=== PATIENT | female | born 1940 | race Caucasian/White ===

== ENCOUNTER 2021-02-03 10:39 | Outpatient (CLI) | payer MEDICARE, SELFPAY ==
[2021-02-03 12:53] LABS: Basophils # 0.1 10^3/uL (0.0-0.1); Basophils % 0.9 %; Eosinophils % 0.5 %; Hematocrit 34.6 % (37.0-47.0); Hemoglobin 10.8 g/dL (11.5-15.3); Lymphocytes # 0.9 10^3/uL (0.8-4.8); Lymphocytes % 14.1 %; Mean Corpuscular HGB Conc 31.2 g/dL (30.0-36.0); Mean Corpuscular Volume 89.6 fl (81-99); Mean Platelet Volume 9.1 fL (7.4-10.4); Monocytes # 0.8 10^3/uL (0.2-0.9); Monocytes % 12.5 %; Neutrophils # 4.53 10^3/uL (1.8-7.7); Neutrophils % 71.5 %; Nucleated Red Blood Cells % 0 %; Platelet Count 400 10^3/cmm (130-400); Red Blood Count 3.86 10^6/uL (4.1-5.3); Red Cell Distribution Width 14.1 % (12.1-15.1); White Blood Count 6.3 10^3/uL (4.0-10.0)
[2021-02-03 13:25] LABS: Alanine Aminotransferase 9 U/L (0-33); Albumin Level 3.5 g/dL (3.5-5.2); Alkaline Phosphatase 100 IU/L (35-105); Anion Gap 15.8 (5-19); Aspartate Amino Transferase 24 U/L (0-32); Blood Urea Nitrogen 13 mg/dL (8-23); CA 125 101.4 U/mL (0-35); CA 15-3 269.4 U/mL (0-25); Calcium 9.3 mg/dL (8.5-10.5); Carbon Dioxide 27 mmol/L (22-29); Chloride 95 mmol/L (98-107); Globulin 4.8 g/dL (1.3-4.6); Glucose 99 mg/dL (65-115); Osmolality Calculated 278 mOsm/kg (285-295); Potassium 3.8 mmol/L (3.5-5.1); Sodium 134 mmol/L (136-145); Thyroid Stimulating Hormone 1.53 uIU/mL (0.27-4.20); Total Bilirubin 0.5 mg/dL (0.15-1.2); Total Protein 8.3 g/dL (6.6-8.7)
--- NOTE | 2021-02-03 20:20 | ONC CON_ITS ---
Dr. Echevarria New Patient Note Patient: Aicha Nath Unit #: [id number]: [id number] Dicatated By: Keyon Echevarria M.D.Date of Visit: Feb 03, 2021 Onc MED New Patient/Consult Referring Physician: Chief Complaint: Metastatic serous adenocarcinoma. 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 On 12/31/2020 she was admitted to [facility] after presenting to the [facility] emergency room with shortness of breath and lower extremity edema. Her initial chest CT scan showed evidence of right lower lobe lung mass and large right pleural effusion. Her repeat chest CT on 01/02/2021 again showed large right pleural effusion and extensive infiltrate in the right lung. A 46 mm mass was noted at the thoracic inlet on the left and a 51 mm mass was noted in the right lower lobe. The right breast appeared somewhat more dense than the left. Her CT abdomen/pelvis on 01/06/2021 again showed large right pleural effusion and right lower lobe lung mass measuring 5.0 x 4.5 cm. A small hypoattenuating lesion in the hepatic segment 6 was too small to characterize. The adrenal glands appeared normal. There was an infiltrative masslike appearance throughout the uterus measuring approximately 12.6 x 7.4 x 11.3 cm and there was diffuse endometrial calcification with infiltrative mass within the endometrial canal. There was masslike thickening of the cervix with adjacent pelvic sidewall lymphadenopathy. There was noted to be loss of the fat plane between the uterine mass and the sigmoid colon. There were complex ventral abdominal wall hernias containing loops of nonobstructed bowel. There were multiple prominent mesenteric lymph nodes and enlarged retroperitoneal lymph nodes as well as bilateral inguinal lymphadenopathy. MRI of the brain showed no evidence of metastatic disease. During her hospitalization she underwent thoracentesis on 2 occasions with negative pleural fluid cytology. Needle biopsy of the right lung mass on 01/09/2021 showed metastatic serous adenocarcinoma favoring uterine primary. By IHC the tumor cells were positive for CK7, PAX8, p16, and WT-1. They were negative for CK20, p53, TTF-1, and CDX2. She is seen for further management. She says her energy is very low, and she has very limited activity. She basically is just getting from the bedroom to the couch. ECOG score is 3. Her appetite and oral intake are poor. She has had a weight loss in the range of 30 pounds despite having lower extremity edema. She does not have fever or night sweats. She complains that she feels cold all the time. She has shortness of breath and cough, that is starting to get worse again. She does not complain of chest pain. She has not been having nausea, but she does have some mild constipation and she is having pain in the lower abdominal area. Bladder function has been okay. She has no significant joint or bone pain. She does not complain of headache or dizziness. She has no numbness/paresthesia or other focal neurologic symptoms, but she does complain that she is quivery. Past Medical History: She has had seasonal allergies. She has no other prior medical illnesses. Past Surgical History: Her prior surgeries includes cholecystectomy and tonsillectomy. Medications: Adult Aspirin Regimen 1 Tablet (of 81 mg) Tablet, enteric coated Oral daily, Furosemide 1 Tablet (of 20 mg) Oral daily Allergies: No Known Allergies. Social History: Ms. Nath is . She is a non-smoker. She does not drink alcohol. Family History: Father of rectal cancer age 54. Mother at age 76 with a smoking-related oral cancer. Two brothers are still living. Her maternal grandmother had diabetes. Review Of Symptoms: Constitutional - Her energy is very low, and she has very limited activity. Appetite and oral intake are poor. She has had weight loss in the range of 30 pounds despite having developed significant swelling. She does not have fever, night sweats, or hot flashes. ECOG score is 3, Eyes - She has had some decline in vision associated with cataracts, ENMT - She has tinnitus, but no hearing loss. No sinus congestion/drainage. She has dry mouth. No sore throat or difficulty swallowing, Hematologic/Lymphatic - No abnormal bruising or bleeding, Respiratory - She has shortness of breath and cough. No pleuritic pain or hemoptysis, Cardiovascular - No angina pain. No palpitations, Gastrointestinal - No nausea or vomiting. No heartburn or acid reflux. She has mild constipation and she has pain in the lower abdominal area. No blood in the stool or black stools, Genitourinary (F) - No dysuria or hematuria. No urinary frequency. No urgency or incontinence, Musculoskeletal - No significant joint or bone pain, Integumentary - No skin rash or other skin changes, Neurologic - No headache or dizziness. She has no numbness/paresthesia, but she does complain that she is quivery, Psychiatric - No anxiety or depression. No insomnia. Vital Signs: Performed on Feb 03, 2021 11:41: 7, 0, 40.13 (HIGH), 2.09 sq.m, 64 in, 95 % (LOW), 105 /min (HIGH), 18 /min, 158/80 mm(hg) (HIGH), 97.5 F (LOW), and 233.8 lbs (HIGH). Physical Examination: Constitutional - She appears generally weak, Eyes - Sclerae nonicteric. Conjunctivae clear, ENMT - No lesions noted in the oral cavity, Neck - No mass or thyromegaly, Hematologic/Lymphatic - No cervical adenopathy. There is a palpable node in the left supraclavicular fossa which measures in the range of 3 cm, Respiratory - Lungs show diminished air movement and dullness on the right. The left lung sounds clear, Cardiovascular - Heart rhythm is regular. There is no murmur, gallop, or rub noted, Breasts - There is large mass occupying the lateral aspect of the right breast. The left pressure shows no mass. There is no axillary adenopathy noted, Abdomen - Moderately distended. Liver and spleen are not enlarged. There is a large mass palpable in the mid abdomen below the umbilicus. There is no obvious ascites. There is no inguinal adenopathy noted, Back/Spine - No spine or CVA tenderness noted, Extremities - There is 2+ lower extremity edema, Integumentary - No rashes. No suspicious skin lesions noted, Neurologic - No focal neurologic deficits noted. Problem List: 1. 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 Overall, the clinical and pathologic findings are most consistent with uterine primary malignancy. She has multiple sites of metastatic involvement. 2. She has associated right pleural effusion which likely is recurring. 3. She has seasonal allergies. Problems Addressed with this Encounter and Plan: Patient with metastatic serous adenocarcinoma. The CT findings and the pathology are most consistent with uterine primary malignancy. She has associated right pleural effusion, which appears to be recurring, and she has multiple other sites of metastatic involvement. She has had a significant decline in her performance status. The CT findings and images were reviewed with the patient. I also discussed the pathology results and the clinical implications. She has advanced malignancy, most likely metastatic serous adenocarcinoma of the endometrium. She may potentially benefit with systemic therapy, but specific treatment recommendations will depend on additional pathologic studies. I have spoken with the pathologist in [place], and he is going to see if there is sufficient sample available for HER-2/wendy testing. It appears unlikely that they will be able to get next generation sequencing or MSI studies, in which case we may have to use liquid biopsy or obtain additional tissue for analysis. In the meantime, I will check additional laboratory studies today to include CBC, comprehensive metabolic profile, CA-125 level, and CA 15-3 level. I also will repeat a chest x-ray and if she has reaccumulated significant pleural effusion, I will arrange for placement of a pleural catheter. Signed By: Keyon Echevarria M.D. <<Signature on File>>
== END 2021-02-03 10:40 | disposition home or self-care (01) ==
LOC: ONCMED 10:43
PROVIDERS: Visit Provider Internal Medicine Medical Oncology
DX: C54.1 Malignant neoplasm of endometrium (principal); C78.01 Secondary malignant neoplasm of right lung; J90 Pleural effusion, not elsewhere classified; J30.9 Allergic rhinitis, unspecified; R06.02 Shortness of breath; J98.11 Atelectasis; R97.8 Other abnormal tumor markers; Z79.899 Other long term (current) drug therapy
CPT/HCPCS: 36415; 71046; 80053; 84443; 85025; 86300; 86304; 90471; 90670; 90686; 99205

== ENCOUNTER 2021-02-03 13:38 | Outpatient (CLI) | payer MEDICARE, SELFPAY ==
--- NOTE | 2021-02-03 13:45 | XR_ITS ---
WS: [id number] Exam: XR chest 2V* [id number] Date/Time of Exam: 02/03/2021 1:50 PM Reason For Exam: SHORTNESS OF BREATH Comparison 01/10/2021. There is atelectasis of the middle and lower lobes of the right lung with minimal improvement since p revious study. Right basal pleural effusion is noted. The left lung is clear and fully expanded. Norm al cardiomediastinal silhouette. Bony structures are intact. XR/XR chest 2V* [id number] IMPRESSION: 1. Atelectasis of the middle and lower lobes the right lung slightly improved. Right pleural effusion noted.
== END 2021-02-03 13:39 | disposition home or self-care (01) ==
LOC: RAD 13:41
PROVIDERS: Visit Provider Internal Medicine Medical Oncology
DX: R06.02 Shortness of breath (principal); J98.11 Atelectasis; J90 Pleural effusion, not elsewhere classified
CPT/HCPCS: 71046

== ENCOUNTER → 2021-02-05 10:19 | Outpatient (BNVA) | payer MEDICARE, SELFPAY | PROVIDERS: Visit Provider Internal Medicine Medical Oncology | DX: Z01.818 Encounter for other preprocedural examination (principal); Z20.822 Contact with and (suspected) exposure to COVID-19 | CPT/HCPCS: 87635 ==

== ENCOUNTER 2021-02-09 06:55 | Day surgery (SDC) | payer MEDICARE, SELFPAY ==
[2021-02-06 11:19] VITALS: BMI 39.4
[2021-02-09] VITALS (8 sets, daily range): BP systolic 117–159; BP diastolic 76–93; PULSE 84–91; RESP 16–30; TEMP 36.6–36.9; O2SAT 91–94
--- NOTE | 2021-02-09 | SCC_ITS ---
Procedure Done: Right pleural drain placement 25.0 seconds of fluoroscopic guidance, for a cumulative dose of 6.37 mGy, was provided to Dr. Casas by the radiology department. C-arm images of the chest were saved for the patient's permanent record. [facility]
--- NOTE | 2021-02-09 06:48 | SC_ITS ---
WS: [id number] INTRAOPERATIVE TECHNIQUE: 2 Spot fluoroscopic images for intraoperative purposes. FLUOROSCOPY TIME: 25.0 seconds CLINICAL INFORMATION: juan drain placement COMPARISON: None. FINDINGS: Juan drain placement right lower lobe. SC/C-arm FL for Drainage [id number] IMPRESSION: Images obtained for intraoperative purposes.
[2021-02-09] MEDS: sodium chloride 0.9% 1,000 ML 30 ML IV (07:34)
[2021-02-09 07:45] LABS: Basophils # 0.1 10^3/uL (0.0-0.1); Basophils % 0.9 %; Eosinophils % 0.7 %; Hematocrit 35.2 % (37.0-47.0); Hemoglobin 10.8 g/dL (11.5-15.3); Lymphocytes # 0.9 10^3/uL (0.8-4.8); Lymphocytes % 16.1 %; Mean Corpuscular HGB Conc 30.7 g/dL (30.0-36.0); Mean Corpuscular Hemoglobin 27.4 pg (28.0-34.0); Mean Corpuscular Volume 89.3 fl (81-99); Mean Platelet Volume 9.6 fL (7.4-10.4); Monocytes # 0.8 10^3/uL (0.2-0.9); Monocytes % 13.7 %; Neutrophils # 3.98 10^3/uL (1.8-7.7); Neutrophils % 68.1 %; Nucleated Red Blood Cells % 0 %; Platelet Count 433 10^3/cmm (130-400); Red Blood Count 3.94 10^6/uL (4.1-5.3); Red Cell Distribution Width 14.5 % (12.1-15.1); White Blood Count 5.8 10^3/uL (4.0-10.0)
--- NOTE | 2021-02-09 07:47 | ANES.PREANE2 ---
Pre-Anesthetic Assessment Pre-Anesthetic Assessment: Height/Weight: Height 1.63 m Weight 104.326 kg Preop Diagnosis: Right pleural effusion Proposed Procedure: Operation Date: 02/09/21 08:30 Proposed Procedures p Juan Pleural Catheter Insertion(Not Applicable) - Glenroy Casas MD Familial anesthetic complications: None Was Beta Sarah taken within 24 hours: N/A Was Clonidine taken within 24 hours: N/A Last intake: Intake Last Liquid Date 02/08/21 Last Liquid Time 18:00 Last Solid Date 02/08/21 Last Solid Time 18:00 Social: Social History: No alcohol and No tobacco Exam: Pre-Anes Outpt Exam: alert, oriented x 3, clear to auscultation bilaterally and regular rate & rhythm Airway: MP: 1 Dentition: Partials Pulmonary: Comments: Pleural effusion (metastatic cancer) Anesthetic Plan: ASA status: 4 Anesthesia: MAC Risk of > 500 ml blood loss (7ml/kg in children): No Meds/Allergies Current Medications: Current Medications Generic Name Dose Route Start Last Admin Trade Name Freq PRN Reason Stop Dose Admin Sodium Chloride 1,000 mls @ 30 ml s/hr 02/09/21 07:30 02/09/21 07:34 Sodium Chloride 0.9% IV 30 mls/hr .Q24H CHANTELLE Administration PFSH Anesthesia PFSH: Social History (Updated 02/06/21 @ 11:15 by Sandra Carrasco) Smoking and tobacco status: never smoked Alcohol intake: never Data Anesthesia CBC & Chem 7: 02/09/21 07:25 02/09/21 07:25 Other Labs: Laboratory Results - last 48 hr 02/09/21 07:25 WBC 5.8 RBC 3.94 L Hgb 10.8 L Hct 35.2 L MCV 89.3 MCH 27.4 L MCHC 30.7 RDW 14.5 Plt Count 433 H MPV 9.6 Neut % (Auto) 68.1 Lymph % (Auto) 16.1 [place] % (Auto) 13.7 Eos % (Auto) 0.7 Baso % (Auto) 0.9 Neut # (Auto) 3.98 Lymph # (Auto) 0.9 [place] # (Auto) 0.8 Eos # (Auto) 0.0 Baso # (Auto) 0.1 Nucleated RBC % (auto) 0 Nucleated RBCs # 0.0 Cardiac Studies: No Data to Display
[2021-02-09 08:03] LABS: Blood Urea Nitrogen 11 mg/dL (8-23); Calcium 9.4 mg/dL (8.5-10.5); Carbon Dioxide 26 mmol/L (22-29); Chloride 93 mmol/L (98-107); Glucose 99 mg/dL (65-115); Osmolality Calculated 273 mOsm/kg (285-295); Sodium 132 mmol/L (136-145)
--- NOTE | 2021-02-09 08:03 | P.HPUD_ITS ---
Surgery/Procedure H&P Update DATE OF PROCEDURE: February 09, 2021 DATE H&P PERFORMED: 02/03/21 H&P UPDATE INFORMATION: I have reviewed H&P completed within last 30 days, I have examined patient prior to procedure and No changes to prior documentation PREOP DIAGNOSIS: Right pleural effusion PLANNED PROCEDURE: Operation Date: 02/09/21 08:30 Proposed Procedures p [place] Pleural Catheter Insertion(Not Applicable) - Glenroy Casas MD
[2021-02-09 08:07] LABS: Anion Gap 17.4 (5-19); Potassium 4.4 mmol/L (3.5-5.1)
--- NOTE | 2021-02-09 09:00 | PM.OP ---
Operative Report Date of procedure: February 09, 2021 Pre-op Diagnosis: Right pleural effusion Post-op diagnosis: same Procedure Done: Right pleural drain placement Specimens removed/disposition: 100 cc of serosanguineous pleural fluid Pathology: none sent Surgeon: Glenroy Casas Anesthesia: MAC and Local Condition: stable Disposition: same day Brief History: 80-year-old female with malignant right pleural effusion is required 2 prior thoracenteses. She is currently undergoing evaluations and treatment plans through oncology and Dr. Echevarria. Pleural drain placement has been requested to assist with management of this recurrent pleural effusion. Details the risk of the procedure were carefully and frankly discussed. Proper consents have been reviewed and signed. Procedure: The entire right chest was sterilely prepped and draped. 1% lidocaine was infiltrated in the posterior axillary line approximately at the seventh interspace level. Introducer needle was then placed with return of nazanin-colored pleural fluid. Fluoroscopy was subsequently utilized throughout the procedure for guidewire and dilator advancement and subsequent introducer positioning and [place] catheter drain placement. Lidocaine was utilized to infiltrate the subcutaneous layer continuing anteriorly. A #11 scalpel blade was used to incise the skin on the guidewire and also anteriorly. Tunneler was utilized to pass the drain anteriorly to posteriorly in the subcutaneous fashion. Dilators were then placed over the guidewire to dilate the tract into the pleural space. Dilator and tear away sheath was then placed. Dilator was removed and pleural drain was placed to the tear-away sheath and the tear-away sheath was then removed. Drain was easily aspirated of approximately 100 cc of serosanguineous pleural fluid. Once completed, the incisions were closed with 3-0 Vicryl suture. A silk suture was utilized to secure the drain to the skin. Patient tolerated procedure well. Sterile dressings were applied. Ms. Nath was taken to the PACU where a chest x-ray is pending. I did treatment counselor with the family at the completion of the procedure.
--- NOTE | 2021-02-09 09:21 | XRR_ITS ---
PROCEDURE INFORMATION: Exam: XR Chest Exam date and time: 02/09/2021 9:21 AM Age: 80 years old Clinical indication: Device placement; Other: Demver drain placement; Prior surgery; Surgery date: Post-operative (0-2 days); Additional info: Post sandeep drain placement, x ray in pacu TECHNIQUE: Imaging protocol: XR of the chest. Views: 1 view. Total images: 1 COMPARISON: CR XR chest 2V* [id number] 02/03/2021 1:52 PM FINDINGS: Tubes, catheters and devices: Small bore chest tube felt to be present in the inferior pleural space on the right. Lungs: Stable right pleuroparenchymal disease. Pleural spaces: No pneumothorax. Heart/Mediastinum: Heart size is stable when compared to the prior exam. Bones/joints: Osseous structures are unchanged from the prior exam. XR/XR chest 1V portable [id number] IMPRESSION: 1. Small bore chest tube felt to be present in the inferior pleural space on the right. 2. Stable right pleuroparenchymal disease. Radiation Dose CTDIVOL = (mGy): DLP = (mGy-cm)
--- NOTE | 2021-02-09 09:21 | SUR.PHASEI ---
X RAY ORDERED BY OR NURSE, PT AWAKE ALERT SATS 93% ON RA. VSS. RESP 24 NON LABORED.
[2021-02-09] MEDS: HYDROcodone-acetaminophen 5-325 mg Tablet 1 TAB PO (09:36)
--- NOTE | 2021-02-09 18:53 | ANE.PACU2 ---
Inpatient post-anesthesia follow up: Airway intact: Yes Vital signs: Temperature 97.9 F Pulse Rate 90 Respiratory Rate 18 Blood Pressure 159/91 Pulse Oximetry 93 Oxygen Delivery Me thod Room Air Oxygen Flow Rate Fraction of Inspir ed Oxygen Hydration adequate: Yes Nausea and vomiting: No Pain level: 2 Mental status: Baseline
== END 2021-02-09 10:04 | disposition home or self-care (01) ==
PROVIDERS: Visit Provider Thoracic Surgery (Cardiothoracic Vascular Surgery)
PROC: 0W9830Z Drainage of Chest Wall with Drainage Device, Percutaneous Approach (ICD-10-PCS; CPT 32550; principal; 2021-02-09 08:30)
DX: J90 Pleural effusion, not elsewhere classified (principal); C78.01 Secondary malignant neoplasm of right lung; Z90.49 Acquired absence of other specified parts of digestive tract
CPT/HCPCS: 32550; 36415; 71045; 75989; 80048; 85025; C1729; J0690; J2250; J2405; J2704; J7030

== ENCOUNTER → 2021-02-13 14:19 | Day surgery (SDC) | payer MEDICARE, SELFPAY ==
[2021-02-13 14:49] VITALS: BMI 39.4
[2021-02-13 14:56] VITALS: BP 147/79; PULSE 98; RESP 18; TEMP 36.1; O2SAT 97
== END ==
PROVIDERS: PCP Nurse Practitioner Family; Visit Provider Thoracic Surgery (Cardiothoracic Vascular Surgery)
DX: Z48.03 Encounter for change or removal of drains (principal); Z01.812 Encounter for preprocedural laboratory examination; Z20.822 Contact with and (suspected) exposure to COVID-19
CPT/HCPCS: 87635; J0171; J2704

== ENCOUNTER 2021-02-15 09:23 | Emergency (ER) | payer MEDICARE, SELFPAY ==
[2021-02-15 09:37] VITALS: BP 127/73; PULSE 99; RESP 20; TEMP 36.6; O2SAT 93; BMI 39.4
--- NOTE | 2021-02-15 09:41 | ED_ITS ---
HPI - GI Bleed General: Chief complaint: GI Bleed Stated complaint: BLOOD IN STOOL Time Seen by Provider: 02/15/21 09:41 Source: patient and family Mode of arrival: ambulatory History of Present Illness: HPI Narrative: 80-year-old female presents to emergency department chief complaint of dark tarry stools that been ongoing progressively worse the last for 5 days. Patient reports that she has been recently diagnosed with metastatic cancer reports that she is just undergone a recent procedure including a thoracentesis for therapeutic draining on her chest. 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 Patient presents to the ER if she had a persistent continued dark stools. She reports that she is concerned with blood mixed in. She did report when she was first diagnosed in [facility] she was transported and transferred to [facility] in [facility] where she was also found to have a questionable tumor in her stomach or intestines. The patient reports he is unaware of the outcome of these procedures and imaging. She reports that she has had at a moderate anorexia with appetite reduction and mild heartburn related symptoms reports no other associated symptoms. complaint: coffee ground emesis, blood on toilet paper, melena and blood streaked stool Onset (ago): day(s) (4) Pain Consistency: intermittent and colicky Severity: similar to previous episodes Relieving factors: none Exacerbating factors: eating Associated symptoms: Reports malaise and poor appetite; Denies abdominal pain, headache(s), nausea, rash or vomiting Treatments Prior to Arrival: none Review of Systems General: Reports: 10 or more systems reviewed and unremarkable except in HPI and below Const: Reports: malaise Eyes: Denies: change in vision or blurry vision Card: Denies: chest pain or palpitations Resp: Denies: dyspnea or productive cough GI: Reports: diarrhea, hematochezia, melena and mucus in stool; Denies: abdominal pain, nausea or vomiting : Denies: flank pain Musc: Denies: extremity pain or extremity swelling Skin/Breast: Denies: rash or pruritus Neuro: Denies: headache(s) Psych: Denies: anxiety or depression Grzegorz/Lymph: Denies: easy bleeding All/Imm: Denies: urticaria, throat swelling or facial swelling PFSH ED PFSH: Social History Smoking and tobacco status: never smoked Alcohol intake: never Physical Exam Const: COMMON NORMALS: no acute distress (Patient appears to have a flat affect her appears and obviously distressed.), patient oriented x3 and healthy appearing HENMT: COMMON NORMALS: normocephalic and atraumatic HEAD & SCALP: normocephalic and atraumatic Eye: COMMON NORMALS: Equal, round and reactive pupils present and EOMs intact bilaterally PUPIL: Yes Equal, round and reactive pupils present Neck/C-Spine: COMMON NORMALS: full ROM, supple and no JVD Lymph: LYMPHATIC: no lymphadenopathy noted Chest: COMMONS NORMALS: normal inspection of the chest and normal palpation of entire chest wall Resp: COMMON NORMALS: normal respiratory effort, No retractions and clear to auscultation bilaterally EFFORT & INSPECTION: Yes able to speak in complete sentences and Yes symmetric chest movement AUSCULTATION: clear to auscultation bilaterally Cardio: COMMON NORMALS: no JVD, regular rate and regular rhythm RATE: regular rate RHYTHM: regular rhythm GI: COMMON NORMALS: Normal to inspection, nondistended, normoactive bowel sounds present, Soft to palpation and non-tender; negative for no masses (What appears to be a ventral mass noted upper abdomen approxi-4 to 5 cm sri) INSPECTION: Yes normal to inspection, No caput medusae present and No Fluid wave present AUSCULTATION: Yes normoactive bowel sounds PALPATION: Yes Soft to palpation, No Tenderness to palpation present (GI), No Guarding due to palpation present (GI), No Rigid due to palpation and Yes Palpable mass present PERCUSSION: no fluid wave : COMMON NORMALS: Yes no CVA tenderness BLADDER/KIDNEY EXAM: Yes no CVA tenderness Back/Pelvis: COMMON NORMALS: no CVA tenderness Extremity: COMMON NORMALS: normal to inspection and full ROM Neuro: COMMON NORMALS: patient oriented x3, CN's II-XII intact bilaterally, moves all extremities and no focal motor deficits Psych: COMMON NORMALS: mental status grossly normal, Normal thought process present, cooperative and normal affect THOUGHT PROCESS: Normal thought process present Skin: COMMON NORMALS: no rashes or lesions noted GENERAL SKIN EXAM: no rashes or lesions noted Course Vital Signs: Vital signs: Vital Signs Temperature 97.9 F 02/15/21 09:37 Pulse Rate 99 02/15/21 09:37 Respiratory Rate 20 H 02/15/21 09:37 Blood Pressure 127/73 02/15/21 09:37 Pulse Oximetry 93 02/15/21 09:37 MDM - GI Bleed MDM Narrative: Medical decision making narrative: Due to the patient's symptoms condition IV will be established lab work imaging will be obtained we will continue to follow after initial work-up patient made mention to the staff that she is adamant about not. Provided any blood transfusions as it goes against her belief system staff acknowledges. Patient's hemoglobin looks relatively stable and her lab work also came back unremarkable patient wanted report of reports and checked her daughter of prior the patient is more upper GI bleed. He is to be stable at this time most likely secondary to gastritis advised patient his findings and dark coating her uterine mass and also intraperitoneal small masses that were noted there previously with underlying concerns of been metastatic adenocarcinoma patient be started on some medication for stomach advised she further follow-up with her oncologist next 2 to 3 days which was advised return the interim if any of her symptoms persist or worse. Lab Data: Labs: Lab Results 02/15/21 02/15/21 Unknown Unknown WBC 5.9 10^3/uL 10^3/ uL (4.0-10.0) RBC 3.66 10^6/uL L 10 ^6/uL (4.1-5.3) Hgb 10.0 g/dL L g/dL (11.5-15.3) Hct 32.5 % L % (37.0-47.0) MCV 88.8 fl fl (81-99) MCH 27.3 pg L pg (28.0-34.0) MCHC 30.8 g/dL g/dL (30.0-36.0) RDW 14.7 % % (12.1-15.1) Plt Count 374 10^3/cmm 10^3 /cmm (130-400) MPV 9.6 fL fL (7.4-10.4) Neut % (Auto) 74.5 % % Lymph % (Auto) 10.4 % % [place] % (Auto) 13.7 % % Eos % (Auto) 0.2 % % Baso % (Auto) 0.9 % % Neut # (Auto) 4.36 10^3/uL 10^3 /uL (1.8-7.7) Lymph # (Auto) 0.6 10^3/uL L 10^ 3/uL (0.8-4.8) [place]manuel # (Auto) 0.8 10^3/uL 10^3/ uL (0.2-0.9) Eos # (Auto) 0.0 10^3/uL 10^3/ uL (0.0-0.8) Baso # (Auto) 0.1 10^3/uL 10^3/ uL (0.0-0.1) Nucleated RBC % (a uto) 0 % % Nucleated RBCs # 0.0 /100WBC /100W BC Sodium 133 mmol/L L mmol /L (136-145) Potassium 4.4 mmol/L mmol/L (3.5-5.1) Chloride 95 mmol/L L mmol/ L (98-107) Carbon Dioxide 24 mmol/L mmol/L (22-29) Anion Gap 18.4 (5-19) BUN 13 mg/dL mg/dL (8-23) Creatinine 0.8 mg/dL mg/dL (0.5-0.9) GFR Calculation Not Reportable Glucose 96 mg/dL mg/dL (65-115) Calculated Osmolal ity 276 mOsm/kg L mOs m/kg (285-295) Calcium 9.0 mg/dL mg/dL (8.5-10.5) Total Bilirubin 0.5 mg/dL mg/dL (0.15-1.2) AST 28 U/L U/L (0-32) ALT 7 U/L U/L (0-33) Alkaline Phosphata se 100 IU/L IU/L (35-105) Total Protein 7.9 g/dL g/dL (6.6-8.7) Albumin 3.2 g/dL L g/dL (3.5-5.2) Globulin 4.7 g/dL H g/dL (1.3-4.6) Discharge Plan Discharge Patient Disposition: Home Clinical Impression: Metastatic adenocarcinoma, Blood in feces Condition: Stable Prescriptions: New Carafate 1 gram tablet 1 g PO TID Qty: 21 RF: 0 Zofran 4 mg tablet 4 mg PO TID PRN (Reason: nausea and vomiting) Qty: 15 RF: 0 Protonix 40 mg tablet,delayed release (DR/EC) 40 mg PO QAM 14 Days Qty: 14 RF: 0 No Action furosemide 20 mg Tablet 20 mg PO DAILY RF: 0 Discharge Orders: Discharge ED (Routine); Ordered 02/15/21 Ordered By: Xavi Muller Referrals: Corin De La Rosa NP [Primary Care Provider] - Discharge Diet: Advance as tolerated Discharge Activity: Increase activity as tolerated Patient Instructions: Gastritis (ED), Gastrointestinal Bleeding (ED), Opioid Safety Activity Restrictions/Additional Instructions: Please follow-up with your primary care doctor or oncologist next 2 to 3 days, take medications as prescribed and return the interim if any of her symptoms persist or worse. Coding Level of Care Code ED Battery Assembler for Aditya Fwd Exam Comprehensive
--- NOTE | 2021-02-15 10:36 | CTR_ITS ---
PROCEDURE INFORMATION: Exam: CT Abdomen And Pelvis With Contrast Exam date and time: 02/15/2021 10:36 AM Age: 80 years old Clinical indication: Other: Bloody stool; Additional info: Gi bleed TECHNIQUE: Imaging protocol: Computed tomography of the abdomen and pelvis with contrast. Total images: 251 Radiation optimization: All CT scans at this facility use at least one of these dose optimization techniques: automated exposure control; mA and/or kV adjustment per patient size (includes targeted exams where dose is matched to clinical indication); or iterative reconstruction. Contrast material: VISI 320; Contrast volume: 90 ml; Contrast route: INTRAVENOUS (IV); COMPARISON: CT abdomen pelvis w con* [id number] 01/06/2021 3:40 PM RADIATION DOSE METRICS: Total DLP (mGy-cm): 1644.25 FINDINGS: Tubes, catheters and devices: Small bore right pleural drain. Lungs: Consolidation of a large portion of the right lower lobe consistent with atelectasis irregular enhancing mass posterior medially within the pleural space appears essentially unchanged in size. This is partially extending into the right neural foramina of T11. Compressive atelectasis of the left lung base. Pleural spaces: Small left pleural effusion. Diaphragm: A small hiatal hernia is present. Liver: 2 cm hypoattenuated lesion along the anterior margin of the left lobe of the liver has slightly increased in size since the prior exam. No additional liver lesions detected. Gallbladder and bile ducts: Prior cholecystectomy noted. Pancreas: Normal. No ductal dilation. Spleen: Normal. No splenomegaly. Adrenal glands: Normal. No mass. Kidneys and ureters: Moderate hydroureteronephrosis of the right kidney with delayed nephrogram unchanged. Stomach and bowel: No evidence of active GI bleed. Appendix: No evidence of appendicitis. Intraperitoneal space: See Soft tissues finding. Vasculature: Moderate atherosclerotic disease is evident. Lymph nodes: Unremarkable. No enlarged lymph nodes. Urinary bladder: Unremarkable as visualized. Reproductive: Enlarged uterus with fluid distended uterine cavity with endometrial hyperdensity felt to represent calcifications unchanged from prior exam. Irregular lobulated mass seen at the uterine cervix and vagina also appears unchanged. Bones/joints: Spinal degenerative changes are evident. Soft tissues: Moderate right pleural fluid collection with thickened rind of soft tissue of parietal pleura. This rind of soft tissue has increased since the prior exam suggesting developing fibrothorax. Umbilical hernia contains small portion of colon but is without obstruction or inflammation. Additional soft tissue heterogeneous mass in this area appears unchanged from the prior exam. Subjacent anterior peritoneal mass also appears unchanged Impression. CT/CT abdomen pelvis w con* [id number] IMPRESSION: 1. Small bore right pleural drain. 2. Moderate right pleural fluid collection with thickened rind of soft tissue of parietal pleura. This rind of soft tissue has increased since the prior exam suggesting developing fibrothorax. 3. Consolidation of a large portion of the right lower lobe consistent with atelectasis irregular enhancing mass posterior medially within the pleural space appears essentially unchanged in size. This is partially extending into the right neural foramina of T11. 4. Small left pleural effusion with compressive atelectasis. 5. 2 cm hypoattenuated lesion along the anterior margin of the left lobe of the liver has slightly increased in size since the prior exam. 6. Moderate hydroureteronephrosis of the right kidney with delayed nephrogram unchanged. 7. Enlarged uterus with fluid distended uterine cavity with endometrial hyperdensity felt to represent calcifications unchanged from prior exam. Irregular lobulated mass seen at the uterine cervix and vagina also appears unchanged. 8. No evidence of active GI bleed. Radiation Dose CTDIVOL = (mGy): DLP = 1644.25 (mGy-cm)
[2021-02-15 10:54] LABS: Basophils # 0.1 10^3/uL (0.0-0.1); Basophils % 0.9 %; Eosinophils % 0.2 %; Hematocrit 32.5 % (37.0-47.0); Lymphocytes # 0.6 10^3/uL (0.8-4.8); Lymphocytes % 10.4 %; Mean Corpuscular HGB Conc 30.8 g/dL (30.0-36.0); Mean Corpuscular Hemoglobin 27.3 pg (28.0-34.0); Mean Corpuscular Volume 88.8 fl (81-99); Mean Platelet Volume 9.6 fL (7.4-10.4); Monocytes # 0.8 10^3/uL (0.2-0.9); Monocytes % 13.7 %; Neutrophils # 4.36 10^3/uL (1.8-7.7); Neutrophils % 74.5 %; Nucleated Red Blood Cells % 0 %; Platelet Count 374 10^3/cmm (130-400); Red Blood Count 3.66 10^6/uL (4.1-5.3); Red Cell Distribution Width 14.7 % (12.1-15.1); White Blood Count 5.9 10^3/uL (4.0-10.0)
[2021-02-15 11:13] LABS: Alanine Aminotransferase 7 U/L (0-33); Albumin Level 3.2 g/dL (3.5-5.2); Alkaline Phosphatase 100 IU/L (35-105); Aspartate Amino Transferase 28 U/L (0-32); Blood Urea Nitrogen 13 mg/dL (8-23); Carbon Dioxide 24 mmol/L (22-29); Chloride 95 mmol/L (98-107); Globulin 4.7 g/dL (1.3-4.6); Glucose 96 mg/dL (65-115); Osmolality Calculated 276 mOsm/kg (285-295); Sodium 133 mmol/L (136-145); Total Bilirubin 0.5 mg/dL (0.15-1.2); Total Protein 7.9 g/dL (6.6-8.7)
[2021-02-15 11:34] LABS: Anion Gap 18.4 (5-19); Potassium 4.4 mmol/L (3.5-5.1)
[2021-02-15] MEDS: iodixanol 320 mg/mL 100mL Btl IV (12:47)
[2021-02-15] MEDS: pantoprazole 40 mg SDV IVP (15:28)
[2021-02-15] MEDS: ondansetron 2 mg/ML SDV 2 mL 4 MG IVP (15:28)
== END 2021-02-15 16:15 | disposition home or self-care (01) ==
PROVIDERS: Emergency Provider Emergency Medicine; PCP Nurse Practitioner Family
DX: K92.1 Melena (principal); C79.9 Secondary malignant neoplasm of unspecified site; Z85.3 Personal history of malignant neoplasm of breast
CPT/HCPCS: 74177; 80053; 85025; 96374; 96375; 99283; 99291; C9113; J2405; Q9967

== ENCOUNTER 2021-02-17 13:02 | Day surgery (SDC) | payer MEDICARE, SELFPAY ==
[2021-02-13 14:58] VITALS: BMI 39.4
[2021-02-17] VITALS (7 sets, daily range): BP systolic 138–163; BP diastolic 79–99; PULSE 88–98; RESP 18–20; TEMP 36.3–37.6; O2SAT 91–100
--- NOTE | 2021-02-17 | SCC_ITS ---
Procedure Done: 1. Placement of right subclavian vein PowerPort 7.5 seconds of fluoroscopic guidance, for a cumulative dose of 0.79 mGy, was provided to Dr. Mcnulty by the radiology department. C-arm images of the chest were saved for the patient's permanent record. [facility]
--- NOTE | 2021-02-17 13:32 | SC_ITS ---
WS: [id number] C-arm fluoroscopy for Port-A-Cath placement, 02/17/2021 Clinical Data: Powerport Placement Comparison: None. Findings: A right Port-A-Cath has been inserted. There is an endotracheal tube above the arsenio. SC/C-arm FL for CVA [id number] Impression: Right Port-A-Cath insertion.
--- NOTE | 2021-02-17 13:40 | W.PM.OPSUD ---
Surgery/Procedure H&P Update DATE OF PROCEDURE: February 17, 2021 DATE H&P PERFORMED: 02/12/21 H&P UPDATE INFORMATION: I have reviewed H&P completed within last 30 days, I have examined patient prior to procedure and No changes to prior documentation PREOP DIAGNOSIS: Metastatic adenocarcinoma PRIMARY INDICATION FOR PROCEDURE: The same PLANNED PROCEDURE: Operation Date: 02/17/21 14:55 Proposed Procedures p Portacath Placement 76964 C79.9(Not Applicable) - Mark Mcnulty MD
--- NOTE | 2021-02-17 14:02 | ANES.PREANE2 ---
Pre-Anesthetic Assessment Pre-Anesthetic Assessment: Height/Weight: Height 1.63 m Weight 104.326 kg Temp Pulse Resp BP Pulse Ox 97.4 F L 98 18 138/79 93 02/17/21 13:46 02/17/21 13:46 02/17/21 13:46 02/17/21 13:46 02/17/21 13:46 Preop Diagnosis: Metastatic adenocarcinoma Proposed Procedure: Operation Date: 02/17/21 14:55 Proposed Procedures p Portacath Placement 55059 C79.9(Not Applicable) - Mark Mcnulty MD Was Beta Sarah taken within 24 hours: N/A Was Clonidine taken within 24 hours: N/A Social: Social History: No alcohol and No tobacco Exam: Pre-Anes Outpt Exam: alert, oriented x 3, clear to auscultation bilaterally and regular rate & rhythm Airway: Submandibular: WNL Cervical ROM: WNL MP: 3 Dentition: Partials History/ROS: No significant complaints GI: GI: GERD Anesthetic Plan: ASA status: 3 Anesthesia: Anesthesia Evaluation, General and MAC Risk of > 500 ml blood loss (7ml/kg in children): No PFSH Anesthesia PFSH: Social History Smoking and tobacco status: never smoked Alcohol intake: never Data Anesthesia Cardiac Studies: No Data to Display
[2021-02-17] MEDS: sodium chloride 0.9% 1,000 ML 30 ML IV (15:04)
[2021-02-17] MEDS: ceFAZolin 3,000 MG in sodium chloride 0.9% (100 ml) 100 ML 200 MG IV (15:12)
[2021-02-17] MEDS: heparin, porcine 1,000 unit/mL INJ 10 mL 10000 UNIT IRRIGATION (15:20)
[2021-02-17] MEDS: lidocaine 2% INJ 20 mL INJECTION (15:20)
--- NOTE | 2021-02-17 15:26 | P.OP_ITS ---
Operative Report Date of procedure: February 17, 2021 Pre-op Diagnosis: Metastatic adenocarcinoma Post-op diagnosis: same Procedure Done: 1. Placement of right subclavian vein PowerPort 2. Fluoroscopic guidance and interpretation for placement of catheter Implants: Right subclavian PowerPort Surgeon: Mark Mcnulty Supervisor Floor Assembly: sanitation techniciantiara Bragg Circulating nurse Antonietta Anesthesia: General (MOOSEA MEETA Erwin) Estimated blood loss (mL): 5 Condition: stable Disposition: same day Procedure: Patient was identified in the holding area and taken to the operative room and placed in supine position IV propofol was given by the anesthesia provider followed by intubating the patient ,both arms were tucked,Time-out was done verifying the patient's name/date of /planned procedure and destination after the procedure, all were in agreement. SCDs confirmed to be functioning, preoperative antibiotics administered per protocol, and beta cameron protocol was confirmed, appropriate positioning of the patient was done by me. Pressure attention was paid to the right hemithorax Spring drain. Medications were reviewed to assess for anticoagulant usage. Risks and benefits and prevention of central line associated blood stream infection (CLABSI) were discussed with the patient/CPOA, and a consent was obtained. Monitors were in place and monitored throughout the procedure. All necessary supplies were available prior to start. Hand hygiene was completed prior to starting. Maximum barrier technique was utilized including a sterile gown, sterile gloves with a hat and mask. Site was was prepped with [chlorhexidine] and a full body drape was placed. 5 mL of 2% lidocaine was injected into the skin with a 25 gauge needle. Prep& drape was done under the usual sterile technique, lidocaine 2% was injected at the site of the stick, started by right subclavian stick that retrieved venous blood was obtained from the first stick, a guidewire was then threaded and under the guidance of fluoroscopy position was confirmed to be in the IVC and my interpretation, there was no PVC changes, at that point the guidewire was secured to the drapes with a hemostat and the needle was taken out, attention was then deviated towards creation of a pocket for the port were lidocaine 2% was injected using an 15 blade knife skin incision was created dissection using the Bovie to create a pocket for the Port-A-Cath to be accommodated, hemostasis was secured, after the port being appropriately flushed it was inserted into the pocket and a tunneler was used to accommodate the catheter of the PowerPort to be delivered through the incision first created at the site of the stick, at that point under fluoroscopy an estimated length was measured for the catheter and was cut at the designed level, followed by that a dilator with the sheath introduced onto the guidewire the dilator and the wire were retrieved and the catheter of the port was introduced via the sheath where it was peeled off and the catheter maintained to be in the SVC that was confirmed with fluoroscopy, and the fluoroscopy interpretation was done by me throughout the entire procedure. The port was kept in place, 3-0 Vicryl deep subdermal interrupted sutures, skin was then closed by 4-0 Monocryl as subcuticular closure. The port was appropriately flushed with diluted heparin and venous blood was withdrawn without difficulty. The stick site was closed by 4-0 Monocryl and Dermabond was used followed by dressing. Patient tolerated the procedure well was taken to the recovery area Count was correct at the end of the procedure I was present for the whole entire procedure Position of the catheter was checked with a postoperative chest x-ray and it was in good position without evidence of pneumothorax
--- NOTE | 2021-02-17 15:29 | XRR_ITS ---
PROCEDURE INFORMATION: Exam: XR Chest Exam date and time: 02/17/2021 3:29 PM Age: 80 years old Clinical indication: Other vascular access device placement or adjustment; Patient HX: S/P placement of right subclavian vein power port; Additional info: Status post placement of right subclavian vein powerport TECHNIQUE: Imaging protocol: XR of the chest. Views: 1 view. COMPARISON: CR XR chest 1V portable [id number] 02/09/2021 9:20 AM FINDINGS: Tubes, catheters and devices: Right-sided Port-A-Cath seen with tip approaching the atrial caval junction. Right-sided chest tube tip in the inferior thorax. Lungs: Right lower lobe atelectasis versus infiltrate. Pleural spaces: Small to moderate right pleural effusion. Heart/Mediastinum: Cardiomegaly. Bones/joints: Unremarkable. XR/XR chest 1V portable [id number] IMPRESSION: 1. Right-sided Port-A-Cath seen with tip approaching the atrial caval junction. 2. Small to moderate right pleural effusion. 3. Right lower lobe atelectasis versus infiltrate. 4. Right-sided chest tube tip in the inferior thorax. 5. Cardiomegaly. Radiation Dose CTDIVOL = (mGy): DLP = (mGy-cm)
--- NOTE | 2021-02-17 15:47 | SUR.PHASEI ---
X RAY DONE IN PACU PT AWAKE ALERT DENEIS PAIN AND NAUSEA, VSS MONITOR SR, PT UPRIGHT AT 45 DEGREES, NO DISTRESS NOTED SATS 92-93% ON RA.
--- NOTE | 2021-02-17 16:47 | ANE.PACU2 ---
Inpatient post-anesthesia follow up: Airway intact: Yes Vital signs: Temperature 98.0 F Pulse Rate 90 Respiratory Rate 18 Blood Pressure 139/93 Pulse Oximetry 98 Oxygen Delivery Me thod Nasal Cannula Oxygen Flow Rate 3 Fraction of Inspir ed Oxygen Hydration adequate: Yes Nausea and vomiting: No Pain level: 1 Mental status: Baseline
== END 2021-02-17 17:20 | disposition home or self-care (01) ==
PROVIDERS: PCP Nurse Practitioner Family; Visit Provider Surgery
PROC: (CPT 36561; principal; 2021-02-17 14:55)
DX: C79.9 Secondary malignant neoplasm of unspecified site (principal)
CPT/HCPCS: 36561; 71045; 76000; 77001; C1788; J0690; J1100; J1644; J2405; J2704; J3010; J3490; J7030

== ENCOUNTER 2021-02-19 09:47 | Inpatient (IN) | payer MEDICARE, SELFPAY ==
[2021-02-19 09:58] VITALS: BP 120/76; PULSE 125; RESP 28; TEMP 36.4; O2SAT 78; BMI 38.6
[2021-02-19 10:11] VITALS: BP 123/78; PULSE 107; RESP 18; O2SAT 94
--- NOTE | 2021-02-19 10:20 | CT_ITS ---
WS: [id number] CTA CHEST WITH CT ABDOMEN AND PELVIS. HISTORY: Short of breath. Recent surgery. TECHNIQUE: CT angiogram is performed through the chest. Additional imaging is performed through the a bdomen and pelvis with IV contrast. Sagittal and coronal reformats have been submitted. MIP imaging also reviewed. All CT scans at [facility] use at least one of these dose optimization techniqu es: automated exposure control; mA and/or kV adjustment per patient size (includes targeted exams whe re dose is matched to clinical indication); or iterative reconstruction. Contrast: Omnipaque 350; 95 cc IV. DLP: 1887.01 mGy.cm COMPARISON: 02/15/2021 Chest CTA: Good opacification of the pulmonary arteries. There is moderate pulmonary embolic disease noted bilaterally. Emboli begins in the distal lobar arteries. More significant burden within the LEF T upper lower lobes. Normal size pulmonary artery Mild atherosclerosis aorta. Heart size is normal. There is mild RIGHT heart strain which is new since the prior examination. There is extensive pleural thickening throughout the RIGHT thorax. There is a pigtail catheter in the RIGHT pleural effusion with thickening of the pleura. Again noted is a soft tissue mass along the in ferior medial RIGHT thorax measuring 3.0 x 5.2 cm which was recently biopsied. Adjacent pleural thick ening. Partial atelectasis of the RIGHT lower lobe. Interstitial reticular nodular inflammation in th e LEFT lower lobe and a small associated effusion. There is a large cluster of lymph nodes in the LEFT supraclavicular region measuring 5.0 x 3.3 cm. Sm all mediastinal and hilar lymph nodes measuring up to 11 mm. Distal RIGHT paraesophageal lymphadenopa thy measuring up to [address]: Prior cholecystectomy. Low-attenuation nodule along the superior LEFT lobe of the liver m easures 1.8 cm. No bile duct dilatation. Prior cholecystectomy. Normal spleen. Atrophic pancreas. No adrenal mass. Mild atherosclerosis aorta. Abnormal RIGHT kidney. Delayed excretion from the RIGHT kidney. Abnormal soft tissue distending the r enal pelvis and ureter. Ureter is markedly dilated and distended into the pelvis. LEFT kidney is nega tive. Retrocrural lymphadenopathy. Largest lymph node on the LEFT at the level of the LEFT kidney measures 2.6 x 1.8 cm. Additional cluster of lymph nodes aortocaval. Herniation of bowel through the anterior abdominal wall with no obstruction. Evaluation of GI tract i s limited without oral contrast. No obstructive pattern. Pelvic CT: Abnormal appearance of the uterus. Uterus is enlarged and fluid-filled endometrial cavity. There is marked thickening of the myometrium and the endocervical region. Similar to the prior study . Suspect neoplastic process. I suspect there are probably lymph nodes within the pelvis which are di fficult to differentiate from the adjacent soft tissues. Urinary bladder is well distended. There may be a soft tissue tumor invading into the rectum. Increase in the lumbar lordosis. Increased thoracic kyphosis. Thoracic and lumbar spondylitic changes . CT/CT angio chest w abd pel w con IMPRESSION: 1. Thoracostomy drain in the RIGHT pleural fluid is unchanged. There is a smal l pleural fluid with pleural diffuse pleural thickening. No change in the previ ously biopsied mass along the medial RIGHT lower thorax. 2. Moderate bilateral pulmonary emboli. 3. Patient has numerous clusters of lymph nodes and mesenteric deposits includ ing the LEFT supraclavicular, mediastinal and hilar, retrocrural, mesenteric an d retroperitoneal and paraesophageal. 4. Possible metastatic disease within the liver. 5. Abnormal RIGHT kidney. Delayed excretion with increased soft tissue distend ing the renal pelvis and ureter. Ureter is probably being obstructed by the BOWSTRING MAKER pelvic mass. Tumor or infectious infiltration within the ureter and renal pelv is is not excluded. 6. Marked enlargement of the uterus fluid distention of the endometrium. Abnor mal endocervical region probably neoplastic. Possible invasion of soft tissue t umor into the rectum.
--- NOTE | 2021-02-19 10:21 | XR_ITS ---
WS: [id number] Portable AP upright chest, 02/19/2021 Clinical Data: sob Comparison: Portable chest, 02/17/2021 Findings: The right Port-A-Cath remains in the same position. There is a small basilar right chest tu be. The right pleural effusion remains the same along with right atelectasis. Left lung is clear. The heart size has diminished. XR/XR chest 1V portable [id number] Impression: 1. No change in right Port-A-Cath and small right basilar chest tube. 2. No change in right pleural effusion and probable right basilar atelectasis a nd/or pneumonia.
--- NOTE | 2021-02-19 10:21 | ECG_ITS ---
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 Measurements Intervals Haigler Rate: 95 P: 61 NM: 169 QRS: 24 QRSD: 88 T: 21 QT: 354 QTc: 447 Interpretive Statements SINUS RHYTHM POSSIBLE LEFT ATRIAL ENLARGEMENT [-0.1mV P-WAVE IN V1/V2] LOW QRS VOLTAGE IN PRECORDIAL LEADS [QRS DEFLECTION < 1.0 mV IN CHEST LEADS] Compared to ECG 02/19/2021 11:22:54 Sinus tachycardia no longer present Myocardial infarct finding no longer present Electronically Signed On 02-19-2021 22:45:31 WOOD GRINDER by Alan An M.D. [id number]
--- NOTE | 2021-02-19 10:23 | ED_ITS ---
HPI - SOB/Dyspnea General: Chief Complaint: Shortness of Breath/Dyspnea Stated Complaint: Difficulty Breathing Time Seen by Provider: 02/19/21 10:10 History of Present Illness: HPI Narrative: 80-year-old female history of metastatic lung cancer and abdominal hernia presents with shortness of breath and abdominal pain. She has a [place] right chest catheter due to recurrent pleural effusions. States she started getting short of breath yesterday. Also states that for the past several days she has had some abdominal pain around her hernia that does not radiate. Hernia is round in the local region. Denies any dysuria. Denies any nausea vomiting diarrhea constipation. Does however report blood in the stool. Denies blood thinners. Denies chest pain. Denies fever cough or chills. Review of Systems Narrative: - CONSTITUTIONAL: Denies weight loss, fever and chills. - HEENT: Denies changes in vision and hearing. - RESPIRATORY: As above - CV: Denies palpitations and CP. - GI: As above - : Denies dysuria and urinary frequency. - MSK: Denies myalgia and joint pain. - SKIN: Denies rash and pruritus. - NEUROLOGICAL: Denies headache, weakness, numbness and syncope. - PSYCHIATRIC: Denies suicidal ideation [facility] ED PFSH: Social History Smoking and tobacco status: never smoked Alcohol intake: never Physical Exam Narrative: EXAM NARRATIVE: - GENERAL: Alert and oriented x 3. No acute distress. Well-nourished. - EYES: EOMI. Anicteric. - HENT: Atraumatic, no C-spine tenderness. Moist mucous membranes. No scleral icterus. No cervical lymphadenopathy. - LUNGS: Clear to auscultation bilaterally. No accessory muscle use. Equal lung sounds bilaterally. No respiratory distress. Right-sided catheter present. No erythema, tenderness, or induration. There is also a right upper chest port without erythema induration or tenderness. - CARDIOVASCULAR: Regular rate and rhythm. No murmur. No JVD. - ABDOMEN: Soft, non-distended. Negative CVA tenderness bilaterally, no rebound or guarding, negative Stewart sign. Periumbilical hernia is present. Minor tenderness to palpation but no skin changes. Unable to reduce with pressure. - EXTREMITIES: No edema. Non-tender. - SKIN: No rashes or lesions. Warm. - NEUROLOGIC: No meningismus or focal neurological deficits. CN II-XII grossly intact. - PSYCHIATRIC: Cooperative. Appropriate mood and affect. Course Vital Signs: Vital signs: Vital Signs Temperature 97.5 F L 02/19/21 09:58 Pulse Rate 107 H 02/19/21 10:11 Respiratory Rate 18 02/19/21 14:04 Blood Pressure 119/68 02/19/21 14:04 Pulse Oximetry 96 02/19/21 14:04 MDM - SOB/Dyspnea MDM Narrative: Medical decision making narrative: 80-year-old female presents for shortness of breath and nominal pain. She has history of lung cancer is likely metastatic and chronically incarcerated abdominal hernia. Abdominal hernia still incarcerated and CT scan does not reveal any signs of obstruction or strangulation. Lactic acid is not elevated. However regarding her shortness of breath she does have new oxygen requirement initially to 4 L but then de- escalate down to 2. CT scan is concerning for bilateral PEs. Troponin is elevated but downtrending. Discussed with cardiology at this time they do not recommend anticoagulation in the face of active GI bleeding and patient has karina GI bleed and positive Hemoccult. They also do not recommend starting aspirin. Otherwise however she is hemodynamically stable afebrile nontoxic- appearing. Remainder of lab work and imaging reviewed. Discussed with hospitalist and they agreed patient would benefit from admission. Patient admitted in stable condition. Further evaluation management per hospitalist team. Lab Data: Labs: Lab Results 02/19/21 02/19/21 02/19/21 10:40 11:45 12:10 WBC 8.0 10^3/uL 10^3/ uL (4.0-10.0) RBC 3.42 10^6/uL L 10 ^6/uL (4.1-5.3) Hgb 9.3 g/dL L g/dL (11.5-15.3) Hct 30.5 % L % (37.0-47.0) MCV 89.2 fl fl (81-99) MCH 27.2 pg L pg (28.0-34.0) MCHC 30.5 g/dL g/dL (30.0-36.0) RDW 14.9 % % (12.1-15.1) Plt Count 333 10^3/cmm 10^3 /cmm (130-400) MPV 9.2 fL fL (7.4-10.4) Neut % (Auto) 84.2 % % Lymph % (Auto) 5.5 % % [place] % (Auto) 9.2 % % Eos % (Auto) 0.1 % % Baso % (Auto) 0.4 % % Neut # (Auto) 6.69 10^3/uL 10^3 /uL (1.8-7.7) Lymph # (Auto) 0.4 10^3/uL L 10^ 3/uL (0.8-4.8) [place] # (Auto) 0.7 10^3/uL 10^3/ uL (0.2-0.9) Eos # (Auto) 0.0 10^3/uL 10^3/ uL (0.0-0.8) Baso # (Auto) 0.0 10^3/uL 10^3/ uL (0.0-0.1) Nucleated RBC % (a uto) 0 % % Nucleated RBCs # 0.0 /100WBC /100W BC PT INR APTT Specimen Type Arterial Sample Site Radial, left ABG pH 7.44 (7.35-7.45) ABG pCO2 37.2 mmHg mmHg (35-45) ABG pO2 76.5 mmHg L mmHg (80.0-100.0) ABG HCO3 25.2 mmol/L mmol/ L (22-26) ABG O2 Saturation 96.4 ABG Base Excess 1.1 mmol/L mmol/L (-2.0-2.0) Bill Test Pos A-a O2 Gradient 17.3 mmHg H mmHg (5-10) Hematocrit 28.6 % L % (37-47) Hgb O2 Saturation 94.8 % L % (95-100) Carboxyhemoglobin 1.0 %THgb %THgb (0.4-20.1) Methemoglobin 0.7 % % (0.4-1.5) Total Hemoglobin 9.3 g/dL L g/dL (12-16) Sodium 134.0 mmol/L mmol /L (131-143) Potassium 4.1 mmol/L mmol/L (3.5-5.0) Glucose 107.0 mg/dL mg/dL (70-115) Ionized Calcium 1.2 mmol/L mmol/L (1.1-1.4) O2 Delivery Device Nc O2 Liters/Min 4.0 % % FiO2 36.0 % % Vice President Research ID Rc Chloride Carbon Dioxide Anion Gap BUN Creatinine GFR Calculation Calculated Osmolal ity Lactate Calcium Total Bilirubin AST ALT Alkaline Phosphata se Troponin T Baselin e Troponin T 120 Min [place] Troponin T NT-Pro-B Natriuret Pep Total Protein Albumin Globulin Lipase Urine Color Urine Appearance Urine pH Ur Specific Gravit y Urine Protein Urine Glucose (UA) Urine Ketones Urine Blood Urine Nitrate Urine Bilirubin Urine Urobilinogen Ur Leukocyte Estefania ase Urine RBC Urine WBC Ur Squamous Epith Cells Amorphous Sediment Urine Bacteria Urine Mucus SARS-CoV-2 Ag (Rap id) Negative (Negative) 02/19/21 02/19/21 02/19/21 12:10 12:10 12:10 WBC RBC Hgb Hct MCV MCH MCHC RDW Plt Count MPV Neut % (Auto) Lymph % (Auto) [place] % (Auto) Eos % (Auto) Baso % (Auto) Neut # (Auto) Lymph # (Auto) [place] # (Auto) Eos # (Auto) Baso # (Auto) Nucleated RBC % (a uto) Nucleated RBCs # PT 15.00 SECONDS H S ECONDS (12.1-14.9) INR 1.14 (0.8-1.2) APTT 34.4 SECONDS SECO NDS (23.9-36.7) Specimen Type Sample Site ABG pH ABG pCO2 ABG pO2 ABG HCO3 ABG O2 Saturation ABG Base Excess Bill Test A-a O2 Gradient Hematocrit Hgb O2 Saturation Carboxyhemoglobin Methemoglobin Total Hemoglobin Sodium 130 mmol/L L mmol /L (136-145) Potassium 4.4 mmol/L mmol/L (3.5-5.1) Glucose 100 mg/dL mg/dL (65-115) Ionized Calcium O2 Delivery Device O2 Liters/Min FiO2 Vice President Research ID Chloride 95 mmol/L L mmol/ L (98-107) Carbon Dioxide 24 mmol/L mmol/L (22-29) Anion Gap 15.4 (5-19) BUN 16 mg/dL mg/dL (8-23) Creatinine 0.9 mg/dL mg/dL (0.5-0.9) GFR Calculation Not Reportable Calculated Osmolal ity 271 mOsm/kg L mOs m/kg (285-295) Lactate 1.5 mmol/L mmol/L (0.5-2.2) Calcium 8.3 mg/dL L mg/dL (8.5-10.5) Total Bilirubin 0.3 mg/dL mg/dL (0.15-1.2) AST 21 U/L U/L (0-32) ALT < 5 U/L U/L (0-33) Alkaline Phosphata se 87 IU/L IU/L (35-105) Troponin T Baselin e Troponin T 120 Min [place] Troponin T NT-Pro-B Natriuret Pep 808 pg/mL H pg/mL (0-450) Total Protein 7.2 g/dL g/dL (6.6-8.7) Albumin 2.9 g/dL L g/dL (3.5-5.2) Globulin 4.3 g/dL g/dL (1.3-4.6) Lipase 15 U/L U/L (13-60) Urine Color Urine Appearance Urine pH Ur Specific Gravit y Urine Protein Urine Glucose (UA) Urine Ketones Urine Blood Urine Nitrate Urine Bilirubin Urine Urobilinogen Ur Leukocyte Estefania ase Urine RBC Urine WBC Ur Squamous Epith Cells Amorphous Sediment Urine Bacteria Urine Mucus SARS-CoV-2 Ag (Rap id) 02/19/21 02/19/21 02/19/21 12:10 13:46 14:40 WBC RBC Hgb Hct MCV MCH MCHC RDW Plt Count MPV Neut % (Auto) Lymph % (Auto) [place] % (Auto) Eos % (Auto) Baso % (Auto) Neut # (Auto) Lymph # (Auto) [place] # (Auto) Eos # (Auto) Baso # (Auto) Nucleated RBC % (a uto) Nucleated RBCs # PT INR APTT Specimen Type Sample Site ABG pH ABG pCO2 ABG pO2 ABG HCO3 ABG O2 Saturation ABG Base Excess Bill Test A-a O2 Gradient Hematocrit Hgb O2 Saturation Carboxyhemoglobin Methemoglobin Total Hemoglobin Sodium Potassium Glucose Ionized Calcium O2 Delivery Device O2 Liters/Min FiO2 Vice President Research ID Chloride Carbon Dioxide Anion Gap BUN Creatinine GFR Calculation Calculated Osmolal ity Lactate Calcium Total Bilirubin AST ALT Alkaline Phosphata se Troponin T Baselin e 134 ng/L H* ng/L (0-10) Troponin T 120 Min [place] 107.8 ng/L H ng/L (0-10) Delta Troponin T -26.2 ABS# L ABS# (0-10) NT-Pro-B Natriuret Pep Total Protein Albumin Globulin Lipase Urine Color Straw (Yellow) Urine Appearance Hazy A (CLEAR) Urine pH 5 (5-7) Ur Specific Gravit y 1.020 (1.005-1.030) Urine Protein 1+ H (Negative) Urine Glucose (UA) Norm (Normal) Urine Ketones 1+ H (Negative) Urine Blood 2+ H (Negative) Urine Nitrate Negative (Negative) Urine Bilirubin 1+ H (Negative) Urine Urobilinogen 1 mg/dL H mg/dL (Negative) Ur Leukocyte Estefania ase Trace H (Negative) Urine RBC 0-4 /hpf H /hpf (0-2) Urine WBC 5-10 /hpf H /hpf (0-5) Ur Squamous Epith Cells 5-10 /hpf H /hpf (0-5) Amorphous Sediment Not Reportable Urine Bacteria Trace /hpf /hpf (NONE) Urine Mucus 2+ /hpf /hpf SARS-CoV-2 Ag (Rap id) EKG Data^: EKG 1: Other EKG Comments: Sinus tachycardia at 100, no sign of acute ischemia or other acute abnormality. Critical Care Time Critical Care Time: Critical Care Time: Yes Total Critical Care Time: 30 Attestation: This case had a high probability of a clinically significant, sudden, or life threatening deterioration of this patient's condition which required my full and direct attention, intervention and personal management. Discharge Plan Discharge Prescriptions: No Action hydrocodone-acetaminophen 5-325 mg tablet 5 tab PO PRN RF: 0 furosemide 20 mg Tablet 20 mg PO DAILY MDD see pharmacy comment RF: 0 sucralfate [Carafate] 1 gram tablet 1 g PO TID Qty: 21 RF: 0 ondansetron HCl [Zofran] 4 mg tablet 4 mg PO TID PRN (Reason: nausea and vomiting) Qty: 15 RF: 0 pantoprazole [Protonix] 40 mg tablet,delayed release (DR/EC) 40 mg PO QAM 14 Days Qty: 14 RF: 0 Referrals: Corin De La Rosa NP [Primary Care Provider] - Patient Instructions: Opioid Safety Coding Level of Care Code ED Sap Basis Administrator for Lucerog Kay
[2021-02-19 10:50] LABS: ABG PCO2 37.2 mmHg (35-45); ABG PH Result 7.44 (7.35-7.45); Arterial Blood Gas Hematocrit 28.6 % (37-47); Base Excess ABG 1.1 mmol/L (-2.0-2.0); Blood Gas Allen Test Pos; Blood Gas Sample Type Arterial; HCO3 ABG 25.2 mmol/L (22-26); HGB O2 Sat 94.8 % (95-100); Ionized Calcium Level - ABG 1.2 mmol/L (1.1-1.4); Methemoglobin 0.7 % (0.4-1.5); Oxygen Saturation ABG 96.4; PO2 ABG 76.5 mmHg (80.0-100.0); Potassium Level - ABG 4.1 mmol/L (3.5-5.0); Total Hemoglobin 9.3 g/dL (12-16)
[2021-02-19 10:53] LABS: Alveolar-Arterial Oxygen Gradi 17.3 mmHg (5-10); Blood Gas Operator Identificat RC; Blood Gas Sample Site Radial, left; Oxygen Device NC
[2021-02-19] MEDS: morphine 4 mg/mL SDV 1 mL IVP (12:02)
[2021-02-19] MEDS: ondansetron 2 mg/ML SDV 2 mL 4 MG IVP (12:02)
[2021-02-19 12:12] LABS: SARS Covid-2 Antigen Negative (Negative)
[2021-02-19 12:18] LABS: Basophils % 0.4 %; Eosinophils % 0.1 %; Hematocrit 30.5 % (37.0-47.0); Hemoglobin 9.3 g/dL (11.5-15.3); Lymphocytes # 0.4 10^3/uL (0.8-4.8); Lymphocytes % 5.5 %; Mean Corpuscular HGB Conc 30.5 g/dL (30.0-36.0); Mean Corpuscular Hemoglobin 27.2 pg (28.0-34.0); Mean Corpuscular Volume 89.2 fl (81-99); Mean Platelet Volume 9.2 fL (7.4-10.4); Monocytes # 0.7 10^3/uL (0.2-0.9); Monocytes % 9.2 %; Neutrophils # 6.69 10^3/uL (1.8-7.7); Neutrophils % 84.2 %; Nucleated Red Blood Cells % 0 %; Platelet Count 333 10^3/cmm (130-400); Red Blood Count 3.42 10^6/uL (4.1-5.3); Red Cell Distribution Width 14.9 % (12.1-15.1)
--- NOTE | 2021-02-19 12:21 | ECG_ITS ---
[facility] Test Date: 2021-02-19 Pat Name: Aicha Nath Department: Room: Gender: Female Environmental Analyst: : 1940 Requested By: Gerardo Muse Order Number: [id number] Gillian MD: Alan An M.D. Measurements Intervals [place] Rate: 100 P: 51 MO: 158 QRS: 18 QRSD: 87 T: 18 QT: 351 QTc: 454 Interpretive Statements SINUS TACHYCARDIA POSSIBLE LEFT ATRIAL ENLARGEMENT [-0.1mV P-WAVE IN V1/V2] LOW QRS VOLTAGE IN PRECORDIAL LEADS [QRS DEFLECTION < 1.0 mV IN CHEST LEADS] POSSIBLE ANTERIOR MYOCARDIAL INFARCTION , OF INDETERMINATE AGE [30 ms Q WAVE IN V3/V4, OR R < 0.2 mV IN V4] No previous ECG available for comparison Electronically Signed On 02-19-2021 22:55:11 CERTIFIED ADAPTED PHYSICAL EDUCATOR by Alan An M.D. [id number]
[2021-02-19 12:30] LABS: INR 1.14 (0.8-1.2)
[2021-02-19 12:31] LABS: Partial Thromboplastin Time 34.4 SECONDS (23.9-36.7)
[2021-02-19 12:46] LABS: Troponin(5th) Baseline 134 ng/L (0-10)
--- NOTE | 2021-02-19 12:47 | PC.NURSE ---
Critical troponin [address] Muse.
[2021-02-19 12:51] LABS: Alanine Aminotransferase < 5 U/L (0-33); Albumin Level 2.9 g/dL (3.5-5.2); Alkaline Phosphatase 87 IU/L (35-105); Anion Gap 15.4 (5-19); Aspartate Amino Transferase 21 U/L (0-32); Blood Urea Nitrogen 16 mg/dL (8-23); Calcium 8.3 mg/dL (8.5-10.5); Carbon Dioxide 24 mmol/L (22-29); Chloride 95 mmol/L (98-107); Globulin 4.3 g/dL (1.3-4.6); Glucose 100 mg/dL (65-115); Lipase 15 U/L (13-60); NT Pro B Type Natriuretic Pept 808 pg/mL (0-450); Osmolality Calculated 271 mOsm/kg (285-295); Potassium 4.4 mmol/L (3.5-5.1); Sodium 130 mmol/L (136-145); Total Bilirubin 0.3 mg/dL (0.15-1.2); Total Protein 7.2 g/dL (6.6-8.7)
[2021-02-19 12:54] LABS: Lactate (Lactic Acid level) 1.5 mmol/L (0.5-2.2)
--- NOTE | 2021-02-19 12:57 | PC.NURSE ---
Violetta RN, ICU, assisted with drain. Aprox 100cc drained from [place] [facility].
[2021-02-19] MEDS: iohexol 350 mg/mL 100 mL Btl IV (13:33)
[2021-02-19 14:04] VITALS: BP 119/68; RESP 18; O2SAT 96
[2021-02-19 14:34] LABS: Protein Urine 1+ (Negative); Urine Appearance Hazy (CLEAR); Urine Color Straw (Yellow); pH Urine 5 (5-7)
[2021-02-19 14:35] LABS: Add Urine Culture? No; Bacteria Urine TRACE /hpf; Bilirubin Urine 1+ (Negative); Blood Urine 2+ (Negative); Glucose Urine UA Norm (Normal); Ketones Urine 1+ (Negative); Leukocyte Esterase Urine Trace (Negative); Mucus Urine 2+ /hpf; Nitrate Urine Negative (Negative); RBC Urine 0-4 /hpf (0-2); Urobilinogen Urine 1 mg/dL (Negative)
[2021-02-19 15:31] LABS: Troponin 5 2HR Delta -26.2 ABS# (0-10)
[2021-02-19 15:32] LABS: Troponin 5 2HR 107.8 ng/L (0-10)
--- NOTE | 2021-02-19 15:32 | PC.NURSE ---
2hr trop 107.[address] Muse.
--- NOTE | 2021-02-19 16:03 | P.HP_ITS ---
Providers/Chief Complaint Primary Care Provider: Corin De La Rosa NP Chief Complaint: Difficulty Breathing History of Present Illness Aicha Nath is a 80 year old female with no significant past medical history presented to the hospital with shortness of breath now requiring 4 L oxygen. 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 She has had a Juan drain placed into her right lung recently on February 09. She also had a Mediport placed on February 17. She tells me that prior to this diagnosis of cancer patient was healthy and well and did not have any medical conditions that she knew of and was not on any medications. She said last month her lower extremities started having edema and she was placed on Lasix 20 daily. But she states the Lasix has not really helped. She also has a chronically incarcerated hernia. She has never had a colonoscopy or endoscopy before. Patient saw Dr. Echevarria outpatient and was supposed to follow- up with him this upcoming week if she makes her out of the hospital by that point. Patient is also having complaint of blood in her stool. She states she has been straining a lot more and feels she is constipated. She has been using a lot of Metamucil which has taken care of the constipation but is not sure if that caused the bloody stool. She states that sometimes it is karina blood and sometimes there is none. Its not constant and it comes and goes. She is not having more frequent bowel movements and does not have any abdominal cramping prior to having a bowel movement. She does mention her dad has a history of colon cancer and mom had laryngeal cancer. Patient is a non-smoker nondrinker. Lives with her daughter who does all the activities of daily living for her. Patient does complain of a lot of fatigue and exhaustion since her recent diagnosis. Patient denies any chest pain, abdominal pain at this time. Her main concern was shortness of breath and blood in stool on arrival and lower extremity edema. Other than that review of systems is negative. ED course: Vitals 119/68, heart rate 107, temperature 97.5, saturating 95% on 4 L oxygen on arrival. [place] drain was accessed and pleural fluid was drained. Ever since then patient has been on 2 L saturating 95%. She was given morphine and Zofran. Patient is feeling better already in terms of respiratory status. She did have elevated troponin therefore cardiology was called. Patient is not a candidate for any anticoagulant at this point due to her GI bleed. She cannot be placed on aspirin either. Patient CT was also positive for moderate bilateral pulmonary emboli which are new. She is not a candidate for anticoagulation. There is also a new finding of possible invasion of soft tissue tumor into the rectum which seems to be new compared to prior CT. Dr Schmitz was also called by ER who recommended to manage patient conservatively for now. Patient did have a CT angio chest abdomen pelvis done today which showed: 1. Thoracostomy drain in the RIGHT pleural fluid is unchanged. There is a small pleural fluid with pleural diffuse pleural thickening. No change in the previously biopsied mass along the medial RIGHT lower thorax. 2. Moderate bilateral pulmonary emboli. 3. Patient has numerous clusters of lymph nodes and mesenteric deposits includi ng the LEFT supraclavicular, mediastinal and hilar, retrocrural, mesenteric and retroperitoneal and paraesophageal. 4. Possible metastatic disease within the liver. 5. Abnormal RIGHT kidney. Delayed excretion with increased soft tissue distending the renal pelvis and ureter. Ureter is probably being obstructed by the GROUNDS AND NURSERY SPECIALIST pelvic mass. Tumor or infectious infiltration within the ureter and renal pelvis is not excluded. 6. Marked enlargement of the uterus fluid distention of the endometrium. Abn ormal endocervical region probably neoplastic. Possible invasion of soft tissue tumor into the rectum. Review of Systems General: Reports: 10 or more systems reviewed and unremarkable except in HPI and below Medications/Allergies Home Medications Medication Instructions Recorded Confirmed Last Taken Type furosemide 20 mg PO DAILY MDD see pharmacy 02/06/21 02/19/21 02/13/21 History comment ondansetron HCl [Zofran] 4 mg PO TID PRN #15 tab 02/15/21 02/19/21 Unknown Rx pantoprazole [Protonix] 40 mg PO QAM 14 Days #14 tab 02/15/21 02/19/21 02/18/21 Rx sucralfate [Carafate] 1 g PO TID #21 tab 02/15/21 02/19/21 02/18/21 Rx hydrocodone-acetaminophen 5 tab PO PRN 02/17/21 02/19/21 02/18/21 History Allergies Allergy/AdvReac Type Severity Reaction Status Date / Time No Known Allergies Allergy Verified 02/13/21 14:55 PFSH Acute PFSH: Social History Smoking and tobacco status: never smoked Alcohol intake: never Vitals/I&O/Wt Last Vital Signs Temp 97.5 F L 02/19/21 09:58 Pulse 107 H 02/19/21 10:11 Resp 18 02/19/21 14:04 BP 119/68 02/19/21 14:04 Pulse Ox 96 02/19/21 14:04 02/19/21 02/19/21 02/19/21 06:59 14:59 22:59 Output Total 100 / 100 Balance -100 / -100 Weight last 48 hrs Weight 102.058 kg Physical Exam Narrative: EXAM NARRATIVE: General: Alert oriented x3, patient seen sitting up in bed appearing comfortable with daughter at bedside. On 2 L nasal cannula. HEENT: Normocephalic, atraumatic, EOMI, breathing 2 L nasal cannula, conjunctivae clear, no lesions noted in oral cavity. Left supraclavicular lymph node palpable. Cardio: Regular rate rhythm, normal S1-S2, no murmurs rubs gallops, Respiratory: Very diminished bilateral air entry, right worse than left. No wheezes no rhonchi appreciated GI: Abdomen soft, nontender, moderately distended, unable to palpate liver and spleen. There is large mass palpable in the mid abdomen below umbilicus, unable to appreciate any ascites. Behavior: Appropriate and cooperative Extremities: Unable to palpate pulses due to edema., Bilateral lower extremities 4+ pitting edema, no skin rashes or venous stasis changes noted. Neurological: Nonfocal exam. Did not get patient to stand up or walk due to degree of lower extremity edema. 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 Patient is not a candidate for anticoagulation due to her active lower GI bleed at this time. ?We will check echo to evaluate for right heart strain. Does not seem patient will be candidate for any intervention due to GI bleed. Troponins elevated but trending down. Troponin elevation most likely secondary to pulmonary embolism although cardiac cause not ruled out. proBNP 808. ?We will check lower extremity Dopplers ?Patient was still having work-up completed as an outpatient. CA-125 and a few other labs were ordered by Dr. Echevarria at the last visit. ?Respiratory therapy to evaluate and treat. Will order DuoNeb as needed. - Will order lasix 40 IV x1 with albumin. #Lower GI bleed/hematochezia ?Patient has been constipated for the last few weeks. It seems she may be having some tenesmus at this point as well CT abdomen pelvis does show possible soft tissue mass invading into the rectum. Patient has been taking a lot of Metamucil lately. She has been having intermittent blood in stool. It is possible that the mass could be bleeding versus diverticular bleed. Hemoglobin 10 on arrival. We will continue to monitor hemoglobin every [address] Schmitz was called by ER and he recommended to monitor patient for now. Will keep patient NPO. ?If patient does develop karina lower GI bleed we will consult Dr. Mcnulty for possible flexible sigmoidoscopy. FOBT done by ER physician was positive for bright red blood. ?Start Protonix 40 IV daily. Manage patient conservatively at this point. #Incarcerated chronic abdominal hernia ?Appears to be stable at this time and there does not seem to be any evidence of bowel obstruction. Continue to monitor #Severe protein calorie malnutrition, loss of appetite greater than 2 weeks #Hyponatremia ?Most likely secondary to loss of appetite. Albumin low. Third spacing ?Patient would benefit from a nutrition consult. She has been drinking Ensure supplement at home DVT prophylaxis: Patient is high risk but due to size of lower extremities cannot place clinical compression device. Cannot anticoagulate pharmacologically due to GI bleed. Diet: Regular diet Prognosis remains poor. CODE STATUS: Patient would like to be a full code at this point. ?She was also hesitant to accept any blood transfusions but after she spoke to her daughter and after family discussion she would allow for blood transfusions if she absolutely needs it. Attestations Medical Necessity Statement*: > 48 hours Coding Level of Care Code Acute Speech Language Specialist for Chg Fwd Diagnoses Metastatic adenocarcinoma C79.9 Shortness of breath R06.02 Hematochezia K92.1 Lower extremity edema R60.0 Pulmonary embolism I26.99 Elevated troponin R77.8 Abdominal hernia K46.9 Supplemental oxygen dependent Z99.81 Hyponatremia E87.1 Loss of appetite R63.0
[2021-02-19 17:30] VITALS: BP 120/75; PULSE 91; RESP 18; O2SAT 98
[2021-02-19 18:04] LABS: Procalcitonin 0.44 ng/mL (0-0.5)
[2021-02-19 18:46] LABS: Troponin 5 6HR 95.68 ng/L (0-10)
--- NOTE | 2021-02-19 20:53 | PC.NURSE ---
Assisted pt to bedside commode. Pt O2 sat declined. Pt placed back on O2.
[2021-02-19 20:59] VITALS: BP 104/64; PULSE 86; RESP 18; O2SAT 94
--- NOTE | 2021-02-19 20:59 | PC.NURSE ---
Awaiting bed assignment on pt. Pt to be hold in ER.
[2021-02-20] VITALS (11 sets, daily range): BP systolic 105–125; BP diastolic 68–73; PULSE 88–99; RESP 14–19; TEMP 36.2–36.6; O2SAT 91–97; BMI 39.4
[2021-02-20] MEDS: pantoprazole 40 mg SDV IVP (00:33)
[2021-02-20] MEDS: FUROsemide 10 mg/mL SDV 4mL 40 MG IVP (00:33)
[2021-02-20 00:37] LABS: Hemoglobin 9.2 g/dL (11.5-15.3)
[2021-02-20] MEDS: dextrose 5%-sod chloride 0.45% 1,000 ML 75 ML IV ×2 (00:40→14:22)
[2021-02-20] MEDS: albumin 12.5 GM/50 ML VIAL IV (00:41)
[2021-02-20 01:04] LABS: Thyroid Stimulating Hormone 2.18 uIU/mL (0.27-4.20)
--- NOTE | 2021-02-20 01:28 | PC.NURSE ---
Patient arrived to floor via stretcher, VSS, AAOx4, no c/o pain. States she can not turn herself side to side for repositioning however was able to get to BSC with asst x1. Room clutter free and remote within reach.
--- NOTE | 2021-02-20 06:11 | PC.NURSE ---
Addendum entered by Lidia Baldwin RN 02/20/21 06:55: Addendem 0655: Patient up to BSC, the karina blood is coming from a wound near the rectum. Original Note: Patient AAOx4, VSS, physician notified of BLE DVT Loose. Patient currently having karina blood from lower GI. No needs at this time. No new orders at this time.
[2021-02-20 06:41] LABS: Basophils # 0.1 10^3/uL (0.0-0.1); Basophils % 0.9 %; Eosinophils # 0.1 10^3/uL (0.0-0.8); Eosinophils % 0.9 %; Hematocrit 27.5 % (37.0-47.0); Hemoglobin 8.5 g/dL (11.5-15.3); Lymphocytes # 0.6 10^3/uL (0.8-4.8); Lymphocytes % 9.1 %; Mean Corpuscular HGB Conc 30.9 g/dL (30.0-36.0); Mean Corpuscular Hemoglobin 27.8 pg (28.0-34.0); Mean Corpuscular Volume 89.9 fl (81-99); Mean Platelet Volume 9.5 fL (7.4-10.4); Monocytes # 0.9 10^3/uL (0.2-0.9); Monocytes % 14.2 %; Neutrophils # 4.88 10^3/uL (1.8-7.7); Neutrophils % 74.3 %; Nucleated Red Blood Cells % 0 %; Platelet Count 284 10^3/cmm (130-400); Red Blood Count 3.06 10^6/uL (4.1-5.3); Red Cell Distribution Width 14.8 % (12.1-15.1); White Blood Count 6.6 10^3/uL (4.0-10.0)
[2021-02-20 06:54] LABS: Alanine Aminotransferase < 5 U/L (0-33); Alkaline Phosphatase 81 IU/L (35-105); Aspartate Amino Transferase 19 U/L (0-32); Blood Urea Nitrogen 17 mg/dL (8-23); Calcium 8.5 mg/dL (8.5-10.5); Carbon Dioxide 25 mmol/L (22-29); Chloride 94 mmol/L (98-107); Globulin 4.1 g/dL (1.3-4.6); Glucose 171 mg/dL (65-115); Magnesium 2.1 mg/dL (1.7-2.3); Osmolality Calculated 276 mOsm/kg (285-295); Phosphorus 3.1 mg/dL (2.5-4.5); Sodium 130 mmol/L (136-145); Total Bilirubin 0.4 mg/dL (0.15-1.2); Total Protein 7.1 g/dL (6.6-8.7)
[2021-02-20 12:34] LABS: Hematocrit 31.1 % (37.0-47.0); Hemoglobin 9.3 g/dL (11.5-15.3)
--- NOTE | 2021-02-20 13:49 | PC.CHAP ---
Pastoral Care Encounter/Spiritual Assessment Type of Contact [] Declined retail pharmacist visit [] Patient/Family/Request visit [] Outpatient visit [] Follow-up visit [] Physician referral [] Code/Alert [] Routine visit [] Staff referral [] Actively dying [] Patient sleeping [] Family support [] [] Out of room [] Palliative care [] [xx] Receiving care in room [] Pre-surgical visit [] Trauma [] Long length of stay [] ICU visit [] Other: Relational/Emotional Strength [] Patient feels connected with others/family/visitors/staff [] Distress [] Loneliness/isolation [] Abandonment Spirituality of Patient [] Person of Eufemia [] Attends Confucianism of their Eufemia [] Believes in Prayer [] Reads Bible or Baptist materials [] There are Spiritual issues to be addressed Chief Radiology Interventions [] Prayer [] Active listening [] Non-anxious presence [] Spiritual/emotional support [] Crisis/trauma care [] Spiritual counseling [] Bereavement support [] Provided bereavement packet [] Provided Bible/devotional materials [] Provided toy/stuffed animal, coloring book to patient or family member [] Provided Communion [] Anointing/[place] [] Salvation [] Completed spiritual assessment [] Other: Impact on Illness or Injury [] Angry [] Fearful [] Anxious [] Often cries [] Exhaustion [] Unable to work [] Unable to attend adventism [] Unable to walk/stand [] Unable to read [] Unable to drive [] Unable to eat/drink [] Unable to sleep [] Unable to be with family [] Patient intubated [] Other: Summary Follow up needed Time spent with patient 1 minute
[2021-02-20] MEDS: peg /e-lyte soln 4,000 mL Btl 4000 ML PO (14:14)
--- NOTE | 2021-02-20 15:53 | PC.NURSE ---
student nurse all student nurse documentation verified by this instructor for 02/20/21
--- NOTE | 2021-02-20 16:58 | P.CONIM_ITS ---
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 Echocardiogram shows preserved LV systolic function however RV is dilated and hypokinetic. Interventional cardiology was consulted for placement of IVC filter as she is currently not anticoagulation candidate and has extensive DVTs and PE. She denies any prior cardiac history. She is on 4 L nasal cannula oxygen. Troponins were elevated but downtrended from initial level of 134. Review of Systems General: Reports: 10 or more systems reviewed and unremarkable except in HPI and below Narrative: GENERAL: Patient is alert, awake and oriented x3. [] NECK: No jugular vein distension. [] HEENT: No cyanosis. No icterus. No pallor. [] HEART: Regular S1 and S2. No murmur, rub or gallop. [] LUNGS: Clear to auscultate bilaterally. [] ABDOMEN: Mild tenderness CENTRAL NERVOUS SYSTEM: Grossly nonfocal. [] EXTREMITIES: 2+ edema bilaterally Meds/Allergies Home Medications and Allergies Home Medications Medication Instructions Recorded Confirmed Last Taken Type furosemide 20 mg PO DAILY MDD see pharmacy 02/06/21 02/19/21 02/13/21 History comment ondansetron HCl [Zofran] 4 mg PO TID PRN #15 tab 02/15/21 02/19/21 Unknown Rx pantoprazole [Protonix] 40 mg PO QAM 14 Days #14 tab 02/15/21 02/19/21 02/18/21 Rx sucralfate [Carafate] 1 g PO TID #21 tab 02/15/21 02/19/21 02/18/21 Rx hydrocodone-acetaminophen 5 tab PO PRN 02/17/21 02/19/21 02/18/21 History Allergies Allergy/AdvReac Type Severity Reaction Status Date / Time No Known Allergies Allergy Verified 02/13/21 14:55 Current Medications Current Medications Generic Name Dose Route Start Last Admin Trade Name Freq PRN Reason Stop Dose Admin Dextrose/Sodium Chloride 1,000 mls @ 75 mls/hr 02/19/21 23:53 02/20/21 14:22 Dextrose 5%-Sod Chloride 0.45% IV 75 mls/hr .[id number] CHANTELLE Administration Pantoprazole Sodium 40 mg 02/19/21 23:53 02/20/21 00:33 Pantoprazole 40 Mg Sdv IVP 40 mg Q24H CHANTELLE Administration PFSH Acute PFSH: Medical History Metastatic adenocarcinoma Surgical History Hx of cholecystectomy Hx of tonsillectomy Social History Smoking and tobacco status: never smoked Alcohol intake: never Vitals/I&O/Wt Last Vital Signs Temp 97.6 F 02/20/21 16:00 Pulse 92 02/20/21 16:00 Resp 17 02/20/21 16:00 BP 106/71 02/20/21 16:00 Pulse Ox 94 02/20/21 16:00 02/20/21 02/20/21 02/20/21 06:59 14:59 22:59 Intake Total 115 / 115 935 / 935 Output Total 300 / 400 Balance -185 / -285 935 / 935 Weight last 48 hrs Weight 230 lb Weight 230 lb Weight 225 lb Physical Exam Narrative: EXAM NARRATIVE: GENERAL: Patient is alert, awake and oriented x3. [] NECK: No jugular vein distension. [] HEENT: No cyanosis. No icterus. No pallor. [] HEART: Regular S1 and S2. No murmur, rub or gallop. [] LUNGS: Clear to auscultate bilaterally. [] ABDOMEN: Soft, nontender and nondistended. Positive bowel sounds. No guarding, rebound or tenderness. [] CENTRAL NERVOUS SYSTEM: Grossly nonfocal. [] EXTREMITIES: Lower extremities with 1+ edema bilaterally. Pulses palpable in the lower extremities, both dorsalis pedis and posterior tibial. [] Data Micro: Micro: Microbiology 02/20/21 00:30 Blood Culture - Pr eliminary Blood SPECIMEN [facility]LE[facility] DAE 02/20/21 00:27 Blood Culture - Pr eliminary Blood SPECIMEN [facility] A&P Assessment and plan (1) Metastatic adenocarcinoma: Status: Acute (2) Elevated troponin: Status: Acute (3) Pulmonary embolism: Status: Acute (4) Lower extremity edema: Status: Acute (5) Hematochezia: Status: Acute Patient has extensive metastatic adenocarcinoma with primary source likely uterus. She has been having a GI bleed. Not on anticoagulation. She is found to have moderate-sized pulmonary emboli. Also has extensive DVT of bilateral lower extremities. Given inability to anticoagulate, interventional cardiology has been consulted to place IVC filter. I had a detailed discussion with the patient regarding the procedure. Risks and benefits were described to the patient. she understands the risks and benefits of the procedure and wants to proceed with it. We will place IVC filter in the morning. Keep n.p.o. past midnight. Given she has RV strain and active PE that can not be treated at this time, she will be at high cardiac risk for undergoing general anesthesia. Troponin Elevation secondary to PE. Thank you for involving us with care of this patient. We will continue to follow. Please call with question Coding Level of Care Code Acute Auto Design Detailer for [facility] Fwd Diagnoses Metastatic adenocarcinoma C79.9 Elevated troponin R77.8 Pulmonary embolism I26.99 Lower extremity edema R60.0 Hematochezia K92.1
--- NOTE | 2021-02-20 16:59 | PM.PN ---
Subjective Subjective: Interval history: Seen this morning. Patient did have 4 bloody bowel movements overnight. Hemoglobin 8.5 this morning. Vitals/I&O/Wt Last Vital Signs Temp 97.6 F 02/20/21 16:00 Pulse 92 02/20/21 16:00 Resp 17 02/20/21 16:00 BP 106/71 02/20/21 16:00 Pulse Ox 94 02/20/21 16:00 02/20/21 02/20/21 02/20/21 06:59 14:59 22:59 Intake Total 115 / 115 935 / 935 Output Total 300 / 400 Balance -185 / -285 935 / 935 Weight last 48 hrs Weight 104.326 kg Weight 104.326 kg Weight 102.058 kg Physical Exam Narrative: EXAM NARRATIVE: General: Alert oriented x3, patient seen sitting up in bed, on 4 L nasal cannula. HEENT: Normocephalic, atraumatic, EOMI, breathing 4 L nasal cannula, conjunctivae clear, no lesions noted in oral cavity. Left supraclavicular lymph node palpable. Cardio: Regular rate rhythm, normal S1-S2, no murmurs rubs gallops, Respiratory: Very diminished bilateral air entry, right worse than left. GI: Abdomen soft, nontender, moderately distended, unable to palpate liver and spleen. There is large mass palpable in the mid abdomen below umbilicus, unable to appreciate any ascites. Extremities: Unable to palpate pulses due to edema., Bilateral lower extremities 4+ pitting edema, no skin rashes or venous stasis changes noted. Calves nontender to palpation. Neurological: Nonfocal exam. Did not get patient to stand up or walk due to degree of lower extremity edema. Data : 02/20/21 12:07 02/20/21 06:08 Micro: Microbiology 02/20/21 00:30 Blood Culture - Preliminary Blood SPECIMEN COLLECTED 02/20/21 00:27 Blood Culture - Preliminary Blood SPECIMEN COLLECTED A&P Assessment and plan (1) Metastatic adenocarcinoma: Status: Acute (2) Shortness of breath: Status: Acute (3) Hematochezia: Status: Acute (4) Lower extremity edema: Status: Acute (5) Pulmonary embolism: Status: Acute (6) Elevated troponin: Status: Acute (7) Abdominal hernia: Status: Acute (8) Supplemental oxygen dependent: Status: Acute (9) Hyponatremia: Status: Acute (10) Loss of appetite: Status: Acute Additional A&P Information #Metastatic adenocarcinoma uterine primary (metastasis to lung, liver, uterine cervix, right ureter) #Shortness of breath secondary to above and right pleural effusion that is recurrent, patient has Sparks drain in place #Bilateral moderate pulmonary embolism #4+ lower extremity pitting edema up to waist #Elevated troponin due to right heart strain secondary to pulmonary embolism -Patient shortness of breath is most likely secondary to right pleural effusion and new bilateral moderate pulmonary embolisms. Patient is not a candidate for anticoagulation due to her active lower GI bleed at this time. ?Echo shows normal left ventricular ejection fraction, right ventricular strain present, Davidson descent positive. Right ventricular hypokinesis noted on echo. Troponin elevated most likely secondary to right heart strain. Lower extremity Doppler showed bilateral extensive DVT. ?Cardio consult for IVC filter placement. Patient is interested in having one. N.p.o. at midnight tonight for filter placement tomorrow morning. ?Patient following with Dr. Echevarria as an outpatient. She has seen him once so far. Second appointment is pending. ?Respiratory therapy to evaluate and treat. DuoNeb every 4 hours.. -She did get 1 dose of IV Lasix with albumin at admission. #Lower GI bleed/hematochezia ?Patient has been constipated for the last few weeks. It seems she may be having some tenesmus at this point as well CT abdomen pelvis does show possible soft tissue mass invading into the rectum. Patient has been taking a lot of Metamucil lately. She has been having intermittent blood in stool. It is possible that the mass could be bleeding versus diverticular bleed. Hemoglobin 10 on arrival. Hemoglobin down to 8.5 this morning. He did we trended up to 9.3 again. Patient is interested in having endoscopy and colonoscopy to rule find the source of bleeding at this time. However she is a high risk candidate for anesthesia based on her echo and DVT results. We will continue to monitor her hemoglobin and monitor her bloody bowel movements at this time. After IVC filter is placed we can reconsider possibility of scope. Dr. Schmitz is aware of the whole situation and on board. I will speak to family and the patient again with these new findings and her high risk for anesthesia. ?Continue Protonix 40 IV daily. Manage patient conservatively at this point. -I did discuss with oncology the possibility of radiation to rectal area due to soft tissue invasion of mass. That can be a possibility once we identified that the bleeding is due to mass versus any other source. #Incarcerated chronic abdominal hernia ?Appears to be stable at this time and there does not seem to be any evidence of bowel obstruction. Continue to monitor #Severe protein calorie malnutrition, loss of appetite greater than 2 weeks #Hyponatremia ?Most likely secondary to loss of appetite. Albumin low. Third spacing ?Patient would benefit from a nutrition consult. She has been drinking Ensure supplement at home -Patient will be kept n.p.o. for now for IVC filter in the morning. ?Lower extremity edema also contributed by bilateral DVT. DVT prophylaxis: Patient is high risk but due to size of lower extremities cannot place clinical compression device. Cannot anticoagulate pharmacologically due to GI bleed. Diet: Regular diet Prognosis remains poor. CODE STATUS: Patient would like to be a full code at this point. ?She was also hesitant to accept any blood transfusions but after she spoke to her daughter and after family discussion she would allow for blood transfusions if she absolutely needs it. Attestations Medical Necessity Statement*: Greater than 48-hour inpatient stay. Time Spent in Patient Care: Greater than 35 minutes (>than 50% of time spent in counselling and/or direct pt care on unit). Coding Level of Care Code Acute Medical Facilities Section Director for [facility]g Fwd Diagnoses Metastatic adenocarcinoma C79.9 Shortness of breath R06.02 Hematochezia K92.1 Lower extremity edema R60.0 Pulmonary embolism I26.99 Elevated troponin R77.8 Abdominal hernia K46.9 Supplemental oxygen dependent Z99.81 Hyponatremia E87.1 Loss of appetite R63.0
--- NOTE | 2021-02-20 17:32 | P.CONIM_ITS ---
Providers/Reason For Consult Consulting Physician/Specialty*: Mark Mcnulty MD Reason for Consult*: Lower GI bleed Requesting Physician: Dr. Sinha Attending Physician: Marisela Sinha MD Primary Care Provider: Corin De La Rosa NP History of Present Illness History of Present Illness Chief Complaint: I have blood in stool History of present illness:Ms Aicha aNth is a pleasant 80 year old female well-known to me from previous clinical encounter. Patient is well-known with metastatic serous adenocarcinoma. And a Port-A-Cath was replaced by me few days ago with uneventful course. Apparently the patient has been having intermittent bleeding per rectum and was admitted to the hospitalist service for further evaluation. I was contacted originally by the emergency department physician for potential heads-up regarding the patient's condition as she would be admitted to the hospitalist in case that my service is required. Today Dr. Sinha consulted me for patient's lower GI bleed as it is getting worse and general surgery was consulted for further evaluation potential intervention. Patient was found to have elevated ST segment also venous duplex was done that showed; DVT right common femoral vein extending through profunda. Extension also into superficial femoral and popliteal veins. DVT calf vessels in the PTV and peroneal veins. Thrombus also in right GSV DVT left common femoral through profunda. Left superficial femoral is patent. Additional thrombus Left GSV which is occluded. Mobile thrombus noted in left CFV. A CT scan of the chest abdomen pelvis was done on 02/19/2021. And shows below; 1. Thoracostomy drain in the RIGHT pleural fluid is unchanged. There is a small pleural fluid with pleural diffuse pleural thickening. No change in the previously biopsied mass along the medial RIGHT lower thorax. 2. Moderate bilateral pulmonary emboli. 3. Patient has numerous clusters of lymph nodes and mesenteric deposits including the LEFT supraclavicular, mediastinal and hilar, retrocrural, mesenteric and retroperitoneal and paraesophageal. 4. Possible metastatic disease within the liver. 5. Abnormal RIGHT kidney. Delayed excretion with increased soft tissue distending the renal pelvis and ureter. Ureter is probably being obstructed by the JAVASCRIPT ENGINEER pelvic mass. Tumor or infectious infiltration within the ureter and renal pelvis is not excluded. 6. Marked enlargement of the uterus fluid distention of the endometrium. Abnormal endocervical region probably neoplastic. Possible invasion of soft tissue tumor into the rectum. Review of Systems General: Reports: 10 or more systems reviewed and unremarkable except in HPI and below Meds/Allergies Home Medications and Allergies Home Medications Medication Instructions Recorded Confirmed Last Taken Type furosemide 20 mg PO DAILY MDD see pharmacy 02/06/21 02/19/21 02/13/21 History comment ondansetron HCl [Zofran] 4 mg PO TID PRN #15 tab 02/15/21 02/19/21 Unknown Rx pantoprazole [Protonix] 40 mg PO QAM 14 Days #14 tab 02/15/21 02/19/21 02/18/21 Rx sucralfate [Carafate] 1 g PO TID #21 tab 02/15/21 02/19/21 02/18/21 Rx hydrocodone-acetaminophen 5 tab PO PRN 02/17/21 02/19/21 02/18/21 History Allergies Allergy/AdvReac Type Severity Reaction Status Date / Time No Known Allergies Allergy Verified 02/13/21 14:55 Current Medications Current Medications Generic Name Dose Route Start Last Admin Trade Name Freq PRN Reason Stop Dose Admin Dextrose/Sodium Chloride 1,000 mls @ 75 mls/hr 02/19/21 23:53 02/20/21 14:22 Dextrose 5%-Sod Chloride 0.45% IV 75 mls/hr .[id number] CHANTELLE Administration Pantoprazole Sodium 40 mg 02/19/21 23:53 02/20/21 00:33 Pantoprazole 40 Mg Sdv IVP 40 mg Q24H CHANTELLE Administration PFSH Acute PFSH: Medical History Metastatic adenocarcinoma Surgical History Hx of cholecystectomy Hx of tonsillectomy Social History Smoking and tobacco status: never smoked Alcohol intake: never Vitals/I&O/Wt Last Vital Signs Temp 97.6 F 02/20/21 16:00 Pulse 92 02/20/21 16:00 Resp 17 02/20/21 16:00 BP 106/71 02/20/21 16:00 Pulse Ox 94 02/20/21 16:00 02/20/21 02/20/21 02/20/21 06:59 14:59 22:59 Intake Total 115 / 115 935 / 935 Output Total 300 / 400 Balance -185 / -285 935 / 935 Weight last 48 hrs Weight 230 lb Weight 230 lb Weight 225 lb Physical Exam Narrative: EXAM NARRATIVE: Patient is conscious alert oriented X3 BMI 39.5 Head and neck examination PERRLA no masses no cervical lymphadenopathy no jaundice Cardiac examination audible S1-S2 no murmurs no gallops no arrhythmias Chest is clear bilateral,abscence of Rhonchi or wheezes,no surgical emphysema Right upper chest Port-A-Cath in place and [place] drain at the right hemithorax Abdomen nontender nondistended soft no organomegaly guarding or rigidity/no signs of peritonitis. Chronic incarcerated ventral hernia Morbidly obese Data Micro: Micro: Microbiology 02/20/21 00:30 Blood Culture - Pr eliminary Blood SPECIMEN [facility]LEC DAE 02/20/21 00:27 Blood Culture - Pr eliminary Blood SPECIMEN [facility] A&P Assessment and plan (1) Hematochezia: Plan of care; After thorough history and physical examination and reviewing the chart, plan to perform a diagnostic esophagogastroduodenoscopy and diagnostic colonoscopy with possible biopsy and possible polypectomy at some point. After patient has medical clearance per hospitalist and cardiac services We will continue coordinating care with Dr. Sinha and Dr. Lamar Assurance and education All questions have been answered and all concerns have been addressed to patien t's satisfaction. Status: Acute Consult Attestations Medical Necessity Statement: Per admitting service Time Spent in Patient Care: (>than 50% of time spent in counselling and/or direct pt care on unit) . Coding Level of Care Code Acute Animal Services Officer for [facility] Fwd Diagnoses Hematochezia K92.1
[2021-02-20 18:34] LABS: Hematocrit 27.6 % (37.0-47.0); Hemoglobin 8.6 g/dL (11.5-15.3)
[2021-02-20 23:39] LABS: Hematocrit 27.2 % (37.0-47.0); Hemoglobin 8.4 g/dL (11.5-15.3)
--- NOTE | 2021-02-20 23:53 | USCV_ITS ---
Aicha Nath Age: 80 Gender: F : 1940 Exam Date: 02/20/2021 05:08 Ordering Phys: Marisela Sinha MD Technologist: Dolly Vides [place] [facility] [place]: DVT HISTORY: Pt is sob. Legs are swollen. PROCEDURES: The venous duplex Doppler examination of both lower extremities was performed in the standard fashion. The following venous structures were evaluated: common femoral vein, profunda vein, proximal portion of the greater saphenous vein, superficial femoral vein, and the popliteal vein. In addition, the posterior tibial and peroneal trunk were evaluated. Serial compression, augmentation maneuvers, and spectral Doppler flow evaluation were performed. FINDINGS: DVT RT CFV THRU RT PROFUNDA THRU RT SFV RT POP THRU PERONEAL THRU RT PTV. THE RT GSV . DVT LT CFV THRU PROFUNDA. THE LT SFV APPEARS CLEAR. THE LT GSV IS OCCLUDED AND VERY LOOSE AT LT CFV. CONCLUSIONS DVT right common femoral vein extending through profunda. Extension also into superficial femoral and popliteal veins. DVT calf vessels in the PTV and peroneal veins. Thrombus also in right GSV DVT left common femoral through profunda. Left superficial femoral is patent. Additional thrombus Left GSV which is occluded. Mobile thrombus noted in left CFV. Ship Rigger notified nurse at time of exam Ritchie Young MD (Electronically Signed) Final Date: 20 February 2021 17:29 S
--- NOTE | 2021-02-20 23:53 | USCV_ITS ---
[place] Age: 80 Gender: F : 1940 Exam Date: 02/20/2021 05:40 Ordering Phys: Marisela Sinha MD Technologist: Dolly Vides Exam Location: [facility] Indication: SOB WITH DVT BP: 106 / 69 HR: 91 Rhythm: Sinus Technical Quality: Adequate MEASUREMENTS (Male / Female) Normal Values 2D ECHO LV Diastolic Diameter PLAX 3.6 cm 4.2 - 5.9 / 3.9 - 5.3 cm LV Systolic Diameter PLAX 2.6 cm LV Chamber Size 2.8 cm IVS Diastolic Thickness 1.0 cm 0.6 - 1.0 / 0.6 - 0.9 cm IVS Systolic Thickness 1.5 cm LVPW Diastolic Thickness 1.5 cm 0.6 - 1.0 / 0.6 - 0.9 cm LVPW Systolic Thickness 1.5 cm RV Chamber Size 3.1 cm LVOT Diameter 2.0 cm LV Ejection Fraction 2D Teich 56.0 % LV Ejection Fraction MOD 2C 73.4 % LV Ejection Fraction 2C AL 73.7 % LA Diameter 3.4 cm LA Width 3.0 cm LA Height 4.8 cm RA Width 4.3 cm RA Height 4.7 cm Aorta at Sinotubular Diameter 2.5 cm M-MODE LV Diastolic Diameter MM 4.1 cm 4.2 - 5.9 / 3.9 - 5.3 cm LV Systolic Diameter MM 2.3 cm LV Ejection Fraction MM Teich 76.4 % IVS Diastolic Thickness MM 1.4 cm 0.6 - 1.0 / 0.6 - 0.9 cm IVS Systolic Thickness MM 1.7 cm LVPW Diastolic Thickness MM 1.1 cm 0.6 - 1.0 / 0.6 - 0.9 cm LVPW Systolic Thickness MM 1.8 cm RV Diastolic Diameter MM 1.2 cm Aortic Annulus Diameter 3.0 cm LA Ao Ratio MM 1.3 MV E Point Septal Separation 0.4 cm DOPPLER AV Peak Velocity 122.0 cm/s LVOT Peak Velocity 101.0 cm/s AV Area Cont Eq vti 2.7 cm squared AV Area Cont Eq pk 2.6 cm squared MV Area PHT 4.0 cm squared Mitral E to A Ratio 0.7 MV E' Velocity 74.0 cm/s Mitral E to LV E' Septal Ratio 10.9 TR Peak Velocity 258.9 cm/s TR Peak Gradient 26.8 mmHg TR Mean Velocity 209.6 cm/s TR Mean Gradient 20.0 mmHg TR Velocity Time Integral 91.3 cm TV Peak E Velocity 53.0 cm/s Right Atrial Pressure 3.0 mmHg Pulmonary Artery Systolic Pressu 29.8 mmHg PV Peak Velocity 60.0 cm/s RV Acceleration Time 0.2 s RV Ejection Time 0.4 s RV AcT/ET 0.4 FINDINGS Left Ventricle Normal left ventricular size, systolic function and wall thickness, with no regional wall motion abnormalities. Left ventricular ejection fraction is estimated at 60-65 %. No regional wall motion abnormalities. Grade I diastolic dysfunction (abnormal relaxation filling pattern), normal to mildly elevated filling pressures. Right Ventricle Normal right ventricular size and mildly decreased systolic function. There seems to be right ventricular free wall hypokinesis with apical sparing. Right ventricular systolic pressure 31 mmHg. Right Atrium Normal right atrial size. Left Atrium Probably mildly increased left atrial size. Mitral Valve Structurally normal mitral valve. No mitral valve stenosis. No significant mitral valve regurgitation. Aortic Valve Aortic valve not well visualized. No aortic valve stenosis. No aortic valve regurgitation. Tricuspid Valve Structurally normal tricuspid valve. No tricuspid valve stenosis. Mild tricuspid valve regurgitation. Pulmonic Valve Pulmonic valve not well visualized. No pulmonary valve stenosis. Trace pulmonary valve regurgitation. Pericardium No pericardial effusion. Pleural effusion. Aorta Normal aortic root size. CONCLUSIONS 1. Normal left ventricular size, systolic function and wall thickness, with no regional wall motion abnormalities. Left ventricular ejection fraction is estimated at 60-65 %. No regional wall motion abnormalities. Grade I diastolic dysfunction (abnormal relaxation filling pattern), normal to mildly elevated filling pressures. 2. Normal right ventricular size and mildly decreased systolic function. There seems to be right ventricular free wall hypokinesis with apical sparing (Davidson's sign). 3. Mild tricuspid valve regurgitation. 4. Pulmonary artery pressure estimated at 31 mm Hg. 5. Based on above findings of Davidson's sign, strongly consider pulmonary embolism. Laura Manuel MD (Electronically Signed) Final Date: 20 February 2021 16:04 S
[2021-02-21] VITALS (11 sets, daily range): BP systolic 97–124; BP diastolic 64–80; PULSE 86–97; RESP 16–18; TEMP 36.1–36.9; O2SAT 90–98
[2021-02-21] MEDS: pantoprazole 40 mg SDV IVP ×2 (00:25→16:20)
[2021-02-21] MEDS: dextrose 5%-sod chloride 0.45% 1,000 ML 75 ML IV (02:16)
[2021-02-21 06:07] LABS: Hematocrit 30.2 % (37.0-47.0); Hemoglobin 8.7 g/dL (11.5-15.3)
[2021-02-21 06:27] LABS: Blood Urea Nitrogen 18 mg/dL (8-23); Calcium 8.6 mg/dL (8.5-10.5); Carbon Dioxide 21 mmol/L (22-29); Chloride 95 mmol/L (98-107); Glucose 113 mg/dL (65-115); Magnesium 2.3 mg/dL (1.7-2.3); Osmolality Calculated 273 mOsm/kg (285-295); Phosphorus 2.9 mg/dL (2.5-4.5); Sodium 130 mmol/L (136-145)
[2021-02-21 06:33] LABS: Anion Gap 18.2 (5-19); Potassium 4.2 mmol/L (3.5-5.1)
--- NOTE | 2021-02-21 06:41 | PC.NURSE ---
Patient AAOx4, c/o pain to right leg and right leg is much larger than the left. Patient OOBT BSC a few times and having bloody liquid stools. BP soft with remaining VSS, room clutter free and call light in reach, patient repositioned frequently by staff.
--- NOTE | 2021-02-21 09:17 | XACV_ITS ---
Gender: Female : 1940 Exam Type: Invasive Peripheral Vascular Procedure(s): Procedure Description: Peripheral vascular Intervention Procedure Description: PV IVC Filter Placement Exam Priority: Routine Abdominal Interventional Findings Indication:Patient has pulmonary embolism, extensive DVT of bilateral lower extremities, GI bleed, right heart strain. She is not a candidate for anticoagulation per medicine team. They recommended IVC filter placement given her PEs and extensive DVTs bilaterally. Procedure detail: We obtained access in right IJ with micropuncture using ultrasound guidance. IVC venogram was performed through the IVC filter sheath. Renal veins were identified. We then deployed an IVC Emile Tulip filter. IVC filter sheath was removed and pressure was held to achieve hemostasis. 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 Conclusions Extensive bilateral DVT/PE. S/p successful placement of IVC filter. Recommendations Transferred back to [facility] floor. Outpatient cardiology follow-up. Decision to retrieve IVC filter to be made on her clinical progress. Access Site Site: Right Jugular vein Sheath Size: 5 Fr Hemost... Method: Manual Compression Hemost... Success: Successful Procedure Details Findings Identified patient by full name and date of as verbalized by the patient/guarantor. Pre-Procedure Time Out. Does the consent match the physician's order: Yes. Accurate & Complete Informed Consent: Yes. Inpatient/Outpatient History & Physical on Chart: Yes. Visualize and Verify Site with Patient/Guarantor: N/A. Relevant Radiology Images available: N/A. Pre-op teaching completed and patient verbalized understanding. The risks, benefits, and alternatives of sedation and/or procedure were discussed by physician. The patient agrees to continue. Procedure started. Correct patient, site and procedure confirmed by cath team. Current diagnosis: Extensive DVT, PE, Inability to take anticoagualtion. PERRLA. Strong, equal hand hairspring setter bilaterally. Lungs clear x 5 lobes. IV Site on Arrival: 24 gauge in the right hand. IV Fluids: 0.9% NaCl at KVO. 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 Oxygen started at 2liters/min via nasal canula. right subclavian/jugular was prepped with chloroprep then draped in the usual sterile fashion. Physician notified. Baseline sample Acquired. HR: 88 BPM. Physician arrived. Physician scrubbed in. Immediate Pre-Procedure Time Out. Correct Patient: Yes; Correct Procedure: Yes; Correct Site: Yes; Correct Patient Position: Yes; Correct Supplies: Yes; Dried Flammable Prep: YES Blood Products Available: N/A;. Lidocaine 1% infiltrated to the right jugular. Admit Source: In Patient. US used to obtain R jugular access. Venous access obtained. Lidocaine 1% infiltrated to the right jugular. 5 Fr sheath removed and access site dilated up to 10 Fr cook sheath. Standard wire removed. Hand injection through the filter Cook sheath. IVC Emile Tulip filter inserted. IVC filter deployed successfully. Lot number [id number], expires 05/12/2023. Filter sheath removed, manual pressure held for 15 min. PERRLA. Strong, equal hand hairspring setter bilaterally. No VTE prophylaxis required. Post-op diagnosis: DVT, PE, Successful placement of IVC filter. Medication's Wasted: Lidocaine 1% = 12 mL. Medication's Wasted: Heparin = 1000 u. Total IV fluids: 50 mL. Complications: none. Estimated blood loss: 5mL-10mL. Procedure completed. A Manual Compression was successful obtaining hemostatsis at the Right Jugular vein insertion site. Patient transferred by bed to [facility]. Vital chart was stopped. Procedure Medications Start: 9:36 AM Stop: 9:36 AM Medication: Versed Amount: 0.5 mg Route: I.V. Start: 9:36 AM Stop: 9:36 AM Medication: Fentanyl Amount: 12.5 mg Route: I.V. I, the attending physician, have reviewed and verified all procedure medications. Yes, all medications given per verbal order Report Signatures Finalized by Jorje Lamar MD on 03/09/2021 10:15 AM
--- NOTE | 2021-02-21 09:25 | W.PM.OPSUD ---
Surgery/Procedure H&P Update DATE OF PROCEDURE: February 21, 2021 DATE H&P PERFORMED: 02/20/21 H&P UPDATE INFORMATION: I have reviewed H&P completed within last 30 days, I have examined patient prior to procedure and No changes to prior documentation CHANGES TO PREVIOUS DOCUMENTATION: Patient has pulmonary embolism, extensive DVT of bilateral lower extremities, GI bleed, right heart strain. She is not a candidate for anticoagulation per medicine team. They recommended IVC filter placement given her PEs and extensive DVTs bilaterally. We discussed with patient need for IVC placement yesterday. She wanted to proceed with the procedure. However today she did not remember our conversation. Her memory seems to be affected. I called her daughter, Corin velasco, and discussed with her the procedure, the alternatives, risks and benefits. She showed good understanding of the procedure. She wants to proceed with the procedure. PREOP DIAGNOSIS: DVT/ Pulmonary embolism PRIMARY INDICATION FOR PROCEDURE: DVT/pulmonary embolism PLANNED PROCEDURE: IVC filter placement PATIENT REASSESSED PRIOR TO SEDATION, WITH NO CHANGE NOTED: Yes PHYSICAL EXAM: alert, oriented x 3, clear to auscultation bilaterally and regular rate & rhythm AIRWAY EVAL/ANESTHESIA PLAN: ASA III, Monitored Anesthesia, Local Anesthesia, Risks, benefits & alternatives of sedation and/or procedure discussed and Patient agrees to continue as planned
--- NOTE | 2021-02-21 11:16 | PM.PN ---
Subjective Subjective: Interval history: Patient is overall stable. She denies any chest pain. Her memory is not good today and could not recall exactly discussion regarding IVC filter placement today. I called her daughter and had an extensive discussion with her who wanted to proceed with IVC filter placement. I again talked with the patient who agreed to proceed with it. She had successful placement of IVC filter from right IJ access. Vitals/I&O/Wt Last Vital Signs Temp 98.2 F 02/21/21 07:32 Pulse 92 02/21/21 07:32 Resp 16 02/21/21 07:32 BP 114/74 02/21/21 07:32 Pulse Ox 96 02/21/21 07:32 02/20/21 02/21/21 02/21/21 22:59 06:59 14:59 Intake Total 892.5 / 1827.5 Output Total 200 / 200 Balance 692.5 / 1627.5 Weight last 48 hrs Weight 230 lb Weight 230 lb Physical Exam Narrative: EXAM NARRATIVE: GENERAL: Patient is alert, awake and oriented x3. Has memory issues and does not remember yesterday's conversation. [] NECK: No jugular vein distension. [] HEENT: No cyanosis. No icterus. No pallor. [] HEART: Regular S1 and S2. No murmur, rub or gallop. [] LUNGS: Clear to auscultate bilaterally. [] ABDOMEN: Soft, nontender and nondistended. Positive bowel sounds. No guarding, rebound or tenderness. [] CENTRAL NERVOUS SYSTEM: Grossly nonfocal. [] EXTREMITIES: Swollen bilateral lower extremities Data : 02/21/21 05:21 02/21/21 05:21 Micro: Microbiology 02/20/21 00:30 Blood Culture - Preliminary Blood NEGATIVE TO DATE 02/20/21 00:27 Blood Culture - Preliminary Blood NEGATIVE TO DATE A&P Assessment and plan (1) Metastatic adenocarcinoma: Status: Acute (2) Elevated troponin: Status: Acute (3) Pulmonary embolism: Status: Acute (4) Lower extremity edema: Status: Acute (5) Hematochezia: Status: Acute Patient has extensive metastatic adenocarcinoma with primary source likely uterus. She has been having a GI bleed. Not on anticoagulation. She is found to have moderate-sized pulmonary emboli. Also has extensive DVT of bilateral lower extremities. Given inability to anticoagulate, interventional cardiology has been consulted to place IVC filter. Patient underwent successful placement of IVC filter after consent was obtained from the daughter as patient could not recall our exact discussion yesterday. Given she has RV strain and active PE that can not be treated at this time, she will be at high cardiac risk for undergoing general anesthesia. Troponin Elevation secondary to PE. I had a detailed discussion with patient and her family about guarded prognosis and that discussion regarding comfort care would be appropriate. They will think about it and discuss with primary team. Thank you for involving us with care of this patient. We will continue to follow. Please call with question Attestations Medical Necessity Statement*: Care expected to cross 2 midnights. Coding Level of Care Code Acute Communications Senior Associate for g Fwd Diagnoses Metastatic adenocarcinoma C79.9 Elevated troponin R77.8 Pulmonary embolism I26.99 Lower extremity edema R60.0 Hematochezia K92.1
[2021-02-21 13:07] LABS: Hematocrit 30.2 % (37.0-47.0); Hemoglobin 9.2 g/dL (11.5-15.3)
--- NOTE | 2021-02-21 15:02 | P.PN_ITS ---
Subjective Subjective: Interval history: Seen this morning. She is status post IVC filter. She is complaining of a little bit of neck pain at the catheter insertion site but overall doing well. Bright red blood per rectum has also decreased in frequency. Hemoglobin seems to be stable. Discussed the possibility of endoscopic and colonoscopy with the patient as she is high risk for anesthesia. All options were offered to the patient at this point she declines. She would like to hold off on endoscopy colonoscopy for now and see how she does. Vitals/I&O/Wt Last Vital Signs Temp 98.1 F 02/21/21 11:30 Pulse 97 02/21/21 11:30 Resp 16 02/21/21 11:30 BP 116/79 02/21/21 11:30 Pulse Ox 90 02/21/21 11:30 02/21/21 02/21/21 02/21/21 06:59 14:59 22:59 Intake Total 892.5 / 1827.5 Output Total 200 / 200 Balance 692.5 / 1627.5 Weight last 48 hrs Weight 104.326 kg Weight 104.326 kg Physical Exam Narrative: EXAM NARRATIVE: General: Alert oriented x3, patient seen sitting up in bed, on 4 L nasal cannula. HEENT: Normocephalic, atraumatic, EOMI, breathing 2 L nasal cannula. Catheter insertion site appears clean covered with bandage. Cardio: Regular rate rhythm, normal S1-S2, no murmurs rubs gallops, Respiratory: Very diminished bilateral air entry, right worse than left. GI: Abdomen soft, nontender, moderately distended, unable to palpate liver and spleen. There is large mass palpable in the mid abdomen below umbilicus, unable to appreciate any ascites. Extremities: Unable to palpate pulses due to edema., Bilateral lower extremities 3+ pitting edema, no skin rashes or venous stasis changes noted. Calves nontender to palpation. Lower extremity edema slightly improved. No gross focal neurological deficits. Data : 02/21/21 12:12 02/21/21 05:21 Micro: Microbiology 02/20/21 00:30 Blood Culture - Preliminary Blood NEGATIVE TO DATE 02/20/21 00:27 Blood Culture - Preliminary Blood NEGATIVE TO DATE A&P Assessment and plan (1) Metastatic adenocarcinoma: Status: Acute (2) Shortness of breath: Status: Acute (3) Hematochezia: Status: Acute (4) Lower extremity edema: Status: Acute (5) Pulmonary embolism: Status: Acute (6) Elevated troponin: Status: Acute (7) Abdominal hernia: Status: Acute (8) Supplemental oxygen dependent: Status: Acute (9) Hyponatremia: Status: Acute (10) Loss of appetite: Status: Acute Additional A&P Information #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 Patient is not a candidate for anticoagulation due to her active lower GI bleed at this time. ?Echo shows normal left ventricular ejection fraction, right ventricular strain present, [place] descent positive. Right ventricular hypokinesis noted on echo. Troponin elevated most likely secondary to right heart strain. Lower extremity Doppler showed bilateral extensive DVT. ?Cardio consult for IVC filter placement. Patient is interested in having one. N.p.o. at midnight tonight for filter placement tomorrow morning. ?Patient following with Dr. Echevarria as an outpatient. She has seen him once so far. Second appointment is pending. ?Respiratory therapy to evaluate and treat. DuoNeb every 4 hours.. -She did get 1 dose of IV Lasix with albumin at admission. #Lower GI bleed/hematochezia ?Patient has been constipated for the last few weeks. It seems she may be having some tenesmus at this point as well CT abdomen pelvis does show possible soft tissue mass invading into the rectum. Patient has been taking a lot of Metamucil lately. She has been having intermittent blood in stool. It is possible that the mass could be bleeding versus diverticular bleed. Hemoglobin 10 on arrival. Hemoglobin down to 8.5 this morning. He did we trended up to 9.3 again. Patient is interested in having endoscopy and colonoscopy to rule find the so urce of bleeding at this time. However she is a high risk candidate for anesthesia based on her echo and DVT results. We will continue to monitor her hemoglobin and monitor her bloody bowel movements at this time. IVC filter placed today. Dr. Schmitz is aware of the whole situation and on board. Discussed with the patient regarding being high risk for anesthesia due to her cardiac status and DVT and pulmonary embolism. Patient would like to hold off on endoscopy colonoscopy at this point. I will start her on full liquids ?Continue Protonix 40 IV daily. Manage patient conservatively at this point. -I did discuss with oncology the possibility of radiation to rectal area due to soft tissue invasion of mass. That can be a possibility once we identified that the bleeding is due to mass versus any other source. #Incarcerated chronic abdominal hernia ?Appears to be stable at this time and there does not seem to be any evidence of bowel obstruction. Continue to monitor #Severe protein calorie malnutrition, loss of appetite greater than 2 weeks #Hyponatremia ?Most likely secondary to loss of appetite. Albumin low. Third spacing ?Patient would benefit from a nutrition consult. She has been drinking Ensure supplement at home -Started full liquids today. Continue Ensure supplement. ?Lower extremity edema also contributed by bilateral DVT. DVT prophylaxis: Patient is high risk but due to size of lower extremities cannot place clinical compression device. Cannot anticoagulate pharmacologically due to GI bleed. Diet: Regular diet Prognosis remains poor. CODE STATUS: Patient would like to be a full code at this point. ?She was also hesitant to accept any blood transfusions but after she spoke to her daughter and after family discussion she would allow for blood transfusions if she absolutely needs it. Attestations Medical Necessity Statement*: Greater then 48-hour stay, if the patient remained stable from hemoglobin and hematochezia standpoint, we can possibly DC in next 24-48 hours. Time Spent in Patient Care: 16 - 35 minutes Coding Level of Care Code Acute Upper Tier for Chg Fwd Diagnoses Metastatic adenocarcinoma C79.9 Shortness of breath R06.02 Hematochezia K92.1 Lower extremity edema R60.0 Pulmonary embolism I26.99 Elevated troponin R77.8 Abdominal hernia K46.9 Supplemental oxygen dependent Z99.81 Hyponatremia E87.1 Loss of appetite R63.0
[2021-02-21] MEDS: acetaminophen 325 mg Tablet 650 MG PO (16:05)
[2021-02-21] MEDS: sucralfate 1 gm/10 mL Oral Liq UDC PO ×2 (18:05→20:13)
[2021-02-21 18:44] LABS: Hematocrit 27.2 % (37.0-47.0); Hemoglobin 8.3 g/dL (11.5-15.3)
[2021-02-21] MEDS: lactulose oral liq 20 gm/30 mL UDC PO (19:38)
[2021-02-22] VITALS (8 sets, daily range): BP systolic 108–125; BP diastolic 68–85; PULSE 86–103; RESP 16–20; TEMP 36.4–37.1; O2SAT 94–99
[2021-02-22] MEDS: pantoprazole 40 mg SDV IVP ×2 (02:45→17:38)
--- NOTE | 2021-02-22 05:08 | PC.NURSE ---
her stool was mainly blood with very little liquid stool in it
[2021-02-22 05:50] LABS: Basophils % 0.4 %; Eosinophils % 0.4 %; Hematocrit 28.2 % (37.0-47.0); Hemoglobin 8.6 g/dL (11.5-15.3); Lymphocytes # 0.7 10^3/uL (0.8-4.8); Mean Corpuscular HGB Conc 30.5 g/dL (30.0-36.0); Mean Corpuscular Hemoglobin 27.6 pg (28.0-34.0); Mean Corpuscular Volume 90.4 fl (81-99); Mean Platelet Volume 9.8 fL (7.4-10.4); Monocytes % 12.1 %; Neutrophils # 6.57 10^3/uL (1.8-7.7); Neutrophils % 78.4 %; Nucleated Red Blood Cells % 0 %; Platelet Count 238 10^3/cmm (130-400); Red Blood Count 3.12 10^6/uL (4.1-5.3); Red Cell Distribution Width 15.2 % (12.1-15.1); White Blood Count 8.4 10^3/uL (4.0-10.0)
[2021-02-22 06:19] LABS: Anion Gap 15.8 (5-19); Blood Urea Nitrogen 18 mg/dL (8-23); Calcium 8.1 mg/dL (8.5-10.5); Carbon Dioxide 25 mmol/L (22-29); Chloride 98 mmol/L (98-107); Glucose 107 mg/dL (65-115); Magnesium 2.2 mg/dL (1.7-2.3); Osmolality Calculated 282 mOsm/kg (285-295); Phosphorus 3.1 mg/dL (2.5-4.5); Potassium 3.8 mmol/L (3.5-5.1); Sodium 135 mmol/L (136-145)
[2021-02-22] MEDS: sucralfate 1 gm/10 mL Oral Liq UDC PO ×4 (06:33→20:21)
--- NOTE | 2021-02-22 09:57 | PC.NURSE ---
Went to beside with Dr. Sinha while she discussed the risks of surgery, including , and patient was very vocal that she would like to move forward with surgery.
--- NOTE | 2021-02-22 10:30 | PM.PN ---
Subjective Subjective: Interval history: Still have blood in stool Medications: Reviewed: Yes Vitals/I&O/Wt Last Vital Signs Temp 98.7 F 02/22/21 07:19 Pulse 88 02/22/21 07:19 Resp 16 02/22/21 07:19 BP 123/68 02/22/21 07:19 Pulse Ox 99 02/22/21 07:19 02/21/21 02/22/21 02/22/21 22:59 06:59 14:59 Intake Total 963.75 / 963.75 480 / 480 Balance 963.75 / 963.75 480 / 480 Weight last 48 hrs Weight 238 lb 1.6 oz Physical Exam Narrative: EXAM NARRATIVE: Patient is conscious alert oriented X3 BMI 39.5 Head and neck examination PERRLA no masses no cervical lymphadenopathy no jaundice Right upper chest Port-A-Cath in place and [place] drain at the right hemithorax Abdomen nontender nondistended soft no organomegaly guarding or rigidity/no signs of peritonitis. Chronic incarcerated ventral hernia Data : 02/22/21 05:28 02/22/21 05:28 A&P Assessment and plan (1) Hematochezia: Plan of care; After thorough history and physical examination and reviewing the chart, plan to perform a diagnostic esophagogastroduodenoscopy and diagnostic colonoscopy with possible biopsy and possible polypectomy. I discussed with the patient in detail the risks,benefits,alternatives and indications.The risk of aspiration, bleeding, soft tissue injury, perforation of the stomach/esophagus/colon and other potential concomitant complications were explained to the patient in details also the potential need for Thoracotomy and or Laproscoy/Laparotomy to repair any related complications including but not limited to colectomy and or Closotomy. The patient understood this well and did agree to proceed. Rationale was carefully and clearly discussed with the patient.Appropriate informed consent have been reviewed and signed Verbal and written Instructions were given to the patient for colonoscopy prep Patient understands that her prognosis is suboptimal. Being at high risk undergoing anesthesia and per cardiac evaluation her prognosis is guarded due to the underlying extensive bilateral DVT and pulmonary embolism with right ventricular strain. The discussion about the procedure took place in the presence of Dr. Sinha patient's hospitalist as well as nursing staff Andra. Patient would like to proceed understanding the potential higher risk of demise with intervention. Status: Acute Attestations Medical Necessity Statement*: Per admitting service Time Spent in Patient Care: (>than 50% of time spent in counselling and/or direct pt care on unit). Coding Level of Care Code Acute Commander Internal Affairs for Aditya Villanueva Diagnoses Hematochezia K92.1
--- NOTE | 2021-02-22 10:50 | PC.SOCIAL ---
IMM Update pg 2 of IMM updated and reviewed w/ patient. Copy provided and copy placed in chart.
--- NOTE | 2021-02-22 11:11 | P.PN_ITS ---
Subjective Subjective: Interval history: Seen this morning. Patient continues to have bright red blood per rectum every time she uses the bathroom. CT abdomen does show a mass invading the rectum. I had a discussion with the patient at length during her nurse being present in the room and at this time patient would like to proceed with having colonoscopy procedure to find out why she is bleeding. She understands the risk of anesthesia and that she is a high risk from cardiac standpoint. She stated if I on the table at least I will in my sleep . He states she is fully aware of what is going on and still would like to go ahead with the procedure. Vitals/I&O/Wt Last Vital Signs Temp 98.7 F 02/22/21 07:19 Pulse 88 02/22/21 07:19 Resp 16 02/22/21 07:19 BP 123/68 02/22/21 07:19 Pulse Ox 99 02/22/21 07:19 02/21/21 02/22/21 02/22/21 22:59 06:59 14:59 Intake Total 963.75 / 963.75 480 / 480 Balance 963.75 / 963.75 480 / 480 Weight last 48 hrs Weight 108 kg Physical Exam Narrative: EXAM NARRATIVE: General: Alert oriented x3, patient seen sitting up in bed, on 3 L nasal cannula. HEENT: Normocephalic, atraumatic, EOMI, breathing 2 L nasal cannula. Catheter insertion site appears clean covered with bandage. Cardio: Regular rate rhythm, normal S1-S2, no murmurs rubs gallops, Respiratory: Very diminished bilateral air entry, right worse than left. Air entry slightly improved compared to yesterday. GI: Abdomen soft, nontender, moderately distended, unable to palpate liver and spleen. There is large mass palpable in the mid abdomen below umbilicus, unable to appreciate any ascites. Extremities: Unable to palpate pulses due to edema., Bilateral lower extremities 3+ pitting edema, no skin rashes or venous stasis changes noted. Calves nontender to palpation. Right leg much more edematous compared to left leg. No gross focal neurological deficits. 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 Patient is not a candidate for anticoagulation due to her active lower GI bleed at this time. ?Echo shows normal left ventricular ejection fraction, right ventricular strain present, [place] descent positive. Right ventricular hypokinesis noted on echo. Troponin elevated most likely secondary to right heart strain. Lower extremity Doppler showed bilateral extensive DVT. ?Patient received IVC filter with cardiology 02/21. As per cardiology patient remains a high risk for anesthesia from cardiac standpoint. ?Patient following with Dr. Echevarria as an outpatient. She has seen him once so far. Second appointment is pending. ?Respiratory therapy to evaluate and treat. DuoNeb every 4 hours.. -She did get 1 dose of IV Lasix with albumin at admission. #Lower GI bleed/hematochezia ?Patient has been constipated for the last few weeks. It seems she may be having some tenesmus at this point as well CT abdomen pelvis does show possible soft tissue mass invading into the rectum. Patient has been taking a lot of Metamucil lately. She has been having intermittent blood in stool. It is possible that the mass could be bleeding versus diverticular bleed. Hemoglobin 10 on arrival. Hemoglobin has been steady between 8-9 range. He did we trended up to 9.3 again. Patient is interested in having endoscopy and colonoscopy to rule find the source of bleeding at this time. However she is a high risk candidate for anesthesia based on her echo and DVT results. We will continue to monitor her hemoglobin and monitor her bloody bowel movements at this time. IVC filter placed. Initially after discussion patient's high cardiac risk she refused to go for any kind of a scope procedure to rule out her lower GI bleed versus upper GI bleed. However today she states that she continues to have bloody bowel movements and she would like to go ahead with a colonoscopy. She fully understands the risks associated with anesthesia and that she could potentially . She would like to proceed with the procedure. This conversation was held in the presence of general surgeon Dr. Mcnulty, patient's nurse Rosemary and myself. Bowel prep to start today as per Dr. Mcnulty's instructions. Patient has agreed for a flexible sigmoidoscopy. Procedure to occur tomorrow. ?Continue Protonix 40 IV daily. -I did discuss with oncology the possibility of radiation to rectal area due to soft tissue invasion of mass. That can be a possibility once we identified that the bleeding is due to mass versus any other source. #Incarcerated chronic abdominal hernia ?Appears to be stable at this time and there does not seem to be any evidence of bowel obstruction. Continue to monitor #Severe protein calorie malnutrition, loss of appetite greater than 2 weeks #Hyponatremia ?Most likely secondary to loss of appetite. Albumin low. Third spacing ?Patient would benefit from a nutrition consult. She has been drinking Ensure supplement at home Clear liquid today with GoLYTELY. ?Lower extremity edema also contributed by bilateral DVT. DVT prophylaxis: Patient is high risk but due to size of lower extremities cannot place compression device. Cannot anticoagulate pharmacologically due to GI bleed. Diet: Regular diet Prognosis remains poor. CODE STATUS: Patient would like to be a full code at this point. ?She was also hesitant to accept any blood transfusions but after she spoke to her daughter and after family discussion she would allow for blood transfusions if she absolutely needs it. Attestations Medical Necessity Statement*: Greater than 24-hour hospital stay. Time Spent in Patient Care: Greater than 35 minutes (>than 50% of time spent in counselling and/or direct pt care on unit) . Coding Level of Care Code Acute Collection Systems Worker for Chg Fwd Diagnoses Metastatic adenocarcinoma C79.9 Shortness of breath R06.02 Hematochezia K92.1 Lower extremity edema R60.0 Pulmonary embolism I26.99 Elevated troponin R77.8 Abdominal hernia K46.9 Supplemental oxygen dependent Z99.81 Hyponatremia E87.1 Loss of appetite R63.0
[2021-02-22] MEDS: peg /e-lyte soln 4,000 mL Btl 4000 ML PO (12:34)
--- NOTE | 2021-02-22 18:34 | P.PN_ITS ---
Subjective Subjective: Interval history: Patient is feeling well. Vitals/I&O/Wt Last Vital Signs Temp 98.0 F 02/22/21 16:00 Pulse 103 H 02/22/21 16:00 Resp 20 H 02/22/21 16:00 BP 123/70 02/22/21 16:00 Pulse Ox 95 02/22/21 16:00 02/22/21 02/22/21 02/22/21 06:59 14:59 22:59 Intake Total 840 / 840 Balance 840 / 840 Weight last 48 hrs Weight 238 lb 1.6 oz Physical Exam Narrative: EXAM NARRATIVE: GENERAL: Patient is alert, awake and oriented x3. Has memory issues and does not remember yesterday's conversation. [] NECK: No jugular vein distension. [] HEENT: No cyanosis. No icterus. No pallor. [] HEART: Regular S1 and S2. No murmur, rub or gallop. [] LUNGS: Clear to auscultate bilaterally. [] ABDOMEN: Soft, nontender and nondistended. Positive bowel sounds. No guarding, rebound or tenderness. [] CENTRAL NERVOUS SYSTEM: Grossly nonfocal. [] EXTREMITIES: Swollen bilateral lower extremities Data : 02/25/21 04:33 02/25/21 04:33 A&P Assessment and plan (1) Metastatic adenocarcinoma: Status: Acute (2) Elevated troponin: (3) Pulmonary embolism: Status: Acute (4) Lower extremity edema: Status: Acute (5) Hematochezia: Status: Resolved Patient has extensive metastatic adenocarcinoma with primary source likely uterus. She has been having a GI bleed. Not on anticoagulation. She is found to have moderate-sized pulmonary emboli. Also has extensive DVT of bilateral lower extremities. Given inability to anticoagulate, interventional cardiology was consulted to place IVC filter. She underwent IVC filter placement yesterday. She is stable since the procedure. Troponin Elevation secondary to PE. I had a detailed discussion with patient and her family about guarded prognosis and that discussion regarding comfort care would be appropriate. They will think about it and discuss with primary team. Thank you for involving us with care of this patient. We will continue to follow. Please call with question Attestations Medical Necessity Statement*: Care expected to cross 2 midnights. Coding Level of Care Code Acute Fitting Room Attendant for g Fwd Diagnoses Metastatic adenocarcinoma C79.9 Elevated troponin R77.8 Pulmonary embolism I26.99 Lower extremity edema R60.0 Hematochezia K92.1
--- NOTE | 2021-02-22 20:00 | PC.NURSE ---
Nurse notified that patient is refusing to drink the remainder of her Go-lytely. Discussed the importance of this solution for procedure tomorrow. Patient stated she does not want to drink the rest of the solution because it's making her belly hurt. Explained to patient that this is an expected result. Patient stated she will throw up if she consumes any more of this solution. Patient requesting to cancel colonoscopy. MD notified, daughter notified. Daughter will call patient to discuss this with her further, but at this time patient is adamant about cancelling procedure.
[2021-02-23] VITALS (9 sets, daily range): BP systolic 104–133; BP diastolic 66–77; PULSE 81–97; RESP 16–17; TEMP 36.5–36.9; O2SAT 91–100
[2021-02-23] MEDS: pantoprazole 40 mg SDV IVP ×2 (04:54→17:19)
[2021-02-23] MEDS: sucralfate 1 gm/10 mL Oral Liq UDC PO ×3 (06:18→21:48)
--- NOTE | 2021-02-23 07:20 | PC.NURSE ---
at approximately, 2100 last night patient's daughternicholas called and spoke with patient regarding cancelling her procedure this AM. Patient agreed to drink the rest of the Go-lytely after her conversation with her daughter. at approximately, midnight patient consumed the remainder of her Go-Lytely for the procedure this AM. Patient's last stool was watery and [place] in color.
[2021-02-23 09:30] LABS: Basophils % 0.4 %; Eosinophils % 0.2 %; Hematocrit 25.3 % (37.0-47.0); Hemoglobin 8.1 g/dL (11.5-15.3); Lymphocytes # 0.8 10^3/uL (0.8-4.8); Lymphocytes % 7.4 %; Mean Corpuscular Hemoglobin 27.9 pg (28.0-34.0); Mean Corpuscular Volume 87.2 fl (81-99); Mean Platelet Volume 9.4 fL (7.4-10.4); Monocytes # 1.2 10^3/uL (0.2-0.9); Monocytes % 10.9 %; Neutrophils # 8.53 10^3/uL (1.8-7.7); Neutrophils % 80.4 %; Nucleated Red Blood Cells % 0 %; Platelet Count 234 10^3/cmm (130-400); Red Cell Distribution Width 15.1 % (12.1-15.1); White Blood Count 10.6 10^3/uL (4.0-10.0)
[2021-02-23] MEDS: sodium chloride 0.9% 1,000 ML 30 ML IV ×2 (11:29→17:29)
--- NOTE | 2021-02-23 11:58 | ANES.PAUD2 ---
Pre-Anesthetic Update Pre-Anesthetic Assessment: Date of Surgery/Procedure: 02/23/21 Preop Diagnosis: Bleeding per rectum Proposed Procedure: Operation Date: 02/23/21 10:45 Proposed Procedures p Sigmoidoscopy with possible biopsy(Not Applicable) - Mark Mcnulty MD Changes from Pre-Anesthetic Assessment: bleeding per rectum has decreased per the patient imaging revealed probable uterine cancer invading the rectum. Last Intake: 02/20/21 clear liquids since finished colon prep at [facility]. Labs Last 48hrs: Laboratory Results - last 48 hr 02/21/21 02/21/21 02/22/21 12:12 18:33 05:28 WBC 8.4 RBC 3.12 L Hgb 9.2 L 8.3 L 8.6 L Hct 30.2 L 27.2 L 28.2 L MCV 90.4 MCH 27.6 L MCHC 30.5 RDW 15.2 H Plt Count 238 MPV 9.8 Neut % (Auto) 78.4 Lymph % (Auto) 8.0 [place] % (Auto) 12.1 Eos % (Auto) 0.4 Baso % (Auto) 0.4 Neut # (Auto) 6.57 Lymph # (Auto) 0.7 L [place] # (Auto) 1.0 H Eos # (Auto) 0.0 Baso # (Auto) 0.0 Nucleated RBC % (a uto) 0 Nucleated RBCs # 0.0 Sodium Potassium Chloride Carbon Dioxide Anion Gap BUN Creatinine GFR Calculation Glucose Calculated Osmolal ity Calcium Phosphorus Magnesium 02/22/21 02/23/21 05:28 09:05 WBC 10.6 H RBC 2.90 L Hgb 8.1 L Hct 25.3 L MCV 87.2 MCH 27.9 L MCHC 32.0 RDW 15.1 Plt Count 234 MPV 9.4 Neut % (Auto) 80.4 Lymph % (Auto) 7.4 [place] % (Auto) 10.9 Eos % (Auto) 0.2 Baso % (Auto) 0.4 Neut # (Auto) 8.53 H Lymph # (Auto) 0.8 [place] # (Auto) 1.2 H Eos # (Auto) 0.0 Baso # (Auto) 0.0 Nucleated RBC % (a uto) 0 Nucleated RBCs # 0.0 Sodium 135 L Potassium 3.8 Chloride 98 Carbon Dioxide 25 Anion Gap 15.8 BUN 18 Creatinine 0.7 GFR Calculation Not Reportable Glucose 107 Calculated Osmolal ity 282 L Calcium 8.1 L Phosphorus 3.1 Magnesium 2.2 Vitals: Temperature 98.1 F 02/23/21 11:27 Temperature Source Temporal Artery S can 02/23/21 04:00 Pulse Rate 97 02/23/21 11:27 Pulse Rhythm 02/19/21 20:59 Pulse Strength 3+ Normal 02/19/21 20:59 Respiratory Rate 16 02/23/21 07:45 Respiratory Effort Non-Labored 02/22/21 20:00 Respiratory Depth Normal 02/22/21 20:00 Respiratory Patter n 02/22/21 20:00 Blood Pressure 119/71 02/23/21 11:27 Blood Pressure Fabiola n 87 02/23/21 11:27 Blood Pressure Pos ition Semi Fowlers 02/23/21 04:00 Pulse Oximetry 97 02/23/21 11:27 Oxygen Delivery Me thod 02/22/21 16:00 Oxygen Flow Rate 3 02/22/21 20:00 Sepsis Recent Feve r Within 48 Hours No 02/19/21 10:11 Sepsis New/Unexpla ined Change in Men jon Status No 02/19/21 10:11 Exam: Pre-Anes Outpt Exam: alert, oriented x 3, clear to auscultation bilaterally and regular rate & rhythm Cardiac Studies: Echocardiogram 02/20/21
--- NOTE | 2021-02-23 12:28 | P.PN_ITS ---
Subjective Subjective: Interval history: Patient overall is about the same Medications: Reviewed: Yes Vitals/I&O/Wt Last Vital Signs Temp 98.1 F 02/23/21 11:27 Pulse 97 02/23/21 11:27 Resp 16 02/23/21 07:45 BP 119/71 02/23/21 11:27 Pulse Ox 97 02/23/21 11:27 02/22/21 02/23/21 02/23/21 22:59 06:59 14:59 Intake Total Balance Weight last 48 hrs Weight 243 lb 11.2 oz Weight 238 lb 1.6 oz Physical Exam Narrative: EXAM NARRATIVE: Patient is conscious alert oriented X3 BMI 39.5 Head and neck examination PERRLA no masses no cervical lymphadenopathy no jaundi ce Right upper chest Port-A-Cath in place and [place] drain at the right hemithorax Abdomen nontender nondistended soft no organomegaly guarding or rigidity/no signs of peritonitis. Chronic incarcerated ventral hernia Data : 02/23/21 09:05 02/22/21 05:28 A&P Assessment and plan (1) Hematochezia: Plan of care; After thorough history and physical examination and reviewing the chart, plan to perform flexible sigmoidoscopy I discussed with the patient in details the risks,benefits,alternatives and indications.The risk of aspiration, bleeding, soft tissue injury, perforation of the colon and other potential concomitant complications were explained to the patient in details,also the potential need for Laproscoy/Laparotomy to repair any related complications including but not limited to colectomy and or Closotomy.The patient understood this well and did agree to proceed. Rationale was carefully and clearly discussed with the patient.Appropriate informed consent have been reviewed and signed All questions have been answered and all concerns have been addressed to patient's satisfaction. Verbal and written Instructions were given to the patient for colonoscopy prep Status: Acute Attestations Medical Necessity Statement*: Per admitting service Time Spent in Patient Care: (>than 50% of time spent in counselling and/or direct pt care on unit) . Coding Level of Care Code Acute Stable Attendant for Aditya Villanueva Diagnoses Hematochezia K92.1
--- NOTE | 2021-02-23 12:53 | PC.NURSE ---
1MG EPI DILUTED IN 10ML NS. 5ML INJECTED INTO RECTAL MASS.
--- NOTE | 2021-02-23 12:56 | PC.NURSE ---
SURGICEL PLACED ON RECTAL MASS
--- NOTE | 2021-02-23 14:42 | P.PN_ITS ---
Subjective Subjective: Interval history: Patient was seen before sigmoidoscopy, she was not endorsing any new events overnight, she is aware of her metastatic cancer and wants to stay full code We will follow up with pathology report and discuss with radiation oncologist to devise further plan Hemodynamically stable hemoglobin 8.1 Vitals/I&O/Wt Last Vital Signs Temp 98.1 F 02/23/21 13:03 Pulse 89 02/23/21 13:19 Resp 16 02/23/21 13:19 BP 133/74 02/23/21 13:19 Pulse Ox 100 02/23/21 13:19 02/22/21 02/23/21 02/23/21 22:59 06:59 14:59 Intake Total 0 350 / 350 Balance 0 350 / 350 Weight last 48 hrs Weight 110.54 kg Weight 108 kg Physical Exam Narrative: EXAM NARRATIVE: Patient laying supine Lower extremity edema Distended abdomen ascites positive Right-sided pleural drain, right-sided Mediport in place S1, S2 Abdomen is soft nontender no signs of peritonitis Nonfocal neuro exam Breathing well on 2L no signs of acute resp distress Data : 02/23/21 09:05 02/22/21 05:28 A&P Assessment and plan (1) Metastatic adenocarcinoma: Status: Acute (2) Loss of appetite: Status: Acute (3) Hyponatremia: Status: Acute (4) Supplemental oxygen dependent: Status: Acute (5) Abdominal hernia: Status: Acute (6) Pulmonary embolism: Status: Acute (7) Lower extremity edema: Status: Acute (8) Hematochezia: Status: Acute (9) Shortness of breath: Status: Acute Additional A&P Information Metastatic cancer status post sigmoidoscopy will follow with biopsy results will devise further plan after discussing with Dr. Echevarria and radiation oncologist, currently patient is full code, hemodynamically stable Acute hypoxia she does not use oxygen at home, will need home O2 evaluation She does have pulmonary embolism bilateral DVTs not a candidate for anticoagulation secondary to hematochezia which seems secondary to uterine mass Abdominal hernia: Chronic incarcerated hernia, no signs of obstruction nontender abdomen patient is not experiencing nausea or vomiting DVT prophylaxis contraindicated with anticoagulating agent status post IVC filter placement Full code Clear liquid diet Guarded prognosis Attestations Medical Necessity Statement*: Awaiting biopsy results Time Spent in Patient Care: less than 15 minutes Coding Level of Care Code Acute Shutdown Planner for Chg Fwd Diagnoses Metastatic adenocarcinoma C79.9 Loss of appetite R63.0 Hyponatremia E87.1 Supplemental oxygen dependent Z99.81 Abdominal hernia K46.9 Pulmonary embolism I26.99 Lower extremity edema R60.0 Hematochezia K92.1 Shortness of breath R06.02
--- NOTE | 2021-02-23 14:43 | ANE.PACU2 ---
Inpatient post-anesthesia follow up: Airway intact: Yes Vital signs: Temperature 98.1 F Pulse Rate 89 Respiratory Rate 16 Blood Pressure 133/74 Pulse Oximetry 100 Oxygen Delivery Me thod [ Nasal Cannula Current Rate & Del mimi] Oxygen Delivery Me thod Nasal Cannula Oxygen Flow Rate [ Current Rate 4 & Delivery] Oxygen Flow Rate 2 Fraction of Inspir ed Oxygen Hydration adequate: Yes Nausea and vomiting: No Pain level: 2 Mental status: Baseline
[2021-02-24] VITALS (8 sets, daily range): BP systolic 96–122; BP diastolic 61–77; PULSE 87–101; RESP 13–18; TEMP 36.4–37.2; O2SAT 90–100
[2021-02-24] MEDS: pantoprazole 40 mg SDV IVP (05:02)
[2021-02-24 06:13] LABS: Basophils # 0.1 10^3/uL (0.0-0.1); Basophils % 0.5 %; Eosinophils # 0.1 10^3/uL (0.0-0.8); Eosinophils % 0.5 %; Hematocrit 26.8 % (37.0-47.0); Hemoglobin 8.3 g/dL (11.5-15.3); Lymphocytes # 0.9 10^3/uL (0.8-4.8); Lymphocytes % 9.9 %; Mean Corpuscular Hemoglobin 27.1 pg (28.0-34.0); Mean Corpuscular Volume 87.6 fl (81-99); Mean Platelet Volume 9.9 fL (7.4-10.4); Monocytes # 1.3 10^3/uL (0.2-0.9); Monocytes % 13.4 %; Neutrophils # 7.08 10^3/uL (1.8-7.7); Neutrophils % 75.1 %; Nucleated Red Blood Cells % 0 %; Platelet Count 251 10^3/cmm (130-400); Red Blood Count 3.06 10^6/uL (4.1-5.3); Red Cell Distribution Width 15.3 % (12.1-15.1); White Blood Count 9.5 10^3/uL (4.0-10.0)
[2021-02-24 06:37] LABS: Anion Gap 18.2 (5-19); Blood Urea Nitrogen 17 mg/dL (8-23); Calcium 8.5 mg/dL (8.5-10.5); Carbon Dioxide 23 mmol/L (22-29); Chloride 95 mmol/L (98-107); Glucose 100 mg/dL (65-115); Osmolality Calculated 278 mOsm/kg (285-295); Potassium 3.2 mmol/L (3.5-5.1); Sodium 133 mmol/L (136-145)
[2021-02-24] MEDS: sucralfate 1 gm/10 mL Oral Liq UDC PO ×4 (06:42→20:54)
--- NOTE | 2021-02-24 10:51 | PM.PN ---
Subjective Subjective: Interval history: Patient is stating that she [place] away and with her leg edema she will not be able to take care of herself at home, no recurrence of bloody bowel movement since yesterday, Her diet will be advanced today, will request pathologist to send me preliminary report so I could touch base with oncologist and cycle back with the patient materials management manager updated Vitals/I&O/Wt Last Vital Signs Temp 97.7 F 02/24/21 07:11 Pulse 90 02/24/21 07:11 Resp 17 02/24/21 07:11 BP 109/69 02/24/21 07:11 Pulse Ox 95 02/24/21 07:11 02/23/21 02/24/21 02/24/21 22:59 06:59 14:59 Intake Total 480 / 480 Balance 480 / 480 Weight last 48 hrs Weight 111.13 kg Weight 110.54 kg Physical Exam Narrative: EXAM NARRATIVE: Patient was laying comfortably in her bed This morning she had breakfast Distended abdomen Generalized anasarca Lower extremity massive edema No audible stridor or wheezing Oxygen requirement has been decreased to 1 L Nonfocal neuro exam Patient is pleasant and cooperative during my evaluation Data : 02/24/21 05:12 02/24/21 05:12 A&P Assessment and plan (1) Metastatic adenocarcinoma: Status: Acute (2) Loss of appetite: Status: Acute (3) Hyponatremia: Status: Acute (4) Abdominal hernia: Status: Acute (5) Pulmonary embolism: Status: Acute (6) Lower extremity edema: Status: Acute (7) Hematochezia: Status: Acute (8) Shortness of breath: Status: Acute (9) Presence of IVC filter: Status: Acute (10) H/O sigmoidoscopy: Status: Acute Additional A&P Information Hematochezia: Status post sigmoidoscopy yesterday by Dr. Mcnulty, necrotic mass was found with partial obstruction, sample was sent for histopathological diagnosis Loss of appetite: Start mirtazapine Hyponatremia: Stop fluids, would use Lasix considering hypervolemia volume overloaded generalized anasarca state Abdominal hernia with chronic incarceration no active signs of obstruction no episodes of nausea or vomiting Pulmonary embolism bilateral DVT status post IVC filter placement Not a candidate of anticoagulation due to hematochezia hemoglobin is stable Generalized deconditioning Uterine cancer with metastases Guarded prognosis Patient stays full code We will touch base with pathologist and and then update Dr. Echevarria to devise further plan, Patient is feeling very weak to return home, PT evaluation Advance diet to regular diet Full code DVT prophylaxis SCDs Attestations Medical Necessity Statement*: Continue medical management Time Spent in Patient Care: less than 15 minutes Coding Level of Care Code Acute Taxicab Driver for Chg Fwd Diagnoses Metastatic adenocarcinoma C79.9 Loss of appetite R63.0 Hyponatremia E87.1 Abdominal hernia K46.9 Pulmonary embolism I26.99 Lower extremity edema R60.0 Hematochezia K92.1 Shortness of breath R06.02 Presence of IVC filter Z95.828 H/O sigmoidoscopy Z98.890
[2021-02-24] MEDS: FUROsemide 20 mg Tablet PO (11:39)
[2021-02-24] MEDS: mirtazapine 15 mg Tablet 7.5 MG PO (20:54)
[2021-02-24] MEDS: acetaminophen 325 mg Tablet 650 MG PO (21:24)
[2021-02-25] VITALS (8 sets, daily range): BP systolic 97–119; BP diastolic 63–73; PULSE 74–100; RESP 16–17; TEMP 36.3–37.2; O2SAT 92–98
[2021-02-25 05:30] LABS: Basophils # 0.1 10^3/uL (0.0-0.1); Basophils % 0.7 %; Eosinophils # 0.1 10^3/uL (0.0-0.8); Eosinophils % 1.1 %; Hematocrit 26.6 % (37.0-47.0); Hemoglobin 8.1 g/dL (11.5-15.3); Lymphocytes % 11.8 %; Mean Corpuscular HGB Conc 30.5 g/dL (30.0-36.0); Mean Corpuscular Volume 88.7 fl (81-99); Mean Platelet Volume 9.9 fL (7.4-10.4); Monocytes # 1.2 10^3/uL (0.2-0.9); Monocytes % 13.5 %; Neutrophils % 72.1 %; Nucleated Red Blood Cells % 0 %; Platelet Count 254 10^3/cmm (130-400); Red Cell Distribution Width 15.3 % (12.1-15.1); White Blood Count 8.7 10^3/uL (4.0-10.0)
[2021-02-25 06:07] LABS: Anion Gap 16.2 (5-19); Blood Urea Nitrogen 17 mg/dL (8-23); Calcium 7.9 mg/dL (8.5-10.5); Carbon Dioxide 24 mmol/L (22-29); Chloride 96 mmol/L (98-107); Glucose 92 mg/dL (65-115); Osmolality Calculated 277 mOsm/kg (285-295); Potassium 3.2 mmol/L (3.5-5.1); Sodium 133 mmol/L (136-145)
[2021-02-25] MEDS: sucralfate 1 gm/10 mL Oral Liq UDC PO ×2 (06:37→11:05)
[2021-02-25] MEDS: FUROsemide 20 mg Tablet PO (08:25)
[2021-02-25] MEDS: pantoprazole DR 40 mg Tablet PO (08:26)
--- NOTE | 2021-02-25 10:44 | P.DS_ITS ---
Discharge Providers Date of Admission: 02/19/21 16:03 Date of Discharge: February 25, 2021 Attending Provider at Admission: Craig Berman Attending Provider at Discharge: Rodríguez Gupta MD Primary Care Provider: Corin De La Rosa NP Diagnoses at Discharge Discharge Diagnosis (1) Metastatic adenocarcinoma: Status: Acute (2) Loss of appetite: Status: Acute (3) Hyponatremia: Status: Acute (4) Abdominal hernia: Status: Acute (5) Pulmonary embolism: Status: Acute (6) Lower extremity edema: Status: Acute (7) Hematochezia: Status: Acute (8) Shortness of breath: Status: Acute (9) Presence of IVC filter: Status: Acute (10) H/O sigmoidoscopy: Status: Acute Reason for Visit Reason for Visit: Difficulty Breathing Hospital Course Hospital Course History of Present Illness By Dr. Ernestine Holcomb Hedge is a 80 year old female with no significant past medical history presented to the hospital with shortness of breath now requiring 4 L oxygen. 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 She has had a Frio drain placed into her right lung recently on February 09. She also had a Mediport placed on February 17. She tells me that prior to this diagnosis of cancer patient was healthy and well and did not have any medical conditions that she knew of and was not on any medications. She said last month her lower extremities started having edema and she was placed on Lasix 20 daily. But she states the Lasix has not really helped. She also has a chronically incarcerated hernia. She has never had a colonoscopy or endoscopy before. Patient saw Dr. Echevarria outpatient and was supposed to follow- up with him this upcoming week if she makes her out of the hospital by that point. Patient is also having complaint of blood in her stool. She states she has been straining a lot more and feels she is constipated. She has been using a lot of Metamucil which has taken care of the constipation but is not sure if that caused the bloody stool. She states that sometimes it is karina blood and sometimes there is none. Its not constant and it comes and goes. She is not having more frequent bowel movements and does not have any abdominal cramping prior to having a bowel movement. She does mention her dad has a history of colon cancer and mom had laryngeal cancer. Patient is a non-smoker nondrinker. Lives with her daughter who does all the activities of daily living for her. Patient does complain of a lot of fatigue and exhaustion since her recent diagnosis. Patient denies any chest pain, abdominal pain at this time. Her main concern was shortness of breath and blood in stool on arrival and lower extremity edema. Other than that review of systems is negative. ED course: Vitals 119/68, heart rate 107, temperature 97.5, saturating 95% on 4 L oxygen on arrival. Juan drain was accessed and pleural fluid was drained. Ever since then patient has been on 2 L saturating 95%. She was given morphine and Zofran. Patient is feeling better already in terms of respiratory status. She did have elevated troponin therefore cardiology was called. Patient is not a candidate for any anticoagulant at this point due to her GI bleed. She cannot be placed on aspirin either. Patient CT was also positive for moderate bilateral pulmonary emboli which are new. She is not a candidate for anticoagulation. There is also a new finding of possible invasion of soft tissue tumor into the rectum which seems to be new compared to prior CT. Dr Schmitz was also called by ER who recommended to manage patient conservatively for now. Patient did have a CT angio chest abdomen pelvis done today which showed: 1. Thoracostomy drain in the RIGHT pleural fluid is unchanged. There is a small pleural fluid with pleural diffuse pleural thickening. No change in the previously biopsied mass along the medial RIGHT lower thorax. 2. Moderate bilateral pulmonary emboli. 3. Patient has numerous clusters of lymph nodes and mesenteric deposits including the LEFT supraclavicular, mediastinal and hilar, retrocrural, mesenteric and retroperitoneal and paraesophageal. 4. Possible metastatic disease within the liver. 5. Abnormal RIGHT kidney. Delayed excretion with increased soft tissue distending the renal pelvis and ureter. Ureter is probably being obstructed by the [employer]CRE[employer] pelvic mass. Tumor or infectious infiltration within the ureter and renal pelvis is not excluded. 6. Marked enlargement of the uterus fluid distention of the endometrium. Abnormal endocervical region probably neoplastic. Possible invasion of soft tissue tumor into the rectum. Hospital course Patient was admitted for evaluation of lower GI bleed/hematochezia, Dr. 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 Hemoglobin remained stable, hematochezia improved to some extent. I did discuss this case with Dr. Douglas who recommended follow-up with Dr. Echevarria on Tuesday, this patient might need palliative radiotherapy. she is considered high risk for any kind of surgical intervention. Daughter is in agreement. Patient wants to go home. We will set up home health services with outpatient follow-up with Dr. Echevarria. I will prescribe her opioids, bowel regimen. Her pleura will be drained at the time of discharge. For her acute hypoxic resp failure related to hypoven tilation and recurrent pleural effusion she was requiring 2 L of oxygen during hospitalization however home O2 evaluation was done, she did not qualify for oxygen at the time of discharge. Her O2 saturation was around 92% on room air. Physical Exam Narrative: EXAM NARRATIVE: Patient was trying to get up with the help of a walker, physical therapist is in the room Distended abdomen Generalized anasarca Lower extremity massive edema No audible stridor or wheezing Oxygen requirement has been decreased to 1-2 L Nonfocal neuro exam Patient is pleasant and cooperative during my evaluation Discharge Data Data Completed and Pending: Completed Studies During Hospitalization Category Date Time Status CT angio chest w abd pel w con Stat Cat Scan 02/19/21 10:20 Completed XR chest 1V jenny ble [id number] Stat Exams 02/19/21 10:21 Completed Pathology: Surgic al [PTH] Routine Pth 02/23/21 13:04 [place] [id number] Urgent Ultrasound 02/20/21 23:53 Completed CV. 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8 GFR Calculation Not Reportable Glucose 92 Calculated Osmolal ity 277 L Calcium 7.9 L Misc Test Referenc e Pending Vitals: Last Vital Signs Temp 97.3 F L 02/25/21 08:00 Pulse 100 02/25/21 08:00 Resp 17 02/25/21 08:00 BP 104/63 02/25/21 08:00 Pulse Ox 97 02/25/21 08:00 Discharge Plan Discharge Patient Disposition: Home Condition: Fair Prescriptions: New pantoprazole 40 mg Tablet,Delayed Release (Dr/Ec) 40 mg PO DAILY 30 Days Qty: 30 RF: 3 oxycodone 5 mg capsule 5 mg PO BID PRN (Reason: pain) Qty: 20 RF: 0 Senna-S 8.6-50 mg tablet 1 tab-cap PO BID PRN (Reason: constipation) Qty: 20 RF: 3 Miralax 17 gram/dose powder 8.5 g PO DAILY PRN (Reason: constipation) Qty: 238 RF: 1 Continued furosemide 20 mg Tablet 20 mg PO DAILY MDD see pharmacy comment RF: 0 sucralfate [Carafate] 1 gram tablet 1 g PO TID Qty: 21 RF: 0 ondansetron HCl [Zofran] 4 mg tablet 4 mg PO TID PRN (Reason: nausea and vomiting) Qty: 15 RF: 0 pantoprazole [Protonix] 40 mg tablet,delayed release (DR/EC) 40 mg PO QAM 14 Days Qty: 14 RF: 0 Discontinued hydrocodone-acetaminophen 5-325 mg tablet 5 tab PO PRN RF: 0 Discharge Orders: Discharge Order (Routine); Ordered 02/25/21 Ordered By: Rodríguez Gupta Referrals: [facility] [place] [facility] ([facility]) [Outside] Corin De La Rosa NP [Primary Care Provider] - 03/04/21 10:00 am Keyon Echevarria MD [Hospitalist] - 03/02/21 (PT NEEDS APPT [facility], PREFERABLE ON TUESDAY) Discharge Diet: Regular Discharge Activity: Increase activity as tolerated Patient Instructions: Colorectal Cancer (DC), Colocaci?n de filtro en la vena cava inferior (DC), GI Discharge Instructions, Opioid Safety Discharge Attestations Time Spent in Discharge Care*: less than 30 min Quality Metrics Clinical Quality Measures During this hospital stay, did patient experience: None Coding Level of Care Code Acute Chg FW DC note Diagnoses Metastatic adenocarcinoma C79.9 Loss of appetite R63.0 Hyponatremia E87.1 Abdominal hernia K46.9 Pulmonary embolism I26.99 Lower extremity edema R60.0 Hematochezia K92.1 Shortness of breath R06.02 Presence of IVC filter Z95.828 H/O sigmoidoscopy Z98.890
[2021-02-25] MEDS: acetaminophen 325 mg Tablet 650 MG PO (11:05)
--- NOTE | 2021-02-25 14:51 | PC.NURSE ---
PT HAS DONE WELL FOR ME TODAY. PT HAS NOT HAD ANY COMPLAINTS OF PAIN. AN ORDER TO DRAIN PTS BLANCA DRAIN WAS GIVEN BY THE HOSPITALIST. TOTAL AMOUNT OF 150ML WAS DRAINED FROM DRAIN. PT TOLERATED WELL. PT IS GOING TO DISCHARGE. PAPERWORK GONE OVER WITH PT. ALL QUESTIONS ANSWERED. IV WAS REMOVED. PT TOLERATED WELL. I WILL WHEEL PT OUT OF HOSPITAL.
--- NOTE | 2021-02-25 15:31 | PC.NURSE ---
PT SAFELY WHEELED OUT BY THIS NURSE.
--- NOTE | 2021-02-27 11:51 | PC.SOCIAL ---
Pharmacy called to indicate since pain med Oxycodone was an initial fill they can only dispense 7 days not 10 days based on CDC guidelines. NOtified okay to dispense the 7 days and provider aware and in agreement. Spoke to Echo at pharmacy.
[2021-02-27 12:47] LABS: Miscellaneous Test See Scanned Lab Rpt
== END 2021-02-25 15:32 | disposition home health service (06) | DRG 377 ==
LOC: ER 17:04 → MEDSURG 22:17
PROVIDERS: Internal Medicine; Surgery; Admitting Provider Internal Medicine; Emergency Provider Emergency Medicine; PCP Nurse Practitioner Family; Visit Provider Internal Medicine
PROC: 06H03DZ Insertion of Intraluminal Device into Inferior Vena Cava, Percutaneous Approach (ICD-10-PCS; CPT 37191; principal; 2021-02-21 09:30)
PROC: 0DJ08ZZ Inspection of Upper Intestinal Tract, Via Natural or Artificial Opening Endoscopic (ICD-10-PCS; CPT 43235; principal; 2021-02-21 09:30)
PROC: 0DJD8ZZ Inspection of Lower Intestinal Tract, Via Natural or Artificial Opening Endoscopic (ICD-10-PCS; CPT 45330; principal; 2021-02-23 10:45)
DX: K92.1 Melena (principal); I26.99 Other pulmonary embolism without acute cor pulmonale; E43 Unspecified severe protein-calorie malnutrition; K46.0 Unspecified abdominal hernia with obstruction, without gangrene; C78.7 Secondary malignant neoplasm of liver and intrahepatic bile duct; C78.01 Secondary malignant neoplasm of right lung; C79.19 Secondary malignant neoplasm of other urinary organs; J90 Pleural effusion, not elsewhere classified; E87.1 Hypo-osmolality and hyponatremia; I82.4Z1 Acute embolism and thrombosis of unspecified deep veins of right distal lower extremity; I82.413 Acute embolism and thrombosis of femoral vein, bilateral; I82.431 Acute embolism and thrombosis of right popliteal vein; I82.451 Acute embolism and thrombosis of right peroneal vein; I82.813 Embolism and thrombosis of superficial veins of lower extremities, bilateral; C53.0 Malignant neoplasm of endocervix; Z80.0 Family history of malignant neoplasm of digestive organs; Z80.8 Family history of malignant neoplasm of other organs or systems; R06.89 Other abnormalities of breathing; K59.00 Constipation, unspecified; K62.9 Disease of anus and rectum, unspecified; K57.90 Diverticulosis of intestine, part unspecified, without perforation or abscess without bleeding; Z95.828 Presence of other vascular implants and grafts
CPT/HCPCS: 36415; 36600; 37191; 45331; 45335; 71045; 71275; 74177; 77001; 80048; 80051; 80053; 81001; 82330; 82805; 83605; 83690; 83735; 83880; 84100; 84145; 84443; 84484; 85014; 85018; 85025; 85610; 85730; 87040; 87426; 88305; 88341; 88342; 88360; 93005; 93306; 93970; 94664; 97161; 97530; 99285; C1769; C1788; C1880; C1894; C9113; J0690; J1100; J1644; J1940; J2250; J2270; J2405; J2704; J3010; J3490; J7030; J7799; P9047; Q9967

== ENCOUNTER 2021-03-02 09:10 | Outpatient (CLI) | payer MEDICARE, SELFPAY ==
[2021-03-02 10:07] LABS: Hematocrit 28.1 % (37.0-47.0); Hemoglobin 8.9 g/dL (11.5-15.3); Lymphocytes # 0.2 10^3/uL (0.8-4.8); Lymphocytes % 2.9 %; Mean Corpuscular HGB Conc 31.7 g/dL (30.0-36.0); Mean Corpuscular Hemoglobin 26.9 pg (28.0-34.0); Mean Corpuscular Volume 84.9 fl (81-99); Mean Platelet Volume 9.8 fL (7.4-10.4); Monocytes # 0.1 10^3/uL (0.2-0.9); Monocytes % 1.5 %; Neutrophils # 6.49 10^3/uL (1.8-7.7); Neutrophils % 94.3 %; Nucleated Red Blood Cells % 0 %; Platelet Count 327 10^3/cmm (130-400); Red Blood Count 3.31 10^6/uL (4.1-5.3); Red Cell Distribution Width 15.5 % (12.1-15.1); White Blood Count 6.9 10^3/uL (4.0-10.0)
[2021-03-02 11:13] LABS: Alanine Aminotransferase 9 U/L (0-33); Albumin Level 2.7 g/dL (3.5-5.2); Alkaline Phosphatase 103 IU/L (35-105); Anion Gap 21.6 (5-19); Aspartate Amino Transferase 28 U/L (0-32); Blood Urea Nitrogen 20 mg/dL (8-23); Carbon Dioxide 20 mmol/L (22-29); Chloride 96 mmol/L (98-107); Globulin 4.2 g/dL (1.3-4.6); Glucose 260 mg/dL (65-115); Osmolality Calculated 290 mOsm/kg (285-295); Potassium 3.6 mmol/L (3.5-5.1); Sodium 134 mmol/L (136-145); Total Bilirubin 0.4 mg/dL (0.15-1.2); Total Protein 6.9 g/dL (6.6-8.7)
[2021-03-02] MEDS: sodium chloride 0.9% 250 ML 75 ML IV (12:16)
[2021-03-02] MEDS: famotidine 20 mg/2 mL INJ IVP (12:16)
[2021-03-02] MEDS: diphenhydrAMINE 50 mg/mL SDV 1mL 25 MG IV (12:18)
[2021-03-02] MEDS: palonosetron 0.25 mg/5 mL SDV IV (12:23)
[2021-03-02] MEDS: fosaprepitant 150 MG in sodium chloride 0.9% 150 ML 300 MG IV (12:46)
--- NOTE | 2021-03-06 07:44 | ONC FU_ITS ---
Dr. Echevarria Patient Follow-Up Note Patient: Aicha Nath Unit #: [id number]: [id number] Dicatated By: Keyon Echevarria M.D.Date of Visit:Mar 02, 2021 Onc Med Follow-up/Prog Note Chief Complaint: Metastatic serous adenocarcinoma. 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 On 12/31/2020 she was admitted to [facility] after presenting to the [facility] emergency room with shortness of breath and lower extremity edema. Her initial chest CT scan showed evidence of right lower lobe lung mass and large right pleural effusion. Her repeat chest CT on 01/02/2021 again showed large right pleural effusion and extensive infiltrate in the right lung. A 46 mm mass was noted at the thoracic inlet on the left and a 51 mm mass was noted in the right lower lobe. The right breast appeared somewhat more dense than the left. Her CT abdomen/pelvis on 01/06/2021 again showed large right pleural effusion and right lower lobe lung mass measuring 5.0 x 4.5 cm. A small hypoattenuating lesion in the hepatic segment 6 was too small to characterize. The adrenal glands appeared normal. There was an infiltrative masslike appearance throughout the uterus measuring approximately 12.6 x 7.4 x 11.3 cm and there was diffuse endometrial calcification with infiltrative mass within the endometrial canal. There was masslike thickening of the cervix with adjacent pelvic sidewall lymphadenopathy. There was noted to be loss of the fat plane between the uterine mass and the sigmoid colon. There were complex ventral abdominal wall hernias containing loops of nonobstructed bowel. There were multiple prominent mesenteric lymph nodes and enlarged retroperitoneal lymph nodes as well as bilateral inguinal lymphadenopathy. MRI of the brain showed no evidence of metastatic disease. During her hospitalization she underwent thoracentesis on 2 occasions with negative pleural fluid cytology. Needle biopsy of the right lung mass on 01/09/2021 showed metastatic serous adenocarcinoma favoring uterine primary. By IHC the tumor cells were positive for CK7, PAX8, p16, and WT-1. They were negative for CK20, p53, TTF-1, and CDX2. I had seen her initially on 02/03/2021. Her additional pathologic studies included analysis for overexpression of HER-2/wendy, which was negative (1+ by IHC). With that finding, she was given the option to have a trial of chemotherapy with carboplatin/paclitaxel. In the meantime, on 02/09/2021 she underwent placement of a right pleural catheter for management of the pleural effusion. She then underwent placement of Port-A-Cath venous access device on 02/17/2021. On 02/19/2021 she was admitted to the hospital after presenting to the emergency room with shortness of breath and abdominal pain. Her CT scans of the chest, abdomen, and pelvis showed evidence for moderate bilateral pulmonary emboli in addition to extensive metastatic lymph node involvement and suspected right ureteral obstruction. There was marked enlargement of the uterus. At that time she was also having hematochezia and on sigmoidoscopy there appeared to be extension of the uterine mass to involve the anterior rectum. She was discharged on 02/25/2021. At that time they had consider transitioning to hospice, but ultimately she opted to continue with the chemotherapy, as originally planned. She is seen now for a scheduled visit. She has gotten much weaker since her initial visit, and she has had significant worsening of swelling in both legs. She has very little activity. ECOG score is 3. Appetite is poor. She does not have fever or night sweats. She has a little bit of cough. She complains that her voice is weak. She is short of breath with any activity. She does not complain of chest pain. She has not been having nausea. Her bowel function has improved since the hospitalization, and she is currently not having any bleeding. Bladder function remains adequate. She has no significant joint or bone pain. She has had a little bit of headache. She has felt generally shaky, but she has no numbness/paresthesia or other focal neurologic symptoms. Medications: Acetaminophen Tablet Oral PRN, Adult Aspirin Regimen 1 Tablet (of 81 mg) Tablet, enteric coated Oral daily, Furosemide 1 Tablet (of 20 mg) Oral daily, Pantoprazole Sodium 1 Tablet (of 40 mg) Tablet, enteric coated Oral daily, Prochlorperazine Maleate 1 Tablet (of 10 mg) Oral q 4 hours PRN Allergies: No Known Allergies. Vital Signs: Performed on Mar 02, 2021 12:52 Height - 64.00 in Temperature - 96.8 F (LOW) Pulse - 89 /min Respiration - 22 /min BP - 132/83 mm(hg) O2 Sat - 94 % (LOW) Pain - 0 Fatigue - 9 Physical Examination: Constitutional - She appears generally weak, Eyes - Sclerae nonicteric. Conjunctivae clear, ENMT - No lesions noted in the oral cavity, Hematologic/Lymphatic - No cervical or axillary adenopathy. There is a palpable node in the left supraclavicular fossa, Respiratory - Lungs sound clear with diminished air movement on the right, Cardiovascular - Heart rhythm is regular. There is no murmur, gallop, or rub noted, Abdomen - Moderately distended. Liver and spleen are not enlarged. There is a large mass palpable in the mid abdomen below the umbilicus. There is no obvious ascites. There is no inguinal adenopathy noted, Extremities - She has severe lower extremity edema, Neurologic - No focal neurologic deficits noted. Lab/Imaging: Test performed on Mar 02, 2021 09:25 Sodium 134 mmol/L Potassium 3.6 mmol/L Chloride 96 mmol/L CO2 20 mmol/L Anion Gap 21.6 BUN 20 mg/dL Creatinine 1.0 mg/dL Cr Clearance (Est) 77.6200 mL/min Glucose 260 mg/dL Osmolality - Calculated 290 mOsm/kg Calcium 8.0 mg/dL Protein, Total 6.9 g/dL Albumin 2.7 g/dL Globulin 4.2 g/dL Bilirubin, Total 0.4 mg/dL ALT (SGPT) 9 U/L AST (SGOT) 28 U/L Alkaline Phosphatase 103 IU/L WBC 6.9 10 3/uL RBC 3.31 10 6/uL HGB 8.9 g/dL HCT 28.1 % MCV 84.9 fl MCH 26.9 pg MCHC 31.7 g/dL RDW 15.5 % Platelet Count 327 10 3/cmm MPV 9.8 fL Neutrophils 6.49 10 3/uL Lymphocytes 0.2 10 3/uL Monocytes 0.1 10 3/uL Eosinophils 0.0 10 3/uL Basophils 0.0 10 3/uL Neutrophil % 94.3 % Lymphocyte % 2.9 % Monocyte % 1.5 % Eosinophil % 0.0 % Basophils % 0.0 % NRBC % 0 % Problem List: 1. 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 Overall, the clinical and pathologic findings were most consistent with uterine primary malignancy. She had multiple sites of metastatic involvement by clinical evaluation. 2. She has associated right pleural effusion. 3. She has seasonal allergies. Problems Addressed with this Encounter and Plan: 1. Patient with metastatic serous adenocarcinoma. The CT findings and the pathology were most consistent with uterine primary malignancy. Her tumor was found to be negative for overexpression of HER-2/wendy. The biopsy sample was insufficient for any additional pathologic analysis. She has been offered the option to have a trial of chemotherapy with carboplatin/paclitaxel. With advanced disease and poor performance status, the likelihood of benefit will be low, and there will be higher risk for associated toxicities which may include nausea/vomiting, weakness/fatigue, alopecia, low blood counts, and neuropathy, among others. Despite the risks involved she does want to proceed with treatment. She will begin her first cycle today. It will be administered at reduced dosages of both the carboplatin and paclitaxel. She will be scheduled for a follow-up visit in 1 week. 2. She has associated right pleural effusion, which appears to be recurring, and she has multiple other sites of metastatic involvement. She has undergone placement of right pleural drainage catheter, which is being managed by [facility]. Signed By: Keyon Echevarria M.D. <<Signature on File>>
== END 2021-03-02 09:11 | disposition home or self-care (01) ==
LOC: ONCMED 09:12
PROVIDERS: PCP Nurse Practitioner Family; Visit Provider Internal Medicine Medical Oncology
DX: Z51.11 Encounter for antineoplastic chemotherapy (principal); C55 Malignant neoplasm of uterus, part unspecified; C78.01 Secondary malignant neoplasm of right lung; J90 Pleural effusion, not elsewhere classified; J30.9 Allergic rhinitis, unspecified; Z79.899 Other long term (current) drug therapy
CPT/HCPCS: 80053; 85025; 96367; 96375; 96413; 96417; 99215; J1100; J1200; J1453; J2469; J3490; J7030; J7040; J7050; J9045; J9267

== ENCOUNTER 2021-03-10 06:42 | Outpatient (CLI) | payer MEDICARE, SELFPAY ==
[2021-03-10 08:44] LABS: Eosinophils # 0.1 10^3/uL (0.0-0.8); Eosinophils % 5.5 %; Hematocrit 25.3 % (37.0-47.0); Hemoglobin 8.1 g/dL (11.5-15.3); Lymphocytes # 0.4 10^3/uL (0.8-4.8); Lymphocytes % 32.3 %; Mean Corpuscular Hemoglobin 26.8 pg (28.0-34.0); Mean Corpuscular Volume 83.8 fl (81-99); Mean Platelet Volume 10.7 fL (7.4-10.4); Monocytes # 0.1 10^3/uL (0.2-0.9); Neutrophils % 48.1 %; Nucleated Red Blood Cells % 0 %; Platelet Count 92 10^3/cmm (130-400); Red Blood Count 3.02 10^6/uL (4.1-5.3); Red Cell Distribution Width 15.6 % (12.1-15.1); White Blood Count 1.3 10^3/uL (4.0-10.0)
[2021-03-10 09:14] LABS: Alanine Aminotransferase 11 U/L (0-33); Alkaline Phosphatase 117 IU/L (35-105); Aspartate Amino Transferase 34 U/L (0-32); Blood Urea Nitrogen 15 mg/dL (8-23); Calcium 7.9 mg/dL (8.5-10.5); Carbon Dioxide 21 mmol/L (22-29); Chloride 102 mmol/L (98-107); Globulin 2.8 g/dL (1.3-4.6); Glucose 87 mg/dL (65-115); Osmolality Calculated 282 mOsm/kg (285-295); Sodium 136 mmol/L (136-145); Total Bilirubin 0.4 mg/dL (0.15-1.2); Total Protein 5.8 g/dL (6.6-8.7)
[2021-03-10 09:15] LABS: Neutrophils # 0.61 10^3/uL (1.8-7.7); Slide Review Slide Review Perform
[2021-03-10] MEDS: sodium chloride 0.9% 250 ML 999 ML IV (10:15)
[2021-03-10] MEDS: acetaminophen 325 mg Tablet 650 MG PO (10:15)
[2021-03-10] MEDS: diphenhydrAMINE 25 mg Capsule PO (10:15)
[2021-03-10] MEDS: FUROsemide 10 mg/mL SDV 2mL 40 MG IV (11:00)
[2021-03-10 11:30] VITALS: BP 140/83; PULSE 65; RESP 18; TEMP 36.3; O2SAT 99
[2021-03-10 11:45] VITALS: BP 139/98; PULSE 67; RESP 18; TEMP 36.3
[2021-03-10 12:00] VITALS: BP 128/72; PULSE 68; RESP 18; TEMP 36.3; O2SAT 97
[2021-03-10 12:30] VITALS: BP 138/82; PULSE 69; RESP 18; TEMP 36.3; O2SAT 98
[2021-03-10 15:00] VITALS: BP 141/79; PULSE 71; RESP 18; TEMP 36.3; O2SAT 99
--- NOTE | 2021-03-10 19:08 | ONC FU_ITS ---
Dr. Echevarria Patient Follow-Up Note Patient: Aicha Nath Unit #: [id number]: 1940 Dicatated By: Keyon Echevarria M.D.Date of Visit:Mar 10, 2021 Onc Med Follow-up/Prog Note Chief Complaint: Metastatic serous adenocarcinoma. 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 On 12/31/2020 she was admitted to [facility] after presenting to the [facility] emergency room with shortness of breath and lower extremity edema. Her initial chest CT scan showed evidence of right lower lobe lung mass and large right pleural effusion. Her repeat chest CT on 01/02/2021 again showed large right pleural effusion and extensive infiltrate in the right lung. A 46 mm mass was noted at the thoracic inlet on the left and a 51 mm mass was noted in the right lower lobe. The right breast appeared somewhat more dense than the left. Her CT abdomen/pelvis on 01/06/2021 again showed large right pleural effusion and right lower lobe lung mass measuring 5.0 x 4.5 cm. A small hypoattenuating lesion in the hepatic segment 6 was too small to characterize. The adrenal glands appeared normal. There was an infiltrative masslike appearance throughout the uterus measuring approximately 12.6 x 7.4 x 11.3 cm and there was diffuse endometrial calcification with infiltrative mass within the endometrial canal. There was masslike thickening of the cervix with adjacent pelvic sidewall lymphadenopathy. There was noted to be loss of the fat plane between the uterine mass and the sigmoid colon. There were complex ventral abdominal wall hernias containing loops of nonobstructed bowel. There were multiple prominent mesenteric lymph nodes and enlarged retroperitoneal lymph nodes as well as bilateral inguinal lymphadenopathy. MRI of the brain showed no evidence of metastatic disease. During her hospitalization she underwent thoracentesis on 2 occasions with negative pleural fluid cytology. Needle biopsy of the right lung mass on 01/09/2021 showed metastatic serous adenocarcinoma favoring uterine primary. By IHC the tumor cells were positive for CK7, PAX8, p16, and WT-1. They were negative for CK20, p53, TTF-1, and CDX2. I had seen her initially on 02/03/2021. Her additional pathologic studies included analysis for overexpression of HER-2/wendy, which was negative (1+ by IHC). With that finding, she was given the option to have a trial of chemotherapy with carboplatin/paclitaxel. In the meantime, on 02/09/2021 she underwent placement of a right pleural catheter for management of the pleural effusion. She then underwent placement of Port-A-Cath venous access device on 02/17/2021. On 02/19/2021 she was admitted to the hospital after presenting to the emergency room with shortness of breath and abdominal pain. Her CT scans of the chest, abdomen, and pelvis showed evidence for moderate bilateral pulmonary emboli in addition to extensive metastatic lymph node involvement and suspected right ureteral obstruction. There was marked enlargement of the uterus. At that time she was also having hematochezia and on sigmoidoscopy there appeared to be extension of the uterine mass to involve the anterior rectum. She was discharged on 02/25/2021. At that time they had consider transitioning to hospice, but ultimately she opted to continue with the chemotherapy, as originally planned. Her prior medical illnesses have been limited to seasonal allergies. Prior surgeries include cholecystectomy and tonsillectomy. She is a non-smoker. INTERIM HISTORY: She began cycle 1 of carboplatin/paclitaxel chemotherapy on 03/02/2021, both administered at a reduced dosage. She tolerated the initial infusions without acute toxicity. She is seen for a follow-up visit. Her main complaint is that she has been feeling very weak and tired, to the point that she can hardly walk or get in and out of a car. Her ECOG score is 3. She says her appetite could be better. She is not having fever or night sweats. Her mouth has been a little sore. She is managing it with Biotene. She has some shortness of breath, but he says her breathing is okay. She sometimes coughs up phlegm. She does not complain of chest pain. She has not been having nausea. She has had a little diarrhea. Bladder function has been okay. She has no significant joint or bone pain. She has had occasional slight headache. She does not complain of dizziness. She feels a little trembly, but she has had no numbness/paresthesia or other neuropathy symptoms. Medications: Acetaminophen Tablet Oral PRN, Adult Aspirin Regimen 1 Tablet (of 81 mg) Tablet, enteric coated Oral daily, Decadron (4 mg) Tablet Oral Take as Directed, Furosemide 1 Tablet (of 20 mg) Oral daily, Pantoprazole Sodium 1 Tablet (of 40 mg) Tablet, enteric coated Oral daily, Prochlorperazine Maleate 1 Tablet (of 10 mg) Oral q 4 hours PRN Allergies: No Known Allergies. Vital Signs: Performed on Mar 10, 2021 14:03 Height - 64.00 in Temperature - 97.2 F (LOW) Pulse - 88 /min Respiration - 16 /min BP - 121/75 mm(hg) O2 Sat - 93 % (LOW) Pain - 0 Fatigue - 9 Physical Examination: Constitutional - She appears generally weak, Eyes - Sclerae nonicteric. Conjunctivae clear, ENMT - No lesions noted in the oral cavity, Hematologic/Lymphatic - No cervical or axillary adenopathy. There is a 2-3 cm node palpable in the left supraclavicular fossa, Respiratory - Lungs sound clear with diminished air movement on the right, Cardiovascular - Heart rhythm is regular. There is no murmur, gallop, or rub noted, Abdomen - Moderately distended but soft. Liver and spleen are not enlarged. There is a large mass palpable in the mid abdomen below the umbilicus. There is no obvious ascites. There is no inguinal adenopathy noted, Extremities - She has severe lower extremity edema, Neurologic - No focal neurologic deficits noted. Lab/Imaging: Test performed on Mar 10, 2021 08:25 Sodium 136 mmol/L Potassium 4.0 mmol/L Chloride 102 mmol/L CO2 21 mmol/L Anion Gap 17.0 BUN 15 mg/dL Creatinine 0.8 mg/dL Cr Clearance (Est) 97.0300 mL/min Glucose 87 mg/dL Osmolality - Calculated 282 mOsm/kg Calcium 7.9 mg/dL Protein, Total 5.8 g/dL Albumin 3.0 g/dL Globulin 2.8 g/dL Bilirubin, Total 0.4 mg/dL ALT (SGPT) 11 U/L AST (SGOT) 34 U/L Alkaline Phosphatase 117 IU/L WBC 1.3 10 3/uL RBC 3.02 10 6/uL HGB 8.1 g/dL HCT 25.3 % MCV 83.8 fl MCH 26.8 pg MCHC 32.0 g/dL RDW 15.6 % Platelet Count 92 10 3/cmm MPV 10.7 fL Neutrophils 0.61 10 3/uL Lymphocytes 0.4 10 3/uL Monocytes 0.1 10 3/uL Eosinophils 0.1 10 3/uL Basophils 0.0 10 3/uL Neutrophil % 48.1 % Lymphocyte % 32.3 % Monocyte % 11.0 % Eosinophil % 5.5 % Basophils % 0.0 % NRBC % 0 % CBC Slide Review Slide Review Perform SLIDE REVIEW AGREES WITH AUTOMATED RESULTS ST Problem List: 1. 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 Overall, the clinical and pathologic findings were most consistent with uterine primary malignancy. She had multiple sites of metastatic involvement by clinical evaluation. 2. She has associated right pleural effusion. 3. She has seasonal allergies. Problems Addressed with this Encounter and Plan: 1. Patient with metastatic serous adenocarcinoma. The CT findings and the pathology were most consistent with uterine primary malignancy. Her tumor was found to be negative for overexpression of HER-2/wendy. The biopsy sample was insufficient for any additional pathologic analysis. In the setting of advanced, metastatic disease and poor performance status, she appeared to have very poor prognosis, but she opted to proceed with a trial of chemotherapy with carboplatin/paclitaxel. She received cycle 1 on 03/02/2021. It was administered at reduced dosages. She tolerated it without acute toxicity. However, at day 9 she has moderately severe pancytopenia. As such, she is being transfused 1 unit PRBC today and she will be given G-CSF 480 mcg by subcutaneous injection daily for 3 days. Her CBC will be repeated with the 3rd injection, and she will have a scheduled CBC again next week. 2. She has associated right pleural effusion for which she underwent placement of right pleural drainage catheter. It is being managed by [facility]. Signed By: Keyon Echevarria M.D. <<Signature on File>>
== END 2021-03-10 06:43 | disposition home or self-care (01) ==
LOC: ONCMED 06:42
PROVIDERS: PCP Nurse Practitioner Family; Visit Provider Internal Medicine Medical Oncology
DX: C55 Malignant neoplasm of uterus, part unspecified (principal); C78.01 Secondary malignant neoplasm of right lung; J90 Pleural effusion, not elsewhere classified; J30.9 Allergic rhinitis, unspecified; D61.818 Other pancytopenia; Z79.899 Other long term (current) drug therapy; Z92.21 Personal history of antineoplastic chemotherapy
CPT/HCPCS: 36430; 36591; 80053; 85025; 86850; 86900; 86920; 96372; 99214; J1940; J7050; P9040; Q5101

== ENCOUNTER 2021-03-12 13:49 | Outpatient (CLI) | payer MEDICARE, SELFPAY ==
[2021-03-12 14:03] LABS: Basophils % 0.7 %; Eosinophils # 0.1 10^3/uL (0.0-0.8); Hematocrit 29.7 % (37.0-47.0); Hemoglobin 9.1 g/dL (11.5-15.3); Lymphocytes # 0.5 10^3/uL (0.8-4.8); Lymphocytes % 35.6 %; Mean Corpuscular HGB Conc 30.6 g/dL (30.0-36.0); Mean Corpuscular Hemoglobin 26.8 pg (28.0-34.0); Mean Corpuscular Volume 87.4 fl (81-99); Mean Platelet Volume 10.7 fL (7.4-10.4); Monocytes # 0.5 10^3/uL (0.2-0.9); Monocytes % 31.5 %; Neutrophils % 27.5 %; Nucleated Red Blood Cells % 1.3 %; Platelet Count 98 10^3/cmm (130-400); Red Cell Distribution Width 16.4 % (12.1-15.1); White Blood Count 1.5 10^3/uL (4.0-10.0)
[2021-03-12 14:34] LABS: Neutrophils # 0.41 10^3/uL (1.8-7.7)
[2021-03-12 14:35] LABS: Slide Review Slide Review Perform
== END 2021-03-12 13:50 | disposition home or self-care (01) ==
PROVIDERS: PCP Nurse Practitioner Family; Visit Provider Internal Medicine Medical Oncology
DX: C78.01 Secondary malignant neoplasm of right lung (principal)
CPT/HCPCS: 85025

== ENCOUNTER 2021-03-16 15:24 | Outpatient (CLI) | payer MEDICARE, SELFPAY ==
[2021-03-16 15:53] LABS: Basophils % 0.2 %; Eosinophils # 0.1 10^3/uL (0.0-0.8); Eosinophils % 0.3 %; Hematocrit 30.5 % (37.0-47.0); Hemoglobin 9.4 g/dL (11.5-15.3); Lymphocytes # 1.5 10^3/uL (0.8-4.8); Lymphocytes % 6.1 %; Mean Corpuscular HGB Conc 30.8 g/dL (30.0-36.0); Mean Corpuscular Hemoglobin 26.8 pg (28.0-34.0); Mean Corpuscular Volume 86.9 fl (81-99); Mean Platelet Volume 10.8 fL (7.4-10.4); Monocytes # 1.3 10^3/uL (0.2-0.9); Monocytes % 5.3 %; Neutrophils # 20.63 10^3/uL (1.8-7.7); Neutrophils % 83.9 %; Nucleated Red Blood Cells % 0 %; Platelet Count 104 10^3/cmm (130-400); Red Blood Count 3.51 10^6/uL (4.1-5.3); White Blood Count 24.6 10^3/uL (4.0-10.0)
[2021-03-16 16:38] LABS: Slide Review Slide Review Perform
== END 2021-03-16 15:25 | disposition home or self-care (01) ==
PROVIDERS: PCP Nurse Practitioner Family; Visit Provider Internal Medicine Medical Oncology
DX: C54.1 Malignant neoplasm of endometrium (principal)
CPT/HCPCS: 85025; 86850; 86900

== ENCOUNTER 2021-03-24 09:57 | Outpatient (CLI) | payer MEDICARE, SELFPAY ==
[2021-03-24 10:42] LABS: Basophils % 0.5 %; Hematocrit 30.8 % (37.0-47.0); Hemoglobin 9.6 g/dL (11.5-15.3); Lymphocytes # 0.2 10^3/uL (0.8-4.8); Lymphocytes % 11.7 %; Mean Corpuscular HGB Conc 31.2 g/dL (30.0-36.0); Mean Corpuscular Volume 86.8 fl (81-99); Monocytes % 1.5 %; Neutrophils # 1.75 10^3/uL (1.8-7.7); Neutrophils % 84.8 %; Nucleated Red Blood Cells % 0 %; Platelet Count 221 10^3/cmm (130-400); Red Blood Count 3.55 10^6/uL (4.1-5.3); Red Cell Distribution Width 18.7 % (12.1-15.1); White Blood Count 2.1 10^3/uL (4.0-10.0)
[2021-03-24 11:11] LABS: Alanine Aminotransferase < 5 U/L (0-33); Albumin Level 2.8 g/dL (3.5-5.2); Alkaline Phosphatase 130 IU/L (35-105); Anion Gap 17.2 (5-19); Aspartate Amino Transferase 15 U/L (0-32); Blood Urea Nitrogen 10 mg/dL (8-23); CA 125 82.3 U/mL (0-35); Calcium 7.8 mg/dL (8.5-10.5); Carbon Dioxide 21 mmol/L (22-29); Chloride 100 mmol/L (98-107); Globulin 3.7 g/dL (1.3-4.6); Glucose 208 mg/dL (65-115); Osmolality Calculated 283 mOsm/kg (285-295); Potassium 4.2 mmol/L (3.5-5.1); Sodium 134 mmol/L (136-145); Total Bilirubin 0.3 mg/dL (0.15-1.2); Total Protein 6.5 g/dL (6.6-8.7)
[2021-03-24 11:31] LABS: Cancer Antigen 19 9 2307 U/mL (0-35)
--- NOTE | 2021-03-28 06:59 | ONC FU_ITS ---
Dr. Echevarria Patient Follow-Up Note Patient: Aicha Nath Unit #: [id number]: 1940 Dicatated By: Keyon Echevarria M.D.Date of Visit:Mar 24, 2021 Onc Med Follow-up/Prog Note Chief Complaint: Metastatic serous adenocarcinoma. 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 On 12/31/2020 she was admitted to [facility] after presenting to the [facility] emergency room with shortness of breath and lower extremity edema. Her initial chest CT scan showed evidence of right lower lobe lung mass and large right pleural effusion. Her repeat chest CT on 01/02/2021 again showed large right pleural effusion and extensive infiltrate in the right lung. A 46 mm mass was noted at the thoracic inlet on the left and a 51 mm mass was noted in the right lower lobe. The right breast appeared somewhat more dense than the left. Her CT abdomen/pelvis on 01/06/2021 again showed large right pleural effusion and right lower lobe lung mass measuring 5.0 x 4.5 cm. A small hypoattenuating lesion in the hepatic segment 6 was too small to characterize. The adrenal glands appeared normal. There was an infiltrative masslike appearance throughout the uterus measuring approximately 12.6 x 7.4 x 11.3 cm and there was diffuse endometrial calcification with infiltrative mass within the endometrial canal. There was masslike thickening of the cervix with adjacent pelvic sidewall lymphadenopathy. There was noted to be loss of the fat plane between the uterine mass and the sigmoid colon. There were complex ventral abdominal wall hernias containing loops of nonobstructed bowel. There were multiple prominent mesenteric lymph nodes and enlarged retroperitoneal lymph nodes as well as bilateral inguinal lymphadenopathy. MRI of the brain showed no evidence of metastatic disease. During her hospitalization she underwent thoracentesis on 2 occasions with negative pleural fluid cytology. Needle biopsy of the right lung mass on 01/09/2021 showed metastatic serous adenocarcinoma favoring uterine primary. By IHC the tumor cells were positive for CK7, PAX8, p16, and WT-1. They were negative for CK20, p53, TTF-1, and CDX2. I had seen her initially on 02/03/2021. Her additional pathologic studies included analysis for overexpression of HER-2/wendy, which was negative (1+ by IHC). With that finding, she was given the option to have a trial of chemotherapy with carboplatin/paclitaxel. In the meantime, on 02/09/2021 she underwent placement of a right pleural catheter for management of the pleural effusion. She then underwent placement of Port-A-Cath venous access device on 02/17/2021. On 02/19/2021 she was admitted to the hospital after presenting to the emergency room with shortness of breath and abdominal pain. Her CT scans of the chest, abdomen, and pelvis showed evidence for moderate bilateral pulmonary emboli in addition to extensive metastatic lymph node involvement and suspected right ureteral obstruction. There was marked enlargement of the uterus. At that time she was also having hematochezia and on sigmoidoscopy there appeared to be extension of the uterine mass to involve the anterior rectum. She was discharged on 02/25/2021. At that time they had consider transitioning to hospice, but ultimately she opted to continue with the chemotherapy, as originally planned. Her prior medical illnesses have been limited to seasonal allergies. Prior surgeries include cholecystectomy and tonsillectomy. She is a non-smoker. INTERIM HISTORY: She began cycle 1 of carboplatin/paclitaxel chemotherapy on 03/02/2021, both administered at a reduced dosage. She tolerated the initial infusions without acute toxicity. At day 9 she was neutropenic, ANC 600. She was treated with G-CSF for 3 days. We were not able to get any additional interim blood counts. She is seen for a follow-up visit. She has been feeling a little better generally. She still has limited activity, but she is now getting around a little bit at home. ECOG score is 3. She is eating better. She does not have fever or night sweats. Her mouth has been dry, she has not had mouth sores. She has some shortness of breath, but her breathing is pretty good. Her Pleurx catheter is being drained twice a week. She currently has no GI or complaints. She has no significant joint or bone pain. She does not complain of headache or dizziness. She has no numbness/paresthesia or other neuropathy symptoms. She says she is not having as much tremor now. Medications: Acetaminophen Tablet Oral PRN, Adult Aspirin Regimen 1 Tablet (of 81 mg) Tablet, enteric coated Oral daily, Decadron (4 mg) Tablet Oral Take as Directed, Furosemide 1 Tablet (of 20 mg) Oral daily, Pantoprazole Sodium 1 Tablet (of 40 mg) Tablet, enteric coated Oral daily, Prochlorperazine Maleate 1 Tablet (of 10 mg) Oral q 4 hours PRN Allergies: No Known Allergies. Vital Signs: Performed on Mar 24, 2021 10:36 Height - 64.00 in Temperature - 97.1 F (LOW) Pulse - 90 /min Respiration - 16 /min BP - 100/62 mm(hg) O2 Sat - 93 % (LOW) Pain - 0 Fatigue - 0 Physical Examination: Constitutional - She still appears very weak, but slightly better, Eyes - Sclerae nonicteric. Conjunctivae clear, ENMT - No lesions noted in the oral cavity, Hematologic/Lymphatic - No cervical or axillary adenopathy. There is a 2 cm node palpable in the left supraclavicular fossa, Respiratory - Lungs sound clear with diminished air movement on the right, Cardiovascular - Heart rhythm is regular. There is no murmur, gallop, or rub noted, Abdomen - Moderately distended but soft. Liver and spleen are not enlarged. There is a mass palpable in the mid abdomen inferior to the umbilicus. There is no obvious ascites. There is no inguinal adenopathy noted, Extremities - She still has severe lower extremity edema. Both legs are wrapped, Neurologic - No focal neurologic deficits noted. Lab/Imaging: Test performed on Mar 24, 2021 10:16 Sodium 134 mmol/L Potassium 4.2 mmol/L Chloride 100 mmol/L CO2 21 mmol/L Anion Gap 17.2 BUN 10 mg/dL Creatinine 0.7 mg/dL Cr Clearance (Est) 110.8900 mL/min Glucose 208 mg/dL Osmolality - Calculated 283 mOsm/kg Calcium 7.8 mg/dL Protein, Total 6.5 g/dL Albumin 2.8 g/dL Globulin 3.7 g/dL Bilirubin, Total 0.3 mg/dL ALT (SGPT) < 5 U/L AST (SGOT) 15 U/L Alkaline Phosphatase 130 IU/L WBC 2.1 10 3/uL RBC 3.55 10 6/uL HGB 9.6 g/dL HCT 30.8 % MCV 86.8 fl MCH 27.0 pg MCHC 31.2 g/dL RDW 18.7 % Platelet Count 221 10 3/cmm MPV 10.0 fL Neutrophils 1.75 10 3/uL Lymphocytes 0.2 10 3/uL Monocytes 0.0 10 3/uL Eosinophils 0.0 10 3/uL Basophils 0.0 10 3/uL Neutrophil % 84.8 % Lymphocyte % 11.7 % Monocyte % 1.5 % Eosinophil % 0.0 % Basophils % 0.5 % NRBC % 0 % Anti-D Test Not Performed will order bb hold hgb 9.6 Blood Type Test Not Performed will order bb hold hgb 9.6 Antibody Screen (Gel) Test Not Performed will order bb hold hgb 9.6 CA 19-9 2307 U/mL CA-125 82.3 U/mL Problem List: 1. 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 Overall, the clinical and pathologic findings were most consistent with uterine primary malignancy. She had multiple sites of metastatic involvement by clinical evaluation. 2. She has associated right pleural effusion. 3. She has seasonal allergies. Problems Addressed with this Encounter and Plan: 1. Patient with metastatic serous adenocarcinoma. The CT findings and the pathology were most consistent with uterine primary malignancy. Her tumor was found to be negative for overexpression of HER-2/wendy. The biopsy sample was insufficient for any additional pathologic analysis. In the setting of advanced, metastatic disease and poor performance status, she appeared to have very poor prognosis, but she opted to proceed with a trial of chemotherapy with carboplatin/paclitaxel. She received cycle 1 on 03/02/2021. It was administered at reduced dosages. She tolerated it without acute toxicity. However, at day 9 she had moderately severe pancytopenia. She was transfused 1 unit PRBC today and she was given G-CSF 480 mcg by subcutaneous injection daily for 3 days. Due to her limited ability to access medical care, she does not have any additional interim blood counts. At this point she still has very limited activity, but she is showing some improvement. She also still has moderately severe neutropenia, ANC 1700. As such, her chemotherapy will be delayed. Her CBC will be rechecked in 1 week. If she has adequate recovery, she can continue with cycle 2 of carboplatin/paclitaxel. The dosages will remain the same. It will be administered with Neulasta prophylactically, subject to verification of insurance coverage. 2. She has associated right pleural effusion for which she underwent placement of right pleural drainage catheter. It is being twice weekly by [facility]. Signed By: Keyon Echevarria M.D. <<Signature on File>>
== END 2021-03-24 09:58 | disposition home or self-care (01) ==
LOC: ONCMED 09:58
PROVIDERS: PCP Nurse Practitioner Family; Visit Provider Internal Medicine Medical Oncology
DX: C55 Malignant neoplasm of uterus, part unspecified (principal); C78.01 Secondary malignant neoplasm of right lung; J90 Pleural effusion, not elsewhere classified; J30.2 Other seasonal allergic rhinitis; Z79.82 Long term (current) use of aspirin; Z79.899 Other long term (current) drug therapy; R97.8 Other abnormal tumor markers
CPT/HCPCS: 36591; 80053; 85025; 86301; 86304; 99215

== ENCOUNTER 2021-03-30 12:59 | Outpatient (CLI) | payer MEDICARE, SELFPAY ==
[2021-03-30 13:50] LABS: Basophils % 0.4 %; Eosinophils # 0.1 10^3/uL (0.0-0.8); Eosinophils % 0.7 %; Hematocrit 28.4 % (37.0-47.0); Hemoglobin 8.7 g/dL (11.5-15.3); Lymphocytes # 1.1 10^3/uL (0.8-4.8); Lymphocytes % 14.7 %; Mean Corpuscular HGB Conc 30.6 g/dL (30.0-36.0); Mean Corpuscular Hemoglobin 27.2 pg (28.0-34.0); Mean Corpuscular Volume 88.8 fl (81-99); Monocytes # 1.6 10^3/uL (0.2-0.9); Monocytes % 21.7 %; Neutrophils # 4.37 10^3/uL (1.8-7.7); Neutrophils % 61.2 %; Nucleated Red Blood Cells % 0 %; Platelet Count 283 10^3/cmm (130-400); White Blood Count 7.1 10^3/uL (4.0-10.0)
[2021-03-30 14:06] LABS: Alanine Aminotransferase < 5 U/L (0-33); Albumin Level 2.7 g/dL (3.5-5.2); Alkaline Phosphatase 129 IU/L (35-105); Anion Gap 17.9 (5-19); Aspartate Amino Transferase 13 U/L (0-32); Blood Urea Nitrogen 16 mg/dL (8-23); Carbon Dioxide 21 mmol/L (22-29); Chloride 94 mmol/L (98-107); Glucose 114 mg/dL (65-115); Osmolality Calculated 270 mOsm/kg (285-295); Potassium 3.9 mmol/L (3.5-5.1); Sodium 129 mmol/L (136-145); Total Bilirubin 0.5 mg/dL (0.15-1.2); Total Protein 6.7 g/dL (6.6-8.7)
== END 2021-03-30 13:00 | disposition home or self-care (01) ==
PROVIDERS: PCP Nurse Practitioner Family; Visit Provider Internal Medicine Medical Oncology
DX: Z12.2 Encounter for screening for malignant neoplasm of respiratory organs (principal)
CPT/HCPCS: 80053; 85025

== ENCOUNTER 2021-03-31 06:44 | Outpatient (CLI) | payer MEDICARE, SELFPAY ==
[2021-03-31] MEDS: sodium chloride 0.9% 250 ML 75 ML IV (10:00)
[2021-03-31] MEDS: diphenhydrAMINE 50 mg/mL SDV 1mL 25 MG IV (10:02)
[2021-03-31] MEDS: famotidine 20 mg/2 mL INJ IVP (10:04)
[2021-03-31] MEDS: palonosetron 0.25 mg/5 mL SDV IV (10:06)
[2021-03-31] MEDS: fosaprepitant 150 MG in sodium chloride 0.9% 150 ML 300 MG IV (10:35)
[2021-03-31] MEDS: sodium chloride 0.9% (100 ml) 100 ML 75 ML (14:15)
[2021-03-31] MEDS: pegfilgrastim 6 mg/0.6 mL Kit (onpro) SUBCUT (15:13)
== END 2021-03-31 06:45 | disposition home or self-care (01) ==
LOC: ONCMED 06:45
PROVIDERS: PCP Nurse Practitioner Family; Visit Provider Internal Medicine Medical Oncology
DX: Z51.11 Encounter for antineoplastic chemotherapy (principal); C54.8 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; C78.01 Secondary malignant neoplasm of right lung; Z79.52 Long term (current) use of systemic steroids; Z79.899 Other long term (current) drug therapy
CPT/HCPCS: 96367; 96372; 96375; 96413; 96415; 96417; J1100; J1200; J1453; J2469; J2505; J3490; J7030; J7040; J7050; J9045; J9267

== ENCOUNTER 2021-04-07 14:21 | Outpatient (CLI) | payer MEDICARE, SELFPAY ==
[2021-04-07 14:31] LABS: Hematocrit 23.6 % (37.0-47.0); Hemoglobin 7.2 g/dL (11.5-15.3); Mean Corpuscular HGB Conc 30.5 g/dL (30.0-36.0); Mean Corpuscular Hemoglobin 26.8 pg (28.0-34.0); Mean Corpuscular Volume 87.7 fl (81-99); Mean Platelet Volume 10.7 fL (7.4-10.4); Platelet Count 108 10^3/cmm (130-400); Red Blood Count 2.69 10^6/uL (4.1-5.3); Red Cell Distribution Width 19.3 % (12.1-15.1)
[2021-04-07 15:21] LABS: White Blood Count 0.8 10^3/uL (4.0-10.0)
[2021-04-07 15:22] LABS: Absolute Segmented Neutrophil 0.1 10/cmm (1.6-7.1); Eosinophils 0 %; Lymphocytes 56 %; Lymphocytes Absolute 0.6 10^3/cmm (1.2-3.4); Segmented Neutrophils 16 %; Total Cells Counted 100 (0-100)
[2021-04-07 17:14] LABS: Platelet Estimate Decreased (Normal)
[2021-04-07 17:15] LABS: Absolute Neutrophil 0.1 10^3/cmm (1.4-6.5)
== END 2021-04-07 14:22 | disposition home or self-care (01) ==
PROVIDERS: PCP Nurse Practitioner Family; Visit Provider Internal Medicine Medical Oncology
DX: C78.01 Secondary malignant neoplasm of right lung (principal)
CPT/HCPCS: 85007; 85025

== ENCOUNTER 2021-04-14 13:44 | Outpatient (CLI) | payer MEDICARE, SELFPAY ==
[2021-04-14 14:05] LABS: Basophils % 0.6 %; Eosinophils # 0.1 10^3/uL (0.0-0.8); Eosinophils % 1.2 %; Hematocrit 27.3 % (37.0-47.0); Hemoglobin 8.2 g/dL (11.5-15.3); Lymphocytes # 0.9 10^3/uL (0.8-4.8); Lymphocytes % 12.9 %; Mean Corpuscular Hemoglobin 26.7 pg (28.0-34.0); Mean Corpuscular Volume 88.9 fl (81-99); Mean Platelet Volume 10.1 fL (7.4-10.4); Monocytes # 1.1 10^3/uL (0.2-0.9); Monocytes % 15.8 %; Neutrophils # 4.64 10^3/uL (1.8-7.7); Neutrophils % 68.6 %; Nucleated Red Blood Cells % 0 %; Platelet Count 102 10^3/cmm (130-400); Red Blood Count 3.07 10^6/uL (4.1-5.3); Red Cell Distribution Width 21.3 % (12.1-15.1); White Blood Count 6.8 10^3/uL (4.0-10.0)
== END 2021-04-14 13:45 | disposition home or self-care (01) ==
LOC: LAB 13:46
PROVIDERS: PCP Nurse Practitioner Family; Visit Provider Internal Medicine Medical Oncology
DX: C78.01 Secondary malignant neoplasm of right lung (principal)
CPT/HCPCS: 85025

== ENCOUNTER 2021-04-20 12:26 | Outpatient (CLI) | payer MEDICARE, SELFPAY ==
[2021-04-20 12:54] LABS: Basophils % 0.7 %; Eosinophils # 0.1 10^3/uL (0.0-0.8); Eosinophils % 1.5 %; Hematocrit 25.9 % (37.0-47.0); Hemoglobin 7.7 g/dL (11.5-15.3); Lymphocytes % 24.7 %; Mean Corpuscular HGB Conc 29.7 g/dL (30.0-36.0); Mean Corpuscular Hemoglobin 27.4 pg (28.0-34.0); Mean Corpuscular Volume 92.2 fl (81-99); Mean Platelet Volume 9.8 fL (7.4-10.4); Monocytes # 0.7 10^3/uL (0.2-0.9); Monocytes % 16.5 %; Neutrophils # 2.26 10^3/uL (1.8-7.7); Neutrophils % 55.9 %; Nucleated Red Blood Cells % 0 %; Platelet Count 114 10^3/cmm (130-400); Red Blood Count 2.81 10^6/uL (4.1-5.3); Red Cell Distribution Width 22.6 % (12.1-15.1); White Blood Count 4.1 10^3/uL (4.0-10.0)
[2021-04-20 13:21] LABS: Alanine Aminotransferase < 5 U/L (0-33); Albumin Level 2.8 g/dL (3.5-5.2); Alkaline Phosphatase 108 IU/L (35-105); Anion Gap 17.7 (5-19); Aspartate Amino Transferase 11 U/L (0-32); Blood Urea Nitrogen 11 mg/dL (8-23); CA 125 33.5 U/mL (0-35); Calcium 8.9 mg/dL (8.5-10.5); Carbon Dioxide 22 mmol/L (22-29); Chloride 98 mmol/L (98-107); Glucose 103 mg/dL (65-115); Osmolality Calculated 278 mOsm/kg (285-295); Potassium 3.7 mmol/L (3.5-5.1); Sodium 134 mmol/L (136-145); Total Bilirubin 0.3 mg/dL (0.15-1.2); Total Protein 5.8 g/dL (6.6-8.7)
[2021-04-20 13:41] LABS: Cancer Antigen 19 9 1681 U/mL (0-35)
== END 2021-04-20 12:27 | disposition home or self-care (01) ==
LOC: LAB 12:28
PROVIDERS: PCP Nurse Practitioner Family; Visit Provider Internal Medicine Medical Oncology
DX: C78.01 Secondary malignant neoplasm of right lung (principal)
CPT/HCPCS: 80053; 85025; 86301; 86304

== ENCOUNTER 2021-04-21 10:26 | Outpatient (CLI) | payer MEDICARE, SELFPAY ==
[2021-04-21] VITALS (11 sets, daily range): BP systolic 127–148; BP diastolic 78–93; PULSE 92–103; RESP 16–18; TEMP 36.5–37.1; O2SAT 95–99
[2021-04-21] MEDS: palonosetron 0.25 mg/5 mL SDV IV (10:30)
[2021-04-21] MEDS: sodium chloride 0.9% 250 ML 999 ML IV (11:30)
[2021-04-21] MEDS: famotidine 20 mg/2 mL INJ IVP (11:31)
[2021-04-21] MEDS: fosaprepitant 150 MG in sodium chloride 0.9% 150 ML 300 MG IV (11:35)
[2021-04-21] MEDS: FUROsemide 10 mg/mL SDV 2mL 20 MG IV (15:00)
[2021-04-21] MEDS: pegfilgrastim 6 mg/0.6 mL Kit (onpro) SUBCUT (15:00)
[2021-04-21] MEDS: acetaminophen 325 mg Tablet 650 MG PO (15:00)
[2021-04-21] MEDS: diphenhydrAMINE 50 mg/mL SDV 1mL 25 MG IV (16:38)
[2021-04-21] MEDS: sodium chloride 0.9% 250 ML 75 ML IV (16:54)
--- NOTE | 2021-04-22 08:42 | ONC FU_ITS ---
Dr. Echevarria Patient Follow-Up Note Patient: Aicha Nath Unit #: [id number]: 1940 Dicatated By: Keyon Echevarria M.D.Date of Visit:Apr 21, 2021 Onc Med Follow-up/Prog Note Chief Complaint: Metastatic serous adenocarcinoma. 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 On 12/31/2020 she was admitted to [facility] after presenting to the [facility] emergency room with shortness of breath and lower extremity edema. Her initial chest CT scan showed evidence of right lower lobe lung mass and large right pleural effusion. Her repeat chest CT on 01/02/2021 again showed large right pleural effusion and extensive infiltrate in the right lung. A 46 mm mass was noted at the thoracic inlet on the left and a 51 mm mass was noted in the right lower lobe. The right breast appeared somewhat more dense than the left. Her CT abdomen/pelvis on 01/06/2021 again showed large right pleural effusion and right lower lobe lung mass measuring 5.0 x 4.5 cm. A small hypoattenuating lesion in the hepatic segment 6 was too small to characterize. The adrenal glands appeared normal. There was an infiltrative masslike appearance throughout the uterus measuring approximately 12.6 x 7.4 x 11.3 cm and there was diffuse endometrial calcification with infiltrative mass within the endometrial canal. There was masslike thickening of the cervix with adjacent pelvic sidewall lymphadenopathy. There was noted to be loss of the fat plane between the uterine mass and the sigmoid colon. There were complex ventral abdominal wall hernias containing loops of nonobstructed bowel. There were multiple prominent mesenteric lymph nodes and enlarged retroperitoneal lymph nodes as well as bilateral inguinal lymphadenopathy. MRI of the brain showed no evidence of metastatic disease. During her hospitalization she underwent thoracentesis on 2 occasions with negative pleural fluid cytology. Needle biopsy of the right lung mass on 01/09/2021 showed metastatic serous adenocarcinoma favoring uterine primary. By IHC the tumor cells were positive for CK7, PAX8, p16, and WT-1. They were negative for CK20, p53, TTF-1, and CDX2. I had seen her initially on 02/03/2021. Her additional pathologic studies included analysis for overexpression of HER-2/wendy, which was negative (1+ by IHC). With that finding, she was given the option to have a trial of chemotherapy with carboplatin/paclitaxel. In the meantime, on 02/09/2021 she underwent placement of a right pleural catheter for management of the pleural effusion. She then underwent placement of Port-A-Cath venous access device on 02/17/2021. On 02/19/2021 she was admitted to the hospital after presenting to the emergency room with shortness of breath and abdominal pain. Her CT scans of the chest, abdomen, and pelvis showed evidence for moderate bilateral pulmonary emboli in addition to extensive metastatic lymph node involvement and suspected right ureteral obstruction. There was marked enlargement of the uterus. At that time she was also having hematochezia and on sigmoidoscopy there appeared to be extension of the uterine mass to involve the anterior rectum. She was discharged on 02/25/2021. At that time they had consider transitioning to hospice, but ultimately she opted to continue with the chemotherapy, as originally planned. Her prior medical illnesses have been limited to seasonal allergies. Prior surgeries include cholecystectomy and tonsillectomy. She is a non-smoker. INTERIM HISTORY: She began cycle 1 of carboplatin/paclitaxel chemotherapy on 03/02/2021, both administered at a reduced dosage. She tolerated the initial infusions without acute toxicity. At day 9 she was neutropenic, ANC 600. She was treated with G-CSF for 3 days. She recovered uneventfully. At her follow-up visit on 03/24/2021 she was feeling a little better, but her further treatment was delayed because her neutrophil count was still low at 1700. She was able to continue with cycle 2 of carboplatin/paclitaxel on 03/31/2021. It was administered at reduced dosages and with Neulasta prophylactically. She is seen for a follow-up visit. She continues to feel better, though the improvement has been very gradual and not dramatic. She is able to ambulate short distances with a walker, but she is still mostly sedentary. ECOG score is 3. Her appetite/oral intake also are getting better. She has not had fever or night sweats. She has a little bit of sinus drainage. She has not had sore mouth or throat. She does not complain of cough. She says her breathing is a lot better now. She is not having chest pain. She has not had any nausea/vomiting with the chemotherapy. She did have diarrhea, but with Imodium it lasted only a day and a half. She has frequent urination. She is not having any significant joint or bone pain, but she is still having fluid retention and she complains of having weakness in her left leg. She has occasional light headache. She has no other focal neurologic symptoms. Medications: Acetaminophen Tablet Oral PRN, Adult Aspirin Regimen 1 Tablet (of 81 mg) Tablet, enteric coated Oral daily, Decadron (4 mg) Tablet Oral Take as Directed, Furosemide 1 Tablet (of 20 mg) Oral daily, Pantoprazole Sodium 1 Tablet (of 40 mg) Tablet, enteric coated Oral daily, Prochlorperazine Maleate 1 Tablet (of 10 mg) Oral q 4 hours PRN Allergies: No Known Allergies. Vital Signs: Performed on Apr 21, 2021 13:06 Height - 64.00 in Temperature - 99.0 F (HIGH) Pulse - 99 /min Respiration - 19 /min BP - 123/75 mm(hg) O2 Sat - 97 % Pain - 0 Fatigue - 6 Physical Examination: Constitutional - She appears generally weak, Eyes - Sclerae nonicteric. Conjunctivae clear, ENMT - No lesions noted in the oral cavity, Hematologic/Lymphatic - No cervical or axillary adenopathy. The palpable node in the left supraclavicular fossa has diminished, Respiratory - Lungs sound clear with diminished air movement on the right, Cardiovascular - Heart rhythm is regular. There is no murmur, gallop, or rub noted, Abdomen - Moderately distended but soft. Liver and spleen are not enlarged. There is no obvious ascites and there is no inguinal adenopathy noted, Extremities - She has severe lower extremity edema, Neurologic - No focal neurologic deficits noted. Lab/Imaging: CBC shows hemoglobin 7.7 g, white blood cell count 4100, and platelet count 114,000. Comprehensive metabolic profile shows stable renal function with BUN 11 and creatinine 0.5 mg/dL. Bilirubin and liver enzymes are normal. Albumin is low at 2.8 g/dL. Her CA 19-9 has decreased to 1681 U/mL compared to 2307 U/mL on 03/24/2021. CA125 level is down to 33.5 U/mL compared to a pretreatment level of 101.4 U/mL. Problem List: 1. 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 Overall, the clinical and pathologic findings were most consistent with uterine primary malignancy. She had multiple sites of metastatic involvement by clinical evaluation. 2. She has associated right pleural effusion. 3. She has seasonal allergies. Problems Addressed with this Encounter and Plan: 1. Patient with metastatic serous adenocarcinoma. The CT findings and the pathology were most consistent with uterine primary malignancy. Her tumor was found to be negative for overexpression of HER-2/wendy. The biopsy sample was insufficient for any additional pathologic analysis. In the setting of advanced, metastatic disease and poor performance status, she appeared to have very poor prognosis, but she opted to proceed with a trial of chemotherapy with carboplatin/paclitaxel. She received cycle 1 on 03/02/2021. It was administered at reduced dosages. She tolerated it without acute toxicity. However, at day 9 she had moderately severe pancytopenia. She was transfused 1 unit PRBC today and she was given G-CSF 480 mcg by subcutaneous injection daily for 3 days. She recovered uneventfully. On follow-up she did show some clinical improvement with the chemotherapy, and she was able to proceed with a 2nd cycle of treatment after 1 week delay due to persistent neutropenia. It was administered at reduced dosages and with prophylactic Neulasta. Her treatment was again complicated by neutropenia, though she recovered with no adverse consequences. She also has moderately severe anemia and she experienced some transient diarrhea. Overall, she has been able to tolerate it with acceptable toxicity. She is showing some evidence of response with gradual improvement in her clinical status, decrease in left supraclavicular lymphadenopathy, and decrease in her tumor markers. As such, she will proceed now with cycle 3 of carboplatin/paclitaxel. The dosages will remain the same, and she will again receive Neulasta prophylactically. She also now will be transfused PRBC. Her blood counts will be monitored weekly by [facility], as she is still at high risk for further chemotherapy related toxicities. She will be scheduled for a follow-up visit in 3 weeks. 2. She has associated right pleural effusion for which she underwent placement of right pleural drainage catheter. It is being managed by home health. Signed By: Keyon Echevarria M.D. <<Signature on File>>
== END 2021-04-21 10:27 | disposition home or self-care (01) ==
LOC: ONCMED 10:30
PROVIDERS: PCP Nurse Practitioner Family; Visit Provider Internal Medicine Medical Oncology
DX: Z51.11 Encounter for antineoplastic chemotherapy (principal); C78.01 Secondary malignant neoplasm of right lung; C55 Malignant neoplasm of uterus, part unspecified; J90 Pleural effusion, not elsewhere classified; D64.9 Anemia, unspecified; Z79.899 Other long term (current) drug therapy; R19.7 Diarrhea, unspecified; Z98.890 Other specified postprocedural states
CPT/HCPCS: 36430; 86850; 86900; 86920; 96367; 96375; 96377; 96413; 96417; 99215; J1100; J1200; J1453; J1940; J2469; J2506; J3490; J7030; J7040; J7050; J9045; J9267; P9016

== ENCOUNTER 2021-04-29 14:04 | Outpatient (CLI) | payer MEDICARE, SELFPAY ==
[2021-04-29 14:16] LABS: Basophils % 0.7 %; Eosinophils % 2.8 %; Hematocrit 29.4 % (37.0-47.0); Hemoglobin 9.2 g/dL (11.5-15.3); Lymphocytes # 0.7 10^3/uL (0.8-4.8); Lymphocytes % 48.3 %; Mean Corpuscular HGB Conc 31.3 g/dL (30.0-36.0); Mean Corpuscular Hemoglobin 28.6 pg (28.0-34.0); Mean Corpuscular Volume 91.3 fl (81-99); Mean Platelet Volume 11.3 fL (7.4-10.4); Monocytes # 0.5 10^3/uL (0.2-0.9); Monocytes % 35.7 %; Neutrophils % 11.8 %; Nucleated Red Blood Cells % 0 %; Platelet Count 77 10^3/cmm (130-400); Red Blood Count 3.22 10^6/uL (4.1-5.3); Red Cell Distribution Width 20.3 % (12.1-15.1); White Blood Count 1.4 10^3/uL (4.0-10.0)
[2021-04-29 14:41] LABS: Neutrophils # 0.17 10^3/uL (1.8-7.7)
[2021-04-29 14:42] LABS: Slide Review Slide Review Perform
== END 2021-04-29 14:05 | disposition home or self-care (01) ==
PROVIDERS: PCP Nurse Practitioner Family; Visit Provider Internal Medicine Medical Oncology
DX: C78.01 Secondary malignant neoplasm of right lung (principal)
CPT/HCPCS: 85025; 86850; 86900

== ENCOUNTER 2021-05-05 13:39 | Outpatient (CLI) | payer MEDICARE, SELFPAY ==
[2021-05-05 13:57] LABS: Basophils % 0.4 %; Eosinophils % 0.2 %; Hematocrit 28.7 % (37.0-47.0); Lymphocytes # 1.2 10^3/uL (0.8-4.8); Lymphocytes % 21.6 %; Mean Corpuscular HGB Conc 31.4 g/dL (30.0-36.0); Mean Corpuscular Hemoglobin 28.4 pg (28.0-34.0); Mean Corpuscular Volume 90.5 fl (81-99); Mean Platelet Volume 10.7 fL (7.4-10.4); Monocytes # 0.9 10^3/uL (0.2-0.9); Monocytes % 16.8 %; Neutrophils # 3.26 10^3/uL (1.8-7.7); Neutrophils % 60.1 %; Nucleated Red Blood Cells % 0 %; Platelet Count 40 10^3/cmm (130-400); Red Blood Count 3.17 10^6/uL (4.1-5.3); White Blood Count 5.4 10^3/uL (4.0-10.0)
== END 2021-05-05 13:40 | disposition home or self-care (01) ==
LOC: LAB 13:41
PROVIDERS: PCP Nurse Practitioner Family; Visit Provider Internal Medicine Medical Oncology
DX: C78.01 Secondary malignant neoplasm of right lung (principal)
CPT/HCPCS: 85025

== ENCOUNTER 2021-05-11 10:00 | Outpatient (CLI) | payer MEDICARE, SELFPAY ==
[2021-05-11 17:20] LABS: Basophils % 0.5 %; Eosinophils % 0.3 %; Hematocrit 28.6 % (37.0-47.0); Lymphocytes # 0.8 10^3/uL (0.8-4.8); Lymphocytes % 21.9 %; Mean Corpuscular HGB Conc 31.5 g/dL (30.0-36.0); Mean Corpuscular Hemoglobin 29.1 pg (28.0-34.0); Mean Corpuscular Volume 92.6 fl (81-99); Mean Platelet Volume 11.2 fL (7.4-10.4); Monocytes # 0.6 10^3/uL (0.2-0.9); Monocytes % 15.3 %; Neutrophils # 2.26 10^3/uL (1.8-7.7); Neutrophils % 61.7 %; Nucleated Red Blood Cells % 0 %; Positive C 1; Red Blood Count 3.09 10^6/uL (4.1-5.3); Red Cell Distribution Width 21.3 % (12.1-15.1); White Blood Count 3.7 10^3/uL (4.0-10.0)
[2021-05-11 17:49] LABS: Platelet Count 27 10^3/cmm (130-400)
[2021-05-11 17:54] LABS: Alanine Aminotransferase < 5 U/L (0-33); Albumin Level 3.1 g/dL (3.5-5.2); Alkaline Phosphatase 111 IU/L (35-105); Anion Gap 17.5 (5-19); Aspartate Amino Transferase 12 U/L (0-32); Blood Urea Nitrogen 10 mg/dL (8-23); CA 125 28.9 U/mL (0-35); Calcium 9.3 mg/dL (8.5-10.5); Carbon Dioxide 21 mmol/L (22-29); Chloride 104 mmol/L (98-107); Globulin 3.3 g/dL (1.3-4.6); Glucose 106 mg/dL (65-115); Osmolality Calculated 287 mOsm/kg (285-295); Potassium 3.5 mmol/L (3.5-5.1); Sodium 139 mmol/L (136-145); Total Bilirubin 0.4 mg/dL (0.15-1.2); Total Protein 6.4 g/dL (6.6-8.7)
[2021-05-11 18:14] LABS: Cancer Antigen 19 9 1214 U/mL (0-35)
== END 2021-05-11 10:01 | disposition home or self-care (01) ==
PROVIDERS: PCP Nurse Practitioner Family; Visit Provider Internal Medicine Medical Oncology
DX: C78.01 Secondary malignant neoplasm of right lung (principal)
CPT/HCPCS: 80053; 85025; 86301; 86304

== ENCOUNTER 2021-05-18 18:17 | Outpatient (CLI) | payer MEDICARE, SELFPAY ==
[2021-05-18 20:14] LABS: Basophils % 0.7 %; Eosinophils # 0.1 10^3/uL (0.0-0.8); Eosinophils % 2.4 %; Hematocrit 26.3 % (37.0-47.0); Hemoglobin 8.3 g/dL (11.5-15.3); Lymphocytes % 24.6 %; Mean Corpuscular HGB Conc 31.6 g/dL (30.0-36.0); Mean Corpuscular Volume 94.9 fl (81-99); Mean Platelet Volume 10.5 fL (7.4-10.4); Monocytes # 0.7 10^3/uL (0.2-0.9); Monocytes % 17.1 %; Neutrophils # 2.25 10^3/uL (1.8-7.7); Nucleated Red Blood Cells % 0 %; Platelet Count 119 10^3/cmm (130-400); Red Blood Count 2.77 10^6/uL (4.1-5.3); Red Cell Distribution Width 23.2 % (12.1-15.1); White Blood Count 4.1 10^3/uL (4.0-10.0)
== END 2021-05-18 18:18 | disposition home or self-care (01) ==
PROVIDERS: PCP Nurse Practitioner Family; Visit Provider Internal Medicine Medical Oncology
DX: C55 Malignant neoplasm of uterus, part unspecified (principal)
CPT/HCPCS: 85025

== ENCOUNTER 2021-05-19 10:13 | Outpatient (CLI) | payer MEDICARE, SELFPAY ==
[2021-05-19] MEDS: sodium chloride 0.9% 250 ML 75 ML IV (11:00)
[2021-05-19] MEDS: diphenhydrAMINE 50 mg/mL SDV 1mL 25 MG IV (11:25)
[2021-05-19] MEDS: fosaprepitant 150 MG in sodium chloride 0.9% 150 ML 300 MG IV (11:30)
[2021-05-19] MEDS: famotidine 20 mg/2 mL INJ IVP (11:30)
[2021-05-19] MEDS: palonosetron 0.25 mg/5 mL SDV IV (11:50)
[2021-05-19 11:55] LABS: Anion Gap 16.1 (5-19); Blood Urea Nitrogen 10 mg/dL (8-23); Calcium 8.7 mg/dL (8.5-10.5); Carbon Dioxide 23 mmol/L (22-29); Chloride 97 mmol/L (98-107); Glucose 235 mg/dL (65-115); Osmolality Calculated 281 mOsm/kg (285-295); Potassium 4.1 mmol/L (3.5-5.1); Sodium 132 mmol/L (136-145)
[2021-05-19] MEDS: pegfilgrastim 6 mg/0.6 mL Kit (onpro) SUBCUT (14:45)
--- NOTE | 2021-05-23 10:53 | ONC FU_ITS ---
Dr. Echevarria Patient Follow-Up Note Patient: Aicha Nath Unit #: [id number]: 1940 Dicatated By: Keyon Echevarria M.D.Date of Visit:May 19, 2021 Onc Med Follow-up/Prog Note Chief Complaint: Metastatic serous adenocarcinoma. 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 On 12/31/2020 she was admitted to [facility] after presenting to the [facility] emergency room with shortness of breath and lower extremity edema. Her initial chest CT scan showed evidence of right lower lobe lung mass and large right pleural effusion. Her repeat chest CT on 01/02/2021 again showed large right pleural effusion and extensive infiltrate in the right lung. A 46 mm mass was noted at the thoracic inlet on the left and a 51 mm mass was noted in the right lower lobe. The right breast appeared somewhat more dense than the left. Her CT abdomen/pelvis on 01/06/2021 again showed large right pleural effusion and right lower lobe lung mass measuring 5.0 x 4.5 cm. A small hypoattenuating lesion in the hepatic segment 6 was too small to characterize. The adrenal glands appeared normal. There was an infiltrative masslike appearance throughout the uterus measuring approximately 12.6 x 7.4 x 11.3 cm and there was diffuse endometrial calcification with infiltrative mass within the endometrial canal. There was masslike thickening of the cervix with adjacent pelvic sidewall lymphadenopathy. There was noted to be loss of the fat plane between the uterine mass and the sigmoid colon. There were complex ventral abdominal wall hernias containing loops of nonobstructed bowel. There were multiple prominent mesenteric lymph nodes and enlarged retroperitoneal lymph nodes as well as bilateral inguinal lymphadenopathy. MRI of the brain showed no evidence of metastatic disease. During her hospitalization she underwent thoracentesis on 2 occasions with negative pleural fluid cytology. Needle biopsy of the right lung mass on 01/09/2021 showed metastatic serous adenocarcinoma favoring uterine primary. By IHC the tumor cells were positive for CK7, PAX8, p16, and WT-1. They were negative for CK20, p53, TTF-1, and CDX2. I had seen her initially on 02/03/2021. Her additional pathologic studies included analysis for overexpression of HER-2/wendy, which was negative (1+ by IHC). With that finding, she was given the option to have a trial of chemotherapy with carboplatin/paclitaxel. In the meantime, on 02/09/2021 she underwent placement of a right pleural catheter for management of the pleural effusion. She then underwent placement of Port-A-Cath venous access device on 02/17/2021. On 02/19/2021 she was admitted to the hospital after presenting to the emergency room with shortness of breath and abdominal pain. Her CT scans of the chest, abdomen, and pelvis showed evidence for moderate bilateral pulmonary emboli in addition to extensive metastatic lymph node involvement and suspected right ureteral obstruction. There was marked enlargement of the uterus. At that time she was also having hematochezia and on sigmoidoscopy there appeared to be extension of the uterine mass to involve the anterior rectum. She was discharged on 02/25/2021. At that time they had consider transitioning to hospice, but ultimately she opted to continue with the chemotherapy, as originally planned. Her prior medical illnesses have been limited to seasonal allergies. Prior surgeries include cholecystectomy and tonsillectomy. She is a non-smoker. INTERIM HISTORY: She began cycle 1 of carboplatin/paclitaxel chemotherapy on 03/02/2021, both administered at a reduced dosage. She tolerated the initial infusions without acute toxicity. At day 9 she was neutropenic, ANC 600. She was treated with G-CSF for 3 days. She recovered uneventfully. At her follow-up visit on 03/24/2021 she was feeling a little better, but her further treatment was delayed because her neutrophil count was still low at 1700. She was able to continue with cycle 2 of carboplatin/paclitaxel on 03/31/2021. It was administered at reduced dosages and with Neulasta prophylactically. With the dose reduction and the Neulasta, her granulocyte count remained adequate. However, her cycle 4 had to be delayed due to thrombocytopenia, platelet count dropping to 27,000. She is seen for a follow-up visit. She says she has been feeling good. She still has very limited activity, but she is walking a little more now than she had been. ECOG score is still 3. Her appetite has picked up. She does not have fever or night sweats. She has some sinus drainage and she complains of dry mouth. She has not had sore throat or difficulty swallowing. She does not complain of cough. She says her breathing has been good, and she has not been having chest pain. She has no GI or complaints. She has no significant joint or bone pain. She has occasional sinus headache. She has no numbness/paresthesia or other neuropathy symptoms. Medications: Acetaminophen Tablet Oral PRN, Adult Aspirin Regimen 1 Tablet (of 81 mg) Tablet, enteric coated Oral daily, Decadron (4 mg) Tablet Oral Take as Directed, Furosemide 1 Tablet (of 20 mg) Oral daily, Pantoprazole Sodium 1 Tablet (of 40 mg) Tablet, enteric coated Oral daily, Prochlorperazine Maleate 1 Tablet (of 10 mg) Oral q 4 hours PRN Allergies: No Known Allergies. Vital Signs: Performed on May 19, 2021 11:45 Height - 64.00 in Temperature - 98.5 F Pulse - 101 /min (HIGH) Respiration - 16 /min BP - 126/82 mm(hg) O2 Sat - 99 % Pain - 0 Fatigue - 4 Physical Examination: Constitutional - She appears generally weak, though slightly better overall, Eyes - Sclerae nonicteric. Conjunctivae clear, ENMT - No lesions noted in the oral cavity, Hematologic/Lymphatic - No cervical or axillary adenopathy. There has been a decrease in the left supraclavicular fossa adenopathy, Respiratory - Lungs sound clear with diminished air movement on the right, Cardiovascular - Heart rhythm is regular with a mild tachycardia. There is no murmur, gallop, or rub noted, Abdomen - Moderately distended but soft. Liver and spleen are not enlarged. There is no obvious ascites and there is no inguinal adenopathy noted, Extremities - There is 3+ lower extremity edema. Both legs are wrapped, Neurologic - No focal neurologic deficits noted. Lab/Imaging: CBC from 05/18/2021 showed hemoglobin 8.3 g, white blood cell count 4100, and platelet count 119,000. Test performed on May 19, 2021 10:53 Sodium 132 mmol/L Potassium 4.1 mmol/L Chloride 97 mmol/L CO2 23 mmol/L Anion Gap 16.1 Glucose 235 mg/dL BUN 10 mg/dL Creatinine 0.6 mg/dL Cr Clearance (Est) 127.2900 mL/min Calcium 8.7 mg/dL Osmolality - Calculated 281 mOsm/kg Problem List: 1. 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 Overall, the clinical and pathologic findings were most consistent with uterine primary malignancy. She had multiple sites of metastatic involvement by clinical evaluation. 2. She has associated right pleural effusion. 3. She has seasonal allergies. Problems Addressed with this Encounter and Plan: 1. Patient with metastatic serous adenocarcinoma. The CT findings and the pathology were most consistent with uterine primary malignancy. Her tumor was found to be negative for overexpression of HER-2/wendy. The biopsy sample was insufficient for any additional pathologic analysis. In the setting of advanced, metastatic disease and poor performance status, she appeared to have very poor prognosis, but she opted to proceed with a trial of chemotherapy with carboplatin/paclitaxel. She received cycle 1 on 03/02/2021. It was administered at reduced dosages. She tolerated it without acute toxicity. However, at day 9 she had moderately severe pancytopenia. She was transfused 1 unit PRBC today and she was given G-CSF 480 mcg by subcutaneous injection daily for 3 days. She recovered uneventfully. On follow-up she did show some clinical improvement with the chemotherapy, and she was able to proceed with a 2nd cycle of treatment after a 1 week delay for persistent neutropenia. It was administered at reduced dosages and with prophylactic Neulasta. Her treatment was again complicated by neutropenia, though she recovered with no adverse consequences. She continued with cycle 3 on 04/21/2021. At that point she did appear to be showing some improvement clinically, and she also did show some decline in her tumor markers. She remained anemic, though, and she again required PRBC transfusion. Overall, she has been able to tolerate the chemotherapy with acceptable toxicity, and she does appear to be showing some response. With the third cycle her granulocyte count remained adequate, but she did require a treatment delay due to thrombocytopenia, platelet count dropping to 27,000. She now has had adequate recovery. She will proceed with cycle 4 of carboplatin/paclitaxel. The dosages will remain the same. She will be given Neulasta prophylactically. Blood counts will be monitored weekly, as she is still at high risk for treatment related toxicities. She will be transfused PRBC again as needed. I am just going to plan now to continue her treatment at 4-week intervals. 2. She has persistent lower extremity edema, and I will now have her try increasing Lasix to 40 mg twice daily. She will require ongoing monitoring of her renal function and electrolytes. 3. She has associated right pleural effusion for which she underwent placement of right pleural drainage catheter. It is being managed by home health. Signed By: Keyon Echevarria M.D. <<Signature on File>>
== END 2021-05-19 10:14 | disposition home or self-care (01) ==
PROVIDERS: PCP Nurse Practitioner Family; Visit Provider Internal Medicine Medical Oncology
DX: C78.01 Secondary malignant neoplasm of right lung (principal); J90 Pleural effusion, not elsewhere classified; J30.2 Other seasonal allergic rhinitis; C55 Malignant neoplasm of uterus, part unspecified; D70.9 Neutropenia, unspecified; Z51.11 Encounter for antineoplastic chemotherapy; Z79.899 Other long term (current) drug therapy; D69.6 Thrombocytopenia, unspecified
CPT/HCPCS: 80048; 96367; 96375; 96377; 96413; 96417; 99215; J1100; J1200; J1453; J2469; J2506; J3490; J7030; J7040; J7050; J9045; J9267

== ENCOUNTER 2021-05-25 14:29 | Outpatient (CLI) | payer MEDICARE, SELFPAY ==
[2021-05-25 14:44] LABS: Basophils % 0.7 %; Eosinophils % 0.7 %; Hematocrit 24.5 % (37.0-47.0); Hemoglobin 7.6 g/dL (11.5-15.3); Lymphocytes # 0.6 10^3/uL (0.8-4.8); Lymphocytes % 39.4 %; Mean Corpuscular Hemoglobin 30.3 pg (28.0-34.0); Mean Corpuscular Volume 97.6 fl (81-99); Mean Platelet Volume 10.8 fL (7.4-10.4); Monocytes # 0.1 10^3/uL (0.2-0.9); Monocytes % 5.6 %; Neutrophils % 52.2 %; Nucleated Red Blood Cells % 0 %; Platelet Count 71 10^3/cmm (130-400); Red Blood Count 2.51 10^6/uL (4.1-5.3); Red Cell Distribution Width 23.1 % (12.1-15.1); White Blood Count 1.4 10^3/uL (4.0-10.0)
[2021-05-25 15:29] LABS: Neutrophils # 0.74 10^3/uL (1.8-7.7)
[2021-05-25 15:30] LABS: Slide Review Slide Review Perform
== END 2021-05-25 14:30 | disposition home or self-care (01) ==
LOC: LAB 14:34
PROVIDERS: PCP Nurse Practitioner Family; Visit Provider Internal Medicine Medical Oncology
DX: C55 Malignant neoplasm of uterus, part unspecified (principal)
CPT/HCPCS: 85025; 86850; 86900; 86920

== ENCOUNTER 2021-05-26 09:18 | Outpatient (CLI) | payer MEDICARE, SELFPAY ==
[2021-05-26] VITALS (7 sets, daily range): BP systolic 120–148; BP diastolic 81–91; PULSE 83–88; RESP 18; TEMP 36.5–37.3; O2SAT 98–99
[2021-05-26] MEDS: sodium chloride 0.9% 250 ML 999 ML IV (10:50)
[2021-05-26] MEDS: diphenhydrAMINE 25 mg Capsule PO (10:50)
[2021-05-26] MEDS: acetaminophen 325 mg Tablet 650 MG PO (11:24)
== END 2021-05-26 09:19 | disposition home or self-care (01) ==
PROVIDERS: PCP Nurse Practitioner Family; Visit Provider Internal Medicine Medical Oncology
DX: D61.818 Other pancytopenia (principal)
CPT/HCPCS: 36430; 86850; 86900; 86920; 96374; J7050; P9040

== ENCOUNTER 2021-06-01 14:26 | Outpatient (CLI) | payer MEDICARE, SELFPAY ==
[2021-06-01 14:40] LABS: Basophils % 0.7 %; Eosinophils % 0.3 %; Hemoglobin 10.2 g/dL (11.5-15.3); Lymphocytes # 1.1 10^3/uL (0.8-4.8); Lymphocytes % 17.6 %; Mean Corpuscular HGB Conc 31.9 g/dL (30.0-36.0); Mean Corpuscular Hemoglobin 30.1 pg (28.0-34.0); Mean Corpuscular Volume 94.4 fl (81-99); Mean Platelet Volume 10.2 fL (7.4-10.4); Monocytes # 0.9 10^3/uL (0.2-0.9); Monocytes % 14.5 %; Neutrophils # 3.99 10^3/uL (1.8-7.7); Neutrophils % 66.2 %; Nucleated Red Blood Cells % 0 %; Platelet Count 39 10^3/cmm (130-400); Red Blood Count 3.39 10^6/uL (4.1-5.3); Red Cell Distribution Width 20.7 % (12.1-15.1)
== END 2021-06-01 14:27 | disposition home or self-care (01) ==
LOC: LAB 14:30
PROVIDERS: PCP Nurse Practitioner Family; Visit Provider Internal Medicine Medical Oncology
DX: C55 Malignant neoplasm of uterus, part unspecified (principal)
CPT/HCPCS: 85025

== ENCOUNTER 2021-06-08 12:29 | Outpatient (CLI) | payer MEDICARE, SELFPAY ==
[2021-06-08 12:52] LABS: Basophils % 0.3 %; Eosinophils % 0.8 %; Hematocrit 28.3 % (37.0-47.0); Lymphocytes # 0.8 10^3/uL (0.8-4.8); Lymphocytes % 22.6 %; Mean Corpuscular HGB Conc 31.8 g/dL (30.0-36.0); Mean Corpuscular Hemoglobin 30.7 pg (28.0-34.0); Mean Corpuscular Volume 96.6 fl (81-99); Mean Platelet Volume 11.1 fL (7.4-10.4); Monocytes # 0.5 10^3/uL (0.2-0.9); Monocytes % 14.8 %; Neutrophils # 2.18 10^3/uL (1.8-7.7); Neutrophils % 60.9 %; Nucleated Red Blood Cells % 0 %; Platelet Count 30 10^3/cmm (130-400); Red Blood Count 2.93 10^6/uL (4.1-5.3); Red Cell Distribution Width 20.6 % (12.1-15.1); White Blood Count 3.6 10^3/uL (4.0-10.0)
== END 2021-06-08 12:30 | disposition home or self-care (01) ==
LOC: LAB 12:38
PROVIDERS: PCP Nurse Practitioner Family; Visit Provider Internal Medicine Medical Oncology
DX: C55 Malignant neoplasm of uterus, part unspecified (principal)
CPT/HCPCS: 85025

== ENCOUNTER 2021-06-16 07:43 | Outpatient (CLI) | payer MEDICARE, SELFPAY ==
[2021-06-16 08:56] LABS: Hematocrit 31.5 % (37.0-47.0); Lymphocytes # 0.4 10^3/uL (0.8-4.8); Lymphocytes % 8.9 %; Mean Corpuscular HGB Conc 31.7 g/dL (30.0-36.0); Mean Corpuscular Hemoglobin 30.8 pg (28.0-34.0); Mean Corpuscular Volume 96.9 fl (81-99); Mean Platelet Volume 9.8 fL (7.4-10.4); Monocytes # 0.1 10^3/uL (0.2-0.9); Monocytes % 2.5 %; Neutrophils # 3.48 10^3/uL (1.8-7.7); Neutrophils % 88.1 %; Nucleated Red Blood Cells % 0 %; Platelet Count 199 10^3/cmm (130-400); Red Blood Count 3.25 10^6/uL (4.1-5.3); Red Cell Distribution Width 20.6 % (12.1-15.1)
--- NOTE | 2021-06-16 09:24 | XR_ITS ---
WS: [id number] CHEST 2 VIEWS HISTORY: PLEURAL EFFUSION COMPARISON: 02/19/2021 Lungs: Mild pulmonary hyperinflation. Mild atelectasis at the lung bases due to small bilateral pleur al effusions. LEFT pleural effusion is small but new since 02/19/2021. Port-A-Cath with tip in the mi d to distal SVC on the RIGHT. There is also a small bore chest tube in the RIGHT lower thorax. Cardiac size: Mildly enlarged cardiac silhouette. Mediastinum/Aorta: Mild atherosclerosis aorta. Bones: Increase in thoracic kyphosis. Osteopenia. XR/XR chest 2V* [id number] IMPRESSION: 1. Very small bilateral pleural effusions. The LEFT pleural effusion is new si nce 02/19/2021. 2. No pneumonia. 3. RIGHT basilar small bore chest tube is reidentified. No interval change.
[2021-06-16 09:30] LABS: Alanine Aminotransferase 6 U/L (0-33); Albumin Level 3.8 g/dL (3.5-5.2); Alkaline Phosphatase 102 IU/L (35-105); Anion Gap 15.9 (5-19); Aspartate Amino Transferase 11 U/L (0-32); Blood Urea Nitrogen 8 mg/dL (8-23); CA 15-3 57.1 U/mL (0-25); Calcium 9.9 mg/dL (8.5-10.5); Cancer Antigen 19 9 389.7 U/mL (0-35); Carbon Dioxide 24 mmol/L (22-29); Chloride 99 mmol/L (98-107); Globulin 4.1 g/dL (1.3-4.6); Glucose 283 mg/dL (65-115); Osmolality Calculated 289 mOsm/kg (285-295); Potassium 3.9 mmol/L (3.5-5.1); Sodium 135 mmol/L (136-145); Total Bilirubin 0.4 mg/dL (0.15-1.2); Total Protein 7.9 g/dL (6.6-8.7)
[2021-06-16] MEDS: sodium chloride 0.9% 250 ML 75 ML IV (10:25)
[2021-06-16] MEDS: palonosetron 0.25 mg/5 mL SDV IV (10:27)
[2021-06-16] MEDS: famotidine 20 mg/2 mL INJ IVP (10:28)
[2021-06-16] MEDS: diphenhydrAMINE 50 mg/mL SDV 1mL 25 MG IV (10:29)
[2021-06-16] MEDS: fosaprepitant 150 MG in sodium chloride 0.9% 150 ML 300 MG IV (10:46)
--- NOTE | 2021-06-16 13:08 | ONC FU_ITS ---
Dr. Echevarria Patient Follow-Up Note Patient: Aicha Nath Unit #: [id number]: 1940 Dicatated By: Keyon Echevarria M.D.Date of Visit:Jun 16, 2021 Onc Med Follow-up/Prog Note Chief Complaint: Metastatic serous adenocarcinoma. 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 On 12/31/2020 she was admitted to [facility] after presenting to the [facility] emergency room with shortness of breath and lower extremity edema. Her initial chest CT scan showed evidence of right lower lobe lung mass and large right pleural effusion. Her repeat chest CT on 01/02/2021 again showed large right pleural effusion and extensive infiltrate in the right lung. A 46 mm mass was noted at the thoracic inlet on the left and a 51 mm mass was noted in the right lower lobe. The right breast appeared somewhat more dense than the left. Her CT abdomen/pelvis on 01/06/2021 again showed large right pleural effusion and right lower lobe lung mass measuring 5.0 x 4.5 cm. A small hypoattenuating lesion in the hepatic segment 6 was too small to characterize. The adrenal glands appeared normal. There was an infiltrative masslike appearance throughout the uterus measuring approximately 12.6 x 7.4 x 11.3 cm and there was diffuse endometrial calcification with infiltrative mass within the endometrial canal. There was masslike thickening of the cervix with adjacent pelvic sidewall lymphadenopathy. There was noted to be loss of the fat plane between the uterine mass and the sigmoid colon. There were complex ventral abdominal wall hernias containing loops of nonobstructed bowel. There were multiple prominent mesenteric lymph nodes and enlarged retroperitoneal lymph nodes as well as bilateral inguinal lymphadenopathy. MRI of the brain showed no evidence of metastatic disease. During her hospitalization she underwent thoracentesis on 2 occasions with negative pleural fluid cytology. Needle biopsy of the right lung mass on 01/09/2021 showed metastatic serous adenocarcinoma favoring uterine primary. By IHC the tumor cells were positive for CK7, PAX8, p16, and WT-1. They were negative for CK20, p53, TTF-1, and CDX2. I had seen her initially on 02/03/2021. Her additional pathologic studies included analysis for overexpression of HER-2/wendy, which was negative (1+ by IHC). With that finding, she was given the option to have a trial of chemotherapy with carboplatin/paclitaxel. In the meantime, on 02/09/2021 she underwent placement of a right pleural catheter for management of the pleural effusion. She then underwent placement of Port-A-Cath venous access device on 02/17/2021. On 02/19/2021 she was admitted to the hospital after presenting to the emergency room with shortness of breath and abdominal pain. Her CT scans of the chest, abdomen, and pelvis showed evidence for moderate bilateral pulmonary emboli in addition to extensive metastatic lymph node involvement and suspected right ureteral obstruction. There was marked enlargement of the uterus. At that time she was also having hematochezia and on sigmoidoscopy there appeared to be extension of the uterine mass to involve the anterior rectum. She was discharged on 02/25/2021. At that time they had considered transitioning to hospice, but ultimately she opted to continue with the chemotherapy, as originally planned. Her prior medical illnesses have been limited to seasonal allergies. Prior surgeries include cholecystectomy and tonsillectomy. She is a non-smoker. INTERIM HISTORY: She began cycle 1 of carboplatin/paclitaxel chemotherapy on 03/02/2021, both administered at a reduced dosage. Her baseline CA-125 level was 101.4 U/mL. At day 9 she was neutropenic, ANC 600. She was treated with G-CSF for 3 days. She recovered uneventfully. At her follow-up visit on 03/24/2021 she was feeling a little better, but her further treatment was delayed because her neutrophil count was still low at 1700. Her repeat CA-125 level at that point had declined slightly, to 82.3 U/mL. Her CA 19-9 was found to be significantly elevated at 2307 U/mL. She was able to continue with cycle 2 of carboplatin/paclitaxel on 03/31/2021. It was administered at reduced dosages and with Neulasta prophylactically. With the dose reduction and the Neulasta, her granulocyte count remained adequate. She was able to continue with cycle 3 on 04/21/2021. At that point there was further decline in the tumor markers with her CA-125 level decreased to 33.5 U/mL and the CA 19-9 decreased to 1681 U/mL. However, her further treatment was then delayed due to thrombocytopenia. She began cycle 4 on 05/19/2021. She is seen for a follow-up visit. She has been feeling pretty good generally, though she still has limited activity due to weakness and swelling in her legs. She is doing some walking at home. Her ECOG score is 3. Appetite is variable. She has not had fever, night sweats, or hot flashes. She has some allergy related sinus symptoms. She has just occasional cough. She does not complain of shortness of breath and she has not been having chest pain. Her pleural catheter is being drained twice a week, and recently the output has been down to 50 mL or less. She currently has no GI complaints. She has frequent urination with the diuretic, and she has had to reduce the furosemide dosage to 20 mg once a day. She has no significant joint or bone pain. She does not complain of headache or dizziness. She has no numbness/paresthesia or other neuropathy symptoms. Medications: Acetaminophen Tablet Oral PRN, Adult Aspirin Regimen 1 Tablet (of 81 mg) Tablet, enteric coated Oral daily, Decadron (4 mg) Tablet Oral Take as Directed, Furosemide 1 Tablet (of 20 mg) Oral daily, Prochlorperazine Maleate 1 Tablet (of 10 mg) Oral q 4 hours PRN Allergies: No Known Allergies. Vital Signs: Performed on Jun 16, 2021 08:42 Height - 64.00 in Weight - 201.4 lbs (LOW) BSA - 1.96 sq.m BMI - 34.57 (HIGH) Temperature - 98.0 F (LOW) Pulse - 66 /min Respiration - 16 /min BP - 161/99 mm(hg) (HIGH) O2 Sat - 98 % Pain - 0 Fatigue - 3 Physical Examination: Constitutional - She looks a little better, though she still appears generally weak, Eyes - Sclerae nonicteric. Conjunctivae clear, ENMT - No lesions noted in the oral cavity, Hematologic/Lymphatic - There is no cervical or clavicular adenopathy noted. There has been resolution of the left supraclavicular mass, Respiratory - Lungs sound clear with diminished air movement at the right base, Cardiovascular - Heart rhythm is regular. There is no murmur, gallop, or rub noted, Breasts - There is a fairly large area of firmness/mass involving the inferior right breast. The left breast shows no mass. There is no axillary adenopathy noted, Abdomen - Mildly distended but soft. Liver and spleen are not enlarged. There is no obvious ascites and there is no inguinal adenopathy noted, Extremities - There is significant lower extremity edema, but it does appear to be improving, Neurologic - No focal neurologic deficits noted. Lab/Imaging: Test performed on Jun 16, 2021 08:32 Sodium 135 mmol/L Potassium 3.9 mmol/L Chloride 99 mmol/L CO2 24 mmol/L Anion Gap 15.9 BUN 8 mg/dL Creatinine 0.6 mg/dL Cr Clearance (Est) 109.6500 mL/min Glucose 283 mg/dL Osmolality - Calculated 289 mOsm/kg Calcium 9.9 mg/dL Protein, Total 7.9 g/dL Albumin 3.8 g/dL Globulin 4.1 g/dL Bilirubin, Total 0.4 mg/dL ALT (SGPT) 6 U/L AST (SGOT) 11 U/L Alkaline Phosphatase 102 IU/L WBC 4.0 10 3/uL RBC 3.25 10 6/uL HGB 10.0 g/dL HCT 31.5 % MCV 96.9 fl MCH 30.8 pg MCHC 31.7 g/dL RDW 20.6 % Platelet Count 199 10 3/cmm MPV 9.8 fL Neutrophils 3.48 10 3/uL Lymphocytes 0.4 10 3/uL Monocytes 0.1 10 3/uL Eosinophils 0.0 10 3/uL Basophils 0.0 10 3/uL Neutrophil % 88.1 % Lymphocyte % 8.9 % Monocyte % 2.5 % Eosinophil % 0.0 % Basophils % 0.0 % NRBC % 0 % CA 15-3 57.1 U/mL CA 19-9 389.7 U/mL Problem List: 1. 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 Overall, the clinical and pathologic findings were most consistent with uterine primary malignancy. She had multiple sites of metastatic involvement by clinical evaluation. 2. She had associated right pleural effusion. 3. Bilateral lower extremity deep vein thrombosis and pulmonary emboli diagnosed in February 2021. Problems Addressed with this Encounter and Plan: 1. Patient with metastatic serous adenocarcinoma. The CT findings and the pathology were most consistent with uterine primary malignancy. Her tumor was found to be negative for overexpression of HER-2/wendy. The biopsy sample was insufficient for any additional pathologic analysis. In the setting of advanced, metastatic disease and poor performance status, she appeared to have very poor prognosis, but she opted to proceed with a trial of chemotherapy with carboplatin/paclitaxel. She received cycle 1 on 03/02/2021. It was administered at reduced dosages. She tolerated it without acute toxicity. However, at day 9 she had moderately severe pancytopenia. She was transfused 1 unit PRBC today and she was given G-CSF 480 mcg by subcutaneous injection daily for 3 days. She recovered uneventfully. On follow-up she did show some clinical improvement with the chemotherapy, and she was able to proceed with a 2nd cycle of treatment after a 1 week delay for persistent neutropenia. It was administered at reduced dosages and with prophylactic Neulasta. Her treatment was again complicated by neutropenia, though she recovered with no adverse consequences. She continued with cycle 3 on 04/21/2021. At that point she did appear to be showing some improvement clinically, and she also did show some decline in her tumor markers. Her further treatment was then delayed due to thrombocytopenia. She began cycle 4 on 05/19/2021. Overall, she continues to have treatment related pancytopenia. She has had an ongoing requirement for PRBC transfusion, but she has otherwise tolerated well. She appears to be showing a good response, as there has been a significant decline in her tumor markers. As such, she will proceed now with cycle 5 of carboplatin/paclitaxel. Dosages remain the same. Blood counts will be monitored weekly. She will be transfused as needed. She will be scheduled for a follow-up visit in 4 weeks. I will plan restaging after 6 cycles. 2. Bilateral lower extremity deep vein thrombosis and pulmonary emboli diagnosed in February 2021. Anticoagulation was contraindicated due to GI blood loss. She underwent placement of inferior vena cava filter. She has associated lower extremity edema. In the absence of any recurrence of active bleeding, I will now repeat her venous Dopplers and I will likely start anticoagulation. 3. She had associated right pleural effusion for which she underwent placement of right pleural drainage catheter. She now has minimal output from the catheter and with chest x-ray showing only small bilateral effusions. As such, I will now contact Dr. Casas in regard to removal of the pleural catheter. Signed By: Keyon Echevarria M.D. <<Signature on File>>
[2021-06-16] MEDS: pegfilgrastim 6 mg/0.6 mL Kit (onpro) SUBCUT (14:15)
== END 2021-06-16 07:44 | disposition home or self-care (01) ==
PROVIDERS: PCP Nurse Practitioner Family; Visit Provider Internal Medicine Medical Oncology
DX: Z51.11 Encounter for antineoplastic chemotherapy (principal); C53.9 Malignant neoplasm of cervix uteri, unspecified; C78.01 Secondary malignant neoplasm of right lung; J90 Pleural effusion, not elsewhere classified; I82.503 Chronic embolism and thrombosis of unspecified deep veins of lower extremity, bilateral; I26.99 Other pulmonary embolism without acute cor pulmonale; D61.818 Other pancytopenia; D69.6 Thrombocytopenia, unspecified; R60.0 Localized edema; Z79.01 Long term (current) use of anticoagulants; Z79.899 Other long term (current) drug therapy
CPT/HCPCS: 71046; 80053; 85025; 86300; 86301; 96367; 96372; 96375; 96377; 96413; 96415; 96417; 99215; J1100; J1200; J1453; J2469; J2506; J3490; J7030; J7040; J7050; J9045; J9267

== ENCOUNTER 2021-06-22 | Outpatient (CLI) | payer MEDICARE, SELFPAY ==
[2021-06-22 17:47] LABS: Basophils % 1.4 %; Eosinophils % 0.4 %; Hematocrit 26.4 % (37.0-47.0); Hemoglobin 8.3 g/dL (11.5-15.3); Lymphocytes # 0.5 10^3/uL (0.8-4.8); Lymphocytes % 17.5 %; Mean Corpuscular HGB Conc 31.4 g/dL (30.0-36.0); Mean Corpuscular Hemoglobin 31.3 pg (28.0-34.0); Mean Corpuscular Volume 99.6 fl (81-99); Mean Platelet Volume 10.9 fL (7.4-10.4); Monocytes # 0.1 10^3/uL (0.2-0.9); Monocytes % 3.9 %; Neutrophils # 2.14 10^3/uL (1.8-7.7); Nucleated Red Blood Cells % 0 %; Platelet Count 112 10^3/cmm (130-400); Red Blood Count 2.65 10^6/uL (4.1-5.3); Red Cell Distribution Width 20.8 % (12.1-15.1); White Blood Count 2.9 10^3/uL (4.0-10.0)
== END 2021-06-22 23:59 | disposition home or self-care (01) ==
LOC: LAB 11-10 09:21
PROVIDERS: PCP Nurse Practitioner Family; Visit Provider Internal Medicine Medical Oncology
DX: C78.01 Secondary malignant neoplasm of right lung (principal)
CPT/HCPCS: 85025; 86850; 86900

== ENCOUNTER 2021-06-23 11:35 | Outpatient (CLI) | payer MEDICARE, SELFPAY ==
--- NOTE | 2021-06-23 11:55 | USCV_ITS ---
Aicha Nath Age: 81 Gender: F : 1940 Exam Date: 06/23/2021 11:57 Ordering Phys: Keyon Echevarria MD Technologist: ARIELA Exam Location: [facility] Indication: DVT HISTORY: Patient has history of DVT. Pt has IVC filter. PROCEDURES: Venous duplex imaging was performed in bilateral lower extremities. The following venous structures were evaluated: common femoral vein, profunda vein, proximal portion of the greater saphenous vein, superficial femoral vein, and the popliteal vein. In addition, the posterior tibial and peroneal trunk were evaluated. FINDINGS: TDS due to pt pain. There appears to be thrombus present in all vessels imaged in Rt lower extremity excluding the posterior tibials and GSV. There appears to be thrombus in all vessels imaged in the Lt lower extremity excluding the profunda, posterior tibials and Lt GSV at the ankle. There are very tortuous varicosities in the left ankle and calf area that appear to have thrombus as well. ?similar to previous study Prelim given to Dr. Echevarria. CONCLUSIONS DVT Right LE in common femoral, profunda, Superficial femoral, popliteal, and peroneal veins. DVT Left LE in common femoral, superficial femoral, popliteal, and peroneal veins. Thrombosed varicositis left ankle Persistent thrombus Bilateral LE similiar to 03/01 study Improved thrombus in GSV Bilaterally Left superficial femoral vein thrombus is new from previous Prelim to Dr. Echevarria by [place] Negotiations Director at time of study Ritchie Young MD (Electronically Signed) Final Date: 23 June 2021 14:08 S
== END 2021-06-23 11:36 | disposition home or self-care (01) ==
LOC: RAD 11:36
PROVIDERS: PCP Nurse Practitioner Family; Visit Provider Internal Medicine Medical Oncology
DX: I82.413 Acute embolism and thrombosis of femoral vein, bilateral (principal); I82.433 Acute embolism and thrombosis of popliteal vein, bilateral; I82.453 Acute embolism and thrombosis of peroneal vein, bilateral; I86.8 Varicose veins of other specified sites
CPT/HCPCS: 93970

== ENCOUNTER 2021-06-29 | Outpatient (CLI) | payer MEDICARE, SELFPAY ==
[2021-06-29 19:00] LABS: Basophils % 0.4 %; Eosinophils % 0.2 %; Hematocrit 26.1 % (37.0-47.0); Hemoglobin 8.3 g/dL (11.5-15.3); Lymphocytes # 1.3 10^3/uL (0.8-4.8); Lymphocytes % 12.6 %; Mean Corpuscular HGB Conc 31.8 g/dL (30.0-36.0); Mean Corpuscular Hemoglobin 31.3 pg (28.0-34.0); Mean Corpuscular Volume 98.5 fl (81-99); Mean Platelet Volume 10.9 fL (7.4-10.4); Monocytes # 1.4 10^3/uL (0.2-0.9); Monocytes % 13.5 %; Neutrophils # 7.01 10^3/uL (1.8-7.7); Neutrophils % 69.7 %; Nucleated Red Blood Cells % 0 %; Platelet Count 127 10^3/cmm (130-400); Red Blood Count 2.65 10^6/uL (4.1-5.3); Red Cell Distribution Width 20.7 % (12.1-15.1); White Blood Count 10.1 10^3/uL (4.0-10.0)
== END 2021-06-29 23:59 | disposition home or self-care (01) ==
LOC: LAB 11-10 11:57
PROVIDERS: PCP Nurse Practitioner Family; Visit Provider Internal Medicine Medical Oncology
DX: C78.01 Secondary malignant neoplasm of right lung (principal)
CPT/HCPCS: 85025

== ENCOUNTER → 2021-07-01 09:34 | Outpatient (BNVA) | payer MEDICARE, SELFPAY | PROVIDERS: PCP Nurse Practitioner Family; Visit Provider Thoracic Surgery (Cardiothoracic Vascular Surgery) | DX: C79.9 Secondary malignant neoplasm of unspecified site (principal); Z20.822 Contact with and (suspected) exposure to COVID-19 | CPT/HCPCS: 87635 ==

== ENCOUNTER 2021-07-03 10:17 | Day surgery (SDC) | payer MEDICARE, SELFPAY ==
[2021-07-03 10:45] VITALS: BP 143/72; PULSE 106; RESP 16; TEMP 37.1; O2SAT 95
[2021-07-03] MEDS: sodium chloride 0.9% 1,000 ML 30 ML IV (11:01)
--- NOTE | 2021-07-03 11:41 | P.HP_ITS ---
Providers/Chief Complaint Admitting Physician: Dr. Casas/cardiothoracic surgery Referring Physican: Dr. Echevarria/oncology Primary Care Provider: Corin De La Rosa NP Chief Complaint: juan drain removal Previous Juan drain no longer required History of Present Illness Aicha Nath is a 81 year old female whom I placed a drain February 09, 2021 due to recurrent right pleural effusion secondary to metastatic adenocarcinoma. She continues to undergo chemotherapy under the direction of our oncology servi ce. Her pleural drain has minimal output for the past several weeks, therefore, removal is indicated. Review of Systems Const: Reports: chills and fatigue ENMT: Denies: throat pain or hoarseness Card: Denies: chest pain or palpitations Resp: Denies: dyspnea, productive cough or hemoptysis GI: Denies: abdominal pain, nausea or hematemesis Musc: Reports: muscle cramps and muscle weakness; Denies: neck pain or back pain Medications/Allergies Home Medications Medication Instructions Recorded Confirmed Last Taken Type furosemide 20 mg tablet 20 mg PO DAILY MDD see pharmacy 02/06/21 07/03/21 07/02/21 History comment ondansetron HCl 4 mg tablet 4 mg PO TID PRN #15 tab 02/15/21 07/02/21 Unknown Rx (Zofran) diclofenac sodium 1 % topical gel 2 g TOPICAL QID PRN 07/03/21 07/03/21 06/12/21 History (Arthritis Pain (diclofenac)) Allergies Allergy/AdvReac Type Severity Reaction Status Date / Time No Known Allergies Allergy Verified 07/02/21 11:24 PFSH PFSH: Medical History Abdominal hernia Elevated troponin H/O sigmoidoscopy Metastatic adenocarcinoma Surgical History Hx of cholecystectomy Hx of tonsillectomy Social History Smoking and tobacco status: never smoked Alcohol intake: never Vital Signs Vitals Signs: Last Vital Signs Temp 98.7 F 07/03/21 10:45 Pulse 106 H 07/03/21 10:45 Resp 16 07/03/21 10:45 BP 143/72 07/03/21 10:45 Pulse Ox 95 07/03/21 10:45 Weight: Weight last 48 hrs Weight 201 lb Physical Exam Chest: COMMONS NORMALS: normal inspection of the chest (Pleural drain exit right lateral chest wall) and normal palpation of entire chest wall Resp: OTHER: Decreased breath sounds though otherwise clear Cardio: COMMON NORMALS: regular rate, regular rhythm, S1 normal heart sound present and No murmurs present (Cardio) GI: COMMON NORMALS: Normal to inspection, nondistended, normoactive bowel sounds present Extremity: COMMON NORMALS: no clubbing, cyanosis or edema A&P Assessment and plan (1) Metastatic adenocarcinoma: Status post right pleural drain placement for recurrent effusions now resolved. Plan: We will plan to remove the pleural drain today under IV conscious sedation with anesthesia monitoring. Details and risk of procedure carefully reviewed. Appropriate consents provided for review and signature. Status: Acute Coding Level of Care Code Acute Health Informatics Instructor for Chg Fwd Diagnoses Metastatic adenocarcinoma C79.9
--- NOTE | 2021-07-03 12:15 | ANES.PREANE2 ---
Pre-Anesthetic Assessment Height/Weight: Height 1.63 m Weight 91.172 kg Temp Pulse Resp BP Pulse Ox 98.7 F 106 H 16 143/72 95 07/03/21 10:45 07/03/21 10:45 07/03/21 10:45 07/03/21 10:45 07/03/21 10:45 Preop Diagnosis: Metastatic adenocarcinoma/status post right pleural drain Operation Date: 07/03/21 12:00 Proposed Procedures p [place] Pleural Catheter Removal(Not Applicable) - Glenroy Casas MD Familial anesthetic complications: None Was Beta Sarah taken within 24 hours: N/A Was Clonidine taken within 24 hours: N/A Last intake: Intake Last Liquid Date 07/02/21 Last Liquid Time 21:00 Last Solid Date 07/02/21 Last Solid Time 14:00 Social No alcohol and No tobacco Exam alert, oriented x 3, clear to auscultation bilaterally and regular rate & rhythm Airway Submandibular: within normal limits Cervical ROM: within normal limits Mallampati: Class II Dentition: false CV/HEM PE, adenoCA Metabolic Morbid Obesity Anesthetic Plan ASA status: 3 Anesthesia: MAC Medications/Allergies Home Medications Medication Instructions Recorded Confirmed Last Taken Type furosemide 20 mg tablet 20 mg PO DAILY MDD see pharmacy 02/06/21 07/03/21 07/02/21 History comment ondansetron HCl 4 mg tablet 4 mg PO TID PRN #15 tab 02/15/21 07/02/21 Unknown Rx (Zofran) diclofenac sodium 1 % topical gel 2 g TOPICAL QID PRN 07/03/21 07/03/21 06/12/21 History (Arthritis Pain (diclofenac)) Allergies Allergy/AdvReac Type Severity Reaction Status Date / Time No Known Allergies Allergy Verified 07/02/21 11:24 Current Medications Generic Name Dose Route Start Last Admin Trade Name Freq PRN Reason Stop Dose Admin Sodium Chloride 1,000 mls @ 30 mls/hr 07/03/21 10:30 07/03/21 11:01 Sodium Chloride 0.9% IV 07/04/21 10:29 30 mls/hr .Q24H CHANTELLE Administration PFSH Anesthesia Medical History Abdominal hernia Elevated troponin H/O sigmoidoscopy Metastatic adenocarcinoma Surgical History Hx of cholecystectomy Hx of tonsillectomy Social History Smoking and tobacco status: never smoked Alcohol intake: never Data Anesthesia Cardiac Studies: Echocardiogram 02/20/21
[2021-07-03] MEDS: lidocaine 1% INJ 20 mL XX (12:36)
[2021-07-03 12:51] VITALS: BP 103/72; PULSE 97; RESP 16; TEMP 36.8; O2SAT 100
--- NOTE | 2021-07-03 12:53 | PM.OP ---
Operative Report Date of procedure: July 03, 2021 Pre-op diagnosis: Preop Diagnosis Metastatic adenocarcinoma/status post right pleural drain Procedure done: Right pleural drain removal Specimens removed/disposition: Right pleural drain removed intact Pathology: none sent Surgeon: Glenroy Casas Estimated blood loss (mL): 20 Complications: None Brief History: Ms. Nath is a pleasant 81-year-old female with metastatic uterine adenocarcinoma with a recurrent right pleural effusion. She underwent pleural drain placement on February 09 following successive thoracenteses with rapid recurrence of her effusion. Drain management function quite well and drain output has continued to decrease and there has been minimal for several weeks. Drain removal has been requested. We discussed this carefully with Ms. Nath and her family. Appropriate consents have been reviewed and signed. Procedure: Ms. Nath was taken to the operating room theater and carefully positioned supine over protective padding. She underwent IV conscious sedation with anesthesia monitoring. Her entire right lower chest wall was sterilely prepped and draped. Appropriate timeout was completed. 1% lidocaine was infiltrated at the exit point of the pleural drain from the skin. Blunt dissection was then carried out utilizing small and medium hemostats until the Velcro cuff could be visualized and dissected free. Adherent fibrin material was removed circumferentially around the pleural drain the knee the level of the cuff and sharp dissection with Metzenbaum scissors was also performed to release a localized area of dense adhesions. Axial traction was applied to the drain until it was removed and inspected and noted to be intact. Moderate bleeding from the drain tract was easily controlled with pressure and with hemostasis and clot formation noted. Vaseline gauze and pressure dressing was applied at the drain site. Ms. Nath stated she was comfortable throughout the procedure and had stable vital signs throughout. She has equal breath sounds bilaterally with still some persistent diminished in the right lower lateral aspect as noted on preop exam. She is transferred to the outpatient surgery department in stable condition. I did counselor education professor with her daughter at completion of the procedure.
[2021-07-03 12:56] VITALS: BP 113/64; PULSE 95; RESP 17; TEMP 36.7; O2SAT 100
[2021-07-03 13:00] VITALS: BP 124/79; PULSE 96; RESP 16; TEMP 36.6; O2SAT 99
[2021-07-03 13:15] VITALS: BP 121/75; PULSE 95; RESP 16; TEMP 36.6; O2SAT 99
--- NOTE | 2021-07-03 17:43 | ANE.PACU2 ---
Inpatient post-anesthesia follow up: Airway intact: Yes Vital signs: Temperature 97.9 F Pulse Rate 95 Respiratory Rate 16 Blood Pressure 121/75 Pulse Oximetry 99 Oxygen Delivery Me thod Room Air Oxygen Flow Rate Fraction of Inspir ed Oxygen Hydration adequate: Yes Nausea and vomiting: No Pain level: 2 Mental status: Baseline
== END 2021-07-03 13:45 | disposition home or self-care (01) ==
PROVIDERS: PCP Nurse Practitioner Family; Visit Provider Thoracic Surgery (Cardiothoracic Vascular Surgery)
PROC: (CPT 32552; principal; 2021-07-03 12:00)
DX: C55 Malignant neoplasm of uterus, part unspecified (principal); C79.9 Secondary malignant neoplasm of unspecified site; E66.01 Morbid (severe) obesity due to excess calories; Z68.34 Body mass index [BMI] 34.0-34.9, adult
CPT/HCPCS: 32552; J0690; J2704; J3010; J7030

== ENCOUNTER 2021-07-14 07:57 | Outpatient (CLI) | payer MEDICARE, SELFPAY ==
[2021-07-14 08:32] LABS: Hematocrit 26.6 % (37.0-47.0); Hemoglobin 8.4 g/dL (11.5-15.3); Lymphocytes # 0.5 10^3/uL (0.8-4.8); Lymphocytes % 8.9 %; Mean Corpuscular HGB Conc 31.6 g/dL (30.0-36.0); Mean Corpuscular Hemoglobin 32.2 pg (28.0-34.0); Mean Corpuscular Volume 101.9 fl (81-99); Mean Platelet Volume 10.5 fL (7.4-10.4); Monocytes # 0.1 10^3/uL (0.2-0.9); Monocytes % 1.1 %; Neutrophils # 4.75 10^3/uL (1.8-7.7); Neutrophils % 89.4 %; Nucleated Red Blood Cells % 0 %; Platelet Count 99 10^3/cmm (130-400); Red Blood Count 2.61 10^6/uL (4.1-5.3); Red Cell Distribution Width 21.2 % (12.1-15.1); White Blood Count 5.3 10^3/uL (4.0-10.0)
[2021-07-14 11:12] LABS: Alanine Aminotransferase 6 U/L (0-33); Albumin Level 3.6 g/dL (3.5-5.2); Alkaline Phosphatase 95 IU/L (35-105); Anion Gap 15.9 (5-19); Aspartate Amino Transferase 12 U/L (0-32); Blood Urea Nitrogen 17 mg/dL (8-23); CA 125 22.8 U/mL (0-35); CA 15-3 38.3 U/mL (0-25); Calcium 9.9 mg/dL (8.5-10.5); Cancer Antigen 19 9 131.3 U/mL (0-35); Carbon Dioxide 23 mmol/L (22-29); Chloride 97 mmol/L (98-107); Globulin 5.6 g/dL (1.3-4.6); Glucose 225 mg/dL (65-115); Osmolality Calculated 283 mOsm/kg (285-295); Potassium 3.9 mmol/L (3.5-5.1); Sodium 132 mmol/L (136-145); Total Bilirubin 0.4 mg/dL (0.15-1.2); Total Protein 9.2 g/dL (6.6-8.7)
[2021-07-14] MEDS: sodium chloride 0.9% 250 ML 100 ML IV (12:40)
[2021-07-14] MEDS: famotidine 20 mg/2 mL INJ IVP (12:41)
[2021-07-14] MEDS: fosaprepitant 150 MG in sodium chloride 0.9% 150 ML 300 MG IV (12:46)
[2021-07-14] MEDS: diphenhydrAMINE 50 mg/mL SDV 1mL 25 MG IV (13:20)
[2021-07-14] MEDS: palonosetron 0.25 mg/5 mL SDV IV (13:24)
[2021-07-14] MEDS: pegfilgrastim 6 mg/0.6 mL Kit (onpro) SUBCUT (17:30)
--- NOTE | 2021-07-19 21:23 | ONC FU_ITS ---
Lainey Hightower Progress Note Patient: Aicha Nath Unit #: [id number]: 1940 Dicatated By: Lainey Hightower N.P.Date of Visit:Jul 14, 2021 Onc MED Follow-up/Prog Note Chief Complaint: Metastatic serous adenocarcinoma. 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 On 12/31/2020 she was admitted to [facility] after presenting to the [facility] emergency room with shortness of breath and lower extremity edema. Her initial chest CT scan showed evidence of right lower lobe lung mass and large right pleural effusion. Her repeat chest CT on 01/02/2021 again showed large right pleural effusion and extensive infiltrate in the right lung. A 46 mm mass was noted at the thoracic inlet on the left and a 51 mm mass was noted in the right lower lobe. The right breast appeared somewhat more dense than the left. Her CT abdomen/pelvis on 01/06/2021 again showed large right pleural effusion and right lower lobe lung mass measuring 5.0 x 4.5 cm. A small hypoattenuating lesion in the hepatic segment 6 was too small to characterize. The adrenal glands appeared normal. There was an infiltrative masslike appearance throughout the uterus measuring approximately 12.6 x 7.4 x 11.3 cm and there was diffuse endometrial calcification with infiltrative mass within the endometrial canal. There was masslike thickening of the cervix with adjacent pelvic sidewall lymphadenopathy. There was noted to be loss of the fat plane between the uterine mass and the sigmoid colon. There were complex ventral abdominal wall hernias containing loops of nonobstructed bowel. There were multiple prominent mesenteric lymph nodes and enlarged retroperitoneal lymph nodes as well as bilateral inguinal lymphadenopathy. MRI of the brain showed no evidence of metastatic disease. During her hospitalization she underwent thoracentesis on 2 occasions with negative pleural fluid cytology. Needle biopsy of the right lung mass on 01/09/2021 showed metastatic serous adenocarcinoma favoring uterine primary. By IHC the tumor cells were positive for CK7, PAX8, p16, and WT-1. They were negative for CK20, p53, TTF-1, and CDX2. Dr. Echevarria had seen her initially on 02/03/2021. Her additional pathologic studies included analysis for overexpression of HER-2/wendy, which was negative (1+ by IHC). With that finding, she was given the option to have a trial of chemotherapy with carboplatin/paclitaxel. In the meantime, on 02/09/2021 she underwent placement of a right pleural catheter for management of the pleural effusion. She then underwent placement of Port-A-Cath venous access device on 02/17/2021. On 02/19/2021 she was admitted to the hospital after presenting to the emergency room with shortness of breath and abdominal pain. Her CT scans of the chest, abdomen, and pelvis showed evidence for moderate bilateral pulmonary emboli in addition to extensive metastatic lymph node involvement and suspected right ureteral obstruction. There was marked enlargement of the uterus. At that time she was also having hematochezia and on sigmoidoscopy there appeared to be extension of the uterine mass to involve the anterior rectum. She was discharged on 02/25/2021. At that time they had considered transitioning to hospice, but ultimately she opted to continue with the chemotherapy, as originally planned. Her prior medical illnesses have been limited to seasonal allergies. Prior surgeries include cholecystectomy and tonsillectomy. She is a non-smoker. INTERIM HISTORY: She began cycle 1 of carboplatin/paclitaxel chemotherapy on 03/02/2021, both administered at a reduced dosage. Her baseline CA-125 level was 101.4 U/mL. At day 9 she was neutropenic, ANC 600. She was treated with G-CSF for 3 days. She recovered uneventfully. At her follow-up visit on 03/24/2021 she was feeling a little better, but her further treatment was delayed because her neutrophil count was still low at 1700. Her repeat CA-125 level at that point had declined slightly, to 82.3 U/mL. Her CA 19-9 was found to be significantly elevated at 2307 U/mL. She was able to continue with cycle 2 of carboplatin/paclitaxel on 03/31/2021. It was administered at reduced dosages and with Neulasta prophylactically. With the dose reduction and the Neulasta, her granulocyte count remained adequate. She was able to continue with cycle 3 on 04/21/2021. At that point there was further decline in the tumor markers with her CA-125 level decreased to 33.5 U/mL and the CA 19-9 decreased to 1681 U/mL. However, her further treatment was then delayed due to thrombocytopenia. She began cycle 4 on 05/19/2021. Patient presents today for follow-up. She states she is doing well. Her fatigue level. Her appetite has been good. She denies fever, chills, night sweats. No shortness of breath or cough. No chest pain. Her edema in her bilateral lower extremities has improved. Her pleural drain was removed. The dressing was removed today in the clinic. No signs or symptoms of infection. 2 x 2 dressing was reapplied. No headaches or dizziness. Review Of Symptoms: see above. Past Medical History: Seasonal allergies Past Surgical History: Cholecystectomy Tonsillectomy Flu Vaccine in 2020 - Left Deltoid Prevnar 13 in 2020 - Right Deltoid Allergies: No Known Allergies. Medications: Acetaminophen Tablet Oral PRN Decadron (4 mg) Tablet Oral Take as Directed Eliquis 1 Tablet (of 5 mg) Oral b.i.d. Furosemide 1 Tablet (of 20 mg) Oral daily Family History: Father of rectal cancer age 54. Mother at age 76 with a smoking-related oral cancer. Two brothers are still living. Her maternal grandmother had diabetes. Social History: Ms. Nath is . Ms. Nath has never smoked. She has no history of drinking. She is a non-smoker. She does not drink alcohol. Physical Examination: Performed on Jul 14, 2021 09:40: Height - 64.00 in, Temperature - 98.8 F, Pulse - 102 /min (HIGH), Respiration - 19 /min, BP - 131/83 mm(hg), O2 Sat - 94 % (LOW), Pain - 0, and Fatigue - 3. Performance Status: 3 - Capable of only limited self-care, confined to bed or chair more than 50% of waking hours. (ECOG) Constitutional Alert, cooperative, oriented. Mood and affect appropriate. Appears close to chronological age. Well nourished. Well developed. Respiratory Lungs are clear to auscultation without rhonchi or wheezing. Cardiovascular Regular rate and rhythm of heart without murmurs, gallops or rubs. Abdomen Non-tender, non-distended, no masses, ascites or hepatosplenomegaly. Good bowel sounds. No guarding or rebound tenderness. Musculoskeletal No tenderness or swelling, normal range of motion without obvious weakness. Psychiatric Alert and oriented times three. Coherent speech. Verbalizes understanding of our discussions today. Laboratory: Test performed on Jul 14, 2021 11:15 Creatinine 0.7 mg/dL Cr Clearance (Est) 93.98 mL/min Test performed on Jul 14, 2021 10:25 Sodium 132 mmol/L Potassium 3.9 mmol/L Chloride 97 mmol/L CO2 23 mmol/L Anion Gap 15.9 BUN 17 mg/dL Glucose 225 mg/dL Osmolality - Calculated 283 mOsm/kg Calcium 9.9 mg/dL Protein, Total 9.2 g/dL Albumin 3.6 g/dL Globulin 5.6 g/dL Bilirubin, Total 0.4 mg/dL ALT (SGPT) 6 U/L AST (SGOT) 12 U/L Alkaline Phosphatase 95 IU/L CA 15-3 38.3 U/mL CA 19-9 131.3 U/mL CA-125 22.8 U/mL Test performed on Jul 14, 2021 08:20 WBC 5.3 10 3/uL RBC 2.61 10 6/uL HGB 8.4 g/dL HCT 26.6 % MCV 101.9 fl MCH 32.2 pg MCHC 31.6 g/dL RDW 21.2 % Platelet Count 99 10 3/cmm MPV 10.5 fL Neutrophils 4.75 10 3/uL Lymphocytes 0.5 10 3/uL Monocytes 0.1 10 3/uL Eosinophils 0.0 10 3/uL Basophils 0.0 10 3/uL Neutrophil % 89.4 % Lymphocyte % 8.9 % Monocyte % 1.1 % Eosinophil % 0.0 % Basophils % 0.0 % NRBC % 0 % Anti-D Negative Blood Type AN Antibody Screen (Gel) NEGATIVE Test performed on Jun 09, 2021 00:00 Manual Diff NO SPECIMEN OF 06/12/21 ST Test performed on Mar 10, 2021 10:30 ABO & Rh Type # 2 AN Test performed on Mar 10, 2021 08:25 CBC Slide Review Slide Review Perform SLIDE REVIEW AGREES WITH AUTOMATED RESULTS ST Test performed on Feb 03, 2021 12:31 TSH 1.53 uIU/mL Impression: 1. 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 Overall, the clinical and pathologic findings were most consistent with uterine primary malignancy. She had multiple sites of metastatic involvement by clinical evaluation. 2. She had associated right pleural effusion. 3. Bilateral lower extremity deep vein thrombosis and pulmonary emboli diagnosed in February 2021. Plan: 1. Patient with metastatic serous adenocarcinoma. The CT findings and the pathology were most consistent with uterine primary malignancy. Her tumor was found to be negative for overexpression of HER-2/wendy. The biopsy sample was insufficient for any additional pathologic analysis. In the setting of advanced, metastatic disease and poor performance status, she appeared to have very poor prognosis, but she opted to proceed with a trial of chemotherapy with carboplatin/paclitaxel. She received cycle 1 on 03/02/2021. It was administered at reduced dosages. She tolerated it without acute toxicity. However, at day 9 she had moderately severe pancytopenia. She was transfused 1 unit PRBC today and she was given G-CSF 480 mcg by subcutaneous injection daily for 3 days. She recovered uneventfully. On follow-up she did show some clinical improvement with the chemotherapy, and she was able to proceed with a 2nd cycle of treatment after a 1 week delay for persistent neutropenia. It was administered at reduced dosages and with prophylactic Neulasta. Her treatment was again complicated by neutropenia, though she recovered with no adverse consequences. She continued with cycle 3 on 04/21/2021. At that point she did appear to be showing some improvement clinically, and she also did show some decline in her tumor markers. Her further treatment was then delayed due to thrombocytopenia. She began cycle 4 on 05/19/2021. She presents today for follow-up. She is to receive her sixth cycle of carboplatin and paclitaxel. She has required blood transfusions in the past. But her hemoglobin is stable at 8.4 today. She will return to the clinic in [address] Echevarria and plan for restaging. 2. Bilateral lower extremity deep vein thrombosis and pulmonary emboli diagnosed in February 2021. Anticoagulation was contraindicated due to GI blood loss. She underwent placement of inferior vena cava filter. She has associated lower extremity edema which has improved.Venous doppler was repeated: CONCLUSIONS DVT Right LE in common femoral, profunda, Superficial femoral, popliteal, and peroneal veins. DVT Left LE in common femoral, superficial femoral, popliteal, and peroneal veins. Thrombosed varicositis left ankle Persistent thrombus Bilateral LE similiar to 03/01 study Improved thrombus in GSV Bilaterally Left superficial femoral vein thrombus is new from previous It was planned that anticoagulation was to be restarted but was held due to upcoming procedure. 3. She had associated right pleural effusion for which she underwent placement of right pleural drainage catheter. It has now been removed and is healing well. Signed By: Lainey Hightower NMukul. <<Signature on File>>
== END 2021-07-14 07:58 | disposition home or self-care (01) ==
PROVIDERS: PCP Nurse Practitioner Family; Visit Provider Nurse Practitioner Family
DX: Z51.11 Encounter for antineoplastic chemotherapy (principal); C53.9 Malignant neoplasm of cervix uteri, unspecified; C78.01 Secondary malignant neoplasm of right lung; J90 Pleural effusion, not elsewhere classified; D61.818 Other pancytopenia; D70.1 Agranulocytosis secondary to cancer chemotherapy; T45.1X5A Adverse effect of antineoplastic and immunosuppressive drugs, initial encounter; Z86.718 Personal history of other venous thrombosis and embolism; Z86.711 Personal history of pulmonary embolism; Z79.899 Other long term (current) drug therapy
CPT/HCPCS: 80053; 85025; 86300; 86301; 86304; 86850; 86900; 96367; 96368; 96372; 96375; 96377; 96413; 96415; 96417; 99215; J1100; J1200; J1453; J2469; J2506; J3490; J7030; J7040; J7050; J9045; J9267

== ENCOUNTER 2021-08-04 08:00 | Outpatient (CLI) | payer MEDICARE, SELFPAY ==
[2021-08-04] VITALS (9 sets, daily range): BP systolic 119–133; BP diastolic 79–85; PULSE 68–98; RESP 14–16; TEMP 36.1–37.2; O2SAT 94–99
[2021-08-04 08:37] LABS: Hematocrit 21.8 % (37.0-47.0); Hemoglobin 6.9 g/dL (11.5-15.3); Lymphocytes # 0.4 10^3/uL (0.8-4.8); Lymphocytes % 10.3 %; Mean Corpuscular HGB Conc 31.7 g/dL (30.0-36.0); Mean Corpuscular Hemoglobin 34.8 pg (28.0-34.0); Mean Corpuscular Volume 110.1 fl (81-99); Monocytes % 1.2 %; Neutrophils # 2.99 10^3/uL (1.8-7.7); Neutrophils % 88.2 %; Nucleated Red Blood Cells % 0 %; Platelet Count 44 10^3/cmm (130-400); Red Blood Count 1.98 10^6/uL (4.1-5.3); Red Cell Distribution Width 21.4 % (12.1-15.1); White Blood Count 3.4 10^3/uL (4.0-10.0)
[2021-08-04 09:02] LABS: Alanine Aminotransferase < 5 U/L (0-33); Albumin Level 3.6 g/dL (3.5-5.2); Alkaline Phosphatase 103 IU/L (35-105); Anion Gap 15.7 (5-19); Aspartate Amino Transferase 12 U/L (0-32); Blood Urea Nitrogen 17 mg/dL (8-23); Calcium 9.2 mg/dL (8.5-10.5); Carbon Dioxide 24 mmol/L (22-29); Chloride 98 mmol/L (98-107); Globulin 4.9 g/dL (1.3-4.6); Glucose 258 mg/dL (65-115); Osmolality Calculated 288 mOsm/kg (285-295); Potassium 3.7 mmol/L (3.5-5.1); Sodium 134 mmol/L (136-145); Total Bilirubin 0.3 mg/dL (0.15-1.2); Total Protein 8.5 g/dL (6.6-8.7)
--- NOTE | 2021-08-04 21:06 | ONC FU_ITS ---
Lainey Hightower Progress Note Patient: Aicha Nath Unit #: [id number]: 1940 Dicatated By: Lainey Hightower N.P.Date of Visit:Aug 04, 2021 Onc MED Follow-up/Prog Note Chief Complaint: Metastatic serous adenocarcinoma. 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 On 12/31/2020 she was admitted to [facility] after presenting to the [facility] emergency room with shortness of breath and lower extremity edema. Her initial chest CT scan showed evidence of right lower lobe lung mass and large right pleural effusion. Her repeat chest CT on 01/02/2021 again showed large right pleural effusion and extensive infiltrate in the right lung. A 46 mm mass was noted at the thoracic inlet on the left and a 51 mm mass was noted in the right lower lobe. The right breast appeared somewhat more dense than the left. Her CT abdomen/pelvis on 01/06/2021 again showed large right pleural effusion and right lower lobe lung mass measuring 5.0 x 4.5 cm. A small hypoattenuating lesion in the hepatic segment 6 was too small to characterize. The adrenal glands appeared normal. There was an infiltrative masslike appearance throughout the uterus measuring approximately 12.6 x 7.4 x 11.3 cm and there was diffuse endometrial calcification with infiltrative mass within the endometrial canal. There was masslike thickening of the cervix with adjacent pelvic sidewall lymphadenopathy. There was noted to be loss of the fat plane between the uterine mass and the sigmoid colon. There were complex ventral abdominal wall hernias containing loops of nonobstructed bowel. There were multiple prominent mesenteric lymph nodes and enlarged retroperitoneal lymph nodes as well as bilateral inguinal lymphadenopathy. MRI of the brain showed no evidence of metastatic disease. During her hospitalization she underwent thoracentesis on 2 occasions with negative pleural fluid cytology. Needle biopsy of the right lung mass on 01/09/2021 showed metastatic serous adenocarcinoma favoring uterine primary. By IHC the tumor cells were positive for CK7, PAX8, p16, and WT-1. They were negative for CK20, p53, TTF-1, and CDX2. Dr. Echevarria had seen her initially on 02/03/2021. Her additional pathologic studies included analysis for overexpression of HER-2/wendy, which was negative (1+ by IHC). With that finding, she was given the option to have a trial of chemotherapy with carboplatin/paclitaxel. In the meantime, on 02/09/2021 she underwent placement of a right pleural catheter for management of the pleural effusion. She then underwent placement of Port-A-Cath venous access device on 02/17/2021. On 02/19/2021 she was admitted to the hospital after presenting to the emergency room with shortness of breath and abdominal pain. Her CT scans of the chest, abdomen, and pelvis showed evidence for moderate bilateral pulmonary emboli in addition to extensive metastatic lymph node involvement and suspected right ureteral obstruction. There was marked enlargement of the uterus. At that time she was also having hematochezia and on sigmoidoscopy there appeared to be extension of the uterine mass to involve the anterior rectum. She was discharged on 02/25/2021. At that time they had considered transitioning to hospice, but ultimately she opted to continue with the chemotherapy, as originally planned. Her prior medical illnesses have been limited to seasonal allergies. Prior surgeries include cholecystectomy and tonsillectomy. She is a non-smoker. INTERIM HISTORY: She began cycle 1 of carboplatin/paclitaxel chemotherapy on 03/02/2021, both administered at a reduced dosage. Her baseline CA-125 level was 101.4 U/mL. At day 9 she was neutropenic, ANC 600. She was treated with G-CSF for 3 days. She recovered uneventfully. At her follow-up visit on 03/24/2021 she was feeling a little better, but her further treatment was delayed because her neutrophil count was still low at 1700. Her repeat CA-125 level at that point had declined slightly, to 82.3 U/mL. Her CA 19-9 was found to be significantly elevated at 2307 U/mL. She was able to continue with cycle 2 of carboplatin/paclitaxel on 03/31/2021. It was administered at reduced dosages and with Neulasta prophylactically. With the dose reduction and the Neulasta, her granulocyte count remained adequate. She was able to continue with cycle 3 on 04/21/2021. At that point there was further decline in the tumor markers with her CA-125 level decreased to 33.5 U/mL and the CA 19-9 decreased to 1681 U/mL. However, her further treatment was then delayed due to thrombocytopenia. She began cycle 4 on 05/19/2021. Patient presents today for follow-up. She states she is having some increased fatigue. She has been able to ambulate short distances with her walker. Her appetite has been pretty good. She denies fever, chills, night sweats. No sinus drainage or mouth sores. No shortness of breath, cough, chest pain. No GI problems no problems. No joint or bone pain. No headaches or dizziness. She does have bilateral lower extremities which she has to keep wrapped. Review Of Symptoms: See above. Past Medical History: Seasonal allergies Past Surgical History: Cholecystectomy Tonsillectomy Flu Vaccine in 2020 - Left Deltoid Prevnar 13 in 2020 - Right Deltoid Allergies: No Known Allergies. Medications: Acetaminophen Tablet Oral PRN Decadron (4 mg) Tablet Oral Take as Directed Eliquis 1 Tablet (of 5 mg) Oral b.i.d. Furosemide 0.5 Tablet (of 20 mg) Oral daily Family History: Father of rectal cancer age 54. Mother at age 76 with a smoking-related oral cancer. Two brothers are still living. Her maternal grandmother had diabetes. Social History: Ms. Nath is . Ms. Nath has never smoked. She has no history of drinking. She is a non-smoker. She does not drink alcohol. Physical Examination: Performed on Aug 04, 2021 09:58: Height - 64.00 in, Temperature - 97.8 F (LOW), Pulse - 98 /min, Respiration - 16 /min, BP - 126/79 mm(hg), O2 Sat - 98 %, Pain - 0, and Fatigue - 6. Performance Status: 2 - Ambulatory/capable of all self-care, unable to perform any work activities. Up and about more than 50% of waking hours. (ECOG) Constitutional Alert, cooperative, oriented. Mood and affect appropriate. Appears close to chronological age. Well nourished. Well developed. Head Normocephalic; no scars. Respiratory Lungs are clear to auscultation without rhonchi or wheezing. Cardiovascular Regular rate and rhythm of heart without murmurs, gallops or rubs. Abdomen Non-tender, non-distended, no masses, ascites or hepatosplenomegaly. Good bowel sounds. No guarding or rebound tenderness. Extremities Legs are wrapped due to bilateral lower extremity edema. Musculoskeletal Generalized weakness. Psychiatric Alert and oriented times three. Coherent speech. Verbalizes understanding of our discussions today. Laboratory: Test performed on Aug 04, 2021 09:35 Irradiated Red Blood Cells [id number] AN RCI XM COMPATIBLE Anti-D Negative Blood Type AN Antibody Screen (Gel) NEGATIVE Test performed on Aug 04, 2021 08:15 Sodium 134 mmol/L Potassium 3.7 mmol/L Chloride 98 mmol/L CO2 24 mmol/L Anion Gap 15.7 BUN 17 mg/dL Creatinine 0.7 mg/dL Cr Clearance (Est) 93.9800 mL/min Glucose 258 mg/dL Osmolality - Calculated 288 mOsm/kg Calcium 9.2 mg/dL Protein, Total 8.5 g/dL Albumin 3.6 g/dL Globulin 4.9 g/dL Bilirubin, Total 0.3 mg/dL ALT (SGPT) < 5 U/L AST (SGOT) 12 U/L Alkaline Phosphatase 103 IU/L WBC 3.4 10 3/uL RBC 1.98 10 6/uL HGB 6.9 g/dL HCT 21.8 % MCV 110.1 fl MCH 34.8 pg MCHC 31.7 g/dL RDW 21.4 % Platelet Count 44 10 3/cmm MPV 11.0 fL Neutrophils 2.99 10 3/uL Lymphocytes 0.4 10 3/uL Monocytes 0.0 10 3/uL Eosinophils 0.0 10 3/uL Basophils 0.0 10 3/uL Neutrophil % 88.2 % Lymphocyte % 10.3 % Monocyte % 1.2 % Eosinophil % 0.0 % Basophils % 0.0 % NRBC % 0 % Test performed on Jul 14, 2021 10:25 CA 15-3 38.3 U/mL CA 19-9 131.3 U/mL CA-125 22.8 U/mL Test performed on Jun 09, 2021 00:00 Manual Diff NO SPECIMEN OF 06/12/21 ST Test performed on Mar 10, 2021 10:30 ABO & Rh Type # 2 AN Test performed on Mar 10, 2021 08:25 CBC Slide Review Slide Review Perform SLIDE REVIEW AGREES WITH AUTOMATED RESULTS ST Impression: 1. 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 Overall, the clinical and pathologic findings were most consistent with uterine primary malignancy. She had multiple sites of metastatic involvement by clinical evaluation. 2. She had associated right pleural effusion. 3. Bilateral lower extremity deep vein thrombosis and pulmonary emboli diagnosed in February 2021. Plan: 1. Patient with metastatic serous adenocarcinoma. The CT findings and the pathology were most consistent with uterine primary malignancy. Her tumor was found to be negative for overexpression of HER-2/wendy. The biopsy sample was insufficient for any additional pathologic analysis. In the setting of advanced, metastatic disease and poor performance status, she appeared to have very poor prognosis, but she opted to proceed with a trial of chemotherapy with carboplatin/paclitaxel. She received cycle 1 on 03/02/2021. It was administered at reduced dosages. She tolerated it without acute toxicity. However, at day 9 she had moderately severe pancytopenia. She was transfused 1 unit PRBC today and she was given G-CSF 480 mcg by subcutaneous injection daily for 3 days. She recovered uneventfully. On follow-up she did show some clinical improvement with the chemotherapy, and she was able to proceed with a 2nd cycle of treatment after a 1 week delay for persistent neutropenia. It was administered at reduced dosages and with prophylactic Neulasta. Her treatment was again complicated by neutropenia, though she recovered with no adverse consequences. She continued with cycle 3 on 04/21/2021. At that point she did appear to be showing some improvement clinically, and she also did show some decline in her tumor markers. Her further treatment was then delayed due to thrombocytopenia. She began cycle 4 on 05/19/2021. Patient presents today for follow-up. She has received 6 cycles of carboplatin and paclitaxel. We will plan for restaging with CT scans of chest, abdomen, and pelvis. Her hemoglobin is low today at 6.9. She will receive 2 units of irradiated packed red blood cells. She will return to the clinic in 2 weeks to discuss scans and further course of treatment. Labs been ordered. 2. Bilateral lower extremity deep vein thrombosis and pulmonary emboli diagnosed in February 2021. Anticoagulation was contraindicated due to GI blood loss. She underwent placement of inferior vena cava filter. She has associated lower extremity edema which has improved.Venous doppler was repeated: CONCLUSIONS DVT Right LE in common femoral, profunda, Superficial femoral, popliteal, and peroneal veins. DVT Left LE in common femoral, superficial femoral, popliteal, and peroneal veins. Thrombosed varicositis left ankle Persistent thrombus Bilateral LE similiar to 03/01 study Improved thrombus in GSV Bilaterally Left superficial femoral vein thrombus is new from previous It was planned that anticoagulation was to be restarted but was held due to upcoming procedure. 3. She had associated right pleural effusion for which she underwent placement of right pleural drainage catheter. It has now been removed and is healing well. Signed By: Lainey Hightower, N.P. <<Signature on File>>
== END 2021-08-04 08:01 | disposition home or self-care (01) ==
PROVIDERS: PCP Nurse Practitioner Family; Visit Provider Nurse Practitioner Family
DX: C55 Malignant neoplasm of uterus, part unspecified (principal); C78.01 Secondary malignant neoplasm of right lung; Z86.718 Personal history of other venous thrombosis and embolism; Z86.711 Personal history of pulmonary embolism; Z87.19 Personal history of other diseases of the digestive system
CPT/HCPCS: 36430; 80053; 85025; 86850; 86900; 86920; 99215; P9040

== ENCOUNTER 2021-08-19 09:13 | Outpatient (CLI) | payer MEDICARE, SELFPAY ==
--- NOTE | 2021-08-19 09:32 | CT_ITS ---
WS: [id number] CT CHEST, ABDOMEN AND PELVIS WITH CONTRAST. 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 Coronal and sagittal reformats chest. Coronal and sagitta l reformats through the abdomen and pelvis. All CT scans at [facility] use at least one of th sami dose optimization techniques: automated exposure control; mA and/or kV adjustment per patient siz e (includes targeted exams where dose is matched to clinical indication); or iterative reconstruction . CONTRAST: Omnipaque 350; 50 mL IV. As per the technologist there was an injection of contrast through the port which was unsuccessful. There is no contrast enhancement on this study. DLP: 1495.86 mGy.cm COMPARISON: 02/19/2021, 01/06/2021 and 02/15/[address]: The small bore drain at the RIGHT lung base as been removed since the prior study. There is extensive pleural thickening throughout the mid and lower RIGHT pleural space. There is a fluid kaleigh ection which is overall decreased in size since 02/19/2021. Thickening of both the parietal and visce ral pleura. Previously described paraspinal mass at the RIGHT lung base has decreased. There is a sma ll amount of pleural thickening or residual mass remaining. Area of residual tumor measures 2.6 x 2.1 cm. No mediastinal or hilar adenopathy. The previously seen nodes on 02/19/2021 throughout the thorax hav e resolved. The LEFT supraclavicular lymph node group has resolved also. Lymph node adjacent to the R IGHT distal esophagus measures 13 mm and unchanged. Mild atherosclerosis aorta. Cardiac chambers are mildly enlarged. Abdomen CT: Liver is normal size. There is a small amount of fluid or subcapsular collection along th e inferior RIGHT lobe of the liver which has progressed since the prior study. This collection measur es 2.1 x 1.0 cm. No bile duct dilatation. Normal size spleen. Prior cholecystectomy. Atrophied pancre as. Moderate atherosclerosis aorta. IVC filter. Mild atrophy of the RIGHT kidney. Again noted is mild dilatation of the renal pelvis. Increased density filling the renal pelvis and proximal ureter is no t quite as apparent. Suspect there is probably a component of a RIGHT UP junction obstruction. LEFT k idney is negative. There are a few small lymph nodes in the celiac axis which are less than a centimeter. Subcentimeter mesenteric lymph nodes. No GI tract obstruction. Pelvic CT: Uterus is enlarged and heterogeneous with dense calcification along the junctional zone. F luid or soft tissue distention of the endometrial cavity. Similar findings have been previously descr ibed. Increase in thoracic kyphosis. Increasing sclerosis in several of the vertebral bodies which is gregg rning for metastatic disease. Within T11 there is increasing sclerosis along the RIGHT lateral verteb ral body. This is also the location of the paraspinal mass which has been treated. May be posttreatme nt/post radiation changes within the vertebral body. Additional sclerotic density in the posterior LE FT T11 vertebral body. There are additional sclerotic changes throughout the lumbar spine which have been present on the prior exams and probably due to Schmorl's nodes. CT/CT chest abd pel w con* IMPRESSION: 1. Removal of the small bore catheter from the RIGHT pleural space. 2. Decrease in size of the RIGHT paraspinal mass at T11 now measuring 2.6 x 2. 1 cm. 3. Persistent RIGHT pleural thickening and a small effusion. 4. Resolution of the LEFT supraclavicular, hilar or mediastinal adenopathy. 5. No change in the 13 mm distal RIGHT paraesophageal lymph node. 6. Essentially no IV contrast was provided for this examination. No metastatic lesions are identified within the liver and no adenopathy. 7. Continued fluid or soft tissue distention of the endometrium. 8. IVC filter. 9. Mild RIGHT hydronephrosis. 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 10. There is a new small subcapsular fluid collection adjacent to the inferior RIGHT lobe of the liver measuring 2.1 x 1.0 cm. 11. Prior cholecystectomy. 12. Increasing sclerosis along the RIGHT lateral T11 vertebral body may be pos ttreatment. There is an additional 5 mm nodule in the posterior T11 vertebral b josue which needs to be considered for metastatic site. New and not visualized on prior studies.
== END 2021-08-19 09:14 | disposition home or self-care (01) ==
LOC: RAD 09:19
PROVIDERS: PCP Nurse Practitioner Family; Visit Provider Nurse Practitioner Family
DX: R97.8 Other abnormal tumor markers (principal); C54.8 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; C78.01 Secondary malignant neoplasm of right lung
CPT/HCPCS: 71260; 74177; Q9967

== ENCOUNTER 2021-10-08 14:20 | Oncology outpatient (recurring) (ONCR) | payer MEDICARE, SELFPAY ==
[2021-10-08 15:12] LABS: Basophils % 0.2 %; Hemoglobin 11.5 g/dL (11.5-15.3); Lymphocytes # 0.5 10^3/uL (0.8-4.8); Lymphocytes % 8.1 %; Mean Corpuscular HGB Conc 32.9 g/dL (30.0-36.0); Mean Corpuscular Hemoglobin 32.7 pg (28.0-34.0); Mean Corpuscular Volume 99.4 fl (81-99); Mean Platelet Volume 10.1 fL (7.4-10.4); Monocytes # 0.1 10^3/uL (0.2-0.9); Monocytes % 0.8 %; Neutrophils # 5.84 10^3/uL (1.8-7.7); Neutrophils % 88.9 %; Nucleated Red Blood Cells % 0 %; Platelet Count 179 10^3/cmm (130-400); Red Blood Count 3.52 10^6/uL (4.1-5.3); Red Cell Distribution Width 15.6 % (12.1-15.1); White Blood Count 6.6 10^3/uL (4.0-10.0)
[2021-10-08 15:41] LABS: Alanine Aminotransferase 9 U/L (0-33); Albumin Level 3.8 g/dL (3.5-5.2); Alkaline Phosphatase 96 IU/L (35-105); Anion Gap 15.8 (5-19); Aspartate Amino Transferase 16 U/L (0-32); Blood Urea Nitrogen 22 mg/dL (8-23); CA 15-3 26.1 U/mL (0-25); Calcium 9.8 mg/dL (8.5-10.5); Cancer Antigen 19 9 31.35 U/mL (0-35); Carbon Dioxide 26 mmol/L (22-29); Chloride 97 mmol/L (98-107); Globulin 4.4 g/dL (1.3-4.6); Glucose 226 mg/dL (65-115); Osmolality Calculated 290 mOsm/kg (285-295); Potassium 3.8 mmol/L (3.5-5.1); Sodium 135 mmol/L (136-145); Total Bilirubin 0.3 mg/dL (0.15-1.2); Total Protein 8.2 g/dL (6.6-8.7)
[2021-10-08 20:18] LABS: CA 125 18.2 U/mL (0-35)
[2021-10-08 20:29] LABS: Add On to Lab Order(s) Added
== END 2021-10-08 23:59 | disposition home or self-care (01) ==
PROVIDERS: Nurse Practitioner Family; PCP Nurse Practitioner Family; Visit Provider Internal Medicine Medical Oncology
DX: C54.8 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 (principal); C78.01 Secondary malignant neoplasm of right lung; R97.8 Other abnormal tumor markers; Z86.711 Personal history of pulmonary embolism; Z86.718 Personal history of other venous thrombosis and embolism; Z79.01 Long term (current) use of anticoagulants
CPT/HCPCS: 36591; 80053; 85025; 86300; 86301; 86304; 99214

== ENCOUNTER 2021-11-06 11:06 | Oncology outpatient (recurring) (ONCR) | payer MEDICARE, SELFPAY ==
[2021-11-02 13:05] LABS: Basophils % 0.3 %; Eosinophils % 0.5 %; Hemoglobin 11.1 g/dL (11.5-15.3); Lymphocytes % 14.9 %; Mean Corpuscular HGB Conc 31.7 g/dL (30.0-36.0); Mean Corpuscular Hemoglobin 32.4 pg (28.0-34.0); Mean Platelet Volume 9.8 fL (7.4-10.4); Monocytes # 0.9 10^3/uL (0.2-0.9); Monocytes % 12.9 %; Neutrophils # 4.69 10^3/uL (1.8-7.7); Neutrophils % 71.1 %; Nucleated Red Blood Cells % 0 %; Platelet Count 176 10^3/cmm (130-400); Red Blood Count 3.43 10^6/uL (4.1-5.3); White Blood Count 6.6 10^3/uL (4.0-10.0)
[2021-11-02 14:02] LABS: Alanine Aminotransferase 6 U/L (0-33); Albumin Level 3.9 g/dL (3.5-5.2); Alkaline Phosphatase 94 IU/L (35-105); Anion Gap 13.8 (5-19); Aspartate Amino Transferase 19 U/L (0-32); Blood Urea Nitrogen 17 mg/dL (8-23); CA 125 36.7 U/mL (0-35); Calcium 9.7 mg/dL (8.5-10.5); Cancer Antigen 19 9 40.18 U/mL (0-35); Carbon Dioxide 28 mmol/L (22-29); Chloride 98 mmol/L (98-107); Globulin 3.8 g/dL (1.3-4.6); Glucose 102 mg/dL (65-115); Osmolality Calculated 284 mOsm/kg (285-295); Potassium 3.8 mmol/L (3.5-5.1); Sodium 136 mmol/L (136-145); Total Bilirubin 0.6 mg/dL (0.15-1.2); Total Protein 7.7 g/dL (6.6-8.7)
--- NOTE | 2021-11-02 14:30 | CT_ITS ---
WS: [id number] CT ABDOMEN AND PELVIS WITH CONTRAST HISTORY: vaginal bleeding, history of adenocarcinoma. Prior hysterectomy. TECHNIQUE: Imaging performed of the abdomen and pelvis with IV contrast. Single phase imaging of the abdomen. Coronal and sagittal reformats are submitted. All CT scans at [facility] use at [place] [facility] one of these dose optimization techniques: automated exposure control; mA and/or kV adjustment per patient size (includes targeted exams where dose is matched to clinical indication); or iterative re construction. IV CONTRAST: Visipaque 320; 95 mL IV. Oral contrast: Yes. DLP: 1257.13 mGy.cm COMPARISON: 02/19/2021, 02/15/2021 and 01/06/2021 Lower thorax: Continued pleural thickening with adjacent fluid and pleural nodularity at the RIGHT antoinette ng base. There is a rind-like area of increased density at the RIGHT lung base with mild progression involving the parietal and visceral pleura. Slight increase in amount of pleural fluid and pleural th ickening. The soft tissue thickening is not completely cystic at the medial RIGHT lung base which has progressed. Mild cardiac enlargement. Moderate-sized hiatal hernia. Enlarging hypervascular distal R IGHT paraesophageal lymph node measuring measuring 13 mm as compared to 11 mm. Liver/biliary system: Liver is enlarged. Along the surface of the liver there is increased soft tissu e which may in part be some fluid but there is scalloping suggesting metastatic implants along the gaspar rface of the liver. There is a small amount of fluid adjacent to the RIGHT inferior liver which was p resent on the prior study. Very slightly increased in size. Portal vein is normally enhancing. Gallbladder: Not identified. Probably removed. Pancreas: Mildly prominent dilatation of common bile duct is probably physiologic. Small caliber panc reas. Spleen: Spleen is normal size. There is a low-attenuation well-circumscribed 14 mm mass along the hil um of the spleen that has not been present on prior studies. 7 mm nodule adjacent to the inferior med ial spleen. This was present on the prior study may be a splenule but has increased in size and new s don 02/15/2021. Suspicious for mesenteric implant. Adrenal glands: Normal. Right kidney: Severe hydronephrosis RIGHT kidney has been previously described. There is a nonobstruc ting is probably vascular. Tortuous dilated RIGHT ureter. The RIGHT ureter changes caliber near the L 5 vertebral body. Soft tissue stranding surrounds the ureter. There is a mass in the retroperitoneum at the level of the proximal iliac artery which is obstructing the ureter. Left kidney: Normal. Aorta: Mild atherosclerosis with no aneurysm. Lymphadenopathy: There are a few small lymph nodes in the central mesentery. Focal soft tissue deposi t along the RIGHT iliac chain measures 17 x 15 mm obstructing the RIGHT ureter. This is probably a ly mph node or a mesenteric deposit. There are a few other scattered lymph notes. Free fluid: None. GI tract: Well-distended stomach. Severe constipation. Marked fecal retention in the colon. Colon is dilated up to 7.1 cm transversely at the rectum. Abdominal wall: Focal soft tissue nodularity involving the anterior abdominal wall at the site of a h ernia. This was previously described and has changed over the last several examinations. This may be an omental implant is wall thickening and increased density with enhancement involving 2 nodules aneesh g the ventral abdominal wall hernia site. Does not appear to be GI tract. This area was enlarged on 1 04/17/2020, improved on 08/19/2021 but now increased in size again with the largest nodule measuring 2.7 x 0.7 cm. There is mild soft tissue anasarca. Pelvis: Abnormal pelvis. Again noted is the large heterogeneous mass with fluid and cystic components distending the endometrium. There are calcific deposits with solid components. This mass is increase d in size since 02/19/2021 and extending over length of 9.5 cm x 9.7 x 8.9 cm. Marked thinning of the uterine wall especially towards the LEFT of midline. Abnormal soft tissue extends into the endocervi maylin canal. There is a cystic mass in the RIGHT adnexa measuring 2.6 x 2.0 cm which is new. Bones: Marked osteopenia. CT/CT abdomen pelvis w con* [id number] IMPRESSION: 1. Favor progression of metastatic disease since the prior study of 08/19/2021. 2. Increase in size of the endometrial mass which extends into the endocervica l junction. 3. Slight progression of the soft tissue at the RIGHT lung base with progressi ve thickening and fluid involving the visceral and parietal layer of the pleura . 4. Increase in size of the distal RIGHT paraesophageal lymph node. Additional possible metastatic deposit adjacent to the inferior spleen has also increased in size. 5. Scalloping around the surface of the liver more prominent than on prior lucy dies with some adjacent fluid. Metastatic implants suspected. 6. Progressive obstruction RIGHT kidney due to mesenteric deposit obstructing the ureter at the level of L5. Soft tissue deposit measures 17 x 15 mm. 7. Ventral abdominal wall nodules. Suspect these may be omental implants that are protruding through a hernia along the anterior wall. Increased in size sinc e 08/19/2021 but improved since 02/15/2021. 8. IVC filter. 9. Severe constipation. 10. New cystic mass in the RIGHT adnexa may be a cystic lymph node.
[2021-11-02] MEDS: iohexol 350 mg/mL 100 mL Btl IV (15:01)
[2021-11-02] MEDS: barium sulfate 450 mL Oral Susp PO (15:02)
--- NOTE | 2021-11-04 16:08 | N.ONRAD NP_ITS ---
Radiation Oncology New Patient Visit Patient: Aicha Nath MR#: [id number] : 1940> Age: 81> Sex: Female> Dictated by: Dr. Boo Story Date of Service: 11/04/2021 Referring Physician(s) : Keyon Echevarria MD Diagnosis: R97.8 - other abnormal tumor markers, Diagnosed 05/25/2021 (active), C54.8 - malignant neoplasm of overlapping sites of corpus uteri, Diagnosed 03/02/2021 (active), stage ivb, t4, n2a, m1 and C78.01 - secondary malignant neoplasm of right lung, Diagnosed 02/03/2021 (active). Radiotherapy to date: Summary > No prior radiation therapy. Chief Complaint / History of Present Illness: Ms Nath is a 81-year-old lady who presented in December 2020 with shortness of breath and lower extremity edema. 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 She had a large uterine mass measuring 12.6 x 7.4 x 11.3 cm. There was loss of the fat plane between the uterine mass and the sigmoid colon. A subsequent sigmoidoscopy indicated that there probably was invasion of the anterior wall of the rectum. She developed multiple pulmonary emboli and was placed on anticoagulation. She improved and started systemic therapy. She was treated with carboplatin and Taxol. She received 6 cycles carboplatin and Taxol between 03/02/2021 and 07/14/2021. She has continued on anticoagulation and has had no problems with pulmonary emboli. She recently noticed light vaginal bleeding. She notify Dr. Echevarria. He stopped Eliquis and her bleeding has stopped. However, he would prefer that she be on anticoagulation. She is referred for evaluation for radiation. Current Medications: Acetaminophen, apixaban, apixaban Starter Pack, benadryl, cARBOplatin, decadron, dexamethasone, dexamethasone Sodium Phosphate, diphenhydrAMINE HCl, eliquis, emend, famotidine in NaCl, furosemide, lasix, neulasta Delivery Kit, neupogen, pACLitaxel, palonosetron HCl, prochlorperazine Maleate, sodium Chloride, tylenol. Allergies: No Known Allergies Medical History: Seasonal allergies. No history of collagen vascular disease. No previous radiation therapy. Surgical History: Cholecystectomy, flu Vaccine on 02/03/2021 (Left Deltoid), prevnar 13 on 02/03/2021 (Right Deltoid) and tonsillectomy. Family History: Father has experienced rectal cancer. Father of rectal cancer age 54. Mother at age 76 with a smoking-related oral cancer. Two brothers are still living. Her maternal grandmother had diabetes. Social History: Last screened on 08/04/2021 - Never smoked. Last screened on 08/04/2021 - Never drank. Current Complaints / Review of Systems: . Vital Signs: Performed on 11/04/2021 2:50 PM BMI - 30.554 kg/m2 (high), Height - 64 in, Weight - 178 lbs, Temperature - 97.6 f, Pulse - 94 /min, Respiration - 20 /min, O2 Sat - 96 %, Pain - 0, Fatigue - 0 and BP - 106/ 67 mm(hg). Physical Exam: General alert, oriented, no acute distress. Neck: Supple. No masses. No cervical or supraclavicular lymphadenopathy. Heart: Regular rhythm. No murmur or gallop noted. Abdomen: No distention. No organomegaly or mass or tenderness. Skill skeletal: She has a painful right knee. The joint is stable. There is tenderness over the medial collateral ligaments, possibly a strain. Performance Status: ECOG 3 Pathology: Primary, r97.8 - other abnormal tumor markers, Diagnosed 05/25/2021 (active), Primary, c54.8 - malignant neoplasm of overlapping sites of corpus uteri, Diagnosed 03/02/2021 (active) stage ivb, t4, n2a, m1 and Primary, c78.01 - secondary malignant neoplasm of right lung, Diagnosed 02/03/2021 (active). Lab: Test performed on 07/14/2021 10:25 AM CA 15-3 - 38.3 u/ml (high), CA 19-9 - 131.3 u/ml (high), Test performed on 08/04/2021 8:15 AM WBC - 3.4 10 3/ul (low), RBC - 1.98 10 6/ul (low), HGB - 6.9 g/dl (low), HCT - 21.8 % (low), MCV - 110.1 fl (high), MCH - 34.8 pg (high), RDW - 21.4 % (high), Platelet Count - 44 10 3/cmm (low), MPV - 11.0 fl (high), Lymphocytes - 0.4 10 3/ul (low), Monocytes - 0.0 10 3/ul (low), Sodium - 134 mmol/l (low), Glucose - 258 mg/dl (high) and Globulin - 4.9 g/dl (high). Imaging: See HPI Impression: Uterine bleeding secondary to progressive cancer. She has limited systemic therapy options remaining. She is not a candidate for surgery to remove the uterus. I discussed palliative radiation. I discussed a single high-dose fraction of 800 cGy in 1 fraction. I discussed that a month or so later a second fraction can be given. I discussed that usually there are no long-term problems from the treatment. I told her that she might have some bladder cramping or bowel cramping, though that is unusual. She expressed a desire to proceed. When reviewing the patient's chart, I did not see the history of probable invasion of the uterine malignancy into the anterior wall of the rectum. I will need to discuss that with the patient tomorrow before her simulation. This could increase her risk of a fistula. However the risk of a fistula may be greater with untreated cancer. Plan: Simulation tomorrow with a discussion of the possible invasion of the anterior wall of the rectum by cancer. Signed by: 11/04/2021 4:07:10 PM <<Signature on File>> Time spent with patient: CPT Code: CPT Code:
--- NOTE | 2021-11-05 | CT_ITS ---
Radiation Therapy Planning CT images; total exam DLP: 1110.91 mGy-cm MTDD
--- NOTE | 2021-11-06 12:16 | ONCRAD TMN_ITS ---
Radiation Oncology Weekly Treatment Management/Final Treatment Patient: Pham San MR#: [id number] : 1940> Attending Physician: Dr. Boo Story Date of Service: 11/06/2021 Referring Physician(s) : Keyon Echevarria MD Diagnosis: R97.8 - Other abnormal tumor markers, Diagnosed 05/25/2021 (Active) C54.8 - 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, Diagnosed 03/02/2021 (Active) Stage IVB, T4, N2a, M1 C78.01 - Secondary malignant neoplasm of right lung, Diagnosed 02/03/2021 (Active) Radiotherapy to date: Date performed: 11/06/2021, Uterus, 800 cGy in 1 fraction. Treatment was delivered with a 3 field isocentric technique utilizing [address] photons[address] beam [address] was utilized to localize the treatment volume. Reason for visit: The patient is being seen today as part of their regularly scheduled weekly on treatment visits to assess for acute toxicities from radiotherapy. Review of Systems: No change in general health. She continues to have light vaginal bleeding. She has no new complaints. She did mention that the simulation position produces some low back pain. The pain resolved after the procedure was over. She also was concerned about the treatment room being cold. I told her we have warmed blankets that can be used over her upper body. Vital Signs: Performed on 11/06/2021 11:25 AM BMI - 30.554 kg/m2 (high), Height - 64 in, Weight - 178 lbs, Temperature - 99.8 f, Pulse - 94 /min, Respiration - 18 /min, O2 Sat - 94 % (low), Pain - 0, Fatigue - 4 and BP - 104/ 69 mm(hg). Physical Exam: General: Alert oriented no acute distress. Neck: Supple. No masses. No cervical or supraclavicular lymphadenopathy. Lungs: Clear to auscultation with no rales rhonchi or wheezes. Heart: Regular rhythm. No murmur or gallop. Abdomen: No distention. Bowel sounds normal. No tenderness. Imaging: Radiation therapy imaging related to accurate target localization (i.e. KV, MV and CBCT) was reviewed. Appropriate changes, if any, were made to ensure treatment accuracy. Plan: Treatment of 800 cGy in 1 fraction was delivered to the pelvis today, specifically to the uterus. A 3 field 3D conformal treatment was utilized. The energy was 15 MV photons. The treatment was tolerated well. Follow-up in approximately 1 month. Signed by: Dr. Boo Story 11/06/2021 12:15:16 PM
== END 2021-11-08 23:59 | disposition home or self-care (01) ==
PROVIDERS: Internal Medicine Medical Oncology; PCP Nurse Practitioner Family; Visit Provider Specialist
DX: Z51.0 Encounter for antineoplastic radiation therapy (principal); C54.8 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
CPT/HCPCS: 36591; 74177; 77280; 77295; 77300; 77334; 77336; 77387; 77412; 80053; 85025; 86301; 86304; 99204; Q9967

== ENCOUNTER 2021-12-09 10:54 | Oncology outpatient (recurring) (ONCR) | payer MEDICARE, SELFPAY ==
[2021-11-30 15:47] LABS: Basophils % 0.6 %; Eosinophils # 0.1 10^3/uL (0.0-0.8); Eosinophils % 1.1 %; Hematocrit 34.2 % (37.0-47.0); Hemoglobin 10.9 g/dL (11.5-15.3); Lymphocytes % 18.1 %; Mean Corpuscular HGB Conc 31.9 g/dL (30.0-36.0); Mean Corpuscular Hemoglobin 32.1 pg (28.0-34.0); Mean Corpuscular Volume 100.6 fl (81-99); Mean Platelet Volume 9.9 fL (7.4-10.4); Monocytes # 0.8 10^3/uL (0.2-0.9); Monocytes % 14.3 %; Neutrophils # 3.53 10^3/uL (1.8-7.7); Neutrophils % 65.7 %; Nucleated Red Blood Cells % 0 %; Platelet Count 157 10^3/cmm (130-400); Red Cell Distribution Width 15.5 % (12.1-15.1); White Blood Count 5.4 10^3/uL (4.0-10.0)
[2021-11-30 16:37] LABS: Alanine Aminotransferase 7 U/L (0-33); Albumin Level 3.7 g/dL (3.5-5.2); Alkaline Phosphatase 97 U/L (35-105); Blood Urea Nitrogen 17 mg/dL (8-23); CA 125 38.8 U/mL (0-35); Calcium 9.9 mg/dL (8.5-10.5); Cancer Antigen 19 9 48.91 U/mL (0-35); Carbon Dioxide 29 mmol/L (22-29); Chloride 98 mmol/L (98-107); Globulin 4.1 g/dL (1.3-4.6); Glucose 100 mg/dL (65-115); Osmolality Calculated 286 mOsm/kg (285-295); Sodium 137 mmol/L (136-145); Total Bilirubin 0.5 mg/dL (0.15-1.2); Total Protein 7.8 g/dL (6.6-8.7)
[2021-11-30 16:42] LABS: Anion Gap 13.7 (5-19); Aspartate Amino Transferase 20 U/L (0-32); Potassium 3.7 mmol/L (3.5-5.1)
--- NOTE | 2021-12-09 13:18 | ONCRAD EPV_ITS ---
Radiation Oncology Established Patient Visit Patient: Pham Holcomb [id number] : 1940 Age: 81 Sex: Female Dictated by: Dr. Boo Story Date of Service: 12/09/2021 Referring Physician(s) : Dr. Keyon Echevarria Diagnosis: R97.8 - Other abnormal tumor markers, Diagnosed 05/25/2021 (Active) C54.8 - 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, Diagnosed 03/02/2021 (Active) Stage IVB, T4, N2a, M1 C78.01 - Secondary malignant neoplasm of right lung, Diagnosed 02/03/2021 (Active) Metastatic serous adenocarcinoma. 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 On 12/31/2020 she was admitted to [facility] after presenting to the [facility] emergency room with shortness of breath and lower extremity edema. Her initial chest CT scan showed evidence of right lower lobe lung mass and large right pleural effusion. Her repeat chest CT on 01/02/2021 again showed large right pleural effusion and extensive infiltrate in the right lung. A 46 mm mass was noted at the thoracic inlet on the left and a 51 mm mass was noted in the right lower lobe. The right breast appeared somewhat more dense than the left. Her CT abdomen/pelvis on 01/06/2021 again showed large right pleural effusion and right lower lobe lung mass measuring 5.0 x 4.5 cm. A small hypoattenuating lesion in the hepatic segment 6 was too small to characterize. The adrenal glands appeared normal. There was an infiltrative masslike appearance throughout the uterus measuring approximately 12.6 x 7.4 x 11.3 cm and there was diffuse endometrial calcification with infiltrative mass within the endometrial canal. There was masslike thickening of the cervix with adjacent pelvic sidewall lymphadenopathy. There was noted to be loss of the fat plane between the uterine mass and the sigmoid colon. There were complex ventral abdominal wall hernias containing loops of nonobstructed bowel. There were multiple prominent mesenteric lymph nodes and enlarged retroperitoneal lymph nodes as well as bilateral inguinal lymphadenopathy. MRI of the brain showed no evidence of metastatic disease. During her hospitalization she underwent thoracentesis on 2 occasions with negative pleural fluid cytology. Needle biopsy of the right lung mass on 01/09/2021 showed metastatic serous adenocarcinoma favoring uterine primary. By IHC the tumor cells were positive for CK7, PAX8, p16, and WT-1. They were negative for CK20, p53, TTF-1, and CDX2. Dr. Echevarria had seen her initially on 02/03/2021. Her additional pathologic studies included analysis for overexpression of HER-2/wendy, which was negative (1+ by IHC). With that finding, she was given the option to have a trial of chemotherapy with carboplatin/paclitaxel. In the meantime, on 02/09/2021 she underwent placement of a right pleural catheter for management of the pleural effusion. She then underwent placement of Port-A-Cath venous access device on 02/17/2021. On 02/19/2021 she was admitted to the hospital after presenting to the emergency room with shortness of breath and abdominal pain. Her CT scans of the chest, abdomen, and pelvis showed evidence for moderate bilateral pulmonary emboli in addition to extensive metastatic lymph node involvement and suspected right ureteral obstruction. There was marked enlargement of the uterus. At that time she was also having hematochezia and on sigmoidoscopy there appeared to be extension of the uterine mass to involve the anterior rectum. She was discharged on 02/25/2021. At that time they had considered transitioning to hospice, but ultimately she opted to continue with the chemotherapy, as originally planned. Her prior medical illnesses have been limited to seasonal allergies. Prior surgeries include cholecystectomy and tonsillectomy. She is a non-smoker. INTERIM HISTORY: She began cycle 1 of carboplatin/paclitaxel chemotherapy on 03/02/2021, both administered at a reduced dosage. Her baseline CA-125 level was 101.4 U/mL. At day 9 she was neutropenic, ANC 600. She was treated with G-CSF for 3 days. She recovered uneventfully. At her follow-up visit on 03/24/2021 she was feeling a little better, but her further treatment was delayed because her neutrophil count was still low at 1700. Her repeat CA-125 level at that point had declined slightly, to 82.3 U/mL. Her CA 19-9 was found to be significantly elevated at 2307 U/mL. She was able to continue with cycle 2 of carboplatin/paclitaxel on 03/31/2021. It was administered at reduced dosages and with Neulasta prophylactically. With the dose reduction and the Neulasta, her granulocyte count remained adequate. She was able to continue with cycle 3 on 04/21/2021. At that point there was further decline in the tumor markers with her CA-125 level decreased to 33.5 U/mL and the CA 19-9 decreased to 1681 U/mL. However, her further treatment was then delayed due to thrombocytopenia. She began cycle 4 on 05/19/2021. Patient presents today for follow-up. She states she is having some increased fatigue. She has been able to ambulate short distances with her walker. Her appetite has been pretty good. She denies fever, chills, night sweats. No sinus drainage or mouth sores. No shortness of breath, cough, chest pain. No GI problems no problems. No joint or bone pain. No headaches or dizziness. She does have bilateral lower extremities which she has to keep wrapped. Radiotherapy to Date: Course: Uterus, Treatment Site: [id number], Ref. ID: [id number], Energy: 15X, Dose/Fx (cGy): 800, #Fx: , Dose Correction (cGy): 0, Total Dose (cGy): 800, Start Date: 11/06/2021, End Date: 11/06/2021, Elapsed Days: 0 Current History: On 11/06/2021 she received a single high-dose fraction of 800 cGy to the pelvis because of locally advanced uterine cancer causing vaginal bleeding. Her bleeding stopped by 11/18/2021. She has had no side effects from the treatment. She has been asymptomatic until 2 days ago. On 829 she noticed a small amount of vaginal spotting and also had a small amount yesterday. She has had none today. She has not had any pelvic pain. She had experienced some left lower quadrant discomfort over the past few days but that resolved after having a bowel movement. She saw Dr. Echevarria 11/30/2021. At that time she said that she was satisfied with her treatment result and did not want to proceed with a second radiation treatment to the pelvis. In view of the light bleeding she has had over the past couple of days, we will discuss that issue again today. At her visit with Dr. Echevarria, she did express her motivation to continue systemic therapy. He is considering lenvatinib and pembrolizumab in combination and is waiting on verification of insurance coverage. Current Medications: Acetaminophen, apixaban, apixaban Starter Pack, benadryl, cARBOplatin, decadron, dexamethasone, dexamethasone Sodium Phosphate, diphenhydrAMINE HCl, eliquis, emend, famotidine in NaCl, furosemide, lasix, neulasta Delivery Kit, neupogen, pACLitaxel, palonosetron HCl, prochlorperazine Maleate, sodium Chloride, tylenol. Allergies: No Known Allergies Current Complaints / Review of Systems: . Vital Signs: Performed on 12/09/2021 11:26 AM BMI - 30.176 kg/m2 (high), Height - 64 in, Weight - 175.8 lbs, Temperature - 98.7 f, Pulse - 99 /min, Respiration - 16 /min, O2 Sat - 97 %, Pain - 0, Fatigue - 3 and BP - 118/ 82 mm(hg). Physical Exam: General: Alert and oriented x 3. No acute distress. ABDOMEN: Soft, nontender, nondistended without masses or organomegaly. Performance Status: ECOG 3 Lab: None pending. Pathology: Primary, r97.8 - other abnormal tumor markers, Diagnosed 05/25/2021 (active), Primary, c54.8 - malignant neoplasm of overlapping sites of corpus uteri, Diagnosed 03/02/2021 (active) stage ivb, t4, n2a, m1 and Primary, c78.01 - secondary malignant neoplasm of right lung, Diagnosed 02/03/2021 (active). Imaging: See HPI Impression: Satisfactory response to a single high-dose fraction of radiation to the pelvis with resolution of bleeding until a couple of days ago. She had no troublesome side effects. She has had very light bleeding over the past couple of days. We discussed that it is not predictable what will happen with the bleeding pattern. It could worsen over a short period of time or there might be intermittent light episodes of bleeding with intervals of no bleeding at all. I discussed that there is not a firm guideline for when to do a second high-dose fraction. I told her it primarily depends on medical judgment, other treatment options available, and patient desire. The patient is not troubled by light bleeding and she does desire further systemic therapy if she has adequate insurance coverage. Therefore, we have decided not to proceed with a second high-dose fraction at this time. She understands that a second fraction can be given at virtually anytime in the future if she develops more significant bleeding. Obviously, her blood counts and any recent systemic therapy would have to be considered in scheduling a second high-dose fraction. We will not have a routine follow-up in the radiation center. Signed by: 12/09/2021 1:17:05 PM <<Signature on File>> Time spent with patient: CPT Code: CPT Code:
== END 2021-12-09 23:59 | disposition home or self-care (01) ==
PROVIDERS: Internal Medicine Medical Oncology; PCP Nurse Practitioner Family; Visit Provider Specialist
DX: C54.8 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
CPT/HCPCS: 80053; 85025; 86301; 86304; 99205; 99215

== ENCOUNTER 2021-12-30 09:38 | Oncology outpatient (recurring) (ONCR) | payer MEDICARE, SELFPAY ==
[2021-12-30 10:26] LABS: Basophils % 0.4 %; Eosinophils % 0.1 %; Hematocrit 34.1 % (37.0-47.0); Lymphocytes % 12.4 %; Mean Corpuscular HGB Conc 32.3 g/dL (30.0-36.0); Mean Corpuscular Volume 99.1 fl (81-99); Monocytes # 0.8 10^3/uL (0.2-0.9); Neutrophils # 6.45 10^3/uL (1.8-7.7); Neutrophils % 76.7 %; Nucleated Red Blood Cells % 0 %; Platelet Count 183 10^3/cmm (130-400); Red Blood Count 3.44 10^6/uL (4.1-5.3); Red Cell Distribution Width 15.2 % (12.1-15.1); White Blood Count 8.4 10^3/uL (4.0-10.0)
[2021-12-30 10:55] LABS: Alanine Aminotransferase 7 U/L (0-33); Albumin Level 3.7 g/dL (3.5-5.2); Alkaline Phosphatase 90 U/L (35-105); Anion Gap 16.1 (5-19); Aspartate Amino Transferase 24 U/L (0-32); Blood Urea Nitrogen 16 mg/dL (8-23); Calcium 9.8 mg/dL (8.5-10.5); Carbon Dioxide 26 mmol/L (22-29); Chloride 97 mmol/L (98-107); Globulin 4.5 g/dL (1.3-4.6); Glucose 96 mg/dL (65-115); Osmolality Calculated 281 mOsm/kg (285-295); Potassium 4.1 mmol/L (3.5-5.1); Sodium 135 mmol/L (136-145); Thyroid Stimulating Hormone 1.73 uIU/mL (0.27-4.20); Total Bilirubin 0.6 mg/dL (0.15-1.2); Total Protein 8.2 g/dL (6.6-8.7)
[2021-12-30 11:41] LABS: CA 125 73.5 U/mL (0-35); Cancer Antigen 19 9 68.75 U/mL (0-35)
[2021-12-30] MEDS: pembrolizumab 200 MG in sodium chloride 0.9% 250 ML 516 MG IV (13:50)
[2021-12-30 14:33] VITALS: BP 115/76; PULSE 84; RESP 16; TEMP 36.7; O2SAT 98
== END 2022-01-08 23:59 | disposition home or self-care (01) ==
PROVIDERS: PCP Nurse Practitioner Family; Visit Provider Nurse Practitioner
DX: Z51.12 Encounter for antineoplastic immunotherapy (principal); C54.8 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; D64.9 Anemia, unspecified; Z79.899 Other long term (current) drug therapy; Z92.3 Personal history of irradiation; G89.3 Neoplasm related pain (acute) (chronic); Z79.1 Long term (current) use of non-steroidal anti-inflammatories (NSAID)
CPT/HCPCS: 80053; 84443; 85025; 86301; 86304; 96413; 99214; 99215; J7050; J9271

== ENCOUNTER 2022-01-19 12:25 | Inpatient (IN) | payer MEDICARE, SELFPAY ==
[2022-01-19] VITALS (9 sets, daily range): BP systolic 109–137; BP diastolic 65–85; PULSE 108–116; RESP 15–26; TEMP 36.6–37.6; O2SAT 90–98; BMI 29.2
--- NOTE | 2022-01-19 12:52 | W.ED.GENADLT ---
HPI - General Adult General: Chief complaint: Altered Mental Status Stated complaint: AMS Time Seen by Provider: 01/19/22 12:51 History of Present Illness: Patient is a 81-year-old female with a history of breast cancer, uterine cancer, anal rectal cancer followed by Dr. Echevarria currently on daily lenvatinib presenting to the emergency room with concerns of altered mental status, nausea and vomiting. Per family, patient has been increasingly more confused since Tuesday. Patient has had multiple episodes of emesis on Tuesday. Since then, patient has had decreased energy and increased somnolence. Yesterday, patient reported that her urine mendoza a little. Patient is not on any IV chemotherapy or radiation treatment. Patient denies any fevers chills, cough, runny nose sore throat, chest pain, shortness breath, abdominal pain, diarrhea, melena/hematochezia. Patient denies any hematuria or new vaginal discharge. Onset: 3 days ago Duration:3 days Location:home Severity:severe Associated symptoms: Reports nausea and vomiting; Deny chest pain, dyspnea, rash or palpitations Review of Systems Const: Denies: fever(s) or chills Eyes: Denies: change in vision ENMT: Denies: mouth pain Card: Denies: chest pain or palpitations Resp: Denies: dyspnea or non-productive cough GI: Reports: nausea and vomiting; Denies: abdominal pain or diarrhea : Reports: dysuria Musc: Denies: extremity pain Skin/Breast: Denies: rash or new lesions Neuro: Denies: weakness in extremities Psych: Reports: other (Normal mood) Grzegorz/Lymph: Denies: easy bruising PFSH ED PFSH: Medical History Endometrial cancer Lower extremity deep venous thrombosis Pulmonary embolism Surgical History H/O sigmoidoscopy Hx of cholecystectomy Hx of tonsillectomy Presence of IVC filter Family History Father Cancer Rectal Mother Cancer Tongue Other Diabetes Denies family history of CAD (coronary artery disease) Clotting disorder Dementia Hyperlipidemia Psychiatric illness Chronic kidney disease (CKD) Suicide Anesthesia complication Bleeding disorder Lung disease Hypertension Stroke Social History Smoking and tobacco status: never smoked Alcohol intake: never Physical Exam Const: COMMON NORMALS: alert HENMT: COMMON NORMALS: atraumatic HEAD & SCALP: atraumatic MOUTH: moist mucous membranes not abnormal Eye: COMMON NORMALS: EOMs intact bilaterally and conjunctivae normal CONJUNCTIVA: Yes conjunctivae normal Neck/C-Spine: COMMON NORMALS: full ROM and supple Resp: COMMON NORMALS: normal respiratory effort and clear to auscultation bilaterally AUSCULTATION: clear to auscultation bilaterally Cardio: COMMON NORMALS: regular rate RATE: regular rate GI: COMMON NORMALS: Soft to palpation and non-tender PALPATION: Yes Soft to palpation OTHER: No focal TTP. NO guarding rebound, guarding, rigidity. No CVA tenderness to percussion. Neg Stewart/Neg McBurney's point tenderness, no suprabupic tenderness to palpation. Extremity: COMMON NORMALS: full ROM Neuro: SENSORIUM/ORIENTATION: Yes alert MOTOR EXAM: No Abnormal motor strength present and Other motor observations present (no focal motor deficits) OTHER: mildly somnolent, GCS 14, answering all questions, cranial nerves II through XII grossly intact, strength 5 out of 5 in all extremities. Psych: COMMON NORMALS: speech normal SPEECH: Yes normal speech MOOD & AFFECT: Yes euthymic mood Course Vital Signs: Vital signs: Vital Signs Temperature 98.4 F 01/19/22 13:00 Pulse Rate 108 H 01/19/22 13:00 Respiratory Rate 15 01/19/22 13:00 Blood Pressure 133/85 01/19/22 13:00 Pulse Oximetry 92 01/19/22 13:00 Oxygen Delivery Wv thod 01/19/22 13:00 [facility] - General Adult Medical Decision Making Patient is a 81-year-old female with a history of breast cancer, uterine cancer, anal rectal cancer followed by Dr. Echevarria currently on daily lenvatinib presenting to the emergency room with concerns of altered mental status, nausea and vomiting. Patient appears to be dry on physical exam. Patient is tachycardic. Patient is mildly somnolent but GCS 14. Answering all questions appropriately. Patient on lab work is found to have white count 16.4. Creatinine 1.2. UA is consistent with UTI. Her chest appears to be clear. XR chest is clear. Patient received IVF, vancomycin and Zosyn. Suspect that this is because of somnolence is urinary tract infection. Given the fact the patient is a daily chemotherapy, patient will be admitted to the hospital for IV antibiotics. Disposition: admission Lab Data : 01/19/22 13:00 01/19/22 13:00 Radiology Impressions Chest X-Ray 01/19/22 13:02 IMPRESSION: 1. No acute findings. 2. Right central line in the SVC 3. Small right lower lobe pleural effusion Head CT 01/19/22:02 IMPRESSION: 1. No acute intracranial hemorrhage or edema. 2. Mild atrophy and mild small vessel ischemic disease. Laboratory Results WBC 16.4 10^3/uL (4.0-10.0) H 01/19/22 13:00 RBC 3.92 10^6/uL (4.1-5.3) L 01/19/22 13:00 Hgb 12.6 g/dL (11.5-15.3) 01/19/22 13:00 Hct 38.3 % (37.0-47.0) 01/19/22 13:00 MCV 97.7 fl (81-99) 01/19/22 13:00 MCH 32.1 pg (28.0-34.0) 01/19/22 13:00 MCHC 32.9 g/dL (30.0-36.0) 01/19/22 13:00 RDW 16.7 % (12.1-15.1) H 01/19/22 13:00 Plt Count 110 10^3/cmm (130-400) L 01/19/22 13:00 MPV 10.3 fL (7.4-10.4) 01/19/22 13:00 Neut % (Auto) 88.6 % 01/19/22 13:00 Lymph % (Auto) 3.9 % 01/19/22 13:00 Kinney % (Auto) 5.7 % 01/19/22 13:00 Eos % (Auto) 0.1 % 01/19/22 13:00 Baso % (Auto) 0.2 % 01/19/22 13:00 Neut # (Auto) 14.48 10^3/uL (1.8-7.7) H 01/19/22 13:00 Lymph # (Auto) 0.6 10^3/uL (0.8-4.8) L 01/19/22 13:00 Kinney # (Auto) 0.9 10^3/uL (0.2-0.9) 01/19/22 13:00 Eos # (Auto) 0.0 10^3/uL (0.0-0.8) 01/19/22 13:00 Baso # (Auto) 0.0 10^3/uL (0.0-0.1) 01/19/22 13:00 Nucleated RBC % (auto) 0 % 01/19/22 13:00 Nucleated RBCs # 0.0 /100WBC 01/19/22 13:00 Sodium 135 mmol/L (136-145) L 01/19/22 13:00 Potassium 4.0 mmol/L (3.5-5.1) 01/19/22 13:00 Chloride 97 mmol/L (98-107) L 01/19/22 13:00 Carbon Dioxide 22 mmol/L (22-29) 01/19/22 13:00 Anion Gap 20.0 (5-19) H 01/19/22 13:00 BUN 34 mg/dL (8-23) H 01/19/22 13:00 Creatinine 1.2 mg/dL (0.5-0.9) H 01/19/22 13:00 GFR Calculation Not Reportable 01/19/22 13:00 Glucose 121 mg/dL (65-115) H 01/19/22 13:00 Calculated Osmolality 289 mOsm/kg (285-295) 01/19/22 13:00 Lactate 2.6 mmol/L (0.5-2.2) H 01/19/22 13:00 Calcium 9.6 mg/dL (8.5-10.5) 01/19/22 13:00 Total Bilirubin 1.4 mg/dL (0.15-1.2) H 01/19/22 13:00 AST 17 U/L (0-32) 01/19/22 13:00 ALT 11 U/L (0-33) 01/19/22 13:00 Alkaline Phosphatase 83 U/L (35-105) 01/19/22 13:00 Troponin T Baseline 143 ng/L (0-10) H* 01/19/22 13:00 NT-Pro-B Natriuret Pep 875 pg/mL (0-450) H 01/19/22 13:00 Total Protein 7.5 g/dL (6.6-8.7) 01/19/22 13:00 Albumin 3.1 g/dL (3.5-5.2) L 01/19/22 13:00 Globulin 4.4 g/dL (1.3-4.6) 01/19/22 13:00 Lipase 8 U/L (13-60) L 01/19/22 13:00 Urine Color Yellow (Yellow) 01/19/22 13:15 Urine Appearance Cloudy (CLEAR) A 01/19/22 13:15 Urine pH 5 (5-7) 01/19/22 13:15 Ur Specific [place] 1.025 (1.005-1.030) 01/19/22 13:15 Urine Protein 2+ (Negative) H 01/19/22 13:15 Urine Glucose (UA) Norm (Normal) 01/19/22 13:15 Urine Ketones Negative (Negative) 01/19/22 13:15 Urine Blood 3+ (Negative) H 01/19/22 13:15 Urine Nitrate Negative (Negative) 01/19/22 13:15 Urine Bilirubin Neg (Negative) 01/19/22 13:15 Urine Urobilinogen Norm mg/dL (Negative) 01/19/22 13:15 Ur Leukocyte Esterase 2+ (Negative) H 01/19/22 13:15 Urine RBC 0-4 /hpf (0-2) H 01/19/22 13:15 Urine WBC Too numerous to cnt /hpf (0-5) H 01/19/22 13:15 Ur Squamous Epith Cells 0-4 /hpf (0-5) H 01/19/22 13:15 Amorphous Sediment Not Reportable 01/19/22 13:15 Urine Bacteria 4+ /hpf (NONE) H 01/19/22 13:15 Imaging Data Other Imaging: Radiologist's impression: [address] [address] [address] Scan Report Signed Patient: Aicha Nath Unit #: [id number] : 1940 Age/Sex: 81 / F ADM Date: 01/19/22 Loc: ER Room/Bed: Attending Dr: Ordering Provider/Ordering MD: Domingo De La Vega MD Date of Service: 01/19/22 Procedure(s): CT head wo con* [id number] Accession Number(s): [id number] Report Number: [id number] WS: [id number] CT HEAD NONCONTRAST HISTORY: ams TECHNIQUE: Contiguous axial imaging performed through the brain in 3.0 mm imaging. Bone and soft tissue windows. Sagittal and coronal reformats reviewed.? All CT scans at [facility] use at least one of these dose optimization techniques: automated exposure control; mA and/or kV adjustment per patient size (includes targeted exams where dose is matched to clinical indication); or iterative reconstruction. DLP: 1023.12 mGy.cm COMPARISON: None available. No acute intracranial hemorrhage, midline shift or mass effect. Mild atrophy and small vessel ischemic disease. No prior infarct. Ventricles:? Normal size with no hydrocephalus. No inferior displacement of cerebellar tonsils. Paranasal sinuses: As visualized are clear. Mastoid air cells: Well pneumatized. Calvarium and scalp: Skull is intact with no soft tissue edema or swelling. CT/CT head wo con* [id number] IMPRESSION: ? 1.? No acute intracranial hemorrhage or edema. 2.? Mild atrophy and mild small vessel ischemic disease. ? Dictated By: Jennifer Juárez DO Signed By: Jennifer Juárez DO Signed Date/Time: 01/19/22 1347 DD/ [address] [address] [address] Scan Report Signed Patient: Aicha aNth Unit #: [id number] : 1940 Age/Sex: 81 / F ADM Date: 01/19/22 Loc: ER Room/Bed: Attending Dr: Ordering Provider/Ordering MD: Domingo De La Vega MD Date of Service: 01/19/22 Procedure(s): CT head wo con* [id number] Accession Number(s): [id number] Report Number: [id number] WS: [id number] CT HEAD NONCONTRAST HISTORY: ams TECHNIQUE: Contiguous axial imaging performed through the brain in 3.0 mm imaging. Bone and soft tissue windows. Sagittal and coronal reformats reviewed.? All CT scans at [facility] use at least one of these dose optimization techniques: automated exposure control; mA and/or kV adjustment per patient size (includes targeted exams where dose is matched to clinical indication); or iterative reconstruction. DLP: 1023.12 mGy.cm COMPARISON: None available. No acute intracranial hemorrhage, midline shift or mass effect. Mild atrophy and small vessel ischemic disease. No prior infarct. Ventricles:? Normal size with no hydrocephalus. No inferior displacement of cerebellar tonsils. Paranasal sinuses: As visualized are clear. Mastoid air cells: Well pneumatized. Calvarium and scalp: Skull is intact with no soft tissue edema or swelling. CT/CT head wo con* [id number] IMPRESSION: ? 1.? No acute intracranial hemorrhage or edema. 2.? Mild atrophy and mild small vessel ischemic disease. ? Dictated By: Jennifer Juárez DO Signed By: Jennifer Juárez DO Signed Date/Time: 01/19/221346 DD/ 43 Discharge Plan Discharge Condition: Stable Prescriptions: No Action acetaminophen [Tylenol] 325 mg tablet 325 mg PO QID PRN (Reason: Pain) furosemide 20 mg tablet 20 mg PO DAILY Qty: 30 3RF lenvatinib 20 mg/day (10 mg x 2) capsule 20 mg PO DAILY Qty: 60 0RF prochlorperazine maleate 10 mg Tablet 10 mg PO Q4H PRN (Reason: Nausea) Referrals: Corin De La Rosa NP [Referring] - Coding Level of Care Code ED Aerosol Line Operator for Chg Fwd Exam Comprehensive
--- NOTE | 2022-01-19 13:02 | XRR_ITS ---
PROCEDURE INFORMATION: Exam: XR Chest Exam date and time: 01/19/2022 1:28 PM Age: 81 years old Clinical indication: Dyspnea TECHNIQUE: Imaging protocol: Radiologic exam of the chest. Views: 1 view. COMPARISON: CT chest abd pel w con* 08/19/2021 11:36 AM FINDINGS: Tubes, catheters and devices: A right central line extends into the SVC Lungs: Unremarkable. No consolidation. Pleural spaces: Small right lower lobe pleural effusion. No pneumothorax. Heart/Mediastinum: Unremarkable. No cardiomegaly. Bones/joints: Unremarkable. XR/XR chest 1V portable [id number] IMPRESSION: 1. No acute findings. 2. Right central line in the SVC 3. Small right lower lobe pleural effusion
--- NOTE | 2022-01-19 13:02 | CT_ITS ---
WS: [id number] CT HEAD NONCONTRAST HISTORY: ams TECHNIQUE: Contiguous axial imaging performed through the brain in 3.0 mm imaging. Bone and soft tiss ue windows. Sagittal and coronal reformats reviewed. All CT scans at [facility] use at least one of these dose optimization techniques: automated exposure control; mA and/or kV adjustment per pa tient size (includes targeted exams where dose is matched to clinical indication); or iterative recon struction. DLP: 1023.12 mGy.cm COMPARISON: None available. No acute intracranial hemorrhage, midline shift or mass effect. Mild atrophy and small vessel ischemic disease. No prior infarct. Ventricles: Normal size with no hydrocephalus. No inferior displacement of cerebellar tonsils. Paranasal sinuses: As visualized are clear. Mastoid air cells: Well pneumatized. Calvarium and scalp: Skull is intact with no soft tissue edema or swelling. CT/CT head wo con* [id number] IMPRESSION: 1. No acute intracranial hemorrhage or edema. 2. Mild atrophy and mild small vessel ischemic disease.
[2022-01-19 13:15] LABS: Basophils % 0.2 %; Eosinophils % 0.1 %; Hematocrit 38.3 % (37.0-47.0); Hemoglobin 12.6 g/dL (11.5-15.3); Lymphocytes # 0.6 10^3/uL (0.8-4.8); Lymphocytes % 3.9 %; Mean Corpuscular HGB Conc 32.9 g/dL (30.0-36.0); Mean Corpuscular Hemoglobin 32.1 pg (28.0-34.0); Mean Corpuscular Volume 97.7 fl (81-99); Mean Platelet Volume 10.3 fL (7.4-10.4); Monocytes # 0.9 10^3/uL (0.2-0.9); Monocytes % 5.7 %; Neutrophils # 14.48 10^3/uL (1.8-7.7); Neutrophils % 88.6 %; Nucleated Red Blood Cells % 0 %; Platelet Count 110 10^3/cmm (130-400); Red Blood Count 3.92 10^6/uL (4.1-5.3); Red Cell Distribution Width 16.7 % (12.1-15.1); White Blood Count 16.4 10^3/uL (4.0-10.0)
--- NOTE | 2022-01-19 13:21 | ECG_ITS ---
[facility] Test Date: 2022-01-19 Pat Name: Aicha Nath Department: Room: Gender: Female R And D Lab Technician: : 1940 Requested By: Domingo De La Vega Order Number: [id number] Gillian MD: Jorje Lamar M.D. Measurements Intervals [place] Rate: 112 P: 57 HI: 159 QRS: 37 QRSD: 92 T: 48 QT: 335 QTc: 459 Interpretive Statements SINUS TACHYCARDIA Compared to ECG 02/19/2021 13:50:28 Sinus rhythm no longer present Electronically Signed On 01-20-2022 8:26:32 CDT by Jorje Lamar M.D. [email or web address] [email or web address] [id number]
[2022-01-19 13:27] LABS: Lactate (Lactic Acid level) 2.6 mmol/L (0.5-2.2)
[2022-01-19] MEDS: piperacillin-tazobactam 4.5 GM in sodium chloride 0.9% (plus) 50 ML IV (13:36)
[2022-01-19] MEDS: sodium chloride 0.9% 1,000 ML 999 ML IV (13:36)
[2022-01-19 13:37] LABS: Troponin(5th) Baseline 143 ng/L (0-10)
[2022-01-19 13:41] LABS: Alanine Aminotransferase 11 U/L (0-33); Albumin Level 3.1 g/dL (3.5-5.2); Alkaline Phosphatase 83 U/L (35-105); Aspartate Amino Transferase 17 U/L (0-32); Blood Urea Nitrogen 34 mg/dL (8-23); Calcium 9.6 mg/dL (8.5-10.5); Carbon Dioxide 22 mmol/L (22-29); Chloride 97 mmol/L (98-107); Globulin 4.4 g/dL (1.3-4.6); Glucose 121 mg/dL (65-115); Lipase 8 U/L (13-60); NT Pro B Type Natriuretic Pept 875 pg/mL (0-450); Osmolality Calculated 289 mOsm/kg (285-295); Sodium 135 mmol/L (136-145); Total Bilirubin 1.4 mg/dL (0.15-1.2); Total Protein 7.5 g/dL (6.6-8.7)
[2022-01-19 13:44] LABS: Add Urine Culture? Yes; Add Urine Microscopic? YES; Bacteria Urine 4+ /hpf; Bilirubin Urine Neg (Negative); Blood Urine 3+ (Negative); Glucose Urine UA Norm (Normal); Ketones Urine Negative (Negative); Leukocyte Esterase Urine 2+ (Negative); Nitrate Urine Negative (Negative); Protein Urine 2+ (Negative); RBC Urine 0-4 /hpf (0-2); Specific Gravity, Urine 1.025 (1.005-1.030); Squamous Epithelial Cell Urine 0-4 /hpf (0-5); Urine Appearance Cloudy (CLEAR); Urine Color Yellow (Yellow); Urobilinogen Urine Norm (Negative); WBC Urine TOO NUMEROUS TO CNT /hpf (0-5); pH Urine 5 (5-7)
[2022-01-19] MEDS: vancomycin 1,000 MG in sodium chloride 0.9% 250 ML 250 MG IV (14:11)
--- NOTE | 2022-01-19 15:13 | ECG_ITS ---
[facility] Test Date: 2022-01-19 Pat Name: Aicha Nath Department: Room: Gender: Female Cork Molder: : 1940 Requested By: Domingo De La Vega Order Number: [id number] Gillian MD: Jorje Lamar M.D. Measurements Intervals [place] Rate: 116 P: 61 NM: 168 QRS: 46 QRSD: 92 T: 62 QT: 437 QTc: 610 Interpretive Statements SINUS TACHYCARDIA NONSPECIFIC T-WAVE ABNORMALITY Compared to ECG 01/19/2022 13:21:42 T-wave abnormality now present Electronically Signed On 01-20-2022 8:21:57 CDT by Jorje Lamar M.D. [id number]
[2022-01-19 15:45] LABS: Troponin 5 2HR Delta 0.2 ABS# (0-10)
[2022-01-19 15:46] LABS: Troponin 5 2HR 143.2 ng/L (0-10)
--- NOTE | 2022-01-19 15:53 | PC.NURSE ---
Primary RN Tamar notified of critical troponin.
[2022-01-19 16:12] LABS: Adenovirus Not Detected (NOT DETECT); Chlamydia Pneumoniae Not Detected (NOT DETECT); Coronavirus 229E,HKU1,NL63,OC4 Not Detected (NOT DETECT); Human Metapneumovirus Not Detected (NOT DETECT); Human Rhinovirus/Enterovirus Not Detected (NOT DETECT); Influenza A Not Detected (NOT DETECT); Influenza A H1 Not Detected (NOT DETECT); Influenza A H1-2009 Not Detected (NOT DETECT); Influenza A H3 Not Detected (NOT DETECT); Influenza B Not Detected (NOT DETECT); Mycoplasma Pneumoniae Not Detected (NOT DETECT); Parainfluenza Virus Type 1 Not Detected (NOT DETECT); Parainfluenza Virus Type 2 Not Detected (NOT DETECT); Parainfluenza Virus Type 3 Not Detected (NOT DETECT); Parainfluenza Virus Type 4 Not Detected (NOT DETECT); Respiratory Syncytial Virus A Not Detected (NOT DETECT); Respiratory Syncytial Virus B Not Detected (NOT DETECT); SARS-COV-2 Not Detected (NOT DETECT)
--- NOTE | 2022-01-19 17:01 | P.HP_ITS ---
Providers/Chief Complaint Admitting Physician: Rodríguez Gupta MD Primary Care Provider: Keyon Echevarria MD Chief Complaint: AMS History of Present Illness Aicha Nath is a 81 year old female who has history of cancer follows up with Dr. Echevarria presented to hospital from home with chief complaint of altered mental status and generalized weakness. Patient is not able to provide any history after to call her daughter, she is stating that since Tuesday she has been experiencing fatigue and lethargy, she will talk to her for just short time span and then fall back asleep, in total she has had 3 episodes of emesis, she has not noticed any fever however chills were noted by her daughter, at baseline she does communicate with her daughter, she eats regular diet however appetite has been poor her daughter has been giving her boost In the ER diagnostic work-up is showing severe leukocytosis, she is afebrile, tachycardia noted, BARBARA with UTI In the ER she received 1 L of IV fluids along vancomycin and Zosyn I will check lactic acid we will give her 30 mill per KG IV fluid Review of Systems General: Reports: ROS unobtainable due to medical condition (Confusion, delirium with underlying dementia) and ROS unobtainable due to mental status Medications/Allergies Home Medications Medication Instructions Recorded Confirmed Last Taken Type furosemide 20 mg tablet 20 mg PO DAILY #30 tabs 10/26/21 01/19/22 01/18/22 Rx lenvatinib 20 mg/day (10 mg x 2) 20 mg PO DAILY #60 caps 12/03/21 01/19/22 01/18/22 Rx capsule acetaminophen 325 mg tablet 325 mg PO QID PRN Pain 12/30/21 01/19/22 Unknown History (Tylenol) prochlorperazine maleate 10 mg 10 mg PO Q4H PRN Nausea 01/19/22 01/19/22 Unknown History tablet Allergies Allergy/AdvReac Type Severity Reaction Status Date / Time No Known Allergies Allergy Verified 12/30/21 11:55 PFSH Acute PFSH: Medical History Endometrial cancer Lower extremity deep venous thrombosis Pulmonary embolism Surgical History H/O sigmoidoscopy Hx of cholecystectomy Hx of tonsillectomy Presence of IVC filter Family History Father Cancer Rectal Mother Cancer Tongue Other Diabetes Denies family history of CAD (coronary artery disease) Clotting disorder Dementia Hyperlipidemia Psychiatric illness Chronic kidney disease (CKD) Suicide Anesthesia complication Bleeding disorder Lung disease Hypertension Stroke Social History Smoking and tobacco status: never smoked Alcohol intake: never Vitals/I&O/Wt Last Vital Signs Temp 98.4 F 01/19/22 15:35 Pulse 108 H 01/19/22 15:35 Resp 15 01/19/22 15:35 BP 137/71 01/19/22 15:35 Pulse Ox 93 01/19/22 15:35 O2 Del Method 01/19/22 15:59 01/19/22 01/19/22 01/19/22 06:59 14:59 22:59 Intake Total 50 / 50 1250 / 1300 Balance 50 / 50 1250 / 1300 Weight last 48 hrs Weight 77.111 kg Weight 77.111 kg Physical Exam Narrative: Clinically patient looks very dehydrated Awake and alert Pleasant during my evaluation Able to follow commands Patient stating that she is not sure why she is in the hospital No slurring of speech Able to move her extremities Currently on room air Hemodynamically stable Lower extremity with dryness of skin Bilateral breath sounds with mild rhonchi No acute respiratory distress S1, S2 Abdomen soft Malnourished, muscle mass loss Data : 01/19/22 13:00 01/19/22 13:00 Micro: Microbiology 01/19/22 13:48 Blood Culture - Preliminary Blood SPECIMEN COLLECTED 01/19/22 13:24 Blood Culture - Preliminary Blood SPECIMEN COLLECTED A&P Assessment and plan (1) UTI (urinary tract infection): (2) Sepsis: (3) Immunocompromised: (4) Presence of IVC filter: (5) Secondary malignant neoplasm of right lung: (6) 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: (7) Other abnormal tumor markers: (8) Metastatic adenocarcinoma: (9) Loss of appetite: Plan Sepsis related to UTI, criteria met with tachypnea tachycardia leukocytosis, BARBARA Sepsis related metabolic encephalopathy I will start her on meropenem along vancomycin Check UA and obtain blood cultures, check lactic acid We will give her septic bolus She had received 1 L in the ER I will give another 1500 mill bolus Check procalcitonin and TSH Blood cultures have been taken in the ER I will keep her on vancomycin and meropenem Check lactic acid in the morning I will keep her on mechanical soft diet for now Clinically she does look dehydrated BARBARA related to dehydration, monitor for any signs of low output that might necessitate kidney ultrasound or CT abdomen pelvis to rule out postobstructive etiology Patient is full code Will need to discuss with the family DVT prophylaxis Lovenox Attestations Medical Necessity Statement*: Will need hospitalization more than 2 midnights for sepsis, UTI Time Spent in Patient Care: 40 Coding Level of Care Code Acute Senior Web Developer for g Fwd Diagnoses UTI (urinary tract infection) N39.0 Sepsis A41.9 Immunocompromised D84.9 Presence of IVC filter Z95.828 Secondary malignant neoplasm of right lung C78.01 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
[2022-01-19] MEDS: enoxaparin 40 mg/0.4 mL Syringe SUBCUT (17:36)
[2022-01-19] MEDS: sodium chloride 0.9% 1,000 ML 75 ML IV (17:37)
[2022-01-19 17:48] LABS: Procalcitonin 1.41 ng/mL (0-0.5); Thyroid Stimulating Hormone 0.94 uIU/mL (0.27-4.20)
[2022-01-19 18:07] LABS: Lactate (Lactic Acid level) 2.7 mmol/L (0.5-2.2)
[2022-01-19] MEDS: meropenem 1,000 MG in sodium chloride 0.9% (plus) 50 ML 100 MG IV (18:48)
--- NOTE | 2022-01-19 18:49 | ECG_ITS ---
[facility] Test Date: 2022-01-19 Pat Name: Aicha Nath Department: Room: 263 Gender: Female Physical Therapy Professor: : 1940 Requested By: Domingo De La Vega Order Number: [id number] Reading MD: Jorje Lamar M.D. Measurements Intervals [place] Rate: 111 P: 54 NE: 154 QRS: 40 QRSD: 91 T: 40 QT: 346 QTc: 470 Interpretive Statements SINUS TACHYCARDIA MODERATE T-WAVE ABNORMALITY, CONSIDER ANTERIOR ISCHEMIA [-0.1+ mV T-WAVE IN V3/V4] Compared to ECG 01/19/2022 15:13:20 Possible ischemia now present T-wave abnormality still present Electronically Signed On 01-20-2022 8:23:11 CDT by Jorje Lamar M.D. [id number]
[2022-01-19 19:49] LABS: Troponin 5 6HR Delta 6.1 ng/L (0-12)
[2022-01-19 19:51] LABS: Troponin 5 6HR 149.1 ng/L (0-10)
--- NOTE | 2022-01-19 22:52 | PC.NURSE ---
Patient oriented to person only. Bed alarm is set.
[2022-01-20] VITALS (10 sets, daily range): BP systolic 94–108; BP diastolic 57–70; PULSE 98–115; RESP 16–20; TEMP 36.6–38; O2SAT 92–96
[2022-01-20] MEDS: meropenem 1,000 MG in sodium chloride 0.9% (plus) 50 ML 100 MG IV ×3 (01:35→19:36)
[2022-01-20] MEDS: sodium chloride 0.9% 1,000 ML 75 ML IV (01:36)
[2022-01-20] MEDS: acetaminophen 500 mg Tablet PO ×2 (01:40→15:41)
[2022-01-20 05:06] LABS: Basophils % 0.2 %; Hematocrit 34.6 % (37.0-47.0); Hemoglobin 10.9 g/dL (11.5-15.3); Lymphocytes # 0.3 10^3/uL (0.8-4.8); Lymphocytes % 2.7 %; Mean Corpuscular HGB Conc 31.5 g/dL (30.0-36.0); Mean Corpuscular Hemoglobin 32.2 pg (28.0-34.0); Mean Corpuscular Volume 102.4 fl (81-99); Mean Platelet Volume 10.3 fL (7.4-10.4); Monocytes # 0.6 10^3/uL (0.2-0.9); Monocytes % 5.7 %; Neutrophils # 9.12 10^3/uL (1.8-7.7); Neutrophils % 90.2 %; Nucleated Red Blood Cells % 0 %; Platelet Count 85 10^3/cmm (130-400); Red Blood Count 3.38 10^6/uL (4.1-5.3); Red Cell Distribution Width 17.1 % (12.1-15.1); White Blood Count 10.1 10^3/uL (4.0-10.0)
[2022-01-20 05:33] LABS: Alanine Aminotransferase 8 U/L (0-33); Albumin Level 2.4 g/dL (3.5-5.2); Alkaline Phosphatase 68 U/L (35-105); Anion Gap 16.5 (5-19); Aspartate Amino Transferase 14 U/L (0-32); Blood Urea Nitrogen 30 mg/dL (8-23); C Reactive Protein 293.8 mg/L (0.0-4.9); Calcium 8.8 mg/dL (8.5-10.5); Carbon Dioxide 20 mmol/L (22-29); Chloride 105 mmol/L (98-107); Globulin 3.9 g/dL (1.3-4.6); Glucose 136 mg/dL (65-115); Magnesium 1.9 mg/dL (1.7-2.3); Osmolality Calculated 294 mOsm/kg (285-295); Potassium 3.5 mmol/L (3.5-5.1); Sodium 138 mmol/L (136-145); Total Bilirubin 0.8 mg/dL (0.15-1.2); Total Protein 6.3 g/dL (6.6-8.7)
[2022-01-20] MEDS: sennosides-docusate Tablet 1 TAB PO (07:51)
--- NOTE | 2022-01-20 08:10 | CTR_ITS ---
PROCEDURE INFORMATION: Exam: CT Abdomen And Pelvis Without Contrast Exam date and time: 01/20/2022 4:17 PM Age: 81 years old Clinical indication: Abdominal tenderness; Prior surgery; Surgery type: Hyst, port; Additional info: Vicente TECHNIQUE: Imaging protocol: Computed tomography of the abdomen and pelvis without contrast. Radiation optimization: All CT scans at this facility use at least one of these dose optimization techniques: automated exposure control; mA and/or kV adjustment per patient size (includes targeted exams where dose is matched to clinical indication); or iterative reconstruction. COMPARISON: 1. CT abdomen pelvis w con* [id number] 11/02/2021 2:[address] abdomen pelvis w con* [id number] 02/15/2021 12:[address] chest abd pel w con* 08/19/2021 11:[address] abdomen pelvis w con* [id number] 01/06/2021 3:40 PM RADIATION DOSE METRICS: Total DLP (mGy-cm): 770.64 FINDINGS: Limitations: The absence of intravenous contrast lessens the sensitivity of this study for solid organ abnormalities. Tubes, catheters and devices: Possible omental implants in the ventral hernia not significantly changed. Lungs: There is atelectasis and consolidation posteriorly at the right lung base. There is residual pleural thickening and loculated pleural fluid at the right lung base probably not significantly changed from 11/02/2021. Pleural spaces: There is small left pleural effusion. Liver: There is a 5 mm sized hypodense lesion inferior tip of the right lobe of the liver not significantly changed since 01/06/2021, probably small cyst. There are 2 new lesions in the right lobe of the liver measuring around 1 cm which are worrisome for hepatic metastasis. Gallbladder and bile ducts: Cholecystectomy. Pancreas: Pancreas is atrophic. No focal pancreatic mass is identified. Spleen: The spleen is normal. The lesion near the splenic hilus seen on the previous study is not identified on this noncontrast exam. Adrenal glands: The adrenal glands are normal. Kidneys and ureters: There is moderate right hydronephrosis. The left kidney is normal. There is no evidence of renal or ureteral calcifications. There is no evidence of left hydronephrosis. Stomach and bowel: There is no evidence of colitis/diverticulitis. There is no evidence of intestinal obstruction. Appendix: Not identified Intraperitoneal space: There is a small amount of free intraperitoneal fluid present. 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 An inferior vena cava filter lies in appropriate position. 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 The aorta demonstrates moderate atherosclerotic calcification. There is no evidence of an abdominal aortic aneurysm. Lymph nodes: There is no evidence of lymphadenopathy. Right paraesophageal lymph node seen on image number 10 of series 4 not significantly changed. Urinary bladder: Unremarkable as visualized. Reproductive: Uterus is enlarged contains central mass with fluid and peripheral calcification. This is larger than on the previous examinations measuring 9.3 x 14.6 cm on the sagittal plane compared with 12.8 x 8.5 cm on 11/02/2021. Bones/joints: Suspected sclerotic metastasis T11 level not significantly changed. Soft tissues: There is a tiny pocket of subcutaneous air right lower quadrant anterior abdominal wall likely representing site of medication injection. There is a small ventral hernia which this containing tiny bit of fat smaller than on the previous examination. Retroperitoneal soft tissue at the L5 level which is the likely cause of the right hydronephrosis and hydroureter measures approximately 26 x 27 mm compared with 14 x 18 mm on the previous exam. The suspected peritoneal implants described on the prior contrast examination are not as well seen on this noncontrast study. The focal soft tissue density collection adjacent to the inferior right lobe of the liver not significantly changed. CT/CT abdomen pelvis con [id number] IMPRESSION: 1. Enlarging pelvic mass 2. Stable findings of the right lung base compared with 11/02/2021 3. New small left pleural effusion 4. 2 new hepatic lesions worrisome for metastasis COMMENTS: For patients with an IVC filter, recommend assessment for a management plan for the patient's IVC filter. If there is no established management plan, recommend referral to an interventional clinician on a nonemergent basis for evaluation.
--- NOTE | 2022-01-20 09:02 | PC.CHAP ---
Pastoral Care Encounter/Spiritual Assessment Type of Contact [] Declined hospital nurse visit [] Patient/Family/Request visit [] Outpatient visit [] Follow-up visit [] Physician referral [] Code/Alert [x] Routine visit [] Staff referral [] Actively dying [] Patient sleeping [] Family support [] [] Out of room [] Palliative care [] [] Receiving care in room [] Pre-surgical visit [] Trauma [] Long length of stay [] ICU visit [] Other: Relational/Emotional Strength [] Patient feels connected with others/family/visitors/staff [] Distress [] Loneliness/isolation [] Abandonment Spirituality of Patient [x] Person of Eufemia [] Attends Moravian of their Eufemia [x] Believes in Prayer [] Reads Bible or Hoahaoism materials [] There are Spiritual issues to be addressed Director Sales And Marketing Interventions [x] Prayer [x] Active listening [x] Non-anxious presence [x] Spiritual/emotional support [] Crisis/trauma care [] Spiritual counseling [] Bereavement support [] Provided bereavement packet [] Provided Bible/devotional materials [] Provided toy/stuffed animal, coloring book to patient or family member [] Provided Communion [] Anointing/Veteran [] Salvation [x] Completed spiritual assessment [] Other: Impact on Illness or Injury [] Angry [] Fearful [] Anxious [] Often cries [] Exhaustion [] Unable to work [] Unable to attend yazidi [] Unable to walk/stand [] Unable to read [] Unable to drive [] Unable to eat/drink [] Unable to sleep [] Unable to be with family [] Patient intubated [] Other: Summary Pt believes she will be released today. She lives with daughter so someone will be able to assist her if needed. Pt has several children, grandchildren, and great grandchildren. Time spent with patient 10m
[2022-01-20] MEDS: ipratropium-albuterol 3 mL Neb INHALATION (10:26)
--- NOTE | 2022-01-20 13:04 | P.PN_ITS ---
Subjective Subjective: Significant improvement in white count Low-grade fever noted overnight Patient is much more alert and awake today as compared to yesterday Vitals/I&O/Wt Last Vital Signs Temp 97.8 F 01/20/22 12:00 Pulse 106 H 01/20/22 12:00 Resp 18 01/20/22 12:00 BP 104/66 01/20/22 12:00 Pulse Ox 92 01/20/22 12:00 O2 Del Method 01/20/22 12:00 O2 Flow Rate 2 01/20/22 01:00 01/19/22 01/20/22 01/20/22 22:59 06:59 14:59 Intake Total 2850 / 2900 648.75 / 3548.75 360 / 360 Balance 2850 / 2900 648.75 / 3548.75 360 / 360 Weight last 48 hrs Weight 77.111 kg Weight 77.111 kg Physical Exam Narrative: Patient is looking dehydrated however less as compared to yesterday Currently on room air Awake and alert Nonfocal neuro exam Lower extremity are dry No active signs of cellulitis No active telemetry meningoencephalitis Awake and alert able to answer my questions Pleasant during my evaluation Concern for aspiration with food Currently she is on room air No active stridor or wheezing Data : 01/20/22 04:43 01/20/22 04:43 Micro: Microbiology 01/19/22 13:15 Urine Culture - Preliminary Urine,Clean Catch Gram Negative Rods 01/19/22 13:24 Blood Culture - Preliminary Blood 01/19/22 13:48 Blood Culture - Preliminary Blood SPECIMEN COLLECTED A&P Assessment and plan (1) UTI (urinary tract infection): (2) Sepsis: (3) Immunocompromised: (4) Abdominal hernia: (5) Presence of IVC filter: (6) Pulmonary embolism: (7) Secondary malignant neoplasm of right lung: (8) 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 until speech evaluation Patient was drinking Ensure at the time of my evaluation I would continue on broad-spectrum antibiotics for now DVT prophylaxis on board Troponin leakage however no active chest pain, will do echo to rule out wall motion abnormality, it could be type II [place] with underlying sepsis I will keep her on therapeutic Lovenox, biphasic T waves Attestations Medical Necessity Statement*: Continue medical management Time Spent in Patient Care: 40 Coding Level of Care Code Acute Building Construction Teacher for g Fwd Diagnoses UTI (urinary tract infection) N39.0 Sepsis A41.9 Immunocompromised D84.9 Abdominal hernia K46.9 Presence of IVC filter Z95.828 Pulmonary embolism I26.99 Secondary malignant neoplasm of right lung C78.01 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
--- NOTE | 2022-01-20 13:07 | USCV_ITS ---
Aicha Nath Age: 81 Gender: F : 1940 Exam Date: 01/20/2022 15:16 Ordering Phys: Rodríguez Gupta MD Technologist: NANDO Exam Location: [facility] [place] Indication: Sepsis BP: 104 / 66 HR: 105 Rhythm: Sinus Technical Quality: Suboptimal MEASUREMENTS (Male / Female) Normal Values 2D ECHO LV Ejection Fraction MOD 2C 58.1 % LV Ejection Fraction 2C AL 60.3 % LA Width 2.6 cm LA Height 4.1 cm RA Width 2.5 cm RA Height 4.1 cm DOPPLER AV Peak Velocity 120.0 cm/s LVOT Peak Velocity 105.0 cm/s MV Peak Velocity 83.0 cm/s MV Area PHT 3.3 cm squared Mitral E to A Ratio 0.8 MV E' Velocity 34.0 cm/s Mitral E to MV E' Ratio 6.4 Mitral E to LV E' Lateral Ratio 5.5 Mitral E to LV E' Septal Ratio 7.8 TR Peak Velocity 219.1 cm/s TR Peak Gradient 19.2 mmHg TR Mean Velocity 185.6 cm/s TR Mean Gradient 14.0 mmHg TR Velocity Time Integral 51.8 cm TV Peak E Velocity 42.0 cm/s Right Atrial Pressure 8.0 mmHg Pulmonary Artery Systolic Pressu 27.2 mmHg FINDINGS Left Ventricle Possibly normal left atrial size and systolic function. Left ventricular ejection fraction grossly estimated at 65%. This study is inadequate for estimation of regional wall motion abnormality. Right Ventricle Normal right ventricular size and systolic function. Right ventricular systolic pressure 27.2 mmHg. Right Atrium Normal right atrial size. Left Atrium Left atrium not well visualized. Probably normal left atrial size. Mitral Valve Structurally normal mitral valve. No mitral valve stenosis. No mitral valve regurgitation. Aortic Valve Aortic valve not well visualized. No aortic valve stenosis. Tricuspid Valve Structurally normal tricuspid valve. Trace tricuspid valve regurgitation. Pulmonic Valve Pulmonic valve not well visualized. Pericardium No pericardial effusion. Aorta Aorta not well visualized. IVC Inferior vena cava not visualized. CONCLUSIONS 1. This is a technically difficult study. 2. Possibly normal left atrial size and systolic function. Left ventricular ejection fraction grossly estimated at 65%. This study is inadequate for estimation of regional wall motion abnormality. 3. Direct comparison to previous study dated 02/20/2021 is not possible due to technically difficult study. Laura Manuel MD (Electronically Signed) Final Date: 20 January 2022 16:54 S
[2022-01-20] MEDS: vancomycin 1,250 MG/250 ML PIGGYBACK 250 MG IV (15:38)
[2022-01-20] MEDS: enoxaparin 80 mg/0.8 mL Syringe SUBCUT (20:16)
[2022-01-21] VITALS (8 sets, daily range): BP systolic 96–127; BP diastolic 60–79; PULSE 90–104; RESP 15–16; TEMP 36.8–37.2; O2SAT 93–98
[2022-01-21] MEDS: meropenem 1,000 MG in sodium chloride 0.9% (plus) 50 ML 100 MG IV ×2 (03:12→10:10)
[2022-01-21 03:36] LABS: Basophils % 0.5 %; Hematocrit 34.4 % (37.0-47.0); Hemoglobin 10.9 g/dL (11.5-15.3); Lymphocytes # 0.3 10^3/uL (0.8-4.8); Lymphocytes % 6.6 %; Mean Corpuscular HGB Conc 31.7 g/dL (30.0-36.0); Mean Corpuscular Hemoglobin 32.1 pg (28.0-34.0); Mean Corpuscular Volume 101.2 fl (81-99); Mean Platelet Volume 10.7 fL (7.4-10.4); Monocytes # 0.3 10^3/uL (0.2-0.9); Monocytes % 7.5 %; Neutrophils # 3.73 10^3/uL (1.8-7.7); Neutrophils % 84.7 %; Nucleated Red Blood Cells % 0 %; Platelet Count 77 10^3/cmm (130-400); Red Cell Distribution Width 16.9 % (12.1-15.1); White Blood Count 4.4 10^3/uL (4.0-10.0)
[2022-01-21 04:03] LABS: Anion Gap 15.1 (5-19); Blood Urea Nitrogen 22 mg/dL (8-23); Calcium 8.6 mg/dL (8.5-10.5); Carbon Dioxide 20 mmol/L (22-29); Chloride 105 mmol/L (98-107); Glucose 119 mg/dL (65-115); Osmolality Calculated 288 mOsm/kg (285-295); Potassium 3.1 mmol/L (3.5-5.1); Sodium 137 mmol/L (136-145)
[2022-01-21 04:05] LABS: Creatinine Clr Calc Pharmacy 45.8472
[2022-01-21] MEDS: sodium chloride 0.9% 1,000 ML 75 ML IV ×2 (06:01→17:11)
--- NOTE | 2022-01-21 07:11 | PC.NURSE ---
Bedside Report given to Manasa PERES at this time
[2022-01-21] MEDS: enoxaparin 80 mg/0.8 mL Syringe SUBCUT (08:56)
[2022-01-21] MEDS: lidocaine 1% 5 ML in potassium chloride premix 100 ML 25 ML IV (08:57)
[2022-01-21] MEDS: sennosides-docusate Tablet 1 TAB PO (08:57)
--- NOTE | 2022-01-21 11:34 | P.PN_ITS ---
Subjective Subjective: I updated the patient and her daughter regarding CT abdomen pelvis findings Daughter stating that she want people to care for her mother and wanted retirement placement she will be able to financially assist her and is agreeable with comfort care Patient is stating that she would like to go to retirement on comfort care I have updated case making machine operator Vitals/I&O/Wt Last Vital Signs Temp 98.7 F 01/21/22 07:52 Pulse 94 01/21/22 07:59 Resp 16 01/21/22 07:59 BP 100/67 01/21/22 07:52 Pulse Ox 95 01/21/22 07:59 O2 Del Method 01/21/22 07:59 O2 Flow Rate 2 01/20/22 21:26 01/20/22 01/21/22 01/21/22 22:59 06:59 14:59 Intake Total 300 / 1710 50 / 1760 410 / 410 Balance 300 / 1710 50 / 1760 410 / 410 Weight last 48 hrs Weight 77.111 kg Weight 77.111 kg Physical Exam Narrative: Patient is eating breakfast when entered the room Awake and alert Nonfocal neuro exam Short attention span However able to answer my questions appropriately She is oriented to time place and person No new focal deficit Signs of dehydration improving Abdomen soft Currently on room air Data : 01/21/22 02:55 01/21/22 02:55 Micro: Microbiology 01/19/22 13:48 Blood Culture - Preliminary Blood NEGATIVE TO DATE 01/19/22 13:15 Urine Culture - Preliminary Urine,Clean Catch Gram Negative Rods A&P Assessment and plan (1) UTI (urinary tract infection): (2) Sepsis: (3) Immunocompromised: (4) Other penitentiary (current) drug therapy: (5) Presence of IVC filter: (6) Secondary malignant neoplasm of right lung: (7) 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: (8) Other abnormal tumor markers: (9) Metastatic adenocarcinoma: (10) Loss of appetite: Plan 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 To new hepatic metastatic lesions identified Pelvic mass increasing in dimensions Daughter stating that she want to take care of her Patient has opted for comfort care at a retirement correctional case manager has been updated Sepsis resolved UTI: Symptoms resolved, continue antibiotics De-escalate antibiotic, She has IVC filter I will switch her Lovenox to prophylactic regimen Sinus tachycardia has improved which was related to dehydration Blood pressure is better Currently on room air Comfort care DNR/DNI Attestations Medical Necessity Statement*: Discharge retirement on comfort care Time Spent in Patient Care: 40 Coding Level of Care Code Acute Painting Machine Operator for Chg Fwd Diagnoses UTI (urinary tract infection) N39.0 Sepsis A41.9 Immunocompromised D84.9 Other truck terminal manager (current) drug therapy Z79.899 Presence of IVC filter Z95.828 Secondary malignant neoplasm of right lung C78.01 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
[2022-01-21] MEDS: nitrofurantoin SR (BID) 100 mg Capsule PO (17:09)
[2022-01-22] VITALS: BP 106/68; PULSE 86; RESP 17; TEMP 36.7; O2SAT 95
[2022-01-22 04:53] VITALS: BP 119/72; PULSE 82; TEMP 36.7; O2SAT 94
--- NOTE | 2022-01-22 07:05 | PC.NURSE ---
Bedside report given to Jesus PERES at this time.
[2022-01-22 08:00] VITALS: BP 116/76; PULSE 83; RESP 16; TEMP 36.7; O2SAT 96
[2022-01-22 09:14] VITALS: PULSE 85; RESP 16; O2SAT 99
[2022-01-22] MEDS: enoxaparin 40 mg/0.4 mL Syringe SUBCUT (10:18)
[2022-01-22] MEDS: nitrofurantoin SR (BID) 100 mg Capsule PO (10:18)
[2022-01-22] MEDS: sodium chloride 0.9% 1,000 ML 75 ML IV (10:19)
[2022-01-22] MEDS: sennosides-docusate Tablet 1 TAB PO (10:19)
--- NOTE | 2022-01-22 11:17 | PC.SOCIAL ---
IMM Update pg 2 of IMM updated and reviewed w/ patient. Copy provided and copy dated, initialed and placed in chart.
--- NOTE | 2022-01-22 11:59 | PM.PN ---
Subjective Subjective: Patient was eating breakfast this morning No active complaints No active pain She is agreeable to go to group home with comfort care Daughter actually is not in a position to financially support her mother at the group home I have updated returned case inspector today Vitals/I&O/Wt Last Vital Signs Temp 98.1 F 01/22/22 08:00 Pulse 85 01/22/22 09:14 Resp 16 01/22/22 09:14 BP 116/76 01/22/22 08:00 Pulse Ox 99 01/22/22 09:14 O2 Del Method 01/22/22 09:14 O2 Flow Rate 2 01/21/22 19:45 01/21/22 01/22/22 01/22/22 22:59 06:59 14:59 Intake Total 2527.5 / 3162.5 1240 / 4402.5 240 / 240 Balance 2527.5 / 3162.5 1240 / 4402.5 240 / 240 Physical Exam Narrative: She was eating breakfast Currently on room air Awake and alert Sign of dehydration improving Abdomen distended nontender legs w trace edema Awake and alert, pleasant during evaluation Nonfocal neuro exam Data : 01/21/22 02:55 01/21/22 02:55 Micro: Microbiology 01/19/22 13:15 Urine Culture - Final Urine,Clean Catch Morganella morganii A&P Assessment and plan (1) UTI (urinary tract infection): (2) Sepsis: (3) Immunocompromised: (4) Presence of IVC filter: (5) Pulmonary embolism: (6) Secondary malignant neoplasm of right lung: (7) 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: (8) Metastatic adenocarcinoma: (9) Loss of appetite: Plan Sepsis: Resolved Metabolic encephalopathy related to sepsis and UTI improved Signs of dehydration improving with IV fluids Patient had a solitary go to group home with comfort care Daughter cannot assist her financially nor can take care of her at home She works 1 PM till 8 PM at a [employer] Attestations Medical Necessity Statement*: Awaiting placement Time Spent in Patient Care: 30 Coding Level of Care Code Acute System Support Developer for g Fwd Diagnoses UTI (urinary tract infection) N39.0 Sepsis A41.9 Immunocompromised D84.9 Presence of IVC filter Z95.828 Pulmonary embolism I26.99 Secondary malignant neoplasm of right lung C78.01 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
[2022-01-22 12:00] VITALS: BP 106/69; PULSE 88; RESP 16; TEMP 37.1; O2SAT 95
--- NOTE | 2022-01-22 13:51 | P.DS_ITS ---
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 Echevarria, her chemotherapy was stopped because of poor prognosis with rapid progression of cancer metastasis and poor functional status, presented to the hospital for metabolic encephalopathy related to UTI she was treated with broad-spectrum antibiotics initially, her mentation improved, blood cultures negative, urine culture showed gram-negative rods/E. coli pansensitive, she was transitioned to nitrofurantoin. Patient wanted to go on hospice/palliative care at a [facility] because her daughter will not be able to take care of her. She works full-time and is not in a position to financially support her as well. She is being discharged home and then palliative team will admit her to their inpatient service. Physical Exam Narrative: She was eating breakfast Currently on room air Awake and alert Sign of dehydration improving Abdomen distended nontender legs w trace edema Awake and alert, pleasant during evaluation Nonfocal neuro exam Discharge Data Studies Completed and Pending Completed Studies During Hospitalization Category Date Time Status CT abdomen pelvis wo con [id number] Routine Cat Scan 01/20/22 08:[address] head wo con* [id number] Stat Cat Scan 01/19/22 13:02 Completed XR chest 1V portable [id number] Stat Exams 01/19/22 13:02 Completed CV. echo complete* [id number] Routine Ultrasound 01/20/22 13:07 Completed Pending at discharge Category Date Time Status Blood Culture Stat Lab 01/19/22 13:48 Results Radiology Impressions Chest X-Ray 01/19/22 13:02 IMPRESSION: 1. No acute findings. 2. Right central line in the SVC 3. Small right lower lobe pleural effusion Head CT 01/19/22 13:02 IMPRESSION: 1. No acute intracranial hemorrhage or edema. 2. Mild atrophy and mild small vessel ischemic disease. Abdomen/Pelvis CT 01/20/22 08:10 IMPRESSION: 1. Enlarging pelvic mass 2. Stable findings of the right lung base compared with 11/02/2021 3. New small left pleural effusion 4. 2 new hepatic lesions worrisome for metastasis COMMENTS: For patients with an IVC filter, recommend assessment for a management plan for the patient's IVC filter. If there is no established management plan, recommend referral to an interventional clinician on a nonemergent basis for evaluation. Laboratory Results WBC 4.4 10^3/uL (4.0-10.0) 01/21/22 02:55 RBC 3.40 10^6/uL (4.1-5.3) L 01/21/22 02:55 Hgb 10.9 g/dL (11.5-15.3) L 01/21/22 02:55 Hct 34.4 % (37.0-47.0) L 01/21/22 02:55 MCV 101.2 fl (81-99) H 01/21/22 02:55 MCH 32.1 pg (28.0-34.0) 01/21/22 02:55 MCHC 31.7 g/dL (30.0-36.0) 01/21/22 02:55 RDW 16.9 % (12.1-15.1) H 01/21/22 02:55 Plt Count 77 10^3/cmm (130-400) L 01/21/22 02:55 MPV 10.7 fL (7.4-10.4) H 01/21/22 02:55 Neut % (Auto) 84.7 % 01/21/22 02:55 Lymph % (Auto) 6.6 % 01/21/22 02:55 [place] % (Auto) 7.5 % 01/21/22 02:55 Eos % (Auto) 0.0 % 01/21/22 02:55 Baso % (Auto) 0.5 % 01/21/22 02:55 Neut # (Auto) 3.73 10^3/uL (1.8-7.7) 01/21/22 02:55 Lymph # (Auto) 0.3 10^3/uL (0.8-4.8) L 01/21/22 02:55 [place] # (Auto) 0.3 10^3/uL (0.2-0.9) 01/21/22 02:55 Eos # (Auto) 0.0 10^3/uL (0.0-0.8) 01/21/22 02:55 Baso # (Auto) 0.0 10^3/uL (0.0-0.1) 01/21/22 02:55 Nucleated RBC % (auto) 0 % 01/21/22 02:55 Nucleated RBCs # 0.0 /100WBC 01/21/22 02:55 Sodium 137 mmol/L (136-145) 01/21/22 02:55 Potassium 3.1 mmol/L (3.5-5.1) L 01/21/22 02:55 Chloride 105 mmol/L (98-107) 01/21/22 02:55 Carbon Dioxide 20 mmol/L (22-29) L 01/21/22 02:55 Anion Gap 15.1 (5-19) 01/21/22 02:55 BUN 22 mg/dL (8-23) 01/21/22 02:55 Creatinine 1.0 mg/dL (0.5-0.9) H 01/21/22 02:55 GFR Calculation Not Reportable 01/21/22 02:55 Glucose 119 mg/dL (65-115) H 01/21/22 02:55 Calculated Osmolality 288 mOsm/kg (285-295) 01/21/22 02:55 Lactate 2.7 mmol/L (0.5-2.2) H 01/19/22 17:35 Calcium 8.6 mg/dL (8.5-10.5) 01/21/22 02:55 Magnesium 1.9 mg/dL (1.7-2.3) 01/20/22 04:43 Total Bilirubin 0.8 mg/dL (0.15-1.2) 01/20/22 04:43 AST 14 U/L (0-32) 01/20/22 04:43 ALT 8 U/L (0-33) 01/20/22 04:43 Alkaline Phosphatase 68 U/L (35-105) 01/20/22 04:43 Troponin T Baseline 143 ng/L (0-10) H* 01/19/22 13:00 Troponin T 120 Minute 143.2 ng/L (0-10) H 01/19/22 15:09 Delta Troponin T 0.2 ABS# (0-10) 01/19/22 15:09 Troponin T Hi Sens 6Hr 149.1 ng/L (0-10) H 01/19/22 19:03 Troponin T Hi Sens 6Hr Delta 6.1 ng/L (0-12) 01/19/22 19:03 C-Reactive Protein 293.8 mg/L (0.0-4.9) H 01/20/22 04:43 NT-Pro-B Natriuret Pep 875 pg/mL (0-450) H 01/19/22 13:00 Total Protein 6.3 g/dL (6.6-8.7) L 01/20/22 04:43 Albumin 2.4 g/dL (3.5-5.2) L 01/20/22 04:43 Globulin 3.9 g/dL (1.3-4.6) 01/20/22 04:43 Lipase 8 U/L (13-60) L 01/19/22 13:00 Procalcitonin 1.41 ng/mL (0-0.5) H 01/19/22 15:09 Procalcitonin Cancelled 01/19/22 15:09 TSH 0.94 uIU/mL (0.27-4.20) 01/19/22 15:09 Urine Color Yellow (Yellow) 01/19/22 13:15 Urine Appearance Cloudy (CLEAR) A 01/19/22 13:15 Urine pH 5 (5-7) 01/19/22 13:15 Ur Specific [place] 1.025 (1.005-1.030) 01/19/22 13:15 Urine Protein 2+ (Negative) H 01/19/22 13:15 Urine Glucose (UA) Norm (Normal) 01/19/22 13:15 Urine Ketones Negative (Negative) 01/19/22 13:15 Urine Blood 3+ (Negative) H 01/19/22 13:15 Urine Nitrate Negative (Negative) 01/19/22 13:15 Urine Bilirubin Neg (Negative) 01/19/22 13:15 Urine Urobilinogen Norm mg/dL (Negative) 01/19/22 13:15 Ur Leukocyte Esterase 2+ (Negative) H 01/19/22 13:15 Urine RBC 0-4 /hpf (0-2) H 01/19/22 13:15 Urine WBC Too numerous to cnt /hpf (0-5) H 01/19/22 13:15 Ur Squamous Epith Cells 0-4 /hpf (0-5) H 01/19/22 13:15 Amorphous Sediment Not Reportable 01/19/22 13:15 Urine Bacteria 4+ /hpf (NONE) H 01/19/22 13:15 Nasal Influ A H1 2009 PCR Not detected (NOT DETECT) 01/19/22 14:20 Adenovirus (PCR) Not detected (NOT DETECT) 01/19/22 14:20 C. pneumoniae DNA (PCR) Not detected (NOT DETECT) 01/19/22 14:20 Coronavirus 229E (PCR) Not detected (NOT DETECT) 01/19/22 14:20 Human Metapneumovir PCR Not detected (NOT DETECT) 01/19/22 14:20 Influenza A (H1) PCR Not detected (NOT DETECT) 01/19/22 14:20 Influenza A (H3) PCR Not detected (NOT DETECT) 01/19/22 14:20 Influenza Type A (PCR) Not detected (NOT DETECT) 01/19/22 14:20 Influenza Type B (PCR) Not detected (NOT DETECT) 01/19/22 14:20 M. pneumoniae (PCR) Not detected (NOT DETECT) 01/19/22 14:20 Parainfluenza 1 (PCR) Not detected (NOT DETECT) 01/19/22 14:20 Parainfluenza 2 (PCR) Not detected (NOT DETECT) 01/19/22 14:20 Parainfluenza 3 (PCR) Not detected (NOT DETECT) 01/19/22 14:20 Parainfluenza 4 (PCR) Not detected (NOT DETECT) 01/19/22 14:20 RSV Type A (PCR) Not detected (NOT DETECT) 01/19/22 14:20 RSV Type B (PCR) Not detected (NOT DETECT) 01/19/22 14:20 Entero/Rhino (PCR) Not detected (NOT DETECT) 01/19/22 14:20 SARS-CoV-2 (PCR) Not detected (NOT DETECT) 01/19/22 14:20 Vitals Last Vital Signs Temp 98.7 F 01/22/22 12:00 Pulse 88 01/22/22 12:00 Resp 16 01/22/22 12:00 BP 106/69 01/22/22 12:00 Pulse Ox 95 01/22/22 12:00 O2 Del Method 01/22/22 12:00 O2 Flow Rate 2 01/21/22 19:45 Discharge Plan Discharge Patient Disposition: Hospice - Home Condition: Stable Prescriptions: New nitrofurantoin monohyd/m-cryst 100 mg Capsule 100 mg PO BID Qty: 10 0RF Continued acetaminophen [Tylenol] 325 mg tablet 325 mg PO QID PRN (Reason: Pain) furosemide 20 mg tablet 20 mg PO DAILY Qty: 30 3RF lenvatinib 20 mg/day (10 mg x 2) capsule 20 mg PO DAILY Qty: 60 0RF prochlorperazine maleate 10 mg Tablet 10 mg PO Q4H PRN (Reason: Nausea) Discharge Orders: Discharge Order (Routine); Ordered 01/22/22 Ordered By: Rodríguez Gupta Referrals: Corin De La Rosa NP [Referring] - 01/28/22 10:00 am Discharge Diet: Soft Mechanical Discharge Attestations Time Spent in Discharge Care*: less than 30 min Quality Metrics Clinical Quality Measures [ No reported AMI, CVA or VTE this stay] Coding Level of Care Code Acute Chg FW DC note Diagnoses UTI (urinary tract infection) N39.0 Sepsis A41.9 Immunocompromised D84.9 Presence of IVC filter Z95.828 Pulmonary embolism I26.99 Secondary malignant neoplasm of right lung C78.01 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
--- NOTE | 2022-01-22 15:10 | PC.NURSE ---
Report called to Tristan PATTERSON, EMT. No further questions.
--- NOTE | 2022-01-22 15:39 | PC.NURSE ---
Discharge instructions given to patient, IV removed, port deaccessed, meds to bed given, [facility] here to transport patient home.
[2022-01-22 15:40] VITALS: BP 106/69; PULSE 88; RESP 16; TEMP 37.1; O2SAT 95
== END 2022-01-22 15:40 | disposition hospice, home (50) | DRG 871 ==
LOC: ER 14:47 → MEDSURG 15:24
PROVIDERS: Admitting Provider Internal Medicine; Emergency Provider Emergency Medicine; PCP Internal Medicine Medical Oncology; Visit Provider Internal Medicine
DX: A41.9 Sepsis, unspecified organism (principal); G93.41 Metabolic encephalopathy; N39.0 Urinary tract infection, site not specified; D84.9 Immunodeficiency, unspecified; N17.9 Acute kidney failure, unspecified; C78.01 Secondary malignant neoplasm of right lung; R65.20 Severe sepsis without septic shock; R63.0 Anorexia; C54.8 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; Z95.828 Presence of other vascular implants and grafts; B96.89 Other specified bacterial agents as the cause of diseases classified elsewhere
CPT/HCPCS: 36415; 70450; 71045; 74176; 80048; 80053; 81001; 83605; 83690; 83735; 83880; 84145; 84443; 84484; 85025; 86140; 87040; 87077; 87086; 87186; 87486; 87581; 87633; 92523; 92526; 92610; 93005; 93306; 94640; 96365; 96367; 96372; 97110; 97161; 97530; 99285; J1650; J2185; J2543; J3370; J3480; J7030; J7050